=== PATIENT | male | born 1955 | race Two or more races ===

== ENCOUNTER 2019-11-19 11:21 | Day surgery (SDC) | payer MEDICAID, SELFPAY ==
[2019-11-13 10:19] VITALS: BMI 46.1
--- NOTE | 2019-11-18 11:15 | HO.ANESPROP2 ---
Documented by User: Bisi Arechiga 11/18/19 11:19 HPI - Anesthesia Eval Consult details Narrative: 64yo M with chronic Hep C, compensated cirrhosis for EGD PMFSH Past Medical History Medical History (Updated 11/18/19 @ 11:17 by Bisi Arechiga) Anemia Cirrhosis GERD (gastroesophageal reflux disease) Hepatic fibrosis History of substance abuse Hx of hepatitis C Hypertension Osteoarthritis of both knees Pedal edema Surgical History Surgical History (Updated 11/13/19 @ 10:12 by Indira Joseph) History of esophagogastroduodenoscopy (EGD) Hx of appendectomy Hx of endoscopic retrograde cholangiopancreatography Hx of left knee surgery Social History Social History (Updated 11/18/19 @ 11:17 by Bisi Arechiga) Smoking Status: Never smoker Substance Use Type: Former Substance User Advance Directives: No Advance Directives Information Provided: No Advance Directives on File: No Meds Allergies Allergy/AdvReac Type Severity Reaction Status Date / Time No Known Allergies Allergy Verified 11/13/19 10:07 Home Medications Medication Instructions Recorded Confirmed Type ferrous sulfate 325 mg PO BID 11/13/19 11/13/19 History furosemide [Lasix] 40 mg PO DAILY 11/13/19 11/13/19 History methadone 45 mg PO DAILY 11/13/19 11/13/19 History nadolol 40 mg PO DAILY 11/13/19 11/13/19 History omeprazole 20 mg PO DAILY 11/13/19 11/13/19 History oxycodone 5 mg PO Q8H PRN 11/13/19 11/13/19 History spironolactone [Aldactone] 25 mg PO DAILY 11/13/19 11/13/19 History Exam Exam Date and Time: November 18, 2019 1115 Height,Weight and Vital Signs: Height 6 ft 1 in Weight 158.757 kg Pertinent Lab Results Pertinent Lab Results: Laboratory Tests 10/16/19 10/16/19 10/16/19 10:40 10:40 10:40 WBC 2.9 L Hgb 10.9 L Hct 34.8 L Plt Count 58 L PT 14.2 H INR 1.2 H Sodium 139 Potassium 4.7 Chloride 102 Bicarbonate 31 H BUN 25 H Creatinine 1.36 Total Bilirubin 1.0 Direct Bilirubin 0.4 AST 20 ALT 10 Alkaline Phosphatase 118 H Total Protein 8.0 Albumin 3.7 [id number] Hepatitis A IgM Ab Hep Bs Antigen Hep Bs Antibody Hep B Core Total Ab Hepatitis B Interp Hepatitis C Ab (EIA) 10/16/19 10/16/19 10/16/19 10:40 10:40 10:40 WBC Hgb Hct Plt Count PT INR Sodium Potassium Chloride Bicarbonate BUN Creatinine Total Bilirubin Direct Bilirubin AST ALT Alkaline Phosphatase Total Protein Albumin [id number] 158 Hepatitis A IgM Ab NONREACTIVE Hep Bs Antigen NEGATIVE Hep Bs Antibody REACTIVE Hep B Core Total Ab REACTIVE Hepatitis B Interp SEE NOTE Hepatitis C Ab (EIA) REACTIVE H Assessment and Plan Assessment Anesthesia Assessment: Chart Reviewed Documented by User: Ibrahima Rodriguez 11/19/19 12:10 PMFSH Past Medical History Medical History (Updated 11/18/19 @ 11:17 by Bisi Arechiga) Anemia Cirrhosis GERD (gastroesophageal reflux disease) Hepatic fibrosis History of substance abuse Hx of hepatitis C Hypertension Osteoarthritis of both knees Pedal edema Surgical History Surgical History (Updated 11/13/19 @ 10:12 by Indira Joseph) History of esophagogastroduodenoscopy (EGD) Hx of appendectomy Hx of endoscopic retrograde cholangiopancreatography Hx of left knee surgery Social History Social History (Updated 11/18/19 @ 11:17 by Bisi Arechiga) Smoking Status: Never smoker Substance Use Type: Former Substance User Advance Directives: No Advance Directives Information Provided: No Advance Directives on File: No Meds Allergies Allergy/AdvReac Type Severity Reaction Status Date / Time No Known Allergies Allergy Verified 11/13/19 10:07 Home Medications Medication Instructions Recorded Confirmed Type ferrous sulfate 325 mg PO BID 11/13/19 11/13/19 History furosemide [Lasix] 40 mg PO DAILY 11/13/19 11/13/19 History methadone 45 mg PO DAILY 11/13/19 11/13/19 History nadolol 40 mg PO DAILY 11/13/19 11/13/19 History omeprazole 20 mg PO DAILY 11/13/19 11/13/19 History oxycodone 5 mg PO Q8H PRN 11/13/19 11/13/19 History spironolactone [Aldactone] 25 mg PO DAILY 11/13/19 11/13/19 History Exam Airway Mallampati Class: II TM Dist: >3cm Neck ROM: Poor Heart: RRR Assessment and Plan Final Anesthetic Review Final Preanesthetic Review: Consent Obtained/Reviewed Anesthetic Plan Anesthetic Plan: MAC:
[2019-11-19 11:24] VITALS: BP 165/80; PULSE 71; RESP 18; TEMP 36.1; O2SAT 92
[2019-11-19] MEDS: Lactated Ringers 1,000 ML 50 ML IVCONT (11:43)
--- NOTE | 2019-11-19 12:14 | MHC.SHP ---
Pre-Procedural Eval Section B Chief Complaint: cirrhosis Details of Present Illness: variceal screening Relevant Family History (Specify if Yes): No Relevant Social History: None Present Medications: see Short Stay Collaborative assessment Medical History: Significant History (cirrhosis) History of Previous Operations: Relevant previous surgery/procedure and date(s) (appendectomy) Allergies: Allergies Allergy/AdvReac Type Severity Reaction Status Date / Time No Known Allergies Allergy Verified 11/13/19 10:07 Review of Systems Sugical H&P ROS: Negative: Constitution, Cardiovascular, Respiratory, Neurological, Psychiatric, Hem-Onc, Allergic/Immunologic, Gastrointestinal, Genitourinary, Musculoskeletal, Integumentary, Endocrine and Eyes/Ears/Nose/Throat Exam Surgical H&P Exam: Normal: HEENT, Normal: Heart, Normal: Lungs, Normal: Extremities, Normal: Abdomen, Normal: Skin and Normal: Neurological Plan Diagnosis/Plan: Unchanged Patient has been examined and remains a candidate for the planned procedure
--- NOTE | 2019-11-19 12:28 | P.BOP_ITS ---
Brief Operative Note Date of procedure: 11/19/19 Pre-op diagnosis: cirrhosis, varices screening Post-op diagnosis: same Procedure: Procedure Description: EGD FLEXIBLE TRANSORAL UPPER GASTROINTESTINAL ENDOSCOPY UPPER ENDOSCOPY Consent: Indications for the procedure and potential complications of bleeding, perforation, reaction to medications and missed diagnosis were discussed with the patient and informed consent was obtained. Instrument: Olympus GIF H 190 J mid size upper endoscope Monitoring: Vital signs and clinical assessment, continuous EKG monitoring, Pulse oximetry, Carbon Dioxide monitoring and blood pressure monitoring were done throughout the procedure. Procedure: The patient was placed in the left lateral decubitis position and pre-procedure medications were administered and a bite block was placed. The endoscope was inserted into the mouth and advanced under direct vision to the third part of duodenum. A careful inspection was made as the upper endoscope was withdrawn including a retroflexed examination of the proximal stomach; Findings and interventions are described below. Findings: Larynx:normal Esophagus: GE junction at 40 cm, diaphragm hiatus at 40 cm, no varices or eso phagitis. Stomach: Normal appearing mucosa. Biopsies were obtained to r/o h pylori. Grade 2 flap valve on retroflexed examination of the cardia as well as an inflammed polyp measuring about 10 mm which was biopsied, due to oozing 2 clips applied with resolution of bleeding. Duodenum: Mild bulbar duodenitis Intervention: Biopsies as noted above Impression/Findings: gastric polyp, possible hyperplastic duodenitis no varices PLAN: Await bx, depending on bx results may need repeat EGD in 3-6 months if h pylori pos, treat Surgeon: Herve Hill MD Anesthesia: MAC Condition: stable Disposition: PACU
[2019-11-19 12:37] VITALS: BP 150/102; PULSE 86; RESP 16; TEMP 36.4; O2SAT 97
[2019-11-19 12:53] VITALS: BP 142/43; PULSE 87; RESP 17; O2SAT 95
[2019-11-19 13:08] VITALS: BP 155/76; PULSE 74; RESP 14; TEMP 36.4; O2SAT 95
--- NOTE | 2019-11-19 13:38 | HO.POSTANES ---
Post Anesthesia Evaluation Post Anesthesia Evaluation Vital Signs: Vital Signs Temp Pulse Resp BP Pulse Ox 11/19/19 12:37 97.5 F 86 16 150/102 H 97 11/19/19 11:24 97.0 F 71 18 165/80 H 92 Anesthesia: Monitored Mental Status: Awake Pain Control: Satisfactory Nausea/Vomiting: None Hydration: Adequate Anesthesia-Related Issues: No Anes. Related Issues
== END 2019-11-19 13:55 | disposition home or self-care (01) ==
PROVIDERS: PCP Internal Medicine Geriatric Medicine; Visit Provider Internal Medicine Gastroenterology
PROC: 0DJ08ZZ Inspection of Upper Intestinal Tract, Via Natural or Artificial Opening Endoscopic (ICD-10-PCS; CPT 43235; principal; 2019-11-19 12:20)
DX: K74.60 Unspecified cirrhosis of liver (principal); K31.7 Polyp of stomach and duodenum; K29.80 Duodenitis without bleeding; K44.9 Diaphragmatic hernia without obstruction or gangrene; I10 Essential (primary) hypertension; Z79.899 Other long term (current) drug therapy
CPT/HCPCS: 43239; 88305; 88342

== ENCOUNTER → 2020-01-12 08:15 | Outpatient (BNVA) | payer MEDICAID, SELFPAY | PROVIDERS: PCP Internal Medicine Geriatric Medicine; Referring Provider Internal Medicine Geriatric Medicine; Visit Provider Internal Medicine Gastroenterology | DX: Z76.89 Persons encountering health services in other specified circumstances (principal) ==

== ENCOUNTER 2020-01-22 12:53 | Outpatient (RCR) | payer MEDICAID, MEDICARE, SELFPAY | END 2020-05-27 10:38 | disposition home or self-care (01) | LOC: HO.WCC 12:53 | PROVIDERS: Visit Provider Surgery | DX: I87.312 Chronic venous hypertension (idiopathic) with ulcer of left lower extremity (principal); L97.812 Non-pressure chronic ulcer of other part of right lower leg with fat layer exposed; M06.861 Other specified rheumatoid arthritis, right knee; Z79.2 Long term (current) use of antibiotics; Z86.19 Personal history of other infectious and parasitic diseases | CPT/HCPCS: 11042; 11045; 15271; 15272; 15275; 99212; 99215; Q4101 ==

== ENCOUNTER 2020-01-28 10:55 | Outpatient (REF) | payer MEDICAID, SELFPAY ==
--- NOTE | 2020-01-28 | XR_ITS ---
EXAMINATION: XR ANKLE, RIGHT CLINICAL INFORMATION: Right ankle pain COMPARISON: None TECHNIQUE: AP, lateral, and mortise views of the right ankle. FINDINGS: There is small oval ossification at tip medial malleolus likely old ossicle. Possibility of acute avulsion cannot be completely excluded. Clinically correlate. The malleoli are otherwise intact and the ankle mortise is symmetric. The talar dome shows no osteochondral lesion. There is no joint narrowing or destructive process or erosive change. Dorsal spurring present distal talus and midfoot. There is moderate plantar calcaneal spur. XR/XR ankle RT min 3V IMPRESSION: 1. Small oval ossification at tip medial malleolus likely old ossicle. Acute cortical avulsion cannot be completely excluded. Clinically correlate. 2. Dorsal spurring distal talus and midfoot. Plantar calcaneal spur.
--- NOTE | 2020-01-28 | US_ITS ---
EXAMINATION: US VENOUS ULTRASOUND WITH DOPPLER LOWER EXTREMITY, LEFT CLINICAL INFORMATION: Left leg pain COMPARISON: Previous exam February 2018 TECHNIQUE: Ultrasound of the deep veins is performed from the hip to the calf with compression sonography and color and pulse Doppler assessment. Spectral analysis with color-flow imaging is performed. FINDINGS: There is normal venous compression and respiratory variation and augmented flow. The visualized common femoral vein, superficial femoral vein, profunda femoral vein, and popliteal vein shows no evidence of deep venous thrombosis. Calf veins are not visualized. There is no significant popliteal fossa cyst. There is left inguinal lymphadenopathy. Lymph nodes are enlarged, largest measuring 5.3 x 2 x 4.3 cm. These demonstrate normal ultrasound morphology and flow and may be reactive. US/US venous duplex LE LT IMPRESSION: No DVT demonstrated in the left lower extremity from the groin to the knee. Calf veins not well visualized and not evaluated.
== END 2020-01-28 10:56 | disposition home or self-care (01) ==
LOC: HO.XRAY 10:55
PROVIDERS: PCP Internal Medicine Geriatric Medicine; Visit Provider Surgery
DX: I87.312 Chronic venous hypertension (idiopathic) with ulcer of left lower extremity (principal); L97.822 Non-pressure chronic ulcer of other part of left lower leg with fat layer exposed; M25.472 Effusion, left ankle; M79.662 Pain in left lower leg
CPT/HCPCS: 73610; 93971

== ENCOUNTER 2020-03-04 09:19 | Outpatient (REF) | payer MEDICAID, SELFPAY ==
--- NOTE | 2020-03-04 10:58 | XR_ITS ---
EXAMINATION: XR KNEE, BILATERAL XR KNEE, RIGHT CLINICAL INFORMATION: Right knee pain. COMPARISON: 03/01/2017 TECHNIQUE: AP standing view of both knees. Lateral and sunrise views of the right knee. FINDINGS: Right knee: No fracture or subluxation. There is severe medial compartment joint space narrowing with genu varum. Sclerosis along the medial compartment with prominent subchondral cyst formation. There is also narrowing of patellofemoral compartment. Tricompartmental marginal osteophytes. No joint effusion. The soft tissues are unremarkable. Left knee: No fracture or subluxation. Moderate narrowing of the medial and lateral compartments with prominent osteophytes and sclerosis. XR/XR knee standing BI IMPRESSION: Advanced tricompartmental degenerative changes of the right knee, greatest at the medial compartment. This is similar to prior. Degenerative changes of the left knee are also similar to prior on this single view.
--- NOTE | 2020-03-04 10:58 | XR_ITS ---
EXAMINATION: XR KNEE, BILATERAL XR KNEE, RIGHT CLINICAL INFORMATION: Right knee pain. COMPARISON: 03/01/2017 TECHNIQUE: AP standing view of both knees. Lateral and sunrise views of the right knee. FINDINGS: Right knee: No fracture or subluxation. There is severe medial compartment joint space narrowing with genu varum. Sclerosis along the medial compartment with prominent subchondral cyst formation. There is also narrowing of patellofemoral compartment. Tricompartmental marginal osteophytes. No joint effusion. The soft tissues are unremarkable. Left knee: No fracture or subluxation. Moderate narrowing of the medial and lateral compartments with prominent osteophytes and sclerosis. XR/XR knee RT 2V IMPRESSION: Advanced tricompartmental degenerative changes of the right knee, greatest at the medial compartment. This is similar to prior. Degenerative changes of the left knee are also similar to prior on this single view.
== END 2020-03-04 09:20 | disposition home or self-care (01) ==
LOC: HO.HOSX 09:19
PROVIDERS: Visit Provider Physician Assistant
DX: M17.11 Unilateral primary osteoarthritis, right knee (principal)
CPT/HCPCS: 20610; 73560; 73565; 99212; J1040

== ENCOUNTER 2020-03-18 07:46 | Outpatient (REF) | payer MEDICAID, SELFPAY ==
--- NOTE | ~2020-03-18 | US_ITS ---
EXAMINATION: US ABDOMEN COMPLETE CLINICAL INFORMATION: Cirrhosis of liver. COMPARISON: Limited abdominal ultrasound with elastography 10/16/2019. Ultrasound abdomen complete 03/21/2019. CT abdomen and pelvis 01/12/2018. MRI abdomen 12/05/2014. TECHNIQUE: Real-time imaging of the abdominal viscera. FINDINGS: PANCREAS: Most of the pancreas is obscured by gas. ABDOMINAL AORTA: The proximal, mid, and distal segments are normal in caliber. INFERIOR VENA CAVA: Visualized portions are normal. LIVER: The liver is normal in size. The liver contour is normal. There is diffuse increased liver echogenicity. No focal hepatic lesion. There is no intrahepatic biliary duct dilatation seen. GALLBLADDER: Normal. The gallbladder is physiologically distended without evidence of stones, sludge, polyps, wall thickening or pericholecystic fluid. COMMON BILE DUCT: Normal in caliber measuring 0.6 cm in diameter. RIGHT KIDNEY: Normal. No hydronephrosis. No renal calculi or focal parenchymal lesions. The kidney measures 11.0 cm in maximum dimension. LEFT KIDNEY: Normal. No hydronephrosis. No renal calculi or focal parenchymal lesions. The kidney measures 11.0 cm in maximum dimension. SPLEEN: The spleen is enlarged. The spleen measures 16.1 cm in maximum dimension. FREE FLUID: None. US/US abdomen complete IMPRESSION: Coarse increased echogenicity of the liver, likely cirrhosis. No focal lesion seen. Mild splenomegaly measuring 16.1 cm. The rest of the abdominal ultrasound is unremarkable.
== END 2020-03-18 07:47 | disposition home or self-care (01) ==
LOC: HO.US 07:46
PROVIDERS: Visit Provider Internal Medicine Geriatric Medicine
DX: K74.60 Unspecified cirrhosis of liver (principal)
CPT/HCPCS: 76700

== ENCOUNTER 2020-05-01 12:54 | Inpatient (IN) | payer MEDICAID, SELFPAY ==
[2020-05-01] VITALS (8 sets, daily range): BP systolic 122–167; BP diastolic 61–110; PULSE 78–128; RESP 18–20; TEMP 36.1–37.4; O2SAT 92–98; BMI 45.5
--- NOTE | ~2020-05-01 | US_ITS ---
EXAMINATION: LEFT LOWER EXTREMITY DEEP VENOUS ULTRASOUND CLINICAL INFORMATION: Question DVT COMPARISON: Left lower extremity DVT study 01/28/2020 TECHNIQUE: Duplex Doppler imaging with compression maneuvers were performed of the left lower extremity deep venous system. Examination limited secondary to patient body habitus. FINDINGS: The visualized common femoral, femoral and popliteal veins demonstrate normal compressibility and color flow without evidence of venous thrombosis. Evaluation of the superficial femoral vein is significantly limited due to patient body habitus. Visualized portions of the calf veins demonstrate normal color fill-in suggesting patency. There is no evidence of a Muller's cyst. Several enlarged lymph nodes are again identified within the left groin. These lymph nodes again demonstrate a normal morphology. US/US venous duplex LE LT IMPRESSION: No evidence of deep venous thrombosis involving the left lower extremity.
--- NOTE | 2020-05-01 13:15 | PC.NURSE ---
patient a&ox3, ble swelling 3+ edema, vitals stable, gambling monitor sinus tach, will continue to monitor
--- NOTE | 2020-05-01 13:34 | ED_ITS ---
HPI - General Adult General Chief complaint: Extremity Injury, Lower Stated complaint: leg pain Time Seen by Provider: 05/01/20 13:10 History of Present Illness HPI narrative: 64 years old male with history of polysubstance abuse, anemia, thrombocytopenia, hep C presented with a chief complaint of left leg pain, eye redness x2 days. Ten days ago was diagnosed a week ago with the he does not have any cough Onset (ago): day(s) (2) Related Data Home Medications Medication Instructions Recorded Confirmed ferrous sulfate 325 mg PO BID 11/13/19 05/01/20 furosemide [Lasix] 40 mg PO DAILY 11/13/19 05/01/20 methadone 45 mg PO DAILY 11/13/19 11/13/19 omeprazole 20 mg PO DAILY 11/13/19 05/01/20 oxycodone 5 mg PO Q8H PRN 11/13/19 05/01/20 spironolactone [Aldactone] 12.5 mg PO DAILY 11/13/19 05/01/20 propranolol 1 tab PO BID 05/01/20 05/01/20 Allergies Allergy/AdvReac Type Severity Reaction Status Date / Time No Known Allergies Allergy Verified 11/13/19 10:07 Review of Systems Review of Systems: Yes all other systems are reviewed and are negative PMFSH Past Medical History Medical History Anemia Cirrhosis COVID-19 GERD (gastroesophageal reflux disease) Hepatic fibrosis History of substance abuse Hx of hepatitis C Hypertension Osteoarthritis of both knees Pedal edema Surgical History History of esophagogastroduodenoscopy (EGD) Hx of appendectomy Hx of endoscopic retrograde cholangiopancreatography Hx of left knee surgery Family History Family History Father No problems noted. Mother No problems noted. Social History Social History (Updated 05/01/20 @ 17:50 by KEMI Sultana) Household Members: None Housing: Apartment Do you presently have visiting nurse or other home services: Yes Alcohol intake: former Smoking Status: Never smoker Patient Given Instructions on How to Stop Smoking: No Second Hand Smoke Exposure: No Use of substances other than those prescribed or required for medical reasons: No Substance Use Type: Former Substance User Currently Displaying Signs/Symptoms of Drug Intoxication Withdrawal: No Any prior treatment program specific to substance use: Yes ([facility]) Have you been hit, kicked, punched, or otherwise hurt by someone within the past year? If so, by whom?: No Do you feel safe in your current relationship?: No Current Relationship Is there a partner from a previous relationship who is making you feel unsafe now?: No Are you made to feel afraid or neglected: No Protestant Healthcare Practices: amish Advance Directives: No Advance Directives Information Provided: No Advance Directives on File: No Do you have thoughts of harming others: None Do you have a plan to hurt others: No Plan Recently lost weight without trying: No Physical Exam Vital Signs: Vital Signs: Last Vital Signs Temp 97.2 F 05/02/20 03:37 Pulse 68 05/02/20 03:37 Resp 18 05/02/20 03:37 BP 135/68 05/02/20 03:37 Pulse Ox 94 05/02/20 03:37 Body Mass Index 45.5 Const: Other: Patient is awake and alert HENMT: Other: Head eyes nose throat within normal Neck: Neck: Yes normal visual inspection Chest: Chest palpation & inspection: normal inspection of the chest and normal palpation of entire chest wall Resp: Effort & Inspection: normal respiratory effort Cardio: Rate: regular rate Rhythm: regular rhythm GI: Other: Underwent soft not tender Skin: Other: On the left lower extremity has redness the warm left leg, he has excellent pulses in the foot, there is no crepitus. Neuro: Cranial nerves: Yes CN's II-XII intact bilaterally and Yes Facial sensation intact/muscles of mastication intact Cognition (Neuro): normal cognition Course Reevaluation(s) Reevaluation #1: Patient remained stable antibiotic administered Time: 16:34 Reevaluation #2: Remain stable no new complain case was discussed with the hospitalist who accepted the patient. At this time of the chemistry is pending the 1st sample was hemolyzed and the patient need another blood draw, this was communicated to the hospitalist he will follow-up with the chemistry Medical Decision Making MDM Narrative Medical decision making narrative: Patient is normotensive with a blood pressure 136/66 and MAP 89, lactic acid is is mildly elevated is reflecting most likely the story of chronic liver disease of the patient. I do not think this patient is septic , sofa score is negative Lab Data Lab results reviewed: Yes I reviewed the patient's lab results. Result diagrams: 05/01/20 14:01 05/01/20 22:39 Labs: Lab Results 05/01/20 05/01/20 05/01/20 Range/Units 14:00 14:01 14:01 WBC 2.8 L (4.8-10.8) X10*3/uL RBC 4.46 L (4.60-5.80) X10*6/uL Hgb 12.6 L (14.0-18.0) g/dl Hct 41.0 L (42-52) % MCV 91.9 (80-98) fL MCH 28.3 (27.0-33.0) pg MCHC 30.7 L (31.0-36.0) g/dl RDW 14.2 (11.0-16.0) % Plt Count 90 L (160-400) X10*3/uL MPV 12.6 H (9.4-12.4) fL Immature Gran % (Auto) 2.2 H (0.0-0.4) % Neut % (Auto) 64.5 (45-73) % Lymph % (Auto) 17.7 L (20-40) % [place] % (Auto) 15.2 H (2-11) % Eos % (Auto) 0.4 (0-4) % Baso % (Auto) 0.0 (0-2) % Lymph # (Auto) 0.5 L (1.2-4.9) X10*3/uL [place] # (Auto) 0.4 (0.1-1.2) X10*3/uL Eos # (Auto) 0.0 (0.0-0.4) X10*3/uL Baso # (Auto) 0.0 (0.0-0.2) X10*3/uL Abs Immat Gran (auto) 0.06 H (0.00-0.03) X10*3/uL Absolute Neuts (auto) 1.8 L (2.0-8.3) X10*3/uL Absolute Nucleated RBC 0.000 (0.0-0.012) X10*3/uL Nucleated RBC % (auto) 0.0 (0.0-0.2) /100WBC Smear Tech's Comments VERIFIED ESR 77 H (0-15) MM/HR PT (10.8-13.0) SEC INR (0.9-1.1) Sodium (135-145) mmol/L Potassium (3.3-5.1) mmol/L Chloride (96-108) mmol/L Carbon Dioxide (22-29) mmol/L Anion Gap (12-20) BUN (9-16) mg/dL Creatinine (0.5-1.4) mg/dL Estim Creat Clear Calc Estimated GFR Random Glucose (60-115) mg/dL Lactic Acid 2.9 H* (0.5-2.0) mmol/L Calcium (8.4-10.2) mg/dL Total Bilirubin (0.0-1.0) mg/dL AST (5-37) U/L ALT (0-40) U/L Alkaline Phosphatase (39-117) U/L C-Reactive Protein (< or = 0.50) mg/dL Total Protein (6.5-8.0) g/dL Albumin (3.5-5.0) g/dL 05/01/20 05/01/20 Range/Units 14:01 15:45 WBC (4.8-10.8) X10*3/uL RBC (4.60-5.80) X10*6/uL Hgb (14.0-18.0) g/dl Hct (42-52) % MCV (80-98) fL MCH (27.0-33.0) pg MCHC (31.0-36.0) g/dl RDW (11.0-16.0) % Plt Count (160-400) X10*3/uL MPV (9.4-12.4) fL Immature Gran % (Auto) (0.0-0.4) % Neut % (Auto) (45-73) % Lymph % (Auto) (20-40) % [place] % (Auto) (2-11) % Eos % (Auto) (0-4) % Baso % (Auto) (0-2) % Lymph # (Auto) (1.2-4.9) X10*3/uL [place] # (Auto) (0.1-1.2) X10*3/uL Eos # (Auto) (0.0-0.4) X10*3/uL Baso # (Auto) (0.0-0.2) X10*3/uL Abs Immat Gran (auto) (0.00-0.03) X10*3/uL Absolute Neuts (auto) (2.0-8.3) X10*3/uL Absolute Nucleated RBC (0.0-0.012) X10*3/uL Nucleated RBC % (auto) (0.0-0.2) /100WBC Smear Tech's Comments ESR (0-15) MM/HR PT 15.5 H (10.8-13.0) SEC INR 1.3 H (0.9-1.1) Sodium 143 (135-145) mmol/L Potassium 3.1 L (3.3-5.1) mmol/L Chloride 120 H (96-108) mmol/L Carbon Dioxide 17 L (22-29) mmol/L Anion Gap 9 L (12-20) BUN 13 (9-16) mg/dL Creatinine 0.64 (0.5-1.4) mg/dL Estim Creat Clear Calc 182.3 Estimated GFR > 60 Random Glucose 108 (60-115) mg/dL Lactic Acid (0.5-2.0) mmol/L Calcium 4.7 L* (8.4-10.2) mg/dL Total Bilirubin 0.5 (0.0-1.0) mg/dL AST 20 (5-37) U/L ALT 11 (0-40) U/L Alkaline Phosphatase 52 (39-117) U/L C-Reactive Protein 6.72 H (< or = 0.50) mg/dL Total Protein 4.3 L (6.5-8.0) g/dL Albumin 1.7 L (3.5-5.0) g/dL Discharge Plan Discharge Clinical Impression: Cellulitis and abscess of left leg, Pancytopenia Patient Disposition: Admitted As Inpatient Interventions: Admission Worksheet (ED) Last Done: 05/01/20 21:47 Discharge Date/Time: 05/01/20 21:48
[2020-05-01 14:10] LABS: Eosinophils Percent Auto 0.4 % (0-4); Hemoglobin 12.6 g/dl (14.0-18.0); Imm Gran Abs Auto 0.06 X10*3/uL (0.00-0.03); Imm Gran Pct Auto 2.2 % (0.0-0.4); Lymphocytes Absolute Auto 0.5 X10*3/uL (1.2-4.9); Lymphocytes Percent Auto 17.7 % (20-40); MANUAL DIFF FLAG SCAN; Mean Corpuscular HGB Conc 30.7 g/dl (31.0-36.0); Mean Corpuscular Hemoglobin 28.3 pg (27.0-33.0); Mean Corpuscular Volume 91.9 fL (80-98); Mean Platelet Volume 12.6 fL (9.4-12.4); Monocytes Absolute Auto 0.4 X10*3/uL (0.1-1.2); Monocytes Percent Auto 15.2 % (2-11); Neutrophils Absolute Auto 1.8 X10*3/uL (2.0-8.3); Neutrophils Percent Auto 64.5 % (45-73); Red Blood Count 4.46 X10*6/uL (4.60-5.80); Red Cell Distribution Width 14.2 % (11.0-16.0); SCAN SMEAR FLAG 1; White Blood Count 2.8 X10*3/uL (4.8-10.8)
[2020-05-01 14:11] LABS: Platelet Count 90 X10*3/uL (160-400)
[2020-05-01 14:17] LABS: INTERNATIONAL NORM RATIO 1.3 (0.9-1.1); Prothrombin Time 15.5 SEC (10.8-13.0)
[2020-05-01 14:30] LABS: SLIDE REVIEW VERIFIED
[2020-05-01] MEDS: vancomycin HCL 1,500 MG in 0.9 % Sodium Chloride 500 ML 333.33 MG IV (14:34)
--- NOTE | 2020-05-01 14:38 | PC.NURSE ---
iv inserted, labs drawn, pt medicated per order, will continue to monitor.
[2020-05-01 14:53] LABS: Lactic Acid 2.9 mmol/L (0.5-2.0)
[2020-05-01 14:54] LABS: Erythrocyte Sedimentation Rate 77 MM/HR (0-15)
[2020-05-01] MEDS: 0.9 % Sodium Chloride 1,000 ML 999 ML IVCONT (14:59)
--- NOTE | 2020-05-01 15:00 | PC.NURSE ---
ivf started per order
[2020-05-01 15:02] LABS: Blood Urea Nitrogen 13 mg/dL (9-16); Estimated Glomerular Filt Rate > 60
[2020-05-01 16:07] LABS: Reflex Lactate? Lactic Acid Added
--- NOTE | 2020-05-01 16:35 | PC.NURSE ---
patients ivf continue to run at this time as patient has been re-educated to keep arm straight to keep them flowing, will continue to monitor.
[2020-05-01 16:57] LABS: Alanine Aminotransferase 11 U/L (0-40); Albumin Level 1.7 g/dL (3.5-5.0); Alkaline Phosphatase 52 U/L (39-117); Anion Gap 9 (12-20); Aspartate Amino Transferase 20 U/L (5-37); Bilirubin Total 0.5 mg/dL (0.0-1.0); C Reactive Protein 6.72 mg/dL (< or = 0.50); Calcium 4.7 mg/dL (8.4-10.2); Carbon Dioxide 17 mmol/L (22-29); Chloride 120 mmol/L (96-108); Creatinine Clr Calc Pharmacy 182.3; Glucose Random 108 mg/dL (60-115); Potassium 3.1 mmol/L (3.3-5.1); Sodium 143 mmol/L (135-145); Total Protein 4.3 g/dL (6.5-8.0)
--- NOTE | 2020-05-01 17:06 | PM.EVENT ---
Event Note Date of Service: 05/01/20 Event Note: Admission note the patient was seen and evaluated with KEMI Navarrete. I agree with her note, assessment and plan with the following. A64 years old male with PMHx of Cirrhosis, Anemia, HTN, Hepatitis, PVD among others with recent Covid19 infection who presented to the hospital with worsening left lower extremity swelling and pain with reported erythema and tenderness over the last week or so. The patient has been less active recently as he was diagnosed with COVID-19 10 days ago. It has history of cirrhosis with seems like chronic stasis dermatitis. He denies any fever, chills, chest pain, shortness of breath. Admitted for further evaluation and treatment. Left lower extremity cellulitis Ultrasound negative for DVT Blood culture sent Started on clindamycin To get ID eval Covid 19 infx repeat the test, isolate if +ve Rest of evaluations by PA note.
--- NOTE | 2020-05-01 17:17 | P.HPHOSP_ITS ---
History of Present Illness Date of Service: 05/01/20 Chief Complaint: leg pain This is a 64-year-old male with a history of liver cirrhosis who presents to the emergency department with pain in his left leg. His pain began overnight. He denies any associated fevers or chills. He has also noticed redness of his left leg. He has chronic bilateral wounds on both lower extremities which he reports have been present for some time. Lab work was significant for pancytopenia which is chronic due to underlying liver disease. Lactic acid was elevated at 2.9. Potassium low at 3.1 and calcium 4.7. These were supplemented. He had ultrasound of his left leg which was negative for DVT. He was given a dose of IV vancomycin for his left lower extremity cellulitis. Of note patient recently tested positive for covid-19. He denies any shortness of breath or cough and is currently saturating 93% on room air. Review of Systems Review of Systems: Yes all other systems are reviewed and are negative Constitutional: Constitutional: Denies chills and Denies fever(s) Cardiovascular: Cardiovascular: Denies chest pain Respiratory: Respiratory: Denies cough Gastrointestinal: Gastrointestinal: Denies abdominal pain [facility] Medical History Anemia Cirrhosis COVID-19 GERD (gastroesophageal reflux disease) Hepatic fibrosis History of substance abuse Hx of hepatitis C Hypertension Osteoarthritis of both knees Pedal edema Family History Father No problems noted. Mother No problems noted. Surgical History History of esophagogastroduodenoscopy (EGD) Hx of appendectomy Hx of endoscopic retrograde cholangiopancreatography Hx of left knee surgery Social History (Updated 05/01/20 @ 17:50 by KEMI Sultana) Alcohol intake: former Smoking Status: Never smoker Use of substances other than those prescribed or required for medical reasons: No Substance Use Type: Former Substance User Advance Directives: No Advance Directives Information Provided: No Meds Allergies Allergy/AdvReac Type Severity Reaction Status Date / Time No Known Allergies Allergy Verified 11/13/19 10:07 Active Medications: Current Medications Generic Name Dose Route Start Last Admin Trade Name Freq PRN Reason Stop Dose Admin Calcium Gluconate 2 gm in 100 mls @ 50 mls/hr 05/01/20 16:59 Calcium Gluconate IV 05/01/20 18:58 ONCE ONE Home Medications Medication Instructions Recorded Confirmed Last Taken Type ferrous sulfate 325 mg PO BID 11/13/19 05/01/20 Unknown History furosemide [Lasix] 40 mg PO DAILY 11/13/19 05/01/20 Unknown History methadone 45 mg PO DAILY 11/13/19 11/13/19 Unknown History omeprazole 20 mg PO DAILY 11/13/19 05/01/20 Unknown History oxycodone 5 mg PO Q8H PRN 11/13/19 05/01/20 Unknown History spironolactone [Aldactone] 12.5 mg PO DAILY 11/13/19 05/01/20 Unknown History propranolol 1 tab PO BID 05/01/20 05/01/20 Unknown History Physical Exam Vital Signs and Narrative: Vital Signs: Last Vital Signs Temp 98.5 F 05/01/20 16:00 Pulse 103 H 05/01/20 16:00 Resp 18 05/01/20 16:00 BP 142/70 H 05/01/20 16:00 Pulse Ox 95 05/01/20 16:00 Body Mass Index 45.5 Const: Nutritional Appearance: obese Orientation/consciousness: patient oriented x3 HENMT: Head: Yes normocephalic and Yes atraumatic Eyes: Sclerae: sclerae normal Chest: Chest palpation & inspection: normal inspection of the chest Resp: Effort & Inspection: normal respiratory effort and no respiratory distress Cardio: Rate: regular rate Rhythm: regular rhythm GI: Palpation (GI): Soft to palpation and nontender Skin: Other: left leg erythema from ankle to knee. b/l shallow ulcers b/l ankles Neuro: General: patient oriented x3 Cranial nerves: Yes CN's II-XII intact bilaterally and Yes Bilaterally intact EOM present Results Labs CBC and Chem 7: 05/01/20 14:01 05/01/20 15:45 Labs: Laboratory Results - last 24 hr 05/01/20 05/01/20 05/01/20 14:00 14:01 14:01 MCV 91.9 MCH 28.3 MCHC 30.7 L RDW 14.2 Plt Count 90 L MPV 12.6 H Immature Gran % (Auto) 2.2 H Neut % (Auto) 64.5 Lymph % (Auto) 17.7 L Valencia % (Auto) 15.2 H Eos % (Auto) 0.4 Baso % (Auto) 0.0 Lymph # (Auto) 0.5 L Valencia # (Auto) 0.4 Eos # (Auto) 0.0 Baso # (Auto) 0.0 Abs Immat Gran (auto) 0.06 H Absolute Neuts (auto) 1.8 L Absolute Nucleated RBC 0.000 Nucleated RBC % (auto) 0.0 Smear Tech's Comments VERIFIED ESR 77 H PT INR Anion Gap Estim Creat Clear Calc Estimated GFR Random Glucose Lactic Acid 2.9 H* Calcium Total Bilirubin AST ALT Alkaline Phosphatase C-Reactive Protein Total Protein Albumin 05/01/20 05/01/20 14:01 15:45 MCV MCH MCHC RDW Plt Count MPV Immature Gran % (Auto) Neut % (Auto) Lymph % (Auto) Valencia % (Auto) Eos % (Auto) Baso % (Auto) Lymph # (Auto) Valencia # (Auto) Eos # (Auto) Baso # (Auto) Abs Immat Gran (auto) Absolute Neuts (auto) Absolute Nucleated RBC Nucleated RBC % (auto) Smear Tech's Comments ESR PT 15.5 H INR 1.3 H Anion Gap 9 L Estim Creat Clear Calc 182.3 Estimated GFR > 60 Random Glucose 108 Lactic Acid Calcium 4.7 L* Total Bilirubin 0.5 AST 20 ALT 11 Alkaline Phosphatase 52 C-Reactive Protein 6.72 H Total Protein 4.3 L Albumin 1.7 L Imaging Radiologist's Impressions: Impressions Venous Duplex 05/01/20 13:26 IMPRESSION: No evidence of deep venous thrombosis involving the left lower extremity. Assessment and Plan (1) Pancytopenia: Status: Acute (2) Hypocalcemia: Status: Acute (3) Cellulitis: Status: Acute This is a 64-year-old male with a history of hepatitis C, liver cirrhosis, anemia, history of polysubstance abuse on methadone, recently diagnosed COVID- 19 who presents to the emergency department with left leg pain found to cellulitis and incidentally found to have hypo calcemia Left lower extremity cellulitis No evidence of sepsis Lactic acid is elevated secondary to underlying liver dysfunction not sepsis -IV clindamycin -ID consult Pancytopenia Related to underlying liver disease Thrombocytopenia not related to sepsis -continue iron supplementation Liver cirrhosis Hold Lasix -continue spironolactone -continue propanolol Hypocalcemia Corrected for albumin 6.5 Received calcium gluconate -obtain EKG -repeat in a.m. COVID 19 Tested positive approximately 10 days ago Asymptomatic. No hypoxia No indication for dexamethasone History of substance abuse Continue methadone when dose has been confirmed Morbid obesity BMI 45.5, likely contributing to venous stasis, chronic leg edema, underlying leg wounds and cellulitis Elevated lactic acid Related underlying liver disease DVT prophylaxis-early ambulation, chemoprophylaxis contraindicated due to thrombocytopenia/anemia Code status-full code This case was discussed with Dr. Watson
[2020-05-01] MEDS: Calcium Gluconate/NaCl,Iso-Osm 2 GM/100 ML PLAST..BAG IV (17:25)
[2020-05-01] MEDS: Potassium Chloride Packet 20 MEQ PACKET 40 MEQ PO (17:25)
--- NOTE | 2020-05-01 17:27 | PC.NURSE ---
pt medicated per order, vss
--- NOTE | 2020-05-01 17:57 | ECG_ITS ---
Test Reason : GENERAL MEDICAL Blood Pressure : / mmHG Vent. Rate : 097 BPM Atrial Rate : 097 BPM P-R Int : 226 ms QRS Dur : 100 ms QT Int : 362 ms P-R-T Axes : 078 004 052 degrees QTc Int : 459 ms Sinus rhythm with 1st degree A-V block Otherwise normal ECG No significant changes when compared with the previous EKG of 26 nov 2014 Referred By: Marcela Duncan Electronically Signed By:SHAHIDA DAWKINS
[2020-05-01 18:07] LABS: ~Lactic Acid-LAB USE ONLY 1.1 mmol/L (0.5-2.0)
[2020-05-01 18:10] LABS: COVID-19 Test Positive (Negative)
--- NOTE | 2020-05-01 19:30 | PC.NURSE ---
pt encourged to keep arm straight to allow ivf to infuse properly, will continue to monitor.
--- NOTE | 2020-05-01 20:27 | PC.NURSE ---
report called to floor
--- NOTE | 2020-05-01 21:48 | PC.NURSE ---
patient went to the floor with tech, upon going to the retail selling floor leader came back stating that the patient was upset that he wasnt told he was covid positive. the patient came into the ED tonight as known covid positive and was placed in the covid area of the ED for lower extremity pain not for covid symptoms
[2020-05-01] MEDS: Propranolol HCL 40 MG TABLET PO (22:42)
[2020-05-01] MEDS: 0.9 % Sodium Chloride Flush 3 ML SYRINGE IVFLUSH (22:43)
[2020-05-01] MEDS: Ferrous Sulfate 324 MG TABLET.DR PO (22:43)
[2020-05-01] MEDS: Clindamycin Phosphate/D5W 600 MG/50 ML PIGGYBACK 100 MG IV (22:43)
[2020-05-01 23:28] LABS: Magnesium 1.9 mg/dL (1.6-2.6); Potassium 4.5 mmol/L (3.3-5.1)
[2020-05-02] VITALS (9 sets, daily range): BP systolic 112–141; BP diastolic 61–79; PULSE 61–68; RESP 18–22; TEMP 35.5–36.6; O2SAT 94–96
[2020-05-02] MEDS: Clindamycin Phosphate/D5W 600 MG/50 ML PIGGYBACK 100 MG IV ×3 (05:22→19:59)
[2020-05-02] MEDS: Omeprazole 20 MG CAPSULE.DR PO (05:23)
[2020-05-02 07:12] LABS: Basophils Percent Auto 0.3 % (0-2); Eosinophils Absolute Auto 0.1 X10*3/uL (0.0-0.4); Eosinophils Percent Auto 1.6 % (0-4); Hemoglobin 12.3 g/dl (14.0-18.0); Imm Gran Abs Auto 0.07 X10*3/uL (0.00-0.03); Imm Gran Pct Auto 2.2 % (0.0-0.4); Lymphocytes Absolute Auto 0.8 X10*3/uL (1.2-4.9); Lymphocytes Percent Auto 25.6 % (20-40); MANUAL DIFF FLAG SCAN; Mean Corpuscular HGB Conc 31.5 g/dl (31.0-36.0); Mean Corpuscular Hemoglobin 28.6 pg (27.0-33.0); Mean Corpuscular Volume 90.7 fL (80-98); Mean Platelet Volume 12.3 fL (9.4-12.4); Monocytes Absolute Auto 0.5 X10*3/uL (0.1-1.2); Monocytes Percent Auto 15.7 % (2-11); Neutrophils Absolute Auto 1.7 X10*3/uL (2.0-8.3); Neutrophils Percent Auto 54.6 % (45-73); Red Cell Distribution Width 14.4 % (11.0-16.0); SCAN SMEAR FLAG 1; White Blood Count 3.1 X10*3/uL (4.8-10.8)
[2020-05-02 07:31] LABS: Platelet Count 92 X10*3/uL (160-400)
[2020-05-02 07:41] LABS: Alanine Aminotransferase 16 U/L (0-40); Albumin Level 2.7 g/dL (3.5-5.0); Alkaline Phosphatase 83 U/L (39-117); Aspartate Amino Transferase 32 U/L (5-37); Bilirubin Direct 0.6 mg/dL (0.0-0.5); Total Protein 7.2 g/dL (6.5-8.0)
[2020-05-02 08:43] LABS: SLIDE REVIEW VERIFIED
[2020-05-02] MEDS: Spironolactone 25 MG TABLET 12.5 MG PO (08:53)
[2020-05-02] MEDS: Ferrous Sulfate 324 MG TABLET.DR PO ×2 (08:54→19:59)
[2020-05-02] MEDS: 0.9 % Sodium Chloride Flush 3 ML SYRINGE IVFLUSH ×2 (08:55→17:14)
[2020-05-02] MEDS: Propranolol HCL 40 MG TABLET PO ×2 (08:55→19:59)
--- NOTE | 2020-05-02 11:15 | MHC.CM.PN ---
Patient is on the Covid Unit; CM attempted to call First Contact/Brother/Serg @ [phone], but spoke instead with the family member who was available. Patient lives in a house with his adult Son and he uses 2 canes or crutches to assist with mobility. Family believes Patient is active with [facility] for wound care and the goal for dc is for Patient to return home, with resumption of these services. CM has initiated and will follow for dc planning. PCP is Dr. Jose Arteaga.
--- NOTE | 2020-05-02 11:21 | MHC.CM.PN ---
[facility] has confirmed that Patient us active with them.
--- NOTE | 2020-05-02 13:30 | HO.PM.IMPN ---
Subjective Subjective Date of Service: 05/02/20 <KEMI Sultana - Last Filed: 05/02/20 13:54> 05/02/20 <Ana Watts MD - Last Filed: 05/02/20 14:57> Interval History: f/u leg cellulitis, hypocalcemia 9 beat run of Vtach overnight, asymptomatic Notes improvement in left leg redness, no complaints this am <KEMI Sultana - Last Filed: 05/02/20 13:54> Review of Systems Review of Systems: Yes all other systems are reviewed and are negative <KEMI Sultana - Last Filed: 05/02/20 13:54> Constitutional Constitutional: Denies chills and Denies fever(s) <KEMI Sultana - Last Filed: 05/02/20 13:54> Cardiovascular Cardiovascular: Denies chest pain and Denies palpitations <KEMI Sultana - Last Filed: 05/02/20 13:54> Respiratory Respiratory: Denies cough <KEMI Sultana - Last Filed: 05/02/20 13:54> Gastrointestinal Gastrointestinal: Denies abdominal pain <KEMI Sultana - Last Filed: 05/02/20 13:54> Endocrine Endocrine: Denies palpitations <KEMI Sultana - Last Filed: 05/02/20 13:54> Physical Exam Vital Signs: Vital Signs: Last Vital Signs Temp 97 F 05/02/20 11:07 Pulse 66 05/02/20 11:07 Resp 20 05/02/20 11:07 BP 137/77 05/02/20 11:07 Pulse Ox 95 05/02/20 11:07 Body Mass Index 45.5 <EKMI Sultana - Last Filed: 05/02/20 13:54> Const: Nutritional Appearance: obese <KEMI Sultana - Last Filed: 05/02/20 13:54> Orientation/consciousness: patient oriented x3 <KEMI Sultana - Last Filed: 05/02/20 13:54> HENMT: Head: Yes normocephalic and Yes atraumatic <KEMI Sultana - Last Filed: 05/02/20 13:54> Eyes: Sclerae: sclerae normal <KEMI Sultana Last Filed: 05/02/20 13:54> Chest: Chest palpation & inspection: normal inspection of the chest <KEMI Sultana - Last Filed: 05/02/20 13:54> Resp: Effort & Inspection: normal respiratory effort and no respiratory distress <KEMI Sultana Last Filed: 05/02/20 13:54> Cardio: Rate: regular rate <KEMI Sultana - Last Filed: 05/02/20 13:54> Rhythm: regular rhythm <KEMI Sultana - Last Filed: 05/02/20 13:54> GI: Palpation (GI): Soft to palpation and nontender <KEMI Sultana Last Filed: 05/02/20 13:54> Skin: Other: left leg erythema from ankle to knee - improving. b/l shallow ulcers b/l ankles <KEMI Sultana Last Filed: 05/02/20 13:54> Neuro: General: patient oriented x3 <KEMI Sultana Last Filed: 05/02/20 13:54> Cranial nerves: Yes CN's II-XII intact bilaterally and Yes Bilaterally intact EOM present <KEMI Sultana Last Filed: 05/02/20 13:54> Objective Data Current Medications Generic Name Dose Route Start Last Admin Trade Name Hugoq PRN Reason Stop Dose Admin Acetaminophen 650 mg 05/01/20 18:33 Acetaminophen 325 Mg Tablet PO Q6H PRN Pain, Mild (Pain Scale 1-3) Docusate Sodium 100 mg 05/01/20 18:33 Docusate Sodium 100 Mg Capsule PO DAILY PRN Constipation Ferrous Sulfate 324 mg 05/01/20 21:00 05/02/20 08:54 Ferrous Sulfate 324 Mg Tablet.Dr PO 324 mg BID TRACI Administration Clindamycin Phosphate 600 mg in 50 mls @ 100 mls/hr 05/01/20 20:00 05/02/20 12:40 Cleocin IV 100 mls/hr Q8H TRACI Administration Omeprazole 20 mg 05/02/20 06:30 05/02/20 05:23 Omeprazole 20 Mg Capsule. PO 20 mg DAILY@0630 TRACI Administration Propranolol HCl 40 mg 05/01/20 21:00 05/02/20 08:55 Propranolol Hcl 40 Mg Tablet PO 40 mg BID TRACI Administration Protocol Sodium Chloride 3 ml 05/02/20 00:00 05/02/20 08:55 0.9 % Sodium Chloride Flush 3 Ml Syringe IVFLUSH 3 ml QSHIFT TRACI Administration Spironolactone 12.5 mg 05/02/20 09:00 05/02/20 08:53 Spironolactone 25 Mg Tablet PO 12.5 mg DAILY TRACI Administration Protocol <KEMI Sultana - Last Filed: 05/02/20 13:54> Labs CBC & Chem 7: : 05/02/20 05:58 05/02/20 05:58 <KEMI Sultana - Last Filed: 05/02/20 13:54> Assessment and Plan (1) Pancytopenia: Status: Acute <KEMI Sultana - Last Filed: 05/02/20 13:54> (2) Hypocalcemia: Status: Acute <KEMI Sultana - Last Filed: 05/02/20 13:54> (3) Cellulitis: Status: Acute <KEMI Sultana - Last Filed: 05/02/20 13:54> Assessment and Plan: This is a 64-year-old male with a history of hepatitis C, liver cirrhosis, anemia, history of polysubstance abuse on methadone, recently diagnosed COVID-19 who presents to the emergency department with left leg pain found to cellulitis and incidentally found to have hypo calcemia Left lower extremity cellulitis, nonpurulent. Improving No evidence of sepsis. Lactic acid is elevated secondary to underlying liver dysfunction not sepsis -IV clindamycin D#2 -ID consult pending Hypocalcemia Corrected for albumin 6.5 on arrival, improved to 8.0 today s/p calcium gluconate. Qtc ok check vit d NSVT K, Mag wnl this am on BB -echo Pancytopenia. Stable/chronic Related to underlying liver disease Thrombocytopenia not related to sepsis -continue iron supplementation Liver cirrhosis Hold Lasix for hypocalemia -continue spironolactone -continue propanolol COVID 19 Tested positive approximately 10 days ago Asymptomatic. No hypoxia No indication for dexamethasone History of substance abuse Continue methadone Morbid obesity BMI 45.5, likely contributing to venous stasis, chronic leg edema, underlying leg wounds and cellulitis Elevated lactic acid Related underlying liver disease DVT prophylaxis-early ambulation, chemoprophylaxis contraindicated due to thrombocytopenia/anemia Code status-full code This case was discussed with Dr. Watson <KEMI Sultana - Last Filed: 05/02/20 13:54>
[2020-05-02 13:43] LABS: Anion Gap 17 (12-20); Blood Urea Nitrogen 17 mg/dL (9-16); Carbon Dioxide 23 mmol/L (22-29); Chloride 103 mmol/L (96-108); Creatinine Clr Calc Pharmacy 112.1; Estimated Glomerular Filt Rate > 60; Glucose Random 84 mg/dL (60-115); Potassium 4.7 mmol/L (3.3-5.1); Sodium 138 mmol/L (135-145)
[2020-05-03] VITALS (7 sets, daily range): BP systolic 119–146; BP diastolic 54–77; PULSE 68–80; RESP 16–18; TEMP 36.2–37.1; O2SAT 92–96
[2020-05-03] MEDS: 0.9 % Sodium Chloride Flush 3 ML SYRINGE IVFLUSH ×4 (00:07→23:58)
[2020-05-03 00:24] LABS: Vitamin D 25-OH Total 13.9 ng/mL (>30)
[2020-05-03] MEDS: Acetaminophen 325 MG TABLET 650 MG PO (01:39)
[2020-05-03] MEDS: Clindamycin Phosphate/D5W 600 MG/50 ML PIGGYBACK 100 MG IV ×3 (04:22→20:22)
[2020-05-03] MEDS: Omeprazole 20 MG CAPSULE.DR PO (05:59)
[2020-05-03 07:25] LABS: Anion Gap 15 (12-20); Blood Urea Nitrogen 18 mg/dL (9-16); Calcium 8.1 mg/dL (8.4-10.2); Carbon Dioxide 27 mmol/L (22-29); Chloride 101 mmol/L (96-108); Estimated Glomerular Filt Rate > 60; Glucose Random 91 mg/dL (60-115); Magnesium 1.9 mg/dL (1.6-2.6); Potassium 5.3 mmol/L (3.3-5.1); Sodium 138 mmol/L (135-145)
[2020-05-03] MEDS: Ferrous Sulfate 324 MG TABLET.DR PO ×2 (08:46→20:22)
[2020-05-03] MEDS: Spironolactone 25 MG TABLET 12.5 MG PO (08:46)
[2020-05-03] MEDS: Propranolol HCL 40 MG TABLET PO ×2 (08:46→20:21)
[2020-05-03] MEDS: Sodium Polystyrene Sulfon/Sorb 15 GM/60 ML ORAL.SUSP 30 GM PO (08:46)
--- NOTE | 2020-05-03 13:16 | MHC.CM.PN ---
patient is on IV Clindamycin for cellulitis LLE, patient has chronic LE wounds. Patient also COVID+ but is on RA at this time. Discharge plan is home with resumption of services from [facility]. Patient's son will provide transportation. CM will continue to follow patient for discharge needs.
--- NOTE | 2020-05-03 14:38 | P.PNIM_ITS ---
Subjective Subjective Date of Service: 05/03/20 Interval History: the patient was seen and evaluated this morning Laying in bed, feels comfortable Denies any fever, chills or shortness of breath No reported other overnight events. Systemic review: No fever, chills or weakness No chest pain, palpitation No shortness of breath or coughing No abdominal pain, nausea or vomiting No urinary symptoms No any rash or wounds Physical Exam 2 Vital Signs: Vital Signs: Last Vital Signs Temp 98.7 F 05/03/20 11:33 Pulse 77 05/03/20 11:33 Resp 18 05/03/20 11:33 BP 142/54 H 05/03/20 11:33 Pulse Ox 96 05/03/20 11:33 Body Mass Index 45.5 Const: Other: Constitutional : Alert, oriented, not in distress Neck : Normal inspection, Supple Cardiovascular : RRR, S1 S2, no lower extremity edema Respiratory : Good bilateral air entry, no crackles, wheezes or rhonchi Gastrointestinal: soft, lax, Normal bowel sounds, Non tender Skin : Warm/Dry, left lower extremity swelling with erythema, decreased warmth and tenderness Neurological : Alert & oriented x3, No focal deficit Objective Data Current Medications Generic Name Dose Route Start Last Admin Trade Name Freq PRN Reason Stop Dose Admin Acetaminophen 650 mg 05/01/20 18:33 05/03/20 01:39 Acetaminophen 325 Mg Tablet PO 650 mg Q6H PRN Administration Pain, Mild (Pain Scale 1-3) Docusate Sodium 100 mg 05/01/20 18:33 Docusate Sodium 100 Mg Capsule PO DAILY PRN Constipation Ferrous Sulfate 324 mg 05/01/20 21:00 05/03/20 08:46 Ferrous Sulfate 324 Mg Tablet. PO 324 mg BID TRACI Administration Clindamycin Phosphate 600 mg in 50 mls @ 100 mls/hr 05/01/20 20:00 05/03/20 13:17 Cleocin IV Infused Q8H TRACI Infusion Methadone HCl 30 mg 05/02/20 14:00 05/03/20 08:46 Methadone Hcl 1 Mg/0.1 Ml Oral.Conc PO 30 mg DAILY TRACI Administration Omeprazole 20 mg 05/02/20 06:30 05/03/20 05:59 Omeprazole 20 Mg Capsule. PO 20 mg DAILY@0630 TRACI Administration Propranolol HCl 40 mg 05/01/20 21:00 05/03/20 08:46 Propranolol Hcl 40 Mg Tablet PO 40 mg BID TRACI Administration Protocol Sodium Chloride 3 ml 05/02/20 00:00 05/03/20 08:46 0.9 % Sodium Chloride Flush 3 Ml Syringe IVFLUSH 3 ml QSHIFT TRACI Administration Spironolactone 12.5 mg 05/02/20 09:00 05/03/20 08:46 Spironolactone 25 Mg Tablet PO 12.5 mg DAILY TRACI Administration Protocol Labs CBC & Chem 7: 05/02/20 05:58 05/03/20 05:34 Microbiology Microbiology Results: Microbiology 05/01/20 14:02 Blood - Venous Blood Culture - Preliminary No growth after 24 hours. 05/01/20 14:01 Blood - Venous Blood Culture - Preliminary No growth after 24 hours. Assessment and Plan (1) Pancytopenia: Status: Acute (2) Hypocalcemia: Status: Acute (3) Cellulitis: Status: Acute Assessment and Plan: A 64 years old male with PMHx of Cirrhosis, Anemia, HTN, Hepatitis, PVD among others with recent Covid19 infection who presented to the hospital with worsening left lower extremity swelling and pain with reported erythema and tenderness over the last week or so. Left lower extremity cellulitis Improving Ultrasound negative for DVT Blood culture pending Continue with clindamycin D3 Pending ID eval Hyperkalemia Potassium of 5.6 to give Kayexalate and follow BMP Hypocalcemia Corrected calcium improved to 9 after calcium gluconate infusion Pending vitamin-D3 continue to monitor BMP Covid19 Not requiring O2 supplement, isolate NSVT Electrolytes within normal including Mg continue beta-manpreet Keep on tele Pancytopenia. Stable/chronic Related to underlying liver disease Thrombocytopenia not related to sepsis -continue iron supplementation Liver cirrhosis Hold Lasix for hypocalemia continue spironolactone continue propanolol History of substance abuse Continue methadone Morbid obesity BMI 45.5, likely contributing to venous stasis, chronic leg edema, underlying leg wounds and cellulitis Elevated lactic acid Related underlying liver disease DVT prophylaxis early ambulation, chemoprophylaxis contraindicated due to thrombocytopenia/anemia
--- NOTE | 2020-05-03 21:41 | W.PM.IDCN ---
History of Present Illness Data of Consult Service Date: 05/03/20 Requesting physician: Ana Watts Primary Care Provider: MD KIKA Cleary Reason for consult: erythema leg He presents with redness bilateral legs He has had one to two months bilateral open areas legs He has no fever or chills PMFSH Past Medical History Medical History Anemia Cirrhosis COVID-19 GERD (gastroesophageal reflux disease) Hepatic fibrosis History of substance abuse Hx of hepatitis C Hypertension Osteoarthritis of both knees Pedal edema Family History Family History Father No problems noted. Mother No problems noted. Surgical History Surgical History History of esophagogastroduodenoscopy (EGD) Hx of appendectomy Hx of endoscopic retrograde cholangiopancreatography Hx of left knee surgery Social History Social History Household Members: None Housing: Apartment Do you presently have visiting nurse or other home services: Yes Alcohol intake: former Smoking Status: Never smoker Patient Given Instructions on How to Stop Smoking: No Second Hand Smoke Exposure: No Use of substances other than those prescribed or required for medical reasons: No Substance Use Type: Former Substance User Currently Displaying Signs/Symptoms of Drug Intoxication Withdrawal: No Any prior treatment program specific to substance use: Yes ([facility]) Have you been hit, kicked, punched, or otherwise hurt by someone within the past year? If so, by whom?: No Do you feel safe in your current relationship?: No Current Relationship Is there a partner from a previous relationship who is making you feel unsafe now?: No Are you made to feel afraid or neglected: No Synagogue Healthcare Practices: confucianism Advance Directives: No Advance Directives Information Provided: No Advance Directives on File: No Do you have thoughts of harming others: None Do you have a plan to hurt others: No Plan Recently lost weight without trying: No service: No Current occupational status: disabled Meds Allergies Allergy/AdvReac Type Severity Reaction Status Date / Time No Known Allergies Allergy Verified 11/13/19 10:07 Active Medications: Current Medications Generic Name Dose Route Start Last Admin Trade Name Hugoq PRN Reason Stop Dose Admin Acetaminophen 650 mg 05/01/20 18:33 05/03/20 01:39 Acetaminophen 325 Mg Tablet PO 650 mg Q6H PRN Administration Pain, Mild (Pain Scale 1-3) Docusate Sodium 100 mg 05/01/20 18:33 Docusate Sodium 100 Mg Capsule PO DAILY PRN Constipation Ferrous Sulfate 324 mg 05/01/20 21:00 05/03/20 20:22 Ferrous Sulfate 324 Mg Tablet. PO 324 mg BID TRACI Administration Clindamycin Phosphate 600 mg in 50 mls @ 100 mls/hr 05/01/20 20:00 05/03/20 21:05 Cleocin IV Infused Q8H TRACI Infusion Methadone HCl 30 mg 05/02/20 14:00 05/03/20 08:46 Methadone Hcl 1 Mg/0.1 Ml Oral.Conc PO 30 mg DAILY TRACI Administration Omeprazole 20 mg 05/02/20 06:30 05/03/20 05:59 Omeprazole 20 Mg Capsule. PO 20 mg DAILY@0630 TRACI Administration Propranolol HCl 40 mg 05/01/20 21:00 05/03/20 20:21 Propranolol Hcl 40 Mg Tablet PO 40 mg BID TRACI Administration Protocol Sodium Chloride 3 ml 05/02/20 00:00 05/03/20 16:47 0.9 % Sodium Chloride Flush 3 Ml Syringe IVFLUSH 3 ml QSHIFT TRACI Administration Spironolactone 12.5 mg 05/02/20 09:00 05/03/20 08:46 Spironolactone 25 Mg Tablet PO 12.5 mg DAILY TRACI Administration Protocol Home Medications Medication Instructions Recorded Confirmed Last Taken Type ferrous sulfate 325 mg PO BID 11/13/19 05/01/20 Unknown History furosemide [Lasix] 40 mg PO DAILY 11/13/19 05/01/20 Unknown History methadone 29 mg PO DAILY 11/13/19 05/02/20 Unknown History omeprazole 20 mg PO DAILY 11/13/19 05/01/20 Unknown History oxycodone 5 mg PO Q8H PRN 11/13/19 05/01/20 Unknown History spironolactone [Aldactone] 12.5 mg PO DAILY 11/13/19 05/01/20 Unknown History propranolol 1 tab PO BID 05/01/20 05/01/20 Unknown History Physical Exam Vital Signs: Vital Signs: Last Vital Signs Temp 97.2 F 05/03/20 20:00 Pulse 78 05/03/20 20:21 Resp 18 05/03/20 20:00 BP 119/71 05/03/20 20:21 Pulse Ox 94 05/03/20 20:00 Body Mass Index 45.5 Const: General: cooperative HENMT: Head: Yes normal to inspection Mouth: Normal oral and palatal mucosa present Resp: Effort & Inspection: normal respiratory effort Cardio: Rate: regular rate Rhythm: regular rhythm GI: Palpation (GI): Soft to palpation and nontender Extrem: Other: venous stasis changes bilaterally,right more than left Results Labs CBC & Chem 7: 05/02/20 05:58 05/03/20 05:34 Labs: BMP 05/03/20 05:34 Sodium 138 Potassium 5.3 H Chloride 101 Carbon Dioxide 27 BUN 18 H Creatinine 1.09 Calcium 8.1 L Microbiology Microbiology Results: Microbiology 05/01/20 14:02 Blood - Venous Blood Culture - Preliminary No growth after 48 hours. 05/01/20 14:01 Blood - Venous Blood Culture - Preliminary No growth after 48 hours. Assessment and Plan (1) Cellulitis: Problem details: He has chronic venous stasis changes with some superficial cellulitis This is likely strep infection Status: Acute Continue IV Clindamycin Change to po Clindamycin 300 tid for 5 days outpatient Elevate and compress legs
[2020-05-04] VITALS: BP 130/73; PULSE 70; RESP 18; TEMP 36.8; O2SAT 94
[2020-05-04 04:00] VITALS: BP 129/72; PULSE 72; RESP 18; TEMP 36.6; O2SAT 92
[2020-05-04] MEDS: Clindamycin Phosphate/D5W 600 MG/50 ML PIGGYBACK 100 MG IV ×2 (04:03→12:09)
[2020-05-04] MEDS: Omeprazole 20 MG CAPSULE.DR PO (05:34)
[2020-05-04 06:35] LABS: Anion Gap 14 (12-20); Blood Urea Nitrogen 18 mg/dL (9-16); Calcium 8.1 mg/dL (8.4-10.2); Carbon Dioxide 28 mmol/L (22-29); Chloride 100 mmol/L (96-108); Creatinine Clr Calc Pharmacy 104.1; Estimated Glomerular Filt Rate > 60; Glucose Random 100 mg/dL (60-115); Potassium 4.5 mmol/L (3.3-5.1); Sodium 137 mmol/L (135-145)
[2020-05-04 07:31] VITALS: BP 138/72; PULSE 69; RESP 18; TEMP 36.1; O2SAT 95
[2020-05-04 09:30] VITALS: BP 138/72; PULSE 69
[2020-05-04] MEDS: Ferrous Sulfate 324 MG TABLET.DR PO (09:30)
[2020-05-04] MEDS: Propranolol HCL 40 MG TABLET PO (09:30)
[2020-05-04] MEDS: Spironolactone 25 MG TABLET 12.5 MG PO (09:30)
[2020-05-04] MEDS: 0.9 % Sodium Chloride Flush 3 ML SYRINGE IVFLUSH (09:30)
[2020-05-04 11:14] VITALS: BP 129/67; PULSE 75; RESP 18; TEMP 36.2; O2SAT 95
--- NOTE | 2020-05-04 11:32 | MHC.CM.PN ---
Male 64 DX LLE Cellulitis, Hypocalcemia. He is discharged to home today. [facility] will resume sn services for wound care. The Pts son is providing transportation.
--- NOTE | 2020-05-04 12:01 | P.DS_ITS ---
DS: Providers Provider Date of Service: 05/04/20 Date of admission: 05/01/20 17:14 Primary care physician: Jose Arteaga MD Consults: 05/01/20 18:33 Consult to Infectious Diseases Routine Consulting Provider: Ophelia Landeros Reason for consultation: left leg cellulitis Has provider been notified: No DS: Diagnosis Discharge Diagnosis (1) Cellulitis: Status: Acute (2) Hypocalcemia: Status: Acute (3) COVID-19 virus infection: Status: Acute (4) Pancytopenia: Status: Acute DS: Medications Discharge Medications Home Medications: Home Medications Medication Instructions Recorded Confirmed ferrous sulfate 325 mg PO BID 11/13/19 05/01/20 furosemide [Lasix] 40 mg PO DAILY 11/13/19 05/01/20 methadone 29 mg PO DAILY 11/13/19 05/02/20 omeprazole 20 mg PO DAILY 11/13/19 05/01/20 oxycodone 5 mg PO Q8H PRN 11/13/19 05/01/20 spironolactone [Aldactone] 12.5 mg PO DAILY 11/13/19 05/01/20 propranolol 1 tab PO BID 05/01/20 05/01/20 Previous Rx's Medication Instructions Recorded clindamycin HCl 300 mg PO TID 5 Days #15 cap 05/04/20 DS: Summary Hospital Course Hospital Course: Admission note HPI This is a 64-year-old male with a history of liver cirrhosis who presents to the emergency department with pain in his left leg. His pain began overnight. He denies any associated fevers or chills. He has also noticed redness of his left leg. He has chronic bilateral wounds on both lower extremities which he reports have been present for some time. Lab work was significant for pancytopenia which is chronic due to underlying liver disease. Lactic acid was elevated at 2.9. Potassium low at 3.1 and calcium 4.7. These were supplemented. He had ultrasound of his left leg which was negative for DVT. He was given a dose of IV vancomycin for his left lower extremity cellulitis. Of note patient recently tested positive for covid-19. He denies any shortness of breath or cough and is currently saturating 93% on room air. Hospital course A 64 years old male with PMHx of Cirrhosis, Anemia, HTN, Hepatitis, PVD among others with recent Covid19 infection who presented to the hospital with worsenin g left lower extremity swelling and pain with reported erythema and tenderness over the last week or so. Left lower extremity cellulitis Ultrasound negative for DVT Blood culture negative Treated with IV clindamycin for 4 days and evaluated by infectious disease specialist who recommended 5 more days of oral clindamycin at time of discharge. To be followed by visiting nurses at home. Hypocalcemia Noticed to have low calcium level the time of admission with corrected around 7. Corrected calcium improved to 9 after calcium gluconate infusion Noticed to have low vitamin-D3, pending PTH To be discharged on vitamin-D supplement and follow-up with his PCP for further evaluation. Covid19 Had symptoms days prior to admission with positive test. Not requiring O2 supplement, isolate NSVT And an episode on 05/01 of 7 beats of SVTs. Controlled with beta manpreet and electrolyte. No further episodes noted during the hospital stay. Pancytopenia. Stable at baseline Related to underlying liver disease Morbid obesity BMI 45.5, likely contributing to venous stasis, chronic leg edema, underlying leg wounds and cellulitis Time Spent with Patient Time attestation: Total time spent providing and/or coordinating discharge services: Discharge coordination time: Greater than 30 minutes Physical Exam Vital Signs: Vital Signs: Last Vital Signs Temp 97.1 F 05/04/20 11:14 Pulse 75 05/04/20 11:14 Resp 18 05/04/20 11:14 BP 129/67 05/04/20 11:14 Pulse Ox 95 05/04/20 11:14 Body Mass Index 45.5 Const: Other: Constitutional : Alert, oriented, not in distress Neck : Normal inspection, Supple Cardiovascular : RRR, S1 S2, no lower extremity edema Respiratory : Good bilateral air entry, no crackles, wheezes or rhonchi Gastrointestinal: soft, lax, Normal bowel sounds, Non tender Skin : Warm/Dry, left lower extremity swelling with erythema, decreased warmth and tenderness Neurological : Alert & oriented x3, No focal deficit DS: Data Data Completed and Pending Labs on day of discharge: Laboratory Results - last 24 hr 05/04/20 05:29 Sodium 137 Potassium 4.5 Chloride 100 Carbon Dioxide 28 Anion Gap 14 BUN 18 H Creatinine 1.12 Estim Creat Clear Calc 104.1 Estimated GFR > 60 Random Glucose 100 Calcium 8.1 L Preliminary micro results at discharge 05/01/20 14:02 Blood Culture - Preliminary Blood - Venous No growth after 48 hours. 05/01/20 14:01 Blood Culture - Preliminary Blood - Venous No growth after 48 hours. Discharge Plan Discharge Patient Disposition: Home Health Service Referrals: [facility] [Outside] Name,MD Jose [Primary Care Provider] - Discharge Medications: New clindamycin HCl 300 mg capsule 300 mg PO TID 5 Days Qty: 15 RF: 0 Continued furosemide [Lasix] 40 mg Tablet 40 mg PO DAILY RF: 0 spironolactone [Aldactone] 25 mg Tablet 12.5 mg PO DAILY RF: 0 methadone 40 mg Tablet,Soluble 29 mg PO DAILY RF: 0 ferrous sulfate 325 mg (65 mg iron) Tablet 325 mg PO BID RF: 0 omeprazole 20 mg Capsule,Delayed Release(Dr/Ec) 20 mg PO DAILY RF: 0 oxycodone 5 mg Tablet 5 mg PO Q8H PRN (Reason: Pain) RF: 0 propranolol 40 mg tablet 1 tab PO BID RF: 0 Discharge Orders: Discharge Order (Routine); Ordered 05/04/20 Ordered By: Ana Watts Diet: advance to usual diet Activity on Discharge: As tolerated Stand Alone Forms: Patient Portal Discharge page Care Plan Goals: Read below Health Concerns: Read below Plan of Treatment: You were admitted to the hospital for left lower extremity erythema and swelling. Ultrasound was negative for any clots. You were treated with IV antibiotics with good response over the course of hospital stay as you were evaluated by infectious disease specialist. To be discharged on clindamycin 300 mg 3 times daily for 5 days. To follow up with PCP next week Come back to the hospital for any worsening swelling, erythema or fever.
[2020-05-04 15:19] VITALS: BP 134/62; PULSE 71; RESP 22; TEMP 36.4; O2SAT 94
--- NOTE | 2020-05-04 15:53 | PC.NURSE ---
Attempted to contact [facility] at [phone] to inform of patients discharge from hospital. Attempt failed as clinic is closed at this time. Unable to leave voicemail.
[2020-05-05 17:52] LABS: Calcium (PTHI) 8.2 mg/dL (8.6-10.3); PTHI 52 pg/mL (14-64)
== END 2020-05-04 16:25 | disposition home health service (06) | DRG 383 ==
LOC: HO.ED 16:27 → HO.EDOVER 17:41 → HO.IMC 19:38
PROVIDERS: Internal Medicine; Physician Assistant Medical; Admitting Provider Student in an Organized Health Care Education/Training Program; Emergency Provider Emergency Medicine; PCP Internal Medicine Geriatric Medicine; Visit Provider Student in an Organized Health Care Education/Training Program
DX: L03.116 Cellulitis of left lower limb (principal); U07.1 COVID-19; D61.818 Other pancytopenia; E66.01 Morbid (severe) obesity due to excess calories; E87.5 Hyperkalemia; F11.20 Opioid dependence, uncomplicated; K74.60 Unspecified cirrhosis of liver; E83.51 Hypocalcemia; I87.323 Chronic venous hypertension (idiopathic) with inflammation of bilateral lower extremity; I47.1 Supraventricular tachycardia; K21.9 Gastro-esophageal reflux disease without esophagitis; M17.0 Bilateral primary osteoarthritis of knee; Z68.42 Body mass index [BMI] 45.0-49.9, adult; Z79.899 Other long term (current) drug therapy
CPT/HCPCS: 36415; 80048; 80051; 80053; 80076; 82306; 82310; 82565; 82947; 83605; 83735; 83970; 84132; 84520; 85025; 85610; 85652; 86140; 87040; 87635; 93005; 93971; 96361; 96365; 96366; 96367; 99285; J0610; J3370

== ENCOUNTER 2020-08-30 08:59 | Outpatient (RCR) | payer MEDICARE, MEDICAID, SELFPAY | END 2021-01-04 09:19 | disposition home or self-care (01) | LOC: HO.WCC 08:59 | PROVIDERS: PCP Internal Medicine Geriatric Medicine; Visit Provider Physician Assistant | DX: I87.311 Chronic venous hypertension (idiopathic) with ulcer of right lower extremity (principal); L97.811 Non-pressure chronic ulcer of other part of right lower leg limited to breakdown of skin; I73.9 Peripheral vascular disease, unspecified; I87.322 Chronic venous hypertension (idiopathic) with inflammation of left lower extremity; F11.20 Opioid dependence, uncomplicated; E66.01 Morbid (severe) obesity due to excess calories; Z86.19 Personal history of other infectious and parasitic diseases; Z68.43 Body mass index [BMI] 50.0-59.9, adult | CPT/HCPCS: 11042; 15271; 17250; 29581; 99212; Q4160; Q4196 ==

== ENCOUNTER 2020-10-04 07:39 | Outpatient (REF) | payer MEDICARE, MEDICAID, SELFPAY ==
[2020-10-04 08:29] LABS: Hematocrit 37.2 % (42-52); Hemoglobin 11.6 g/dl (14.0-18.0); Mean Corpuscular HGB Conc 31.2 g/dl (31.0-36.0); Mean Corpuscular Hemoglobin 28.3 pg (27.0-33.0); Mean Corpuscular Volume 90.7 fL (80-98); Mean Platelet Volume 11.9 fL (9.4-12.4); Red Cell Distribution Width 13.2 % (11.0-16.0); White Blood Count 2.7 X10*3/uL (4.8-10.8)
[2020-10-04 08:33] LABS: Platelet Count 56 X10*3/uL (160-400)
[2020-10-04 08:35] LABS: INTERNATIONAL NORM RATIO 1.3 (0.9-1.1); Prothrombin Time 14.3 SEC (9.9-13.0)
[2020-10-04 09:00] LABS: Alanine Aminotransferase 13 U/L (0-40); Albumin Level 3.4 g/dL (3.5-5.0); Alkaline Phosphatase 97 U/L (39-117); Anion Gap 11 (12-20); Aspartate Amino Transferase 21 U/L (5-37); Bilirubin Direct 0.4 mg/dL (0.0-0.5); Bilirubin Total 0.7 mg/dL (0.0-1.0); Blood Urea Nitrogen 23 mg/dL (9-16); Calcium 8.8 mg/dL (8.4-10.2); Carbon Dioxide 29 mmol/L (22-29); Chloride 104 mmol/L (96-108); Estimated Glomerular Filt Rate 50; Glucose Random 97 mg/dL (60-115); Potassium 4.9 mmol/L (3.3-5.1); Sodium 139 mmol/L (135-145); Total Protein 8.3 g/dL (6.5-8.0)
== END 2020-10-04 07:40 | disposition home or self-care (01) ==
LOC: HO.LAB 07:39
PROVIDERS: PCP Internal Medicine Geriatric Medicine; Visit Provider Internal Medicine Geriatric Medicine
DX: I87.2 Venous insufficiency (chronic) (peripheral) (principal); K74.60 Unspecified cirrhosis of liver; L97.919 Non-pressure chronic ulcer of unspecified part of right lower leg with unspecified severity
CPT/HCPCS: 36415; 80048; 80076; 82105; 85027; 85610

== ENCOUNTER 2020-11-02 08:30 | Outpatient (REF) | payer MEDICARE, MEDICAID, SELFPAY ==
--- NOTE | ~2020-11-02 | US_ITS ---
EXAMINATION: US ABDOMEN COMPLETE CLINICAL INFORMATION: Cirrhosis of liver. COMPARISON: Ultrasound abdomen complete 03/18/2020. Ultrasound abdomen with elastography 10/16/2019. CT abdomen and pelvis 01/12/2018. MRI abdomen 12/05/2014. TECHNIQUE: Real-time imaging of the abdominal viscera. Technically difficult study secondary to bowel gas and body habitus. FINDINGS: PANCREAS: Not well visualized bowel gas. ABDOMINAL AORTA: Not well visualized due to bowel gas INFERIOR VENA CAVA: Visualized portions are normal. LIVER: Liver is not optimally visualized. Liver echotexture appears heterogeneous and the contour of the liver is irregular or scalloped suggestive of cirrhosis. GALLBLADDER: Normal. The gallbladder is physiologically distended without evidence of stones, sludge, polyps, wall thickening or pericholecystic fluid. COMMON BILE DUCT: Normal in caliber measuring 0.4 cm in diameter. RIGHT KIDNEY: Normal. No hydronephrosis. No renal calculi or focal parenchymal lesions. The kidney measures 10.4 cm in maximum dimension. LEFT KIDNEY: Normal. No hydronephrosis. No renal calculi or focal parenchymal lesions. The kidney measures 11.4 cm in maximum dimension. SPLEEN: The spleen is enlarged. The spleen measures 17.0 cm in maximum dimension. FREE FLUID: None. US/US abdomen complete IMPRESSION: Very limited exam. Cirrhotic-appearing liver. Splenomegaly. No ascites.
== END 2020-11-02 08:31 | disposition home or self-care (01) ==
LOC: HO.US 08:30
PROVIDERS: Visit Provider Internal Medicine Geriatric Medicine
DX: K74.60 Unspecified cirrhosis of liver (principal)
CPT/HCPCS: 76700

== ENCOUNTER 2021-01-03 09:29 | Outpatient (REF) | payer MEDICARE, MEDICAID, SELFPAY ==
--- NOTE | ~2021-01-03 | US_ITS ---
EXAMINATION: BILATERAL LOWER EXTREMITY VENOUS ULTRASOUND (Reflux Exam) CLINICAL INDICATION: This is a 65-year-old male with chronic right leg ulcer. Venous insufficiency and varicose veins. COMPARISON: Comparison is made to the previous study dated 11/20/2017. TECHNIQUE: Color flow triplex imaging and compression Doppler was performed to evaluate both the deep and the superficial systems bilaterally. To evaluate the superficial system, the examination was performed in the upright position. Color-flow Doppler ultrasound and compression ultrasound were utilized. In addition, maneuvers were utilized to demonstrate reflux. FINDINGS: 1. DEEP VENOUS ULTRASOUND OF THE RIGHT LOWER EXTREMITY: Common Femoral Vein: Compressible, normal respiratory variation and augmented flow. Femoral vein: Compressible, normal color flow and augmentation. Popliteal Vein: The popliteal vein appears patent but with reflux of 928 ms. Deep Reflux: There is no evidence of reflux in the deep system in either the common femoral vein or the popliteal vein. . There is no evidence of a Muller's cyst. 2. SUPERFICIAL ULTRASOUND WITH DOPPLER OF RIGHT LOWER EXTREMITY GREAT SAPHENOUS VEIN: Saphenofemoral junction: 1.0 cm. There is no reflux. Mid thigh: 0.4 cm. The vessel appears closed status post VenaSeal Above knee: Not seen. Below knee: 0.3 cm. The reflux time is greater than 3 seconds per Mid calf: 0.3 cm. There is no reflux. Ankle: 0.2 cm. There is no reflux. GSV REFLUX: There is no reflux seen at the junction. A segment of the mid thigh great saphenous vein appears close. There is reflux below the knee. DUPLICATED GREAT SAPHENOUS VEIN: There is a 0.4 cm duplicated right lateral great saphenous vein without reflux. SMALL SAPHENOUS VEIN: Upper: 0.4 cm. There is no reflux at the junction. Lower: 0.4 cm. The reflux time is 952 ms SSV REFLUX: No evidence of reflux. VEIN OF GIACOMINI: None Imaged. PERFORATORS: There is a 0.3 cm calf model photographers' without reflux. VARICOSITIES: There are 0.3 cm proximal thigh varicose vein without reflux. US/US venous duplex LE RT IMPRESSION: 1. There is partial closure of the right great saphenous vein. No reflux is seen at the saphenofemoral junction. There is reflux seen below the knee. 2. There is a patent duplicated right lateral great saphenous vein without reflux. 3. There is a patent right small saphenous vein without reflux at the junction. There is distal calf reflux. 4. There is a proximal thigh varicose vein measures 0.3 cm without reflux. 5. There is reflux in the right popliteal vein.
--- NOTE | ~2021-01-03 | US_ITS ---
EXAMINATION: COLOR-FLOW DUPLEX IMAGING OF THE UNILATERAL RIGHT LOWER EXTREMITY ARTERIAL SYSTEM. VELOCITY MEASUREMENTS THROUGHOUT THE FEMORAL ARTERIES WITH ANKLE-BRACHIAL PERIPHERAL ARTERIAL TESTING. Interventional Radiologist: Sergio Hatch M.D., F.S.I.R., F.A.C.R. CLINICAL INFORMATION: This is a 65-year-old male with a chronic right leg ulcer. Peripheral arterial disease. RIGHT FEMORAL RUNOFF VELOCITIES: The right common femoral artery measures 186 cm/s and triphasic. The right profunda femoral artery is 90 cm/s and is triphasic. Right proximal superficial femoral artery measures 127 cm/s and triphasic. Mid superficial femoral artery is 95 cm/s and triphasic. Distal right superficial femoral artery measures 110 cm/s and is triphasic. Right popliteal velocity measures 83 cm/s and is triphasic. The posterior tibial artery velocity measures 121 cm/s and was triphasic. The peroneal artery could not be seen. The right ankle-brachial index is 1.10. The left ankle-brachial index is 1.05. US/US arterial duplex LE RT IMPRESSION: 1. Normal right lower extremity peripheral arterial testing without evidence of hemodynamically significant stenosis.
--- NOTE | ~2021-01-03 | US_ITS ---
EXAMINATION: COLOR-FLOW DUPLEX IMAGING OF THE UNILATERAL RIGHT LOWER EXTREMITY ARTERIAL SYSTEM. VELOCITY MEASUREMENTS THROUGHOUT THE FEMORAL ARTERIES WITH ANKLE-BRACHIAL PERIPHERAL ARTERIAL TESTING. Interventional Radiologist: Sergio Hatch M.D., F.S.I.R., F.A.C.R. CLINICAL INFORMATION: This is a 65-year-old male with a chronic right leg ulcer. Peripheral arterial disease. RIGHT FEMORAL RUNOFF VELOCITIES: The right common femoral artery measures 186 cm/s and triphasic. The right profunda femoral artery is 90 cm/s and is triphasic. Right proximal superficial femoral artery measures 127 cm/s and triphasic. Mid superficial femoral artery is 95 cm/s and triphasic. Distal right superficial femoral artery measures 110 cm/s and is triphasic. Right popliteal velocity measures 83 cm/s and is triphasic. The posterior tibial artery velocity measures 121 cm/s and was triphasic. The peroneal artery could not be seen. The right ankle-brachial index is 1.10. The left ankle-brachial index is 1.05. US/US BRIAN complete IMPRESSION: 1. Normal right lower extremity peripheral arterial testing without evidence of hemodynamically significant stenosis.
== END 2021-01-03 09:30 | disposition home or self-care (01) ==
LOC: HO.US 09:29
PROVIDERS: PCP Internal Medicine Geriatric Medicine; Visit Provider Physician Assistant
DX: I87.311 Chronic venous hypertension (idiopathic) with ulcer of right lower extremity (principal); L97.812 Non-pressure chronic ulcer of other part of right lower leg with fat layer exposed
CPT/HCPCS: 93923; 93926; 93971

== ENCOUNTER 2021-03-22 08:29 | Outpatient (REF) | payer MEDICARE, MEDICAID, SELFPAY ==
[2021-03-22 09:09] LABS: MANUAL DIFF FLAG NO
[2021-03-22 09:21] LABS: Ammonia 33 umol/L (13-55)
[2021-03-22 09:22] LABS: Basophils Percent Auto 0.6 % (0-2); Eosinophils Absolute Auto 0.2 X10*3/uL (0.0-0.4); Eosinophils Percent Auto 4.5 % (0-4); Hematocrit 41.9 % (42.0-52.0); Hemoglobin 13.4 g/dl (14.0-18.0); Imm Gran Abs Auto 0.01 X10*3/uL (0.00-0.03); Imm Gran Pct Auto 0.3 % (0.0-0.4); Lymphocytes Absolute Auto 0.7 X10*3/uL (1.2-4.9); Lymphocytes Percent Auto 20.9 % (20-40); Mean Corpuscular Hemoglobin 29.4 pg (27.0-33.0); Mean Corpuscular Volume 91.9 fL (80.0-98.0); Monocytes Absolute Auto 0.4 X10*3/uL (0.1-1.2); Neutrophils Percent Auto 60.7 % (45-73); Red Blood Count 4.56 X10*6/uL (4.60-5.80); Red Cell Distribution Width 12.6 % (11.0-16.0); White Blood Count 3.3 X10*3/uL (4.8-10.8)
[2021-03-22 09:24] LABS: INTERNATIONAL NORM RATIO 1.3 (0.9-1.1); Prothrombin Time 14.6 SEC (9.9-13.0)
[2021-03-22 09:27] LABS: Partial Thromboplastin Time 35.1 SEC (24.1-38.0)
[2021-03-22 09:36] LABS: Platelet Count 73 X10*3/uL (160-400)
[2021-03-22 09:56] LABS: Alanine Aminotransferase 14 U/L (0-40); Albumin Level 3.6 g/dL (3.5-5.0); Alkaline Phosphatase 104 U/L (39-117); Anion Gap 9 (12-20); Aspartate Amino Transferase 23 U/L (5-37); Bilirubin Total 0.9 mg/dL (0.0-1.0); Blood Urea Nitrogen 24 mg/dL (9-16); Calcium 9.1 mg/dL (8.4-10.2); Carbon Dioxide 32 mmol/L (22-29); Chloride 103 mmol/L (96-108); Estimated Glomerular Filt Rate 53; Glucose Random 96 mg/dL (60-115); Potassium 4.8 mmol/L (3.3-5.1); Sodium 139 mmol/L (135-145); Total Protein 8.5 g/dL (6.5-8.0)
[2021-03-28 07:29] LABS: Zinc 82
[2021-04-09 10:43] LABS: HepC Viral Load <15
[2021-04-09 10:46] LABS: HCV Log PCR <1.18
== END 2021-03-22 08:30 | disposition home or self-care (01) ==
LOC: HO.LAB 08:29
PROVIDERS: Nurse Practitioner Family; PCP Internal Medicine Geriatric Medicine; Visit Provider Internal Medicine Geriatric Medicine
DX: K74.60 Unspecified cirrhosis of liver (principal)
CPT/HCPCS: 36415; 80053; 82105; 82140; 84630; 85025; 85610; 85730; 87522

== ENCOUNTER 2021-05-18 08:20 | Outpatient (REF) | payer MEDICARE, MEDICAID, SELFPAY ==
--- NOTE | ~2021-05-18 | US_ITS ---
EXAMINATION: US ABDOMEN COMPLETE CLINICAL INFORMATION: Cirrhosis. COMPARISON: Ultrasound abdomen complete 11/02/2020 and 03/18/2020. CT abdomen and pelvis 01/12/2018. MRI abdomen 12/05/2014. TECHNIQUE: Real-time imaging of the abdominal viscera. Technically difficult study secondary to bowel gas and body habitus. FINDINGS: PANCREAS: Obscured by bowel gas and not visualized. ABDOMINAL AORTA: The proximal abdominal aorta is obscured by bowel gas and not visualized. The mid and distal aorta appear of normal caliber. INFERIOR VENA CAVA: Visualized portions are normal. LIVER: The liver appears mildly shrunken. There is subtle lobulated surface contour consistent with the history of cirrhosis. The hepatic parenchyma appears coarsened. Although there is no visible focal hepatic parenchymal lesion, assessment is limited in this technically challenging exam. There is no intrahepatic ductal dilatation. GALLBLADDER: Limited evaluation. No visible calculus or wall thickening. Negative sonographic Moctezuma's sign. COMMON BILE DUCT: Normal in caliber measuring 0.3 cm in diameter. RIGHT KIDNEY: Limited evaluation. No hydronephrosis. No renal calculi or focal parenchymal lesions. The kidney measures 11.0 cm in maximum dimension. LEFT KIDNEY: Limited evaluation. No hydronephrosis. No renal calculi or focal parenchymal lesions. The kidney measures 11.0 cm in maximum dimension. SPLEEN: The spleen is enlarged measuring 16.9 cm. FREE FLUID: None. US/US abdomen complete IMPRESSION: -Patient study limitations with limited assessment. -Lobulated liver contour and coarse echotexture consistent with history cirrhosis. -Splenomegaly, 16.9 cm. -No visible cholelithiasis or ductal dilatation. -No visible ascites.
== END 2021-05-18 08:21 | disposition home or self-care (01) ==
LOC: HO.US 08:20
PROVIDERS: PCP Internal Medicine Geriatric Medicine; Visit Provider Internal Medicine Geriatric Medicine
DX: K74.60 Unspecified cirrhosis of liver (principal)
CPT/HCPCS: 76700

== ENCOUNTER 2021-05-24 14:00 | Outpatient (RCR) | payer MEDICARE, MEDICAID, SELFPAY | END 2021-06-17 15:18 | disposition home or self-care (01) | LOC: HO.WCC 14:00 | PROVIDERS: PCP Internal Medicine Geriatric Medicine; Visit Provider Physician Assistant | DX: Z09 Encounter for follow-up examination after completed treatment for conditions other than malignant neoplasm (principal); I87.2 Venous insufficiency (chronic) (peripheral); Z87.2 Personal history of diseases of the skin and subcutaneous tissue | CPT/HCPCS: 11042; 99212 ==

== ENCOUNTER 2021-06-08 18:47 | Emergency (ER) | payer MEDICARE, MEDICAID, SELFPAY ==
[2021-06-08 19:59] VITALS: BP 150/66; PULSE 66; RESP 18; TEMP 36.6; O2SAT 98; BMI 43.1
--- NOTE | 2021-06-08 21:11 | ED_ITS ---
HPI - Abdominal Pain General Chief Complaint: Abdominal Pain Stated Complaint: abd pain Time Seen by Provider: 06/08/21 21:10 Source: patient Mode of arrival: ambulatory Limitations: no limitations History of Present Illness HPI narrative: Patient history of gastritis on Prilosec had some Maori food earlier today since then having epigastric pain pain is dull , no radiation of pain states in epigastric area no nausea no vomiting no diarrhea had a big bowel movement after pain started is still having the pain. No fever no chills no history of gallstone patient is status post appendectomy Related Data Home Medications Medication Instructions Recorded Confirmed ferrous sulfate 325 mg (65 mg 325 mg PO BID 11/13/19 05/01/20 iron) tablet furosemide 40 mg tablet (Lasix) 40 mg PO DAILY 11/13/19 05/01/20 methadone 40 mg soluble tablet 29 mg PO DAILY 11/13/19 05/02/20 omeprazole 20 mg capsule,delayed 20 mg PO DAILY 11/13/19 05/01/20 release oxycodone 5 mg tablet 5 mg PO Q8H PRN 11/13/19 05/01/20 spironolactone 25 mg tablet 12.5 mg PO DAILY 11/13/19 05/01/20 (Aldactone) propranolol 40 mg tablet 1 tab PO BID 05/01/20 05/01/20 Previous Rx's Medication Instructions Recorded cholecalciferol (vitamin D3) 125 125 mcg PO DAILY #30 tab 05/04/20 mcg (5,000 unit) tablet (Vitamin D3) clindamycin HCl 300 mg capsule 300 mg PO TID 5 Days #15 cap 05/04/20 sucralfate 1 gram tablet 1 g PO TID PRN #90 tab 06/08/21 Allergies Allergy/AdvReac Type Severity Reaction Status Date / Time No Known Allergies Allergy Verified 06/08/21 20:02 Review of Systems Review of Systems Yes all other systems are reviewed and are negative PMFSH Past Medical History Medical History Anemia Cirrhosis COVID-19 GERD (gastroesophageal reflux disease) Hepatic fibrosis History of substance abuse Hx of hepatitis C Hypertension Osteoarthritis of both knees Pancytopenia Pedal edema Surgical History History of esophagogastroduodenoscopy (EGD) Hx of appendectomy Hx of endoscopic retrograde cholangiopancreatography Hx of left knee surgery Family History Family History Father No problems noted. Mother No problems noted. Social History Social History Household Members: None Housing: Apartment Do you presently have visiting nurse or other home services: Yes Alcohol intake: former Second Hand Smoke Exposure: No Substance Use Type: Former Substance User Advance Directives: No service: No Current occupational status: disabled Physical Exam ED Vital Signs: Vital Signs - 24 hr 06/08/21 19:59 06/08/21 21:27 06/08/21 22:06 Temperature 97.9 F 97.9 F Pulse Rate 66 64 Respiratory Rate 18 16 15 Blood Pressure 150/66 H 151/50 H Pulse Oximetry 98 98 BMI result Body Mass Index 43.1 Appearance: Alert. Oriented X3. No acute distress. Eyes: No pallor or icterus ENT: Pharynx normal. Oral Mucosa moist Neck: Normal inspection. Neck supple. CVS: Normal heart rate and rhythm. Pulses normal. Respiratory: No respiratory distress. Equal air entry bilateral, no wheezing/rales/rhonchi Abdomen: Soft, mild epigastric tenderness no rebound tenderness or guarding Bowel sounds are present, no mass palpable, no CVA tenderness Skin: Skin warm and dry. Normal skin color. Normal skin turgor. Extremities: Nonpitting bilateral lower extremity edema. No calf tenderness Neuro: Oriented X 3. MDM - Abdominal Pain MDM Narrative Medical decision making narrative: Patient feeling much better now after Maalox and lidocaine labs are stable for discharge patient home on sucralfate Lab Data Attestation: I reviewed the patient's lab results. Result diagrams: 06/08/21 21:32 06/08/21 21:32 Labs: Lab Results 06/08/21 06/08/21 Range/Units 21:32 21:32 WBC 3.0 L (4.8-10.8) X10*3/uL RBC 4.02 L (4.60-5.80) X10*6/uL Hgb 11.9 L (14.0-18.0) g/dl Hct 37.0 L (42.0-52.0) % MCV 92.0 (80.0-98.0) fL MCH 29.6 (27.0-33.0) pg MCHC 32.2 (31.0-36.0) g/dl RDW 12.7 (11.0-16.0) % Plt Count 62 L (160-400) X10*3/uL MPV 12.1 (9.4-12.4) fL Immature Gran % (Auto) 0.0 (0.0-0.4) % Neut % (Auto) 68.1 (45-73) % Lymph % (Auto) 16.9 L (20-40) % [place] % (Auto) 11.2 H (2-11) % Eos % (Auto) 3.1 (0-4) % Baso % (Auto) 0.7 (0-2) % Lymph # (Auto) 0.5 L (1.2-4.9) X10*3/uL [place] # (Auto) 0.3 (0.1-1.2) X10*3/uL Eos # (Auto) 0.1 (0.0-0.4) X10*3/uL Baso # (Auto) 0.0 (0.0-0.2) X10*3/uL Abs Immat Gran (auto) 0.00 (0.00-0.03) X10*3/uL Absolute Neuts (auto) 2.0 (2.0-8.3) x10*3/uL Absolute Nucleated RBC 0.000 (0.0-0.012) X10*3/uL Nucleated RBC % (auto) 0.0 (0.0-0.2) /100WBC Sodium 137 (135-145) mmol/L Potassium 4.7 (3.3-5.1) mmol/L Chloride 104 (96-108) mmol/L Carbon Dioxide 28 (22-29) mmol/L Anion Gap 10 L (12-20) BUN 24 H (9-16) mg/dL Creatinine 1.41 H (0.5-1.4) mg/dL Estim Creat Clear Calc 78.1 Estimated GFR 50 Random Glucose 112 (60-115) mg/dL Calcium 8.5 D (8.4-10.2) mg/dL Total Bilirubin 0.8 (0.0-1.0) mg/dL AST 19 (5-37) U/L ALT 8 (0-40) U/L Alkaline Phosphatase 98 (39-117) U/L Total Protein 7.8 (6.5-8.0) g/dL Albumin 3.3 L (3.5-5.0) g/dL Lipase 18 (8-78) U/L Discharge Plan Discharge Clinical Impression: Gastritis Patient Disposition: Home, Self-Care Instructions: Gastritis (ED) Additional Instructions: Take Prilosec as prescribed Avoid fried food Take sucralfate 3 times daily for increased heartburn Prescriptions: New sucralfate 1 gram tablet 1 g PO TID PRN (Reason: gastritis) Qty: 90 0RF No Action furosemide [Lasix] 40 mg Tablet 40 mg PO DAILY 0RF spironolactone [Aldactone] 25 mg Tablet 12.5 mg PO DAILY 0RF Rx Instructions: half tablet by mouth daily methadone 40 mg Tablet,Soluble 29 mg PO DAILY 0RF ferrous sulfate 325 mg (65 mg iron) Tablet 325 mg PO BID 0RF omeprazole 20 mg Capsule,Delayed Release(Dr/Ec) 20 mg PO DAILY 0RF oxycodone 5 mg Tablet 5 mg PO Q8H PRN (Reason: Pain) 0RF propranolol 40 mg tablet 1 tab PO BID 0RF clindamycin HCl 300 mg capsule 300 mg PO TID 5 Days Qty: 15 0RF cholecalciferol (vitamin D3) [Vitamin D3] 125 mcg (5,000 unit) tablet 125 mcg PO DAILY Qty: 30 0RF
[2021-06-08 21:27] VITALS: BP 151/50; PULSE 64; RESP 16; TEMP 36.6; O2SAT 98
[2021-06-08 21:37] LABS: MANUAL DIFF FLAG NO
[2021-06-08 21:38] LABS: Basophils Percent Auto 0.7 % (0-2); Eosinophils Absolute Auto 0.1 X10*3/uL (0.0-0.4); Eosinophils Percent Auto 3.1 % (0-4); Hemoglobin 11.9 g/dl (14.0-18.0); Lymphocytes Absolute Auto 0.5 X10*3/uL (1.2-4.9); Lymphocytes Percent Auto 16.9 % (20-40); Mean Corpuscular HGB Conc 32.2 g/dl (31.0-36.0); Mean Corpuscular Hemoglobin 29.6 pg (27.0-33.0); Mean Platelet Volume 12.1 fL (9.4-12.4); Monocytes Absolute Auto 0.3 X10*3/uL (0.1-1.2); Monocytes Percent Auto 11.2 % (2-11); Neutrophils Percent Auto 68.1 % (45-73); Red Blood Count 4.02 X10*6/uL (4.60-5.80); Red Cell Distribution Width 12.7 % (11.0-16.0)
[2021-06-08 21:40] LABS: Platelet Count 62 X10*3/uL (160-400)
[2021-06-08] MEDS: Magnesium Hydrox/Alum Hydrox 30 ML ORAL.SUSP PO (21:52)
[2021-06-08] MEDS: Lidocaine HCl Viscous 2 % 15 ML SOLUTION MUCOUS MEM (21:53)
[2021-06-08 21:55] LABS: Alanine Aminotransferase 8 U/L (0-40); Albumin Level 3.3 g/dL (3.5-5.0); Alkaline Phosphatase 98 U/L (39-117); Anion Gap 10 (12-20); Aspartate Amino Transferase 19 U/L (5-37); Bilirubin Total 0.8 mg/dL (0.0-1.0); Blood Urea Nitrogen 24 mg/dL (9-16); Calcium 8.5 mg/dL (8.4-10.2); Carbon Dioxide 28 mmol/L (22-29); Chloride 104 mmol/L (96-108); Creatinine Clr Calc Pharmacy 78.1; Estimated Glomerular Filt Rate 50; Glucose Random 112 mg/dL (60-115); Lipase 18 U/L (8-78); Potassium 4.7 mmol/L (3.3-5.1); Sodium 137 mmol/L (135-145); Total Protein 7.8 g/dL (6.5-8.0)
[2021-06-08 22:06] VITALS: RESP 15
== END 2021-06-08 22:43 | disposition home or self-care (01) ==
PROVIDERS: Emergency Provider Internal Medicine; PCP Internal Medicine Geriatric Medicine
DX: K29.70 Gastritis, unspecified, without bleeding (principal); I10 Essential (primary) hypertension; Z79.899 Other long term (current) drug therapy
CPT/HCPCS: 36415; 80053; 83690; 85025; 99283; 99284

== ENCOUNTER → 2021-11-09 10:05 | Outpatient (BNVA) | payer MEDICARE, MEDICAID, SELFPAY | PROVIDERS: PCP Internal Medicine Geriatric Medicine; Visit Provider Surgery Vascular Surgery | DX: I83.11 Varicose veins of right lower extremity with inflammation (principal) | CPT/HCPCS: 99212 ==

== ENCOUNTER 2022-01-07 08:12 | Emergency (ER) | payer MEDICARE, MEDICAID, SELFPAY ==
[2022-01-07 08:29] VITALS: BP 128/74; PULSE 81; RESP 18; TEMP 36.6; O2SAT 95; BMI 42.8
--- NOTE | 2022-01-07 10:46 | ED_ITS ---
HPI - Abdominal Pain General Chief Complaint: Abdominal Pain Stated Complaint: stomach pain, headache Time Seen by Provider: 01/07/22 10:46 Source: patient, old records reviewed and park interpreter Mode of arrival: ambulatory Limitations: no limitations History of Present Illness HPI narrative: 66-year-old male with history of gastritis, substance abuse on methadone, GERD, HTN, hepatitis-C cirrhosis, pancytopenia, lower extremity chronic venous stasis with cellulitis in the past who presents to the ER for evaluation of severe epigastric and middle abdominal pain that started this morning after he ate a hamburger. Patient reports he has a history of gastritis and this feels similar to his previous pain from gastritis. He is not on any medications for this. He also reports a generalized headache. He denies any nausea, vomiting, diarrhea, no urinary symptoms. No fever or chills. No body aches, chest pain or shortness of breath. He states he feels like the abdominal pain goes from his epigastric area to his throat. It is worse when he lays down. MD elicited complaint: abdominal pain Pertinent past history: gastritis Onset (ago): hour(s) Pain Consistency: constant Location: epigastric Severity: severe Pain scale (0-10): 10 Quality: aching and burning Radiation: other (Throat) Migration to: no migration Exacerbating factors: eating and other (Lying down) Relieving factors: nothing Context: history of similar episodes Related Data Home Medications Medication Instructions Recorded Confirmed furosemide 40 mg tablet (Lasix) 40 mg PO DAILY 11/13/19 05/01/20 methadone 40 mg soluble tablet 29 mg PO DAILY 11/13/19 05/02/20 omeprazole 20 mg capsule,delayed 20 mg PO DAILY 11/13/19 05/01/20 release oxycodone 5 mg tablet 5 mg PO Q8H PRN Pain 11/13/19 05/01/20 spironolactone 25 mg tablet 12.5 mg PO DAILY 11/13/19 05/01/20 (Aldactone) propranolol 40 mg tablet 1 tab PO BID 05/01/20 05/01/20 Previous Rx's Medication Instructions Recorded cholecalciferol (vitamin D3) 125 125 mcg PO DAILY #30 tabs 05/04/20 mcg (5,000 unit) tablet (Vitamin D3) clindamycin HCl 300 mg capsule 300 mg PO TID 5 days #15 caps 05/04/20 sucralfate 1 gram tablet 1 g PO TID PRN gastritis #90 tabs 06/08/21 Allergies Allergy/AdvReac Type Severity Reaction Status Date / Time No Known Allergies Allergy Verified 01/07/22 08:29 Review of Systems Review of Systems Constitutional: No Fever, No Chills ENT/Mouth: No sore throat, No Rhinorrhea, No Swallowing Difficulty Cardiovascular: No Chest Pain, No SOB, No Orthopnea, No Edema Respiratory: No Cough, No Sputum, No Wheezing, No dyspnea Gastrointestinal: No Nausea, No Vomiting, No Diarrhea, + abdominal Pain, No Hematochezia, No Melena Genitourinary: No Dysuria, No Urinary Frequency, No Hematuria Musculoskeletal: No joint pain, No Myalgias Skin: No Skin Lesions, No rash Neuro: No Weakness, No Dizziness, + Headache Psych: + Anxiety/Panic, No Depression Heme/Lymph: No Bruising, No Lymphadenopathy PMFSH Past Medical History Medical History Anemia Cirrhosis COVID-19 GERD (gastroesophageal reflux disease) Hepatic fibrosis History of substance abuse Hx of hepatitis C Hypertension Osteoarthritis of both knees Pancytopenia Pedal edema Surgical History History of esophagogastroduodenoscopy (EGD) Hx of appendectomy Hx of endoscopic retrograde cholangiopancreatography Hx of left knee surgery Family History Family History Father No problems noted. Mother No problems noted. Social History Social History Household Members: None Housing: Apartment Do you presently have visiting nurse or other home services: Yes Alcohol intake: former Smoked in Last 30 Days: No Second Hand Smoke Exposure: No Use of substances other than those prescribed or required for medical reasons: No Substance Use Type: Former Substance User Advance Directives: No service: No Current occupational status: disabled Physical Exam ED Vital Signs: Vital Signs - 24 hr 01/07/22 08:29 01/07/22 11:40 Temperature 97.8 F Pulse Rate 81 89 Respiratory Rate 18 20 Blood Pressure 128/74 147/78 H Pulse Oximetry 95 98 Oxygen Delivery Method Room Air Room Air BMI result Body Mass Index 42.8 Appearance: Alert. Oriented X3. No acute distress. Eyes: Pupils equal, round and reactive to light. ENT: Pharynx normal. Neck: Normal inspection. Neck supple. CVS: Normal heart rate and rhythm. Pulses normal. Respiratory: No respiratory distress. Breath sounds normal. Abdomen: Obese, Soft and nontender. +BS x4 Skin: Skin warm and dry. Normal skin color. Normal skin turgor. No rashes. Extremities: No lower extremity edema. Neuro: Oriented X 3. No motor deficit. No sensory deficit. Course Course Course Narrative: 66-year-old male with a history of gastritis presents to the ER for evaluation of middle an epigastric pain that started this morning after eating hamburger. He states the pain is similar to his previous gastritis episodes. Abdominal exam is benign. He appears well. Will get check basic lab workup, medicate with a GI cocktail and reassess. Reevaluation(s) Reevaluation #1: Labs show stable pancytopenia. LFTs and lipase are normal. No major electrolyte abnormalities. He is feeling better after GI cocktail. Comfortable discharge home. Encouraged to continue his PPI and make dietary modifications. Patient agrees with plan is stable for DC. Medications Administered Discontinued Medications Generic Name Dose Route Start Last Admin Trade Name Freq PRN Reason Stop Dose Admin Al Hydroxide/Mg Hydroxide 30 ml 01/07/22 11:28 01/07/22 11:37 Magnesium Hydrox/Alum Hydrox 30 Ml Oral.Susp PO 01/07/22 11:29 30 ml ONCE ONE Administration Belladonna Alkaloids/Phenobarbital 10 ml 01/07/22 11:28 01/07/22 11:37 Phenobarb/Hyoscy/Atropine/Scop 10 Ml Elixir PO 01/07/22 11:29 10 ml ONCE ONE Administration Lidocaine HCl 15 ml 01/07/22 11:28 01/07/22 11:37 Lidocaine Hcl Viscous 2 % 15 Ml Solution MUCOUS MEM 01/07/22 11:29 15 ml ONCE ONE Administration Ondansetron HCl 4 mg 01/07/22 11:28 01/07/22 11:36 Ondansetron Odt 4 Mg Tab.Rapdis TRANSLINGU 01/07/22 11:29 4 mg ONCE ONE Administration MDM - Abdominal Pain Lab Data Result diagrams: 01/07/22 11:31 01/07/22 11:31 Labs: Lab Results 01/07/22 01/07/22 01/07/22 Range/Units 11:31 11:31 11:31 WBC 3.7 L (4.8-10.8) X10*3/uL RBC 4.21 L (4.60-5.80) X10*6/uL Hgb 12.1 L (14.0-18.0) g/dl Hct 37.8 L (42.0-52.0) % MCV 89.8 (80.0-98.0) fL MCH 28.7 (27.0-33.0) pg MCHC 32.0 (31.0-36.0) g/dl RDW 12.8 (11.0-16.0) % Plt Count 68 L (160-400) X10*3/uL MPV 11.3 (9.4-12.4) fL Immature Gran % (Auto) 0.3 (0.0-0.4) % Neut % (Auto) 76.6 H (45-73) % Lymph % (Auto) 9.7 L (20-40) % [place] % (Auto) 9.9 (2-11) % Eos % (Auto) 3.0 (0-4) % Baso % (Auto) 0.5 (0-2) % Lymph # (Auto) 0.4 L (1.2-4.9) X10*3/uL [place] # (Auto) 0.4 (0.1-1.2) X10*3/uL Eos # (Auto) 0.1 (0.0-0.4) X10*3/uL Baso # (Auto) 0.0 (0.0-0.2) X10*3/uL Abs Immat Gran (auto) 0.01 (0.00-0.03) X10*3/uL Absolute Neuts (auto) 2.9 (2.0-8.3) x10*3/uL Absolute Nucleated RBC 0.000 (0.0-0.012) X10*3/uL Nucleated RBC % (auto) 0.0 (0.0-0.2) /100WBC Sodium 134 L (135-145) mmol/L Potassium 4.4 (3.3-5.1) mmol/L Chloride 100 (96-108) mmol/L Carbon Dioxide 31 H (22-29) mmol/L Anion Gap 7 L (12-20) BUN 22 H (9-16) mg/dL Creatinine 1.32 (0.5-1.4) mg/dL Estim Creat Clear Calc 83.2 Estimated GFR 54 Random Glucose 117 H (60-115) mg/dL Calcium 8.6 (8.4-10.2) mg/dL Total Bilirubin 1.0 (0.0-1.0) mg/dL AST 20 (5-37) U/L ALT 9 (0-40) U/L Alkaline Phosphatase 98 (39-117) U/L Total Protein 8.1 H (6.5-8.0) g/dL Albumin 3.2 L (3.5-5.0) g/dL Lipase 10 (8-78) U/L Ethyl Alcohol mg/dL 01/07/22 Range/Units 11:31 WBC (4.8-10.8) X10*3/uL RBC (4.60-5.80) X10*6/uL Hgb (14.0-18.0) g/dl Hct (42.0-52.0) % MCV (80.0-98.0) fL MCH (27.0-33.0) pg MCHC (31.0-36.0) g/dl RDW (11.0-16.0) % Plt Count (160-400) X10*3/uL MPV (9.4-12.4) fL Immature Gran % (Auto) (0.0-0.4) % Neut % (Auto) (45-73) % Lymph % (Auto) (20-40) % [place] % (Auto) (2-11) % Eos % (Auto) (0-4) % Baso % (Auto) (0-2) % Lymph # (Auto) (1.2-4.9) X10*3/uL [place] # (Auto) (0.1-1.2) X10*3/uL Eos # (Auto) (0.0-0.4) X10*3/uL Baso # (Auto) (0.0-0.2) X10*3/uL Abs Immat Gran (auto) (0.00-0.03) X10*3/uL Absolute Neuts (auto) (2.0-8.3) x10*3/uL Absolute Nucleated RBC (0.0-0.012) X10*3/uL Nucleated RBC % (auto) (0.0-0.2) /100WBC Sodium (135-145) mmol/L Potassium (3.3-5.1) mmol/L Chloride (96-108) mmol/L Carbon Dioxide (22-29) mmol/L Anion Gap (12-20) BUN (9-16) mg/dL Creatinine (0.5-1.4) mg/dL Estim Creat Clear Calc Estimated GFR Random Glucose (60-115) mg/dL Calcium (8.4-10.2) mg/dL Total Bilirubin (0.0-1.0) mg/dL AST (5-37) U/L ALT (0-40) U/L Alkaline Phosphatase (39-117) U/L Total Protein (6.5-8.0) g/dL Albumin (3.5-5.0) g/dL Lipase (8-78) U/L Ethyl Alcohol < 10 mg/dL ECG Data Attestation: I personally reviewed and interpreted this ECG as follows: ECG interpretation date: 01/07/22 ECG interpretation time: 12:21 Prior ECG tracings: available for review Interpretation: Normal sinus rhythm first-degree AV block, NC interval 244, ventricular rate 77 beats per minute, normal QRS, normal QTC, no ST segment elevations or depressions. Critical Care Time Critical Care Time Critical Care Time: No Discharge Plan Discharge Clinical Impression: Gastritis Patient Disposition: Home, Self-Care Instructions: Gastritis (ED), Diet for Stomach Ulcers and Gastritis (ED) Additional Instructions: Your lab workup today was unremarkable. Your pain is most likely due to gastritis which is and irritation and inflammation of your stomach lining. Start taking the prescribed medication as directed for this. Stick to a bland diet. Avoid foods high in acid, avoid alcohol and NSAID medications like Aleve, Motrin, Advil or ibuprofen. Follow up with your doctor as needed. Follow up with GI doctor if you symptoms persist despite dietary modifications and medication. If you develop new or worsening symptoms call 911 or come back to the ER for further evaluation. Tu an?lisis de laboratorio de hoy no tuvo nada especial. Lo m?s probable es que yee dolor se deba a gastritis, que es irritaci?n e inflamaci?n del revestimiento del est?yanira. Comience a betzaida la medicaci?n prescrita seg?n las indicaciones para ello. Seguir yoanna dieta blanda. Evite los alimentos con alto contenido de ?cido, evite el alcohol y los medicamentos ROD salud Aleve, Motrin, Advil o ibuprofeno. Roxanna un seguimiento con yee m?dico seg?n sea necesario. Roxanna un seguimiento con el m?dico GI si los s?ntomas persisten a pesar de las modificaciones en la dieta y la medicaci?n. Si desarrolla s?ntomas nuevos o que empeoran, llame al 911 o regrese a la veronica de emergencias para yoanna evaluaci?n adicional. Prescriptions: No Action furosemide [Lasix] 40 mg Tablet 40 mg PO DAILY spironolactone [Aldactone] 25 mg Tablet 12.5 mg PO DAILY Rx Instructions: half tablet by mouth daily methadone 40 mg Tablet,Soluble 29 mg PO DAILY omeprazole 20 mg Capsule,Delayed Release(Dr/Ec) 20 mg PO DAILY oxycodone 5 mg Tablet 5 mg PO Q8H PRN (Reason: Pain) propranolol 40 mg tablet 1 tab PO BID clindamycin HCl 300 mg capsule 300 mg PO TID 5 Days Qty: 15 0RF cholecalciferol (vitamin D3) [Vitamin D3] 125 mcg (5,000 unit) tablet 125 mcg PO DAILY Qty: 30 0RF sucralfate 1 gram tablet 1 g PO TID PRN (Reason: gastritis) Qty: 90 0RF
--- NOTE | 2022-01-07 11:28 | ECG_ITS ---
Test Reason : SOB Blood Pressure : / mmHG Vent. Rate : 077 BPM Atrial Rate : 077 BPM P-R Int : 244 ms QRS Dur : 098 ms QT Int : 404 ms P-R-T Axes : 053 013 068 degrees QTc Int : 457 ms Sinus rhythm with 1st degree A-V block Otherwise normal ECG When compared with ECG of 01-MAY-2020 19:15, No significant change was found Referred By: Rima Samuel Electronically Signed By:Rk Diaz
[2022-01-07] MEDS: Ondansetron ODT 4 MG TAB.RAPDIS TRANSLINGU (11:36)
[2022-01-07 11:37] LABS: MANUAL DIFF FLAG NO
[2022-01-07] MEDS: Lidocaine HCl Viscous 2 % 15 ML SOLUTION MUCOUS MEM (11:37)
[2022-01-07] MEDS: PHENobarb/Hyoscy/Atropine/Scop 10 ML ELIXIR PO (11:37)
[2022-01-07] MEDS: Magnesium Hydrox/Alum Hydrox 30 ML ORAL.SUSP PO (11:37)
[2022-01-07 11:40] VITALS: BP 147/78; PULSE 89; RESP 20; O2SAT 98
[2022-01-07 11:47] LABS: Basophils Percent Auto 0.5 % (0-2); Eosinophils Absolute Auto 0.1 X10*3/uL (0.0-0.4); Hematocrit 37.8 % (42.0-52.0); Hemoglobin 12.1 g/dl (14.0-18.0); Imm Gran Abs Auto 0.01 X10*3/uL (0.00-0.03); Imm Gran Pct Auto 0.3 % (0.0-0.4); Lymphocytes Absolute Auto 0.4 X10*3/uL (1.2-4.9); Lymphocytes Percent Auto 9.7 % (20-40); Mean Corpuscular Hemoglobin 28.7 pg (27.0-33.0); Mean Corpuscular Volume 89.8 fL (80.0-98.0); Mean Platelet Volume 11.3 fL (9.4-12.4); Monocytes Absolute Auto 0.4 X10*3/uL (0.1-1.2); Monocytes Percent Auto 9.9 % (2-11); Neutrophils Absolute Auto 2.9 x10*3/uL (2.0-8.3); Neutrophils Percent Auto 76.6 % (45-73); Red Blood Count 4.21 X10*6/uL (4.60-5.80); Red Cell Distribution Width 12.8 % (11.0-16.0); White Blood Count 3.7 X10*3/uL (4.8-10.8)
[2022-01-07 11:48] LABS: Platelet Count 68 X10*3/uL (160-400)
[2022-01-07 12:08] LABS: Lipase 10 U/L (8-78)
[2022-01-07 12:09] LABS: Ethanol < 10 mg/dL
[2022-01-07 12:13] LABS: Alanine Aminotransferase 9 U/L (0-40); Albumin Level 3.2 g/dL (3.5-5.0); Alkaline Phosphatase 98 U/L (39-117); Anion Gap 7 (12-20); Aspartate Amino Transferase 20 U/L (5-37); Blood Urea Nitrogen 22 mg/dL (9-16); Calcium 8.6 mg/dL (8.4-10.2); Carbon Dioxide 31 mmol/L (22-29); Chloride 100 mmol/L (96-108); Creatinine Clr Calc Pharmacy 83.2; Estimated Glomerular Filt Rate 54; Glucose Random 117 mg/dL (60-115); Potassium 4.4 mmol/L (3.3-5.1); Sodium 134 mmol/L (135-145); Total Protein 8.1 g/dL (6.5-8.0)
== END 2022-01-07 13:58 | disposition home or self-care (01) ==
PROVIDERS: Physician Assistant; Emergency Provider Emergency Medicine; PCP Internal Medicine Geriatric Medicine
DX: K29.70 Gastritis, unspecified, without bleeding (principal); I10 Essential (primary) hypertension; F11.20 Opioid dependence, uncomplicated; K74.60 Unspecified cirrhosis of liver; B19.20 Unspecified viral hepatitis C without hepatic coma; Z87.891 Personal history of nicotine dependence; Z79.899 Other long term (current) drug therapy
CPT/HCPCS: 36415; 80053; 82077; 83690; 85025; 93005; 99283; 99284; 99285

== ENCOUNTER 2022-01-12 09:50 | Outpatient (REF) | payer MEDICARE, MEDICAID, SELFPAY ==
--- NOTE | ~2022-01-12 | US_ITS ---
EXAMINATION: US VENOUS REFLUX/INSUFFICIENCY CLINICAL INFORMATION: Varicose veins and lower extremity with inflammation. On the technologist's worksheet the patient underwent cyanoacrylate ablation of the left great saphenous vein and venaseal of the right great saphenous vein 2019 COMPARISON: None. TECHNIQUE: Bilateral lower extremity venous insufficiency ultrasound was performed with velocity measurements. Color flow Doppler imaging was performed. The exam is technically limited as the patient is unable to tolerate compression. FINDINGS: RIGHT SIDE: The common femoral vein, mid femoral vein, popliteal veins are patent and demonstrate no evidence of venous thrombosis or venous reflux. GREATER SAPHENOUS VEIN: The right saphenofemoral junction measures 1.2cm. The reflux time is 0 ms. Proximal thigh measures 0.6cm. Reflux time is 2748ms. Mid thigh measures 0.3cm. Reflux time is 0ms. Above-knee measures 0.4cm. Reflux time is 1632ms. At the knee measures 0.4cm. Reflux time is 1908ms. Below the knee measures 0.5cm. Reflux time is 1716ms. Mid calf measures 0.4cm. Reflux time is 1280ms. At the level of the ankle it measures0.3cm. Reflux time is 1840ms. There is a lateral accessory saphenous vein which at the saphenofemoral junction measures 6 mm and has no demonstrable reflux. At the mid thigh measures 0.3 cm and has no demonstrable reflux. At the mid thigh and [id number] there are changes suggestive of thrombophlebitis with minimal flow on Doppler SMALL SAPHENOUS VEIN: The upper right small saphenous vein measures 0.5 cm. Reflux time is 0ms. The lower small saphenous vein measures 0.5cm. Reflux time is 664ms. The distal calf small saphenous vein measures 0.5 cm. Reflux time is 0 ms. Proximal thigh there is a 0.4 cm varicosity with reflux time 1460 ms. At the knee there is a varicosity which measures 0.3 cm with reflux time 916 ms At the mid calf there is a 0.3 cm varicosity with reflux time of 848 ms. LEFT SIDE: The common femoral vein, mid femoral vein, popliteal veins are patent and demonstrate no evidence of venous thrombosis or venous reflux. GREATER SAPHENOUS VEIN: The left saphenofemoral junction measures 1.3cm. The reflux time is 0 ms. Proximal thigh measures 0.9cm. Reflux time is 0ms. Mid thigh measures 0.4cm. Reflux time is 1232ms. Above-knee measures 0.5cm. Reflux time is ms. At the knee measures 0.3cm. Reflux time is 0ms. Below the knee measures 0.5cm. Reflux time is 0ms. Mid calf measures 0.5cm. Reflux time is 0ms. At the level of the ankle it measures0.6cm. Reflux time is 0ms. There is a lateral accessory saphenous vein which measures 0.7 cm at the saphenofemoral junction with reflux time is 0 ms. At the mid thigh it measures 0.4 cm and reflux time of 0 ms. SMALL SAPHENOUS VEIN: The upper left small saphenous vein measures 0.5 cm. Reflux time is 0ms. The lower small saphenous vein measures 0.4cm. Reflux time is 0ms. The distal calf saphenous vein measures 0.4 cm. Reflux time is 0 ms. At the proximal calf there are 2 perforators which measures 0.2 cm and a third medical assistant cardiology which measures 0.3 cm. None of these vessels demonstrate reflux. There is a varicosity of the proximal thigh which measures 0.5 cm with reflux time 600 ms. US/US venous duplex LE BI IMPRESSION: Great saphenous vein is patent bilaterally and there is reflux along the length of the right great saphenous vein. On the left there is reflux at the mid thigh. Of note, there is possible thrombophlebitis involving the mid to above the knee great saphenous vein. There are at least 3 varicosities on the right which measure greater than 3 mm and one varicosity in the left which measures 5 mm. These demonstrate reflux from 1416 - 600 ms.
== END 2022-01-12 09:51 | disposition home or self-care (01) ==
LOC: HO.US 09:50
PROVIDERS: Visit Provider Surgery Vascular Surgery
DX: I83.11 Varicose veins of right lower extremity with inflammation (principal)
CPT/HCPCS: 93970

== ENCOUNTER → 2022-01-19 09:02 | Outpatient (BNVA) | payer MEDICARE, MEDICAID, SELFPAY | PROVIDERS: PCP Internal Medicine Geriatric Medicine; Visit Provider Surgery Vascular Surgery | DX: I83.11 Varicose veins of right lower extremity with inflammation (principal) | CPT/HCPCS: 99212 ==

== ENCOUNTER 2022-01-31 13:23 | Emergency (ER) | payer MEDICARE, MEDICAID, SELFPAY ==
[2022-01-31 16:07] VITALS: BP 156/82; PULSE 76; RESP 18; TEMP 37.8; O2SAT 98; BMI 47.5
--- NOTE | 2022-01-31 16:10 | ED.GENADULT ---
HPI - General Adult General Chief complaint: General Medical <KEMI Ramon - Last Filed: 01/31/22 16:11> Stated complaint: Covid symptoms <KEMI Ramon - Last Filed: 01/31/22 16:11> Time Seen by Provider: 01/31/22 19:30 <KEMI Ramon - Last Filed: 01/31/22 16:11> Source: patient <Carmina Cat NP - Last Filed: 02/01/22 01:52> Mode of arrival: ambulatory <Carmina Cat NP - Last Filed: 02/01/22 01:52> Limitations: no limitations <Carmina Cat NP - Last Filed: 02/01/22 01:52> History of Present Illness HPI narrative: 66-year-old male presents with headache, body aches, and chest discomfort for 2 days. Patient's son is positive for COVID-19 he presents for COVID testing <Carmina Cat NP - Last Filed: 02/01/22 01:52> Onset (ago): day(s) <Carmina Cat NP - Last Filed: 02/01/22 01:52> Radiation: non-radiation <Carmina Cat NP - Last Filed: 02/01/22 01:52> Severity: mild <Carmina Cat NP - Last Filed: 02/01/22 01:52> Associated symptoms: cough, fever/chills, headaches, malaise and shortness of breath <Carmina Cat NP - Last Filed: 02/01/22 01:52> Related Data Home medications: Home Medications Medication Instructions Recorded Confirmed furosemide 40 mg tablet (Lasix) 40 mg PO DAILY 11/13/19 05/01/20 methadone 40 mg soluble tablet 29 mg PO DAILY 11/13/19 05/02/20 omeprazole 20 mg capsule,delayed 20 mg PO DAILY 11/13/19 05/01/20 release oxycodone 5 mg tablet 5 mg PO Q8H PRN Pain 11/13/19 05/01/20 spironolactone 25 mg tablet 12.5 mg PO DAILY 11/13/19 05/01/20 (Aldactone) propranolol 40 mg tablet 1 tab PO BID 05/01/20 05/01/20 naloxone 4 mg/actuation nasal spray 0 spray intranasal 01/19/22 omeprazole 40 mg capsule,delayed 40 mg PO DAILY 01/19/22 release Previous Rx's Medication Instructions Recorded cholecalciferol (vitamin D3) 125 125 mcg PO DAILY #30 tabs 05/04/20 mcg (5,000 unit) tablet (Vitamin D3) clindamycin HCl 300 mg capsule 300 mg PO TID 5 days #15 caps 05/04/20 sucralfate 1 gram tablet 1 g PO TID PRN gastritis #90 tabs 06/08/21 benzonatate 100 mg capsule 100 mg PO TID PRN cough #20 caps 01/31/22 prednisone 20 mg tablet 40 mg PO DAILY 6 days #12 tabs 01/31/22 <KEMI Ramon - Last Filed: 01/31/22 16:11> Allergies/adverse reactions: Allergies Allergy/AdvReac Type Severity Reaction Status Date / Time No Known Allergies Allergy Verified 01/19/22 09:06 <KEMI Ramon - Last Filed: 01/31/22 16:11> Review of Systems Review of Systems: Constitutional: positive Fever, positive Chills, positive fatigue, positive Malaise ENT/Mouth: positive sore throat, positive runny nose Eyes: No Discharge Cardiovascular: No Chest Pain, No SOB Respiratory: Positive Cough, No Sputum, No Wheezing, No Dyspnea Gastrointestinal: No Nausea, No Vomiting, No Diarrhea Musculoskeletal: positive Myalgia Skin: No rash Neuro: Positive Headache <Carmina Cat NP - Last Filed: 02/01/22 01:52> Yes all other systems are reviewed and are negative <Carmina Cat NP - Last Filed: 02/01/22 01:52> [facility] Past Medical History Attestation statement: The following information was validated with the patient. <Carmina Cat NP - Last Filed: 02/01/22 01:52> Source: old records reviewed <Carmina Cat NP - Last Filed: 02/01/22 01:52> Medical History: Medical History Anemia Cirrhosis COVID-19 GERD (gastroesophageal reflux disease) Hepatic fibrosis History of substance abuse Hx of hepatitis C Hypertension Osteoarthritis of both knees Pancytopenia Pedal edema <KEMI Ramon - Last Filed: 01/31/22 16:11> Surgical History: Surgical History History of esophagogastroduodenoscopy (EGD) Hx of appendectomy Hx of endoscopic retrograde cholangiopancreatography Hx of left knee surgery <KEMI Ramon - Last Filed: 01/31/22 16:11> Family History Family History: Family History Father No problems noted. Mother No problems noted. <KEMI Ramon - Last Filed: 01/31/22 16:11> Social History Social History: Social History Household Members: None Housing: Apartment Do you presently have visiting nurse or other home services: Yes Alcohol intake: former Second Hand Smoke Exposure: No Substance Use Type: Former Substance User Advance Directives: No Advance Directives Information Provided: No service: No Current occupational status: disabled <KEMI Ramon - Last Filed: 01/31/22 16:11> Physical Exam ED Vital Signs: Vital Signs - 24 hr 01/31/22 16:07 01/31/22 19:43 Temperature 100.0 F 98.3 F Pulse Rate 76 76 Respiratory Rate 18 22 H Blood Pressure 156/82 H 156/52 H Pulse Oximetry 98 96 Oxygen Delivery Method Room Air Room Air BMI result Body Mass Index 47.5 <KEMI Ramon - Last Filed: 01/31/22 16:11> Vital Signs - 24 hr 01/31/22 16:07 01/31/22 19:43 Temperature 100.0 F 98.3 F Pulse Rate 76 76 Respiratory Rate 18 22 H Blood Pressure 156/82 H 156/52 H Pulse Oximetry 98 96 Oxygen Delivery Method Room Air Room Air BMI result Body Mass Index 47.5 <Carmina Cat NP - Last Filed: 02/01/22 01:52> Appearance: Alert. Oriented X3. No acute distress. Eyes: Pupils equal, round and reactive to light. ENT: Pharynx normal. Positive rhinorrhea. Neck: Normal inspection. Neck supple. CVS: Normal heart rate and rhythm. Pulses normal. Respiratory: Positive cough. No respiratory distress. Breath sounds normal. Abdomen: Soft and nontender. Obese. Skin: Skin warm and dry. Normal skin color. Normal skin turgor. Extremities: No lower extremity edema. Neuro: No motor deficit. No sensory deficit. Cranial nerves 2-12 intact <Carmina Cat NP - Last Filed: 02/01/22 01:52> Course Course Course Narrative: RME: 66 year old male hx of obesity presents w/ covid like sx X few days. Significant other with similar sx. Vacccinated against COVID. NO CP, SOB, fevers chills PE: Benign. VSS Plan: viral testing <KEMI Ramon - Last Filed: 01/31/22 16:11> RME: 66 year old male hx of obesity presents w/ covid like sx X few days. Significant other with similar sx. Vacccinated against COVID. NO CP, SOB, fevers chills PE: Benign. VSS Plan: viral testing 66-year-old male presents for COVID-19 testing. His son tested positive 2 days ago. He does describe headache, body aches and chest discomfort. Appears nontoxic, is afebrile, and has an O2 sat 98% on room air patient speaking in complete sentences, and has even unlabored respirations. Patient tested positive for COVID-19. Supportive measures provided. Patient verbalized understanding of and agrees to plan of care discharge home. Verbalized understanding of signs symptoms indicating need for emergent intervention. <Carmina Cat NP - Last Filed: 02/01/22 01:52> Medications Administered Discontinued Medications Generic Name Dose Route Start Last Admin Trade Name Freq PRN Reason Stop Dose Admin Albuterol Sulfate 2 puff 01/31/22 21:07 01/31/22 21:30 Albuterol Sulfate 90 Mcg 8 Gm Inhaler INHALE 01/31/22 21:08 2 puff ONCE ONE Administration Prednisone 40 mg 01/31/22 21:07 01/31/22 21:28 Prednisone 20 Mg Tablet PO 01/31/22 21:08 40 mg ONCE ONE Administration <KEMI Ramon - Last Filed: 01/31/22 16:11> Medications Administered Discontinued Medications Generic Name Dose Route Start Last Admin Trade Name Liliya PRJoey Reason Stop Dose Admin Albuterol Sulfate 2 puff 01/31/22 21:07 01/31/22 21:30 Albuterol Sulfate 90 Mcg 8 Gm Inhaler INHALE 01/31/22 21:08 2 puff ONCE ONE Administration Prednisone 40 mg 01/31/22 21:07 01/31/22 21:28 Prednisone 20 Mg Tablet PO 01/31/22 21:08 40 mg ONCE ONE Administration <Carmina Cat NP - Last Filed: 02/01/22 01:52> Medical Decision Making Differential Diagnosis Differential Diagnoses: The differential diagnosis associated with the presentation includes <Carmina Cat NP - Last Filed: 02/01/22 01:52> Admission/Observation Consideration of admission/observation: Escalation of care including admission/observation considered <Carmina Cat NP - Last Filed: 02/01/22 01:52> Patient does not require admission for this visit. <Carmina Cat NP - Last Filed: 02/01/22 01:52> Lab Data MDM Lab Attestation statement: I reviewed the patient's lab results. <Carmina Cat NP - Last Filed: 02/01/22 01:52> Labs: Lab Results 01/31/22 Range/Units 16:28 Influenza Type A (PCR) NEGATIVE (Negative) Influenza Type B (PCR) NEGATIVE (Negative) RSV RNA Qual (PCR) NEGATIVE (Negative) SARS-CoV-2 RNA (RT-PCR) POSITIVE A (Negative) <KEMI Ramon - Last Filed: 01/31/22 16:11> Lab Results 01/31/22 Range/Units 16:28 Influenza Type A (PCR) NEGATIVE (Negative) Influenza Type B (PCR) NEGATIVE (Negative) RSV RNA Qual (PCR) NEGATIVE (Negative) SARS-CoV-2 RNA (RT-PCR) POSITIVE A (Negative) <Carmina Cat NP - Last Filed: 02/01/22 01:52> Chronic Conditions Patient?s care impacted by: Diabetes and Hypertension <Carmina Cat NP - Last Filed: 02/01/22 01:52> Discharge Plan Discharge Clinical Impression: COVID-19 virus infection <KEMI Ramon - Last Filed: 01/31/22 16:11> Patient Disposition: Home, Self-Care <KEMI Ramon - Last Filed: 01/31/22 16:11> Instructions: COVID-19 (Coronavirus Disease 2019) (ED) <KEMI Ramon - Last Filed: 01/31/22 16:11> Additional Instructions: Use el inhalador de albuterol cada 4 a 6 horas seg?n sea necesario para la dificultad para respirar y la tos. [place] Tessalon Perles 100 mg cada 8 horas seg?n sea necesario. [place] prednisona 40 mg al d?a. Comience vane medicamento ma?wally el 01/02/2022. Le dimos yee primera dosis en el departamento de emergencias. Mantenga el aislamiento seg?n el protocolo estatal y federal. Jessy por elegir vane departamento de emergencias para yee evaluaci?n. Por favor, christian un seguimiento con el m?dico de atenci?n primaria seg?n sea necesario. Regrese al departamento de emergencias por cualquier s?ntoma nuevo, preocupante o que empeore. Your evaluated for upper respiratory symptoms. You tested positive for COVID-19. Use albuterol inhaler every 4-6 hours as needed for shortness of breath and coughing. Take Tessalon Perles 100 mg every 8 hours as needed. Take prednisone 40 mg daily. Start this medication tomorrow on 02/01/2022. We gave your 1st dose in the emergency department. Maintain isolation per State and Federal protocol. Thank you for choosing this emergency department for evaluation. Please follow-up with primary care physician as needed. Return to the emergency department for any new, concerning, or worsening symptoms. <KEMI Ramon - Last Filed: 01/31/22 16:11> Prescriptions: New prednisone 20 mg tablet 40 mg PO DAILY 6 Days Qty: 12 0RF benzonatate 100 mg capsule 100 mg PO TID PRN (Reason: cough) Qty: 20 0RF No Action furosemide [Lasix] 40 mg Tablet 40 mg PO DAILY spironolactone [Aldactone] 25 mg Tablet 12.5 mg PO DAILY Rx Instructions: half tablet by mouth daily methadone 40 mg Tablet,Soluble 29 mg PO DAILY omeprazole 20 mg Capsule,Delayed Release(Dr/Ec) 20 mg PO DAILY oxycodone 5 mg Tablet 5 mg PO Q8H PRN (Reason: Pain) propranolol 40 mg tablet 1 tab PO BID clindamycin HCl 300 mg capsule 300 mg PO TID 5 Days Qty: 15 0RF cholecalciferol (vitamin D3) [Vitamin D3] 125 mcg (5,000 unit) tablet 125 mcg PO DAILY Qty: 30 0RF sucralfate 1 gram tablet 1 g PO TID PRN (Reason: gastritis) Qty: 90 0RF omeprazole 40 mg capsule,delayed release(DR/EC) 40 mg PO DAILY naloxone 4 mg/actuation spray,non-aerosol 0 spray intranasal <KEMI Ramon - Last Filed: 01/31/22 16:11> Interventions: ED Discharge Assessment Last Done: 01/31/22 21:35 <KEMI Ramon - Last Filed: 01/31/22 16:11> Discharge Date/Time: 01/31/22 21:35 <KEMI Ramon - Last Filed: 01/31/22 16:11>
[2022-01-31 17:19] LABS: Influenza A PCR NEGATIVE (Negative); Influenza B PCR NEGATIVE (Negative); Resp Syncy Virus RNA Qual PCR NEGATIVE (Negative); SARS COV2 PCR INHOUSE POSITIVE (Negative)
[2022-01-31 19:43] VITALS: BP 156/52; PULSE 76; RESP 22; TEMP 36.8; O2SAT 96
[2022-01-31] MEDS: predniSONE 20 MG TABLET 40 MG PO (21:28)
[2022-01-31] MEDS: Albuterol Sulfate 90 MCG 8 GM INHALER 2 PUFF INHALE (21:30)
== END 2022-01-31 21:35 | disposition home or self-care (01) ==
PROVIDERS: Physician Assistant; Emergency Provider Internal Medicine; PCP Internal Medicine Geriatric Medicine
DX: U07.1 COVID-19 (principal); R51.9 Headache, unspecified; R50.9 Fever, unspecified; R05.9 Cough, unspecified; R06.02 Shortness of breath; Z79.899 Other long term (current) drug therapy
CPT/HCPCS: 0241U; 99283; 99284

== ENCOUNTER 2022-02-24 10:14 | Outpatient (REF) | payer MEDICARE, MEDICAID, SELFPAY ==
--- NOTE | ~2022-02-24 | US_ITS ---
EXAMINATION: US VENOUS ULTRASOUND WITH DOPPLER LOWER EXTREMITY, LEFT CLINICAL INFORMATION: Leg swelling. Evaluate for deep vein thrombosis. COMPARISON: Lower extremity venous ultrasound exams from 05/01/2020 and 01/12/2022 TECHNIQUE: Ultrasound of the deep veins is performed from the hip to the calf with compression sonography and color and pulse Doppler assessment. Spectral analysis with color-flow imaging is performed. The reliability technologist reports difficulty with visualization of left calf veins due to soft tissue edema. FINDINGS: The common femoral vein is compressible and exhibits a normal phasic waveform; this suggests that the iliac veins are widely patent above. Within the proximal thigh, the visualized profunda femoris vein is normal. The examined greater saphenous vein and saphenofemoral junction are normal. Superficial femoral vein is patent in the proximal, mid and distal thigh. Popliteal vein appears to be widely patent to the level of the trifurcation. There is limited visualization/evaluation of calf veins. The posterior tibial vein is grossly normal in the mid to proximal calf. The peroneal vein cannot be visualized. No evidence of Muller's cyst. The visualized left groin/inguinal lymph nodes measure up to 1.3 cm short axis dimension and are likely mildly reactive lymph nodes. US/US venous duplex LE IMPRESSION: * No evidence of deep vein thrombosis in the left lower extremity. * Although no venous thrombosis is detected, the deep calf veins are difficult to visualize, and a repeat Doppler ultrasound may be considered in 5-7 days if there is any ongoing clinical suspicion.
== END 2022-02-24 10:15 | disposition home or self-care (01) ==
LOC: HO.US 10:14
PROVIDERS: PCP Internal Medicine Geriatric Medicine; Visit Provider Physician Assistant
DX: M79.605 Pain in left leg (principal); R22.42 Localized swelling, mass and lump, left lower limb
CPT/HCPCS: 93971

== ENCOUNTER → 2022-03-31 07:21 | Outpatient (BNVA) | payer MEDICARE, MEDICAID, SELFPAY | PROVIDERS: PCP Internal Medicine Geriatric Medicine; Visit Provider Surgery Vascular Surgery | DX: I83.11 Varicose veins of right lower extremity with inflammation (principal) | CPT/HCPCS: 36482 ==

== ENCOUNTER 2022-04-03 11:45 | Outpatient (REF) | payer MEDICARE, MEDICAID, SELFPAY ==
--- NOTE | ~2022-04-03 | US_ITS ---
EXAMINATION: US VENOUS ULTRASOUND WITH DOPPLER LOWER EXTREMITY, RIGHT CLINICAL INFORMATION: Pain in right leg COMPARISON: None TECHNIQUE: Ultrasound of the deep veins is performed from the hip to the calf with compression sonography and color and pulse Doppler assessment. Spectral analysis with color-flow imaging is performed. FINDINGS: There is normal venous compression and respiratory variation and augmented flow. The visualized common femoral vein, superficial femoral vein, profunda femoral vein, popliteal vein, and the trifurcation region shows no evidence of deep venous thrombosis. There is no significant popliteal fossa cyst. Patient has undergone a venaseal procedure with closure of the overall majority of the great saphenous vein. Only the proximal 2 cm of the vessel near the saphenofemoral junction demonstrates vascular flow on Doppler. If the patient's symptoms persist, followup ultrasound in 5 days 7 days might be of value to exclude proximal propagation from a non-visualized calf vein. US/US venous duplex LE RT IMPRESSION: No DVT demonstrated in the right lower extremity. Expected changes post closure of the right great saphenous vein.
== END 2022-04-03 11:46 | disposition home or self-care (01) ==
LOC: HO.US 11:45
PROVIDERS: PCP Internal Medicine Geriatric Medicine; Visit Provider Surgery Vascular Surgery
DX: M79.604 Pain in right leg (principal)
CPT/HCPCS: 93971

== ENCOUNTER → 2022-04-13 08:50 | Outpatient (BNVA) | payer MEDICARE, MEDICAID, SELFPAY | PROVIDERS: PCP Internal Medicine Geriatric Medicine; Visit Provider Surgery Vascular Surgery | DX: I83.11 Varicose veins of right lower extremity with inflammation (principal) | CPT/HCPCS: 99212 ==

== ENCOUNTER 2022-04-15 06:28 | Emergency (ER) | payer MEDICARE, MEDICAID, SELFPAY ==
[2022-04-15 06:55] VITALS: BP 186/72; PULSE 76; RESP 16; TEMP 36.8; O2SAT 98; BMI 39.5
[2022-04-15 07:16] VITALS: BP 134/57; PULSE 72; RESP 17; TEMP 36.9; O2SAT 96
--- NOTE | 2022-04-15 08:09 | ED_ITS ---
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 Patient states the rash started after he had a procedure done in the office by Dr. Kramer. He states the rash started on his right lower extremity, now resolved in that portion of body. It is mostly on his back, chest and newly on his face.Patient had endovascular venous ablation of the right great savphenoues vein with VenaSeal Closure System. he had a follow-up with appointment with Dr. Kramer in the office who advised him to take Benadryl. He just started taking it yesterday. Today he woke up with new rash on his face. No lip, tongue, or oral swelling. No difficulty breathing or swallowing. MD complaint: rash Onset (ago): day(s) Location: face, chest and back Severity: moderate Quality: pruritic Pain Consistency: constant Relieving factors: medication ( Benadryl improved his symptoms however makes him tired.) Exacerbating factors: none Context: other Associated symptoms: denies other symptoms Treatments prior to arrival: none Related Data Home Medications Medication Instructions Recorded Confirmed furosemide 40 mg tablet (Lasix) 40 mg PO DAILY 11/13/19 05/01/20 methadone 40 mg soluble tablet 29 mg PO DAILY 11/13/19 05/02/20 omeprazole 20 mg capsule,delayed 20 mg PO DAILY 11/13/19 05/01/20 release oxycodone 5 mg tablet 5 mg PO Q8H PRN Pain 11/13/19 05/01/20 spironolactone 25 mg tablet 12.5 mg PO DAILY 11/13/19 05/01/20 (Aldactone) propranolol 40 mg tablet 1 tab PO BID 05/01/20 05/01/20 naloxone 4 mg/actuation nasal spray 0 spray intranasal 01/19/22 omeprazole 40 mg capsule,delayed 40 mg PO DAILY 01/19/22 release Previous Rx's Medication Instructions Recorded cholecalciferol (vitamin D3) 125 125 mcg PO DAILY #30 tabs 05/04/20 mcg (5,000 unit) tablet (Vitamin D3) clindamycin HCl 300 mg capsule 300 mg PO TID 5 days #15 caps 05/04/20 sucralfate 1 gram tablet 1 g PO TID PRN gastritis #90 tabs 06/08/21 benzonatate 100 mg capsule 100 mg PO TID PRN cough #20 caps 01/31/22 prednisone 20 mg tablet 40 mg PO DAILY 6 days #12 tabs 01/31/22 diphenhydramine HCl 25 mg capsule 50 mg PO TID PRN allergic reaction 04/15/22 (Benadryl) #20 caps famotidine 40 mg tablet (Pepcid) 40 mg PO DAILY #10 tabs 04/15/22 prednisone 50 mg tablet 50 mg PO DAILY #5 tabs 04/15/22 Allergies Allergy/AdvReac Type Severity Reaction Status Date / Time No Known Allergies Allergy Verified 04/13/22 09:11 Review of Systems Review of Systems: Yes all other systems are reviewed and are negative [facility] Past Medical History Medical History Anemia Cirrhosis COVID-19 GERD (gastroesophageal reflux disease) Hepatic fibrosis History of substance abuse Hx of hepatitis C Hypertension Osteoarthritis of both knees Pancytopenia Pedal edema Surgical History History of esophagogastroduodenoscopy (EGD) Hx of appendectomy Hx of endoscopic retrograde cholangiopancreatography Hx of left knee surgery Family History Family History Father No problems noted. Mother No problems noted. Social History Social History Household Members: None Housing: Apartment Do you presently have visiting nurse or other home services: Yes Alcohol intake: former Second Hand Smoke Exposure: No Substance Use Type: Former Substance User Advance Directives: No Advance Directives Information Provided: Yes service: No Current occupational status: disabled Physical Exam Vital Signs: Vital Signs: Last Vital Signs Temp 98.4 F 04/15/22 07:16 Pulse 72 04/15/22 07:16 Resp 17 04/15/22 07:16 BP 134/57 L 04/15/22 07:16 Pulse Ox 96 04/15/22 07:16 O2 Del Method 04/15/22 07:16 BMI result Body Mass Index 39.5 Appearance: Alert. Oriented X3. No acute distress. HEENT: normocephalic, atraumatic his face has a patchy, slightly raised erythematous maclopapular, urticarial type rash, mostly on the cheeks and forehead. normal inspection of the oropharynx, no oral lesions, airway patent. CVS: Normal heart rate and rhythm. Pulses normal. Respiratory: No respiratory distress. Lungs CTAB Skin: Skin warm and dry. Normal skin color. Normal skin turgor. On his chest wall and upper back there is a flat, red, rash in large patches Extremities: no rash on his 4 extremities. Neuro: Oriented X 3. Nonfocal Medical Decision Making Medical Decision Making MDM Narrative: 66-year-old Serbian-speaking male presents to the ER for evaluation of itchy hives that have been present on his chest and back for the last 8 days. He just started taking Benadryl yesterday. New onset hives on his face today. No oral involvement, lungs are clear. He is not on ADIEL-inhibitor. No evidence of angioedema. Most likely allergic reaction versus idiopathic urticaria. filler operator used to explain diagnosis and management with Benadryl and steroids. Will also add Pepcid. He will follow up with his primary care doctor next week and come back to the ER if he has any new or worsening symptoms. Differential Diagnosis Differential Diagnoses: The differential diagnosis associated with the presentation includes Allergic dermatitis, atopic dermatitis, idiopathic urticaria, less likely cellulitis or angioedema External Record Review External record reviewed: Office record, Outpatient record and Prior outpatient labs Prescription Management I considered prescription management with: Other ( prednisone) Critical Care Time Critical Care Time Critical Care Time: No Discharge Plan Discharge Clinical Impression: Allergic reaction Patient Disposition: Home, Self-Care Instructions: General Allergic Reaction (ED) Additional Instructions: Take the prescribed prednisone, once each morning for the next 5 days. Recommend continuing Benadryl 2 tablets every 6-8 hours until the rash is completely gone. Recommend starting the prescribed Pepcid medication, once per day for 10 days. Follow up with her primary care doctor next week. If you have new or worsening symptoms such as difficulty breathing, swelling of your lips, tongue or mouth, call 911 or come back to the ER right away for further evaluation. [place] la prednisona recetada, yoanna vez cada ma?wally abigail los pr?ximos 5 d?as. Recomiende continuar con Benadryl 2 tabletas cada 6-8 horas hasta que la erupci?n desaparezca por completo. Recomiende comenzar con el medicamento Pepcid recetado, yoanna vez al d?a abigail 10 d?as. Roxanna un seguimiento con yee m?dico de atenci?n primaria la pr?xima semana. Si tiene s?ntomas nuevos o que empeoran, salud dificultad para respirar, hinchaz?n de los labios, la lengua o la boca, llame al 911 o regrese a la veronica de emergencias de inmediato para yoanna evaluaci?n adicional. Prescriptions: New prednisone 50 mg tablet 50 mg PO DAILY Qty: 5 0RF famotidine [Pepcid] 40 mg tablet 40 mg PO DAILY Qty: 10 0RF diphenhydramine HCl [Benadryl] 25 mg capsule 50 mg PO TID PRN (Reason: allergic reaction) Qty: 20 0RF No Action furosemide [Lasix] 40 mg Tablet 40 mg PO DAILY spironolactone [Aldactone] 25 mg Tablet 12.5 mg PO DAILY Rx Instructions: half tablet by mouth daily methadone 40 mg Tablet,Soluble 29 mg PO DAILY omeprazole 20 mg Capsule,Delayed Release(Dr/Ec) 20 mg PO DAILY oxycodone 5 mg Tablet 5 mg PO Q8H PRN (Reason: Pain) propranolol 40 mg tablet 1 tab PO BID clindamycin HCl 300 mg capsule 300 mg PO TID 5 Days Qty: 15 0RF cholecalciferol (vitamin D3) [Vitamin D3] 125 mcg (5,000 unit) tablet 125 mcg PO DAILY Qty: 30 0RF sucralfate 1 gram tablet 1 g PO TID PRN (Reason: gastritis) Qty: 90 0RF prednisone 20 mg tablet 40 mg PO DAILY 6 Days Qty: 12 0RF benzonatate 100 mg capsule 100 mg PO TID PRN (Reason: cough) Qty: 20 0RF omeprazole 40 mg capsule,delayed release(DR/EC) 40 mg PO DAILY naloxone 4 mg/actuation spray,non-aerosol 0 spray intranasal Discharge Date/Time: 04/15/22 08:15 Print Language: Serbian
--- NOTE | 2022-04-15 08:15 | PC.NURSE ---
seen by provider, educated on importance of perscription med compliance, given Rx for steroids for rash
== END 2022-04-15 08:15 | disposition home or self-care (01) ==
PROVIDERS: Emergency Provider Emergency Medicine
DX: L50.9 Urticaria, unspecified (principal); T50.905A Adverse effect of unspecified drugs, medicaments and biological substances, initial encounter; Y92.009 Unspecified place in unspecified non-institutional (private) residence as the place of occurrence of the external cause
CPT/HCPCS: 99283

== ENCOUNTER → 2022-05-16 11:09 | Outpatient (BNVA) | payer MEDICARE, MEDICAID, SELFPAY | PROVIDERS: PCP Internal Medicine Geriatric Medicine; Visit Provider Surgery Vascular Surgery | DX: I83.11 Varicose veins of right lower extremity with inflammation (principal) | CPT/HCPCS: 99212 ==

== ENCOUNTER → 2022-07-14 07:58 | Outpatient (BNVA) | payer MEDICARE, MEDICAID, SELFPAY | PROVIDERS: PCP Internal Medicine Geriatric Medicine; Visit Provider Surgery Vascular Surgery | DX: I83.11 Varicose veins of right lower extremity with inflammation (principal) | CPT/HCPCS: 36475 ==

== ENCOUNTER 2022-07-17 15:16 | Outpatient (REF) | payer MEDICARE, MEDICAID, SELFPAY ==
--- NOTE | ~2022-07-17 | US_ITS ---
EXAMINATION: US VENOUS ULTRASOUND WITH DOPPLER LOWER EXTREMITY, RIGHT CLINICAL INFORMATION: Post right lesser saphenous vein RFA 07/14/2022 COMPARISON: Previous exam March 2022 TECHNIQUE: Ultrasound of the deep veins is performed from the hip to the calf with compression sonography and color and pulse Doppler assessment. Spectral analysis with color-flow imaging is performed. FINDINGS: Exam is limited due to patient body habitus and discomfort. There is echogenic material seen in the lesser saphenous vein post RFA. This extends to 3.3 cm from the sapheno popliteal junction. The visualized lesser saphenous vein appears closed. There is otherwise normal venous compression and respiratory variation and augmented flow. The visualized common femoral vein, superficial femoral vein, profunda femoral vein, popliteal vein, and the trifurcation region shows no evidence of deep venous thrombosis. There is no significant popliteal fossa cyst. . US/US venous duplex LE RT IMPRESSION: Limited exam. Echogenic material in the lesser saphenous vein post RFA extending to 3.3 cm from the saphenopopliteal junction No DVT demonstrated in the right lower extremity.
== END 2022-07-17 15:17 | disposition home or self-care (01) ==
LOC: HO.US 15:16
PROVIDERS: PCP Internal Medicine Geriatric Medicine; Visit Provider Surgery Vascular Surgery
DX: M79.604 Pain in right leg (principal)
CPT/HCPCS: 93971

== ENCOUNTER 2022-08-05 16:33 | Inpatient (IN) | payer MEDICARE, MEDICAID, SELFPAY ==
--- NOTE | ~2022-08-05 | CT_ITS ---
EXAMINATION: CT ABDOMEN AND PELVIS WITHOUT CONTRAST CLINICAL INFORMATION: Hematuria. Status post renal biopsy. COMPARISON: None available. TECHNIQUE: Multidetector volumetric imaging was performed from the superior aspect of the liver through the pubic symphysis. Sagittal and coronal reformatted images were obtained on the technologist's workstation. This CT examination was performed using dose optimization techniques as appropriate, variously including the following: *Automated exposure control *Adjustment of mA and/or kV according to patient size (this includes techniques or standardized protocols for targeted exams where dose is matched to indication/reason for exam; i.e. extremities or head) *Use of iterative reconstruction technique DLP: 1266 mGy-cm FINDINGS: LUNG BASES: The lung bases are clear. The heart size is normal. LIVER, GALLBLADDER, AND BILIARY TREE: The liver is normal size, lobulated shape and mild heterogeneity likely cirrhosis. There is punctate gas visualized in proximal common bile duct and the gallbladder. The gallbladder is mildly distended with gas visualized most than the previous study. No radiopaque gallstones or wall thickening seen. PANCREAS: There is diffuse fatty atrophy of the pancreas. SPLEEN: The spleen is enlarged measuring 15 cm. ADRENAL GLANDS: Unremarkable. KIDNEYS AND URETERS: The right kidney is normal size, shape with small perinephric hematoma along the lower pole. There is a hyperdense appearing uterine within the pelvicalyceal system and the proximal aorta consistent with hematuria. No radiopaque calculi seen. The left kidney is normal size and position. No radiopaque calculi are hydronephrosis seen. There are extensive collateral vessels seen in splenorenal space likely from portal venous hypertension. BLADDER: Unremarkable. GASTROINTESTINAL TRACT: There is scattered stool, diverticula and gas seen throughout the colon without distention. The small bowel loops are normal caliber. Appendix is not visualized. No free air or free fluid seen. ABDOMINAL WALL: Small umbilical hernia containing fat is noted. LYMPH NODES: Normal. VASCULAR: Unremarkable. PELVIC VISCERA: Unremarkable. OSSEOUS STRUCTURES: No aggressive lytic or sclerotic process seen. CT/CT abdomen pelvis wo IV con IMPRESSION: 1. Small right perinephric hematoma along the lower pole of the right kidney. 2. There is hyperdense material within the right pelvicalyceal system and proximal ureter consistent with hematuria. 3. There is no radiopaque urolith or hydroureteronephrosis seen. 4. Cirrhotic liver with portal venous hypertension and splenomegaly. 5. Colonic diverticulosis without diverticulitis. 6. Small umbilical hernia containing fat. 7. Results were directly discussed with Dr. Ingram/hospitalist by phone at 12:35 PM. Fleischner guidelines were followed.
--- NOTE | ~2022-08-05 | CT_ITS ---
PROCEDURE: CT GUIDED BIOPSY, KIDNEY CLINICAL INFORMATION: LUIS MIGUEL. COMPARISON: CT abdomen 08/05/2022. TECHNIQUE: Following explaining CT fluoroscopy-guided right kidney biopsy procedure, benefits and risk, entering consent was obtained through a dental practitioner. Patient was placed prone on CT fluoroscopy table and preliminary axial CT imaging was obtained. An optimal site was selected and marked along the posterior skin. The marked site was cleaned and draped in usual sterile manner. 1% lidocaine was inserted at puncture site. Through a small skin incision a 20-gauge guide needle was advanced from the skin to the perinephric space of the right kidney lower pole. Coaxially a 20-gauge needle was advanced and lower pole right kidney biopsy was performed x4. The needle was withdrawn and complete hemostasis achieved at puncture site. Sterile dressing applied postprocedure. Patient tolerated procedure extremely well. Postprocedure repeat CT imaging was obtained. This CT examination was performed using dose optimization techniques as appropriate, variously including the following: *Automated exposure control *Adjustment of mA and/or kV according to patient size (this includes techniques or standardized protocols for targeted exams where dose is matched to indication/reason for exam; i.e. extremities or head) *Use of iterative reconstruction technique Conscious sedation was utilized and patient monitored during the exam for 13 minutes. DLP: 332 mGy-cm FINDINGS: On preliminary CT imaging the kidneys are symmetrical and unremarkable. No radiopaque calculi seen. There is trace right kidney lower pole residual blood from previous biopsy. CT fluoroscopy-guided right kidney lower pole core biopsy was performed. Kidney tissue was collected and sent in a saline compartment, denies back to outside facility. There were no immediate complications. CT/CT biopsy renal RT IMPRESSION: Successful CT fluoroscopy-guided right kidney lower pole core biopsy was performed without immediate complications.
--- NOTE | ~2022-08-05 | CT_ITS ---
PROCEDURE: CT-GUIDED BIOPSY, KIDNEY CLINICAL INFORMATION: LUIS MIGUEL. COMPARISON: None available. TECHNIQUE: Following explaining right renal CT-guided biopsy procedure, benefits and risks, a written consent was obtained. Patient was placed prone on CT fluoroscopy table and preliminary CT imaging was obtained. Markers were placed over the right posterior abdomen and repeat CT imaging was obtained. An optimal site was selected and marked on the skin. The area marked was cleaned and draped in a usual sterile fashion with 2% chlorhexidine solution. 1% lidocaine was injected at puncture site. Through a small skin incision and 20-gauge guide needle was advanced from the skin to the level of right kidney capsule lower pole. Coaxially a 20-gauge gun was advanced and a 3 pass core biopsy of lower pole right renal cortex was performed. Postprocedure needle and the guidewire were removed and complete hemostasis achieved. Patient developed a tiny perinephric hematoma. This was confirmed on the post biopsy CT. Conscious sedation was utilized and patient monitored by IR nurse and physician for [address] examination was performed using dose optimization techniques as appropriate, variously including the following: *Automated exposure control *Adjustment of mA and/or kV according to patient size (this includes techniques or standardized protocols for targeted exams where dose is matched to indication/reason for exam; i.e. extremities or head) *Use of iterative reconstruction technique DLP: 358 mGy-cm FINDINGS: There are normal symmetric-appearing kidneys. There are significant collateral vessels seen in the right hepatorenal space likely secondary to portal hypertension. Approximately 3 small core biopsies of right kidney lower pole were obtained and sent to lab for further analysis. CT/CT biopsy renal RT IMPRESSION: Successful CT fluoroscopy-guided lower pole right renal core biopsy performed.
[2022-08-05 16:37] VITALS: BP 154/82; PULSE 82; RESP 20; TEMP 36.7; O2SAT 97; BMI 45.5
--- NOTE | 2022-08-05 16:44 | ED.GENADULT ---
HPI - General Adult General Chief complaint: Abdominal Pain Stated complaint: abd pain, L side pain Time Seen by Provider: 08/05/22 17:25 Source: patient, RN notes reviewed, old records reviewed and parts interpreter Limitations: language barrier History of Present Illness HPI narrative: 67-year-old male past medical history significant for gastritis, obesity, substance abuse on methadone, GERD, hypertension, hepatitis-C presents for evaluation of abdominal pain. It is reports left upper abdominal pain that radiates to his left flank. He has had the pain for the last few days. He reports nausea but no vomiting Denies any diarrhea black or bloody stool Denies any difficulty urinating Patient denies any known history of kidney stones Patient was brought back to room 12 after his creatinine resulted showing a 4.99 which is acute for the patient. Patient also has chronic wounds to lower extremities, he reports that he has a visiting nurse changes chest single ice a week He still has an open wound to the right lower leg Denies any fevers or chills Related Data Home Medications Medication Instructions Recorded Confirmed furosemide 40 mg tablet (Lasix) 40 mg PO DAILY 11/13/19 05/01/20 methadone 40 mg soluble tablet 29 mg PO DAILY 11/13/19 05/02/20 omeprazole 20 mg capsule,delayed 20 mg PO DAILY 11/13/19 05/01/20 release oxycodone 5 mg tablet 5 mg PO Q8H PRN Pain 11/13/19 05/01/20 spironolactone 25 mg tablet 12.5 mg PO DAILY 11/13/19 05/01/20 (Aldactone) propranolol 40 mg tablet 1 tab PO BID 05/01/20 05/01/20 naloxone 4 mg/actuation nasal spray 0 spray intranasal 01/19/22 omeprazole 40 mg capsule,delayed 40 mg PO DAILY 01/19/22 release Previous Rx's Medication Instructions Recorded cholecalciferol (vitamin D3) 125 125 mcg PO DAILY #30 tabs 05/04/20 mcg (5,000 unit) tablet (Vitamin D3) clindamycin HCl 300 mg capsule 300 mg PO TID 5 days #15 caps 05/04/20 sucralfate 1 gram tablet 1 g PO TID PRN gastritis #90 tabs 06/08/21 benzonatate 100 mg capsule 100 mg PO TID PRN cough #20 caps 01/31/22 prednisone 20 mg tablet 40 mg PO DAILY 6 days #12 tabs 01/31/22 diphenhydramine HCl 25 mg capsule 50 mg PO TID PRN allergic reaction 04/15/22 (Benadryl) #20 caps famotidine 40 mg tablet (Pepcid) 40 mg PO DAILY #10 tabs 04/15/22 prednisone 50 mg tablet 50 mg PO DAILY #5 tabs 04/15/22 Allergies Allergy/AdvReac Type Severity Reaction Status Date / Time No Known Allergies Allergy Verified 07/14/22 08:00 Review of Systems Constitutional: Constitutional: Reports as per HPI, Denies chills, Denies fatigue, Denies fever(s) and Denies headache(s) ENT: Denies headache(s) Cardiovascular: Cardiovascular: Denies chest pain and Denies dyspnea Respiratory: Respiratory: Denies cough and Denies dyspnea Gastrointestinal: Gastrointestinal: Reports abdominal pain, Denies constipation, Reports nausea and Denies vomiting Genitourinary: Genitourinary: Denies difficulty urinating and Denies dysuria Integumentary/Breasts: Skin/Breast: Reports wounds (Open wound to the right lateral lower leg) Neurologic: Denies headache(s) and Denies focal weakness Endocrine: Endocrine: Denies fatigue PMFSH Past Medical History Medical History Anemia Cirrhosis COVID-19 GERD (gastroesophageal reflux disease) Hepatic fibrosis History of substance abuse Hx of hepatitis C Hypertension Osteoarthritis of both knees Pancytopenia Pedal edema Surgical History History of esophagogastroduodenoscopy (EGD) Hx of appendectomy Hx of endoscopic retrograde cholangiopancreatography Hx of left knee surgery Family History Family History Father No problems noted. Mother No problems noted. Social History Social History Household Members: None Housing: Apartment Do you presently have visiting nurse or other home services: Yes Alcohol intake: former Second Hand Smoke Exposure: No Substance Use Type: Former Substance User Advance Directives: No Advance Directives Information Provided: No service: No Current occupational status: disabled Physical Exam ED Vital Signs: Vital Signs - 24 hr 08/05/22 16:37 08/05/22 18:00 08/05/22 19:19 Temperature 98.0 F 98.5 F Pulse Rate 82 82 80 Respiratory Rate 20 16 17 Blood Pressure 154/82 H 128/61 133/72 Pulse Oximetry 97 98 96 Oxygen Delivery Method Room Air Room Air Room Air BMI result Body Mass Index 45.5 Const General: healthy appearing, comfortable, no acute distress, alert and awake Nutritional Appearance: well nourished Orientation/consciousness: patient oriented x3 HENMT Head: Yes normocephalic and Yes atraumatic Eyes Eyelids: Yes eyelids normal Conjunctivae: conjunctivae normal Sclerae: sclerae normal Corneas: corneas normal Pupils: Equal, round and reactive pupils present EOM: EOMs intact bilaterally Neck Neck: Yes full ROM Resp Effort & Inspection: normal respiratory effort, able to speak in complete sentences, no audible wheezes and not labored Auscultation: clear to auscultation bilaterally Cardio Rate: regular rate Rhythm: regular rhythm GI Inspection: Yes obesity Palpation (GI): Soft to palpation, not firm, Tenderness to palpation present (GI) in the LUQ, no guarding and not rigid Skin Other: Open wound/chronic ulcer to the right lateral lower leg with surrounding erythema and purulent drainage Neuro General: patient oriented x3 Cranial nerves: Yes CN's II-XII intact bilaterally, Yes Equal, round and reactive pupils present and Yes Bilaterally intact EOM present Cognition (Neuro): normal cognition Extrem Other: Moving all extremities well without any obvious deformities Course Course Course Narrative: RME performed by Laisha Celestin PA-C. Patient is a 67 year old assigned female at presenting to the emergency department with abdominal pain. Labs ordered. Patient placed back in the waiting room pending room availability and results. Medications Administered Discontinued Medications Generic Name Dose Route Start Last Admin Trade Name Freq PRN Reason Stop Dose Admin Sodium Chloride 1,000 mls @ 999 mls/hr 08/05/22 18:00 08/05/22 19:26 Ns IV 08/05/22 19:00 Infused .Q1H1M TRACI Infusion Medical Decision Making Medical Decision Making MDM Narrative: Patient presents for evaluation of abdominal pain which she attributes to his previous gastritis. However given his crown of 4.99, he is in acute renal failure. His potassium is just barely elevated at 5.4. Treat with IV fluids, get a CT scan the abdomen pelvis to evaluate for obstructive uropathy. Will get a urine sample. He the patient appears to have a mild cellulitis to right lower extremity, but I doubt that this is the cause of the patient's renal failure Differential Diagnosis Acute renal failure Obstructive uropathy Pyelonephritis Dehydration LUIS MIGUEL Venous stasis ulcer Cellulitis Sepsis Admission/Observation Consideration of admission/observation: Escalation of care including admission/observation considered Consult Healthcare Provider Management of the patient was discussed with: Hospitalist Lab Data MDM Lab Attestation statement: I reviewed the patient's lab results. (Chronic pancytopenia which is consistent with his baseline. Potassium elevated to 5.4, BUN of 51 with a creatinine of 4.99. No other significant electrolyte abnormalities. CK is low at 35) 08/05/22 16:46 08/05/22 16:46 Labs: Lab Results 08/05/22 08/05/22 08/05/22 Range/Units 16:46 16:46 18:02 WBC 3.4 L (4.8-10.8) X10*3/uL RBC 4.00 L (4.60-5.80) X10*6/uL Hgb 11.2 L (14.0-18.0) g/dl Hct 35.2 L (42.0-52.0) % MCV 88.0 (80.0-98.0) fL MCH 28.0 (27.0-33.0) pg MCHC 31.8 (31.0-36.0) g/dl RDW 12.7 (11.0-16.0) % Plt Count 82 L (160-400) X10*3/uL MPV 11.9 (9.4-12.4) fL Immature Gran % (Auto) 0.3 (0.0-0.4) % Neut % (Auto) 67.7 (45-73) % Lymph % (Auto) 16.9 L (20-40) % [place] % (Auto) 11.0 (2-11) % Eos % (Auto) 3.5 (0-4) % Baso % (Auto) 0.6 (0-2) % Lymph # (Auto) 0.6 L (1.2-4.9) X10*3/uL [place] # (Auto) 0.4 (0.1-1.2) X10*3/uL Eos # (Auto) 0.1 (0.0-0.4) X10*3/uL Baso # (Auto) 0.0 (0.0-0.2) X10*3/uL Abs Immat Gran (auto) 0.01 (0.00-0.03) X10*3/uL Absolute Neuts (auto) 2.3 (2.0-8.3) x10*3/uL Absolute Nucleated RBC 0.000 (0.0-0.012) X10*3/uL Nucleated RBC % (auto) 0.0 (0.0-0.2) /100WBC Sodium 137 (135-145) mmol/L Potassium 5.4 H D (3.3-5.1) mmol/L Chloride 104 (96-108) mmol/L Carbon Dioxide 23 (22-29) mmol/L Anion Gap 15 (12-20) BUN 51 H (9-16) mg/dL Creatinine 4.99 H* (0.5-1.4) mg/dL Estim Creat Clear Calc 22.4 Estimated GFR 12 Random Glucose 99 (60-115) mg/dL Lactic Acid (0.5-2.0) mmol/L Calcium 8.9 (8.4-10.2) mg/dL Magnesium 1.8 (1.6-2.6) mg/dL Total Bilirubin 0.8 (0.0-1.0) mg/dL AST 17 (5-37) U/L ALT 7 (0-40) U/L Alkaline Phosphatase 86 (39-117) U/L Total Creatine Kinase 35 L (38-174) U/L Total Protein 8.9 H (6.5-8.0) g/dL Albumin 3.0 L (3.5-5.0) g/dL Urine Color Other A Urine Appearance Hazy Urine pH 6.5 (5.0-9.0) Ur Specific [place] 1.010 (1.005-1.025) Urine Protein 300 (3+) H (Neg-Trace) mg/dL Urine Glucose (UA) Negative (Negative) mg/dL Urine Ketones Negative (Negative) mg/dL Urine Blood Large (3+) H (Negative) Urine Nitrite Negative (Negative) Ur Leukocyte Esterase Trace H (Negative) Urine RBC >20 H (0-2) /HPF Urine WBC 0-5 (0-5) /HPF Ur Squamous Epith Cells 0-2 (0-2) /HPF Urine Bacteria None Seen (None Seen) Hyaline Casts 0-2 (0-2) /LPF 08/05/22 Range/Units 18:21 WBC (4.8-10.8) X10*3/uL RBC (4.60-5.80) X10*6/uL Hgb (14.0-18.0) g/dl Hct (42.0-52.0) % MCV (80.0-98.0) fL MCH (27.0-33.0) pg MCHC (31.0-36.0) g/dl RDW (11.0-16.0) % Plt Count (160-400) X10*3/uL MPV (9.4-12.4) fL Immature Gran % (Auto) (0.0-0.4) % Neut % (Auto) (45-73) % Lymph % (Auto) (20-40) % [place] % (Auto) (2-11) % Eos % (Auto) (0-4) % Baso % (Auto) (0-2) % Lymph # (Auto) (1.2-4.9) X10*3/uL [place] # (Auto) (0.1-1.2) X10*3/uL Eos # (Auto) (0.0-0.4) X10*3/uL Baso # (Auto) (0.0-0.2) X10*3/uL Abs Immat Gran (auto) (0.00-0.03) X10*3/uL Absolute Neuts (auto) (2.0-8.3) x10*3/uL Absolute Nucleated RBC (0.0-0.012) X10*3/uL Nucleated RBC % (auto) (0.0-0.2) /100WBC Sodium (135-145) mmol/L Potassium (3.3-5.1) mmol/L Chloride (96-108) mmol/L Carbon Dioxide (22-29) mmol/L Anion Gap (12-20) BUN (9-16) mg/dL Creatinine (0.5-1.4) mg/dL Estim Creat Clear Calc Estimated GFR Random Glucose (60-115) mg/dL Lactic Acid 0.9 (0.5-2.0) mmol/L Calcium (8.4-10.2) mg/dL Magnesium (1.6-2.6) mg/dL Total Bilirubin (0.0-1.0) mg/dL AST (5-37) U/L ALT (0-40) U/L Alkaline Phosphatase (39-117) U/L Total Creatine Kinase (38-174) U/L Total Protein (6.5-8.0) g/dL Albumin (3.5-5.0) g/dL Urine Color Urine Appearance Urine pH (5.0-9.0) Ur Specific [place] (1.005-1.025) Urine Protein (Neg-Trace) mg/dL Urine Glucose (UA) (Negative) mg/dL Urine Ketones (Negative) mg/dL Urine Blood (Negative) Urine Nitrite (Negative) Ur Leukocyte Esterase (Negative) Urine RBC (0-2) /HPF Urine WBC (0-5) /HPF Ur Squamous Epith Cells (0-2) /HPF Urine Bacteria (None Seen) Hyaline Casts (0-2) /LPF Independent Interpretation I performed an independent interpretation of an: CT Scan (No evidence of obstructive uropathy) Radiology Impression Discussion of test interpretation with radiology: I have reviewed the radiologist's reading. (No acute intra-abdominal pathology) Discharge Plan Discharge Clinical Impression: Acute renal failure, Venous stasis ulcer Patient Disposition: Admitted As Inpatient
--- NOTE | 2022-08-05 17:03 | MHC.EDTECH ---
PATIENT BLOOD DRAWN AND SENT TO LAB .
[2022-08-05 18:00] VITALS: BP 128/61; PULSE 82; RESP 16; TEMP 36.9; O2SAT 98
--- NOTE | 2022-08-05 18:32 | PC.NURSE ---
20g iv inserted R forearm, labs drawn, fluid started as ordered
[2022-08-05 19:19] VITALS: BP 133/72; PULSE 80; RESP 17; O2SAT 96
--- NOTE | 2022-08-05 19:34 | MHC.EDTECH ---
Brought patient warm blanket.
--- NOTE | 2022-08-05 19:38 | PC.NURSE ---
Pt in imaging department at this time.
--- NOTE | 2022-08-05 19:45 | PC.NURSE ---
pt back from imaging. awaiting results
[2022-08-05] MEDS: cefTRIAXone sodium 1 GM in 0.9 % Sodium Chloride 50 ML IV (20:54)
--- NOTE | 2022-08-05 21:15 | PM.IMHP ---
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 Patient reports that he has abdominal pain started 3 days ago, localized to the umbilical area as well as lower quadrant laterally, nonradiating, no associated nausea or vomiting, has no diarrhea constipation, reports decreased appetite, no chest pain, no shortness of breath, denies any urinary symptoms but states that his urine has been very concentrated, denies any lower extremity edema No fever chills. On arrival to the ED patient hemodynamically stable with slightly elevated blood pressure Labs are significant for WBC count of 3.4, hemoglobin of 11.12, hematocrit 35.2 around his baseline Creatinine of 4.99 with a baseline of around 1.3, potassium of 5.4, BUN of 59, UA that is positive for blood, leukocyte Estrace, WBC, Noncontrast abdominal pelvic CT shows cirrhosis of the liver, splenomegaly, varices in the left upper quadrant consistent with portal hypertension, otherwise no acute abnormality in the abdomen or pelvis Patient started on IV fluids and will be admitted for further management Review of Systems Review of Systems: Yes all other systems are reviewed and are negative PMFSH Medical History Anemia Cirrhosis COVID-19 GERD (gastroesophageal reflux disease) Hepatic fibrosis History of substance abuse Hx of hepatitis C Hypertension Osteoarthritis of both knees Pancytopenia Pedal edema Family History Father No problems noted. Mother No problems noted. Surgical History History of esophagogastroduodenoscopy (EGD) Hx of appendectomy Hx of endoscopic retrograde cholangiopancreatography Hx of left knee surgery Social History Household Members: None Housing: Apartment Do you presently have visiting nurse or other home services: Yes Alcohol intake: former Second Hand Smoke Exposure: No Substance Use Type: Former Substance User Advance Directives: No Advance Directives Information Provided: No service: No Current occupational status: disabled Meds Allergies Allergy/AdvReac Type Severity Reaction Status Date / Time No Known Allergies Allergy Verified 07/14/22 08:00 Active Medications: Current Medications Lactated Ringer's (Lr) 1,000 mls @ 999 mls/hr IV .Q1H1M TRACI Stop: 08/05/22 21:30 Last Admin: 08/05/22 21:01 Dose: 999 mls/hr Pharmacy Consult (Consult Rx Perform Med Rec) 1 each MISCELLANE ONCE PRN PRN Reason: Consult order Home Medications Medication Instructions Recorded Confirmed Last Taken Type furosemide 40 mg tablet (Lasix) 40 mg PO DAILY 11/13/19 05/01/20 Unknown History methadone 40 mg soluble tablet 29 mg PO DAILY 11/13/19 05/02/20 Unknown History omeprazole 20 mg capsule,delayed 20 mg PO DAILY 11/13/19 05/01/20 Unknown History release oxycodone 5 mg tablet 5 mg PO Q8H PRN Pain 11/13/19 05/01/20 Unknown History spironolactone 25 mg tablet 12.5 mg PO DAILY 11/13/19 05/01/20 Unknown History (Aldactone) propranolol 40 mg tablet 1 tab PO BID 05/01/20 05/01/20 Unknown History naloxone 4 mg/actuation nasal spray 0 spray intranasal 01/19/22 Unknown History omeprazole 40 mg capsule,delayed 40 mg PO DAILY 01/19/22 Unknown History release Physical Exam Vital Signs and Narrative: Vital Signs: Last Vital Signs Temp 98.5 F 08/05/22 18:00 Pulse 80 08/05/22 19:19 Resp 17 08/05/22 19:19 BP 133/72 08/05/22 19:19 Pulse Ox 96 08/05/22 19:19 O2 Del Method Room Air 08/05/22 19:19 BMI result Body Mass Index 45.5 Const: General: cooperative and no acute distress Orientation/consciousness: patient oriented x3 Eyes: General: appearance normal, both eyes and all related structures Resp: Effort & Inspection: normal respiratory effort Auscultation: clear to auscultation bilaterally Cardio: Rate: regular rate Rhythm: regular rhythm GI: Other: Abdomen is soft, nontender, no rebound or guarding Palpation (GI): Soft to palpation Auscultation: normal bowel sounds Skin: General skin exam: no rashes or lesions noted Neuro: General: patient oriented x3 Cognition (Neuro): normal cognition Extrem: General: Yes normal to inspection and Yes no pedal edema Results Labs 08/05/22 16:46 08/05/22 16:46 Labs: Laboratory Results - last 24 hr 08/05/22 08/05/22 08/05/22 16:46 16:46 18:02 MCV 88.0 MCH 28.0 MCHC 31.8 RDW 12.7 Plt Count 82 L MPV 11.9 Immature Gran % (Auto) 0.3 Neut % (Auto) 67.7 Lymph % (Auto) 16.9 L [place] % (Auto) 11.0 Eos % (Auto) 3.5 Baso % (Auto) 0.6 Lymph # (Auto) 0.6 L [place] # (Auto) 0.4 Eos # (Auto) 0.1 Baso # (Auto) 0.0 Abs Immat Gran (auto) 0.01 Absolute Neuts (auto) 2.3 Absolute Nucleated RBC 0.000 Nucleated RBC % (auto) 0.0 Anion Gap 15 Estim Creat Clear Calc 22.4 Estimated GFR 12 Random Glucose 99 Lactic Acid Calcium 8.9 Magnesium 1.8 Total Bilirubin 0.8 AST 17 ALT 7 Alkaline Phosphatase 86 Total Creatine Kinase 35 L Total Protein 8.9 H Albumin 3.0 L Urine Color Other A Urine Appearance Hazy Urine pH 6.5 Ur Specific [place] 1.010 Urine Protein 300 (3+) H Urine Glucose (UA) Negative Urine Ketones Negative Urine Blood Large (3+) H Urine Nitrite Negative Ur Leukocyte Esterase Trace H Urine RBC >20 H Urine WBC 0-5 Ur Squamous Epith Cells 0-2 Urine Bacteria None Seen Hyaline Casts 0-2 08/05/22 18:21 MCV MCH MCHC RDW Plt Count MPV Immature Gran % (Auto) Neut % (Auto) Lymph % (Auto) [place] % (Auto) Eos % (Auto) Baso % (Auto) Lymph # (Auto) [place] # (Auto) Eos # (Auto) Baso # (Auto) Abs Immat Gran (auto) Absolute Neuts (auto) Absolute Nucleated RBC Nucleated RBC % (auto) Anion Gap Estim Creat Clear Calc Estimated GFR Random Glucose Lactic Acid 0.9 Calcium Magnesium Total Bilirubin AST ALT Alkaline Phosphatase Total Creatine Kinase Total Protein Albumin Urine Color Urine Appearance Urine pH Ur Specific [place] Urine Protein Urine Glucose (UA) Urine Ketones Urine Blood Urine Nitrite Ur Leukocyte Esterase Urine RBC Urine WBC Ur Squamous Epith Cells Urine Bacteria Hyaline Casts Imaging Radiologist's Impressions: Impressions Abdomen/Pelvis CT 08/05/22 19:49 IMPRESSION: 1. Cirrhosis of liver. Splenomegaly. Varices in the left upper quadrant consistent with portal hypertension. 2. No acute abnormality the abdomen or pelvis. Fleischner guidelines were followed. Assessment and Plan (1) Abdominal pain: Status: Acute (2) Acute renal failure: Status: Acute (3) Acute UTI: Status: Acute Plan 67-year-old male with hx of HTN, opioid use comes in to the hospital with abd pain found to have LUIS MIGUEL # Acute kidney failure - possibly 2/2 dehydration vs passed renal stone - will start patient on IV fluids - follow BMP - if creatinine continues to rise consider nephrology consult # acute UTI - does have a slight urinary tract infection which may be contributing to his LUIS MIGUEL # abdominal pain - secondary to above and likely passed stone - will treat with IV fluids, analgesics - monitor # hypertension - stable - continue antihypertensives # patient on furosemide, he is not sure why, this time will hold given the LUIS MIGUEL # opioid use disorder - continue methadone DVT prophylaxis: Lovenox Given patient's need for IV fluids in the setting of acute kidney failure patient will require minimum 2 nights inpatient hospital stay for further management and monitoring - will treat with IV antibiotics - follow cultures Time Spent With Patient Time: Total time managing care of this patient today ____ minutes. Quality Stroke Does the patient have a stroke diagnosis?: No VTE Prior VTE?: No VTE Risk Level:: Medical - moderate - high VTE Device Contraindication: Treatment Not Indicated VTE Drug Contraindication: N/A - Med Ordered
[2022-08-05 21:50] VITALS: BP 129/72; PULSE 77; RESP 20; O2SAT 96
[2022-08-05 22:55] VITALS: BP 140/67; PULSE 73; RESP 18; TEMP 36.7; O2SAT 97
[2022-08-06 02:16] VITALS: BMI 48.3
[2022-08-06 02:50] VITALS: BP 149/72; PULSE 74; RESP 20; TEMP 36.7; O2SAT 99
[2022-08-06] MEDS: Acetaminophen 325 MG TABLET 650 MG PO (02:54)
--- NOTE | 2022-08-06 07:21 | PHA.MEDREC ---
Pharmacy Consult ? Medication Reconciliation Pharmacy has reviewed the medication reconciliation done by RN
[2022-08-06 07:29] LABS: Eosinophils Absolute Auto 0.1 X10*3/uL (0.0-0.4); Imm Gran Abs Auto 0.01 X10*3/uL (0.00-0.03); Imm Gran Pct Auto 0.4 % (0.0-0.4); PLT CLUMP 1; SCAN SMEAR FLAG 1
[2022-08-06 07:31] LABS: Basophils Percent Auto 0.4 % (0-2); Eosinophils Percent Auto 3.5 % (0-4); Hematocrit 32.4 % (42.0-52.0); Hemoglobin 10.4 g/dl (14.0-18.0); Lymphocytes Absolute Auto 0.5 X10*3/uL (1.2-4.9); Lymphocytes Percent Auto 20.5 % (20-40); Mean Corpuscular HGB Conc 32.1 g/dl (31.0-36.0); Mean Corpuscular Hemoglobin 28.3 pg (27.0-33.0); Mean Platelet Volume 11.3 fL (9.4-12.4); Monocytes Absolute Auto 0.3 X10*3/uL (0.1-1.2); Monocytes Percent Auto 11.2 % (2-11); Neutrophils Absolute Auto 1.7 x10*3/uL (2.0-8.3); Red Blood Count 3.68 X10*6/uL (4.60-5.80); Red Cell Distribution Width 12.6 % (11.0-16.0)
[2022-08-06 07:56] VITALS: BP 141/72; PULSE 73; RESP 20; TEMP 36.4; O2SAT 99
[2022-08-06] MEDS: Propranolol HCL 40 MG TABLET PO (07:59)
[2022-08-06] MEDS: Omeprazole 40 MG CAPSULE.DR PO (07:59)
[2022-08-06 08:06] LABS: Anion Gap 15 (12-20); Blood Urea Nitrogen 50 mg/dL (9-16); Calcium 8.7 mg/dL (8.4-10.2); Carbon Dioxide 24 mmol/L (22-29); Chloride 105 mmol/L (96-108); Creatinine Clr Calc Pharmacy 24.1; Estimated Glomerular Filt Rate 12; Glucose Random 81 mg/dL (60-115); Potassium 5.7 mmol/L (3.3-5.1); Sodium 138 mmol/L (135-145)
[2022-08-06 08:07] LABS: Platelet Count 74 X10*3/uL (160-400); White Blood Count 2.6 X10*3/uL (4.8-10.8)
[2022-08-06 08:08] LABS: MANUAL DIFF FLAG NO
--- NOTE | 2022-08-06 10:23 | MHC.CM.PN ---
IMM 08/06/22 DELIVERED TO BEDSIDE, CM MET W/PT VIA HAND COKE DRAWER, PT REPORTS HE IS LIVING W/HIS SON AT [address] [place] [address] DR BANKS, PT IS MOSTLY INDEP W/CARE, USES 2 ARM CANES AND DOES HAVE A WALKER AT HOME, PT HAS VNA W/HEART ON CARD AND REFERRAL WILL BE PLACED TO [facility], CAROLEE IS PT'S SEISMOGRAPH SHOOTER AND PT HAS 13HRS PER WK, PT UNSURE OF WHICH COMPANY SEISMOGRAPH SHOOTER HRS ARE THROUGH AND [facility]KLY VISITS TO [facility]. PT REPORTS GOAL FOR D/C IS HOME W/RESUMP OF SERVICES. PT VERIFIES PCP IS BARRY SALAZAR HOWEVER HE HAS NOT BEEN ABLE TO GET AN APPT AND MESSAGE SENT TO CM ROLLWAY WORKER TO MAKE APPPT FOR PT, STACI Dexter3 AND PT EDUCATED ON HCP'S AND REPORTS HE WILL TALK TO FAMILY/FRIED ABOUT IT AND WILL REQUEST CM IF HE WOULD LIKE TO COMPLETE THIS HOSPITAL STAY. ANTIC D/C HOME W/RESUMP OF VNA/SEISMOGRAPH SHOOTER HRS/[facility] AND PT WILL ARRANGE TRANSPORT.
--- NOTE | 2022-08-06 10:37 | HE.PHANOTE ---
RE: METHADONE Pharmacy has received patients methadone verification form. Patient confirmed to be at 28 mg daily last dose was 08/02 and patient was given 13 take home bottles. Confirmed with [facility]
--- NOTE | 2022-08-06 11:10 | HO.PM.IMPN ---
Subjective Subjective Date of Service: 08/06/22 Interval History: Abdominal pain Review of Systems abd pain seems improving Denies any chest pain or shortness of breath or cough Physical Exam Vital Signs: Vital Signs: Last Vital Signs Temp 97.6 F 08/06/22 07:56 Pulse 73 08/06/22 07:56 Resp 20 08/06/22 07:56 BP 141/72 H 08/06/22 07:56 Pulse Ox 99 08/06/22 07:56 O2 Del Method Room Air 08/06/22 07:56 BMI result Body Mass Index 48.3 Appearance: Alert.? Oriented X3.? not in distress.? cvs: rrr, [id number] , no murmur res: clear to auscultation ,no rhonchii or wheezing abd: no rebound or guarding ,nt, bs present. ext pulses present , no cyanosis . neuro: axo3 , nonfocal. Objective Data Active Medications Acetaminophen (Acetaminophen 325 Mg Tablet) 650 mg PO Q6H PRN PRN Reason: Pain, Mild (Pain Scale 1-3) Last Admin: 08/06/22 02:54 Dose: 650 mg Documented By: YARON Docusate Sodium (Docusate Sodium 100 Mg Capsule) 100 mg PO DAILY PRN PRN Reason: Constipation Enoxaparin Sodium (Enoxaparin Sodium 40 Mg/0.4 Ml Syringe) 40 mg SUBCUT Q24H [facility] Last Admin: 08/05/22 22:52 Dose: 40 mg Documented By: LATOSHA Lactated Ringer's (Lr) 1,000 mls @ 100 mls/hr IVCONT .Q10H [facility] Last Admin: 08/06/22 08:00 Dose: 100 mls/hr Documented By: HUAN Ceftriaxone Sodium 1 gm/ (Sodium Chloride) 50 mls @ 100 mls/hr IV Q24H [facility] Omeprazole (Omeprazole 40 Mg Capsule.) 40 mg PO DAILY@0630 [facility] Last Admin: 08/06/22 07:59 Dose: 40 mg Documented By: HUAN Ondansetron HCl (Ondansetron Hcl 4 Mg/2 Ml Vial) 4 mg IVPUSH Q8H PRN PRN Reason: Nausea and Vomiting Pharmacy Consult (Consult Rx Perform Med Rec) 1 each MISCELLANE ONCE PRN PRN Reason: Consult order Polyethylene Glycol (Polyethylene Glycol 3350 17 Gm Powd.Pack) 17 gm PO DAILY [facility] Last Admin: 08/06/22 10:47 Dose: Not Given Documented By: HUAN Non-Admin Reason: Patient Condition Contraindication Comments: pt with large BM today Propranolol HCl (Propranolol Hcl 40 Mg Tablet) 40 mg PO BID [facility]; Protocol Last Admin: 08/06/22 07:59 Dose: 40 mg Documented By: HUAN Sodium Chloride (0.9 % Sodium Chloride Flush 3 Ml Syringe) 3 ml IVFLUSH QSHIFT [facility] Last Admin: 08/06/22 07:25 Dose: Not Given Documented By: HUAN Non-Admin Reason: IV Running Labs 08/06/22 06:42 08/06/22 06:42 Labs: Laboratory Results - last 24 hr 08/05/22 08/05/22 08/05/22 16:46 16:46 18:02 MCV 88.0 MCH 28.0 MCHC 31.8 RDW 12.7 Plt Count 82 L MPV 11.9 Immature Gran % (Auto) 0.3 Neut % (Auto) 67.7 Lymph % (Auto) 16.9 L [place] % (Auto) 11.0 Eos % (Auto) 3.5 Baso % (Auto) 0.6 Lymph # (Auto) 0.6 L [place] # (Auto) 0.4 Eos # (Auto) 0.1 Baso # (Auto) 0.0 Abs Immat Gran (auto) 0.01 Absolute Neuts (auto) 2.3 Absolute Nucleated RBC 0.000 Nucleated RBC % (auto) 0.0 Anion Gap 15 Estim Creat Clear Calc 22.4 Estimated GFR 12 Random Glucose 99 Lactic Acid Calcium 8.9 Magnesium 1.8 Total Bilirubin 0.8 AST 17 ALT 7 Alkaline Phosphatase 86 Total Creatine Kinase 35 L Total Protein 8.9 H Albumin 3.0 L Urine Color Other A Urine Appearance Hazy Urine pH 6.5 Ur Specific [place] 1.010 Urine Protein 300 (3+) H Urine Glucose (UA) Negative Urine Ketones Negative Urine Blood Large (3+) H Urine Nitrite Negative Ur Leukocyte Esterase Trace H Urine RBC >20 H Urine WBC 0-5 Ur Squamous Epith Cells 0-2 Urine Bacteria None Seen Hyaline Casts 0-2 Urine Opiates Screen Urine Fentanyl Screen Ur Barbiturates Screen Ur Phencyclidine Scrn Ur Amphetamines Screen U Benzodiazepines Scrn Urine Cocaine Screen U Marijuana (THC) Screen 08/05/22 08/05/22 08/06/22 18:21 21:47 06:42 MCV 88.0 MCH 28.3 MCHC 32.1 RDW 12.6 Plt Count 74 L MPV 11.3 Immature Gran % (Auto) 0.4 Neut % (Auto) 64.0 Lymph % (Auto) 20.5 [place] % (Auto) 11.2 H Eos % (Auto) 3.5 Baso % (Auto) 0.4 Lymph # (Auto) 0.5 L [place] # (Auto) 0.3 Eos # (Auto) 0.1 Baso # (Auto) 0.0 Abs Immat Gran (auto) 0.01 Absolute Neuts (auto) 1.7 L Absolute Nucleated RBC 0.000 Nucleated RBC % (auto) 0.0 Anion Gap 16 Estim Creat Clear Calc 24.3 Estimated GFR 13 Random Glucose 91 Lactic Acid 0.9 Calcium 8.1 L D Magnesium Total Bilirubin AST ALT Alkaline Phosphatase Total Creatine Kinase Total Protein Albumin Urine Color Urine Appearance Urine pH Ur Specific [place] Urine Protein Urine Glucose (UA) Urine Ketones Urine Blood Urine Nitrite Ur Leukocyte Esterase Urine RBC Urine WBC Ur Squamous Epith Cells Urine Bacteria Hyaline Casts Urine Opiates Screen Urine Fentanyl Screen Ur Barbiturates Screen Ur Phencyclidine Scrn Ur Amphetamines Screen U Benzodiazepines Scrn Urine Cocaine Screen U Marijuana (THC) Screen 08/06/22 08/06/22 06:42 09:55 MCV MCH MCHC RDW Plt Count MPV Immature Gran % (Auto) Neut % (Auto) Lymph % (Auto) [place] % (Auto) Eos % (Auto) Baso % (Auto) Lymph # (Auto) [place] # (Auto) Eos # (Auto) Baso # (Auto) Abs Immat Gran (auto) Absolute Neuts (auto) Absolute Nucleated RBC Nucleated RBC % (auto) Anion Gap 15 Estim Creat Clear Calc 24.1 Estimated GFR 12 Random Glucose 81 Lactic Acid Calcium 8.7 D Magnesium Total Bilirubin AST ALT Alkaline Phosphatase Total Creatine Kinase Total Protein Albumin Urine Color Urine Appearance Urine pH Ur Specific [place] Urine Protein Urine Glucose (UA) Urine Ketones Urine Blood Urine Nitrite Ur Leukocyte Esterase Urine RBC Urine WBC Ur Squamous Epith Cells Urine Bacteria Hyaline Casts Urine Opiates Screen Not Detected Urine Fentanyl Screen POSITIVE H Ur Barbiturates Screen Not Detected Ur Phencyclidine Scrn Not Detected Ur Amphetamines Screen Not Detected U Benzodiazepines Scrn Not Detected Urine Cocaine Screen Not Detected U Marijuana (THC) Screen Not Detected Assessment and Plan (1) Acute UTI: Status: Acute (2) Abdominal pain: Status: Acute (3) Acute renal failure: Status: Acute (4) Hyperkalemia: Status: Acute Plan 67-year-old male with hx of HTN, opioid use comes in to the hospital with abd pain found to have LUIS MIGUEL Acute kidney failure- possibly 2/2 dehydration vs passed renal stone vs hepato renal ua -shows mild microscopic hematuria, proteinuria, leuko esterase trace positive. cpk normal ct abd-b/lThe kidneys are normal in size, shape, and attenuation. No hydronephrosis, hydroureter, or calculi seen. No perinephric stranding. ? cr seems similar pvr , continue ivf changed to NS due to hyperkalemia ( dc LR) Nephrology consult Hyperkalemia :added loklemia ,low poatssium diet ,off spirnolactone and off LR ivf. moniter bmp closely acute UTI- does have a slight urinary tract infection which may be contributing to his LUIS MIGUEL on ceftriaxone day2(started on 08/05/22). abdominal pain- secondary to above and likely passed stone abd pain improving continue with IV fluids, analgesics,monitor hypertension- stable continue antihypertensives hx Liver cirrosis : ct abd :Cirrhosis of liver. Splenomegaly. Varices in the left upper quadrant consistent with portal hypertension. lfts' on admission seems fine albumin 3 on ? lasix/spirinolactone -hold for now give fluids ,hold diuretics,added albumin. opioid use disorder- continue methadone urine positive for Fentanyl-?unclear addded addiction consult. DVT prophylaxis:? Lovenox onging inpatientneed : LUIS MIGUEL -needs IV fluids in the setting of acute kidney failure, uti-need iv antibiotics . Time Spent With Patient Time: Total time managing care of this patient today ____ minutes. Quality Stroke Does the patient have a stroke diagnosis?: No VTE Prior VTE?: No VTE Risk Level:: Medical - moderate - high VTE Device Contraindication: Treatment Not Indicated VTE Drug Contraindication: N/A - Med Ordered
[2022-08-06] MEDS: methADONE HCl 20 MG/2 ML ORAL.CONC 28 MG PO (11:27)
--- NOTE | 2022-08-06 12:50 | PM.CNNEP ---
History of Present Illness Reason for Consult Consult date: 08/08/22 Reason for consult: LUIS MIGUEL Chief Complaint Chief complaint: LUIS MIGUEL History of Present Illness Narrative: 67-year-old male past medical history of opioid use disorder on methadone, hypertension presents the hospital with complaints of abdominal pain.? Patient reports that he has abdominal pain started 3 days ago, localized to the umbilical area as well as lower quadrant laterally, nonradiating, no associated nausea or vomiting, has no diarrhea constipation, reports decreased appetite, no chest pain, no shortness of breath, denies any urinary symptoms but states that his urine has been very concentrated, denies any lower extremity edema He has history of hepatitis-C which has been treated 2 years ago. History of cirrhosis Weekly serum creatinine is around 1.3-1.4 mg/dL. Review of Systems Review of Systems No headache. No nausea vomiting. No shortness of breath. No cough. No dysuria urgency or hematuria. Has edema. No rash. PMFSH Past Medical History Medical History Anemia Cirrhosis COVID-19 GERD (gastroesophageal reflux disease) Hepatic fibrosis History of substance abuse Hx of hepatitis C Hypertension Osteoarthritis of both knees Pancytopenia Pedal edema Family History Family History Father No problems noted. Mother No problems noted. Surgical History Surgical History History of esophagogastroduodenoscopy (EGD) Hx of appendectomy Hx of endoscopic retrograde cholangiopancreatography Hx of left knee surgery Social History Social History Household Members: None Housing: Unknown / Unable to assess Do you presently have visiting nurse or other home services: Yes Alcohol intake: former Patient Tobacco Use Status: Never used Tobacco e-Cigarette/Vaping Use: Never Used Second Hand Smoke Exposure: No Substance Use Type: Former Substance User service: No Current occupational status: disabled Meds Allergies Allergy/AdvReac Type Severity Reaction Status Date / Time No Known Allergies Allergy Verified 07/14/22 08:00 Active Medications: Current Medications Acetaminophen (Acetaminophen 325 Mg Tablet) 650 mg PO Q6H PRN PRN Reason: Pain, Mild (Pain Scale 1-3) Last Admin: 08/06/22 02:54 Dose: 650 mg Docusate Sodium (Docusate Sodium 100 Mg Capsule) 100 mg PO DAILY PRN PRN Reason: Constipation Enoxaparin Sodium (Enoxaparin Sodium 40 Mg/0.4 Ml Syringe) 40 mg SUBCUT Q24H [facility] Last Admin: 08/05/22 22:52 Dose: 40 mg Ceftriaxone Sodium 1 gm/ (Sodium Chloride) 50 mls @ 100 mls/hr IV Q24H [facility] Sodium Chloride (Ns) 1,000 mls @ 80 mls/hr IVCONT .[id number] [facility] Last Admin: 08/06/22 11:27 Dose: 80 mls/hr Albumin Human (Kedbumin 25 %) 100 mls @ 100 mls/hr IV Q6H [facility] Stop: 08/07/22 06:29 Last Admin: 08/06/22 11:35 Dose: 100 mls/hr Methadone HCl (Methadone Hcl 20 Mg/2 Ml Oral.Conc) 28 mg PO DAILY [facility] Last Admin: 08/06/22 11:27 Dose: 28 mg Omeprazole (Omeprazole 40 Mg Capsule.Dr) 40 mg PO DAILY@0630 [facility] Last Admin: 08/06/22 07:59 Dose: 40 mg Ondansetron HCl (Ondansetron Hcl 4 Mg/2 Ml Vial) 4 mg IVPUSH Q8H PRN PRN Reason: Nausea and Vomiting Pharmacy Consult (Consult Rx Perform Med Rec) 1 each MISCELLANE ONCE PRN PRN Reason: Consult order Polyethylene Glycol (Polyethylene Glycol 3350 17 Gm Powd.Pack) 17 gm PO DAILY [facility] Last Admin: 08/06/22 10:47 Dose: Not Given Propranolol HCl (Propranolol Hcl 40 Mg Tablet) 40 mg PO BID [facility]; Protocol Last Admin: 08/06/22 07:59 Dose: 40 mg Sodium Chloride (0.9 % Sodium Chloride Flush 3 Ml Syringe) 3 ml IVFLUSH QSHIFT [facility] Last Admin: 08/06/22 07:25 Dose: Not Given Home Medications Medication Instructions Recorded Confirmed Last Taken Type furosemide 40 mg tablet (Lasix) 40 mg PO DAILY 11/13/19 08/05/22 Unknown History spironolactone 25 mg tablet 12.5 mg PO DAILY 11/13/19 08/05/22 Unknown History (Aldactone) propranolol 40 mg tablet 1 tab PO BID 05/01/20 08/05/22 Unknown History naloxone 4 mg/actuation nasal spray 0 spray intranasal USEASDIRECTD 01/19/22 08/05/22 Unknown History omeprazole 40 mg capsule,delayed 40 mg PO DAILY 01/19/22 08/05/22 Unknown History release methadone 10 mg/mL oral 28 mg PO DAILY 08/06/22 08/06/22 08/02/22 History concentrate (Methadone Intensol) Physical Exam Vital Signs: Last Vital Signs Temp 97.6 F 08/06/22 07:56 Pulse 73 08/06/22 07:56 Resp 20 08/06/22 07:56 BP 141/72 H 08/06/22 07:56 Pulse Ox 99 08/06/22 07:56 O2 Del Method Room Air 08/06/22 07:56 BMI result Body Mass Index 48.3 Comfortable obese Neck is supple Lung: Air entry equal Heart: S1,S2, normal. No rub Abd: Soft. BS + NS : Alert.No asterexis Ext: 2+ edema Results Lab Results 08/06/22 06:42 08/06/22 06:42 Lab results: Chemistry 08/05/22 08/05/22 08/06/22 16:46 21:47 06:42 Sodium 137 137 138 Potassium 5.4 H D 5.5 H 5.7 H Carbon Dioxide 23 23 24 BUN 51 H 49 H 50 H Creatinine 4.99 H* 4.60 H* 4.81 H* Calcium 8.9 8.1 L D 8.7 D Hematology 08/05/22 08/06/22 16:46 06:42 WBC 3.4 L 2.6 L Hgb 11.2 L 10.4 L Plt Count 82 L 74 L Urinalysis 08/05/22 18:02 Urine Color Other A Urine Appearance Hazy Urine pH 6.5 Ur Specific [place] 1.010 Urine Protein 300 (3+) H Urine Glucose (UA) Negative Urine Ketones Negative Urine Blood Large (3+) H Urine Nitrite Negative Ur Leukocyte Esterase Trace H Urine RBC >20 H Urine WBC 0-5 Ur Squamous Epith Cells 0-2 Hyaline Casts 0-2 Assessment and Plan (1) Acute renal failure: Status: Acute Plan 67-year-old man with history of obesity, hepatitis-C which has been treated, cirrhosis with mild chronic kidney disease has sustained acute kidney injury. The different diagnosis of acute kidney injury include hypoperfusion. Other possibilities include acute tubular necrosis. However based on the clinical picture acute glomerular nephritis is still a possibility which needs to be ruled out. No evidence of obstruction based on the recent CT scan. Recommendation Check urinalysis. Check urine for sodium, protein, creatinine. Check serum complements, Anca, ASO titer, LDH and haptoglobin Keep on low-potassium diet. Lokelma to correct hyperkalemia. Hold Aldactone. Monitor urine output closely. Continue to avoid nephrotoxic agents. No absolute indication for dialysis today. Based on the above workup he may require a kidney biopsy. We will follow along closely with the team. Thank you Time Spent With Patient Time: Total time managing care of this patient today ____ minutes. Procedures Date of Service Date of Service: 08/08/22
[2022-08-06 15:54] VITALS: BP 164/77; PULSE 56; RESP 20; TEMP 36.7; O2SAT 98
[2022-08-06 16:24] VITALS: BP 148/76; PULSE 59
[2022-08-06] MEDS: 0.9 % Sodium Chloride Flush 3 ML SYRINGE IVFLUSH (16:48)
[2022-08-06 19:58] VITALS: BP 138/63; PULSE 56; RESP 20; TEMP 36.8; O2SAT 96
[2022-08-07] VITALS (7 sets, daily range): BP systolic 131–161; BP diastolic 63–85; PULSE 52–68; RESP 17–20; TEMP 36.7–37.1; O2SAT 96–100
[2022-08-07] MEDS: Omeprazole 40 MG CAPSULE.DR PO (05:24)
[2022-08-07 06:06] LABS: Lactate Dehydrogenase 140 U/L (118-273)
[2022-08-07] MEDS: Propranolol HCL 40 MG TABLET PO ×2 (08:15→20:27)
[2022-08-07] MEDS: methADONE HCl 20 MG/2 ML ORAL.CONC 28 MG PO (08:16)
[2022-08-07] MEDS: polyethylene glycoL 3350 17 GM POWD.PACK PO (08:16)
[2022-08-07] MEDS: Acetaminophen 325 MG TABLET 650 MG PO (09:16)
--- NOTE | 2022-08-07 14:08 | HO.PM.IMPN ---
Subjective Subjective Date of Service: 08/07/22 Interval History: arthur,Abdominal pain Review of Systems abd pain seems minimum Denies any chest pain or shortness of breath or cough Physical Exam Vital Signs: Vital Signs: Last Vital Signs Temp 98.5 F 08/07/22 07:42 Pulse 60 08/07/22 07:42 Resp 20 08/07/22 07:42 BP 150/85 H 08/07/22 07:42 Pulse Ox 97 08/07/22 04:44 O2 Del Method Room Air 08/07/22 07:42 BMI result Body Mass Index 48.3 Appearance: Alert.? Oriented X3.? not in distress.? cvs: rrr, [id number] . res: clear to auscultation ,no rhonchii or wheezing abd: no rebound or guarding ,nt, bs present. ext pulses present , no cyanosis . neuro: axo3 , nonfocal. Objective Data Active Medications Acetaminophen (Acetaminophen 325 Mg Tablet) 650 mg PO Q6H PRN PRN Reason: Pain, Mild (Pain Scale 1-3) Last Admin: 08/07/22 09:16 Dose: 650 mg Documented By: SAFIA Docusate Sodium (Docusate Sodium 100 Mg Capsule) 100 mg PO DAILY PRN PRN Reason: Constipation Ceftriaxone Sodium 1 gm/ (Sodium Chloride) 50 mls @ 100 mls/hr IV Q24H [facility] Last Infusion: 08/06/22 21:19 Dose: 0 mls/hr Documented By: BECCA Sodium Chloride (Ns) 1,000 mls @ 80 mls/hr IVCONT .[id number] [facility] Last Admin: 08/07/22 13:56 Dose: 80 mls/hr Documented By: SAFIA Albumin Human (Kedbumin 25 %) 100 mls @ 100 mls/hr IV Q6H [facility] Stop: 08/08/22 06:44 Last Infusion: 08/07/22 12:41 Dose: 0 mls/hr Documented By: SAFIA Methadone HCl (Methadone Hcl 20 Mg/2 Ml Oral.Conc) 28 mg PO DAILY [facility] Last Admin: 08/07/22 08:16 Dose: 28 mg Documented By: SAFIA Omeprazole (Omeprazole 40 Mg Capsule.Dr) 40 mg PO DAILY@0630 [facility] Last Admin: 08/07/22 05:24 Dose: 40 mg Documented By: BECCA Ondansetron HCl (Ondansetron Hcl 4 Mg/2 Ml Vial) 4 mg IVPUSH Q8H PRN PRN Reason: Nausea and Vomiting Pharmacy Consult (Consult Rx Perform Med Rec) 1 each MISCELLANE ONCE PRN PRN Reason: Consult order Polyethylene Glycol (Polyethylene Glycol 3350 17 Gm Powd.Pack) 17 gm PO DAILY [facility] Last Admin: 08/07/22 08:16 Dose: 17 gm Documented By: SAFIA Propranolol HCl (Propranolol Hcl 40 Mg Tablet) 40 mg PO BID [facility]; Protocol Last Admin: 08/07/22 08:15 Dose: 40 mg Documented By: SAFIA Sodium Chloride (0.9 % Sodium Chloride Flush 3 Ml Syringe) 3 ml IVFLUSH QSHIFT [facility] Last Admin: 08/07/22 08:16 Dose: Not Given Documented By: SAFIA Non-Admin Reason: IV Running Labs 08/06/22 06:42 08/07/22 09:15 Labs: Laboratory Results - last 24 hr 08/05/22 08/06/22 08/06/22 18:02 09:55 13:20 Anion Gap Estim Creat Clear Calc Estimated GFR Random Glucose Calcium Total Bilirubin 0.7 Direct Bilirubin 0.2 AST 21 ALT 8 Alkaline Phosphatase 82 Lactate Dehydrogenase Total Protein 8.1 H Albumin 2.9 L U Random Total Protein 197 H 140 H Ur Random Sodium 64.0 86.0 Urine Creatinine 62.06 48.33 08/07/22 08/07/22 05:42 09:15 Anion Gap 16 Estim Creat Clear Calc 23.6 Estimated GFR 12 Random Glucose 88 Calcium 9.1 Total Bilirubin Direct Bilirubin AST ALT Alkaline Phosphatase Lactate Dehydrogenase 140 Total Protein Albumin U Random Total Protein Ur Random Sodium Urine Creatinine Microbiology Microbiology Results: Microbiology 08/05/22 18:33 Blood Culture - Preliminary Blood - Venous No growth after 24 hours. 08/05/22 18:21 Blood Culture - Preliminary Blood - Venous No growth after 24 hours. Assessment and Plan (1) Acute UTI: Status: Acute (2) Abdominal pain: Status: Acute (3) Acute renal failure: Status: Acute (4) Hyperkalemia: Status: Acute Plan 67-year-old male with hx of HTN, opioid use comes in to the hospital with abd pain found to have ARTHUR Acute kidney failure- possibly 2/2 dehydration vs passed renal stone vs hepato renal ua -shows mild microscopic hematuria, proteinuria, leuko esterase trace positive. cpk normal ct abd-b/lThe kidneys are normal in size, shape, and attenuation. No hydronephrosis, hydroureter, or calculi seen. No perinephric stranding. ? cr seems similar pvr , continue ivf changed to NS due to hyperkalemia ( dc LR) Nephrology followin-added aso,anca,complements ,serologies -pending Hyperkalemia :given loklemia ,low poatssium diet ,off spirnolactone and off LR ivf. improved hyperkalemia moniter bmp closely acute UTI- does have a slight urinary tract infection which may be contributing to his ARTHUR on ceftriaxone day3(started on 08/05/22). abdominal pain- seems minimum denies any new symptoms-nausea ,vomiting,no fevers ,no diarrhae. abd benign continue with IV fluids, analgesics,monitor hypertension- stable continue antihypertensives hx Liver cirrosis : ct abd :Cirrhosis of liver. Splenomegaly. Varices in the left upper quadrant consistent with portal hypertension. lfts' on admission seems fine albumin 3 on ? lasix/spirinolactone -hold for now give fluids ,hold diuretics,added albumin. opioid use disorder- continue methadone urine positive for Fentanyl-?unclear addded addiction consult. Pancytopenia Related to underlying liver disease continue to moniter cbc continue iron supplementation. Morbid obesity:? Encouraged to lose weight. DVT prophylaxis early ambulation, chemoprophylaxis contraindicated due to thrombocytopenia/anemia onging inpatientneed : ARTHUR -needs IV fluids in the setting of acute kidney failure, uti-need iv antibiotics . Time Spent With Patient Time: Total time managing care of this patient today ____ minutes. Quality Stroke Does the patient have a stroke diagnosis?: No VTE Prior VTE?: No VTE Risk Level:: Medical - moderate - high VTE Device Contraindication: Treatment Not Indicated VTE Drug Contraindication: N/A - Med Ordered
--- NOTE | 2022-08-07 18:23 | PM.PNNEP ---
Subjective Subjective Date of Service: 08/07/22 Interval history: c/o abd discomfort Physical Exam Vital Signs: Vital Signs: Last Vital Signs Temp 98.4 F 08/07/22 15:28 Pulse 68 08/07/22 15:28 Resp 19 08/07/22 15:28 BP 149/68 H 08/07/22 15:28 Pulse Ox 100 08/07/22 15:28 O2 Del Method Room Air 08/07/22 15:28 BMI result Body Mass Index 48.3 Appearance: Alert.? Oriented X3.? not in distress.? cvs: rrr, [id number] . res: clear to auscultation ,no rhonchii or wheezing abd: no rebound or guarding ,nt, bs present. ext pulses present , no cyanosis . neuro: axo3 , nonfocal. Objective Data Labs 08/06/22 06:42 08/07/22 09:15 Labs: Laboratory Results - last 24 hr 08/07/22 08/07/22 05:42 09:15 Sodium 138 Potassium 5.1 Chloride 105 Carbon Dioxide 22 Anion Gap 16 BUN 51 H Creatinine 4.90 H* Estim Creat Clear Calc 23.6 Estimated GFR 12 Random Glucose 88 Calcium 9.1 Lactate Dehydrogenase 140 Microbiology Microbiology Results: Microbiology 08/05/22 18:33 Blood - Venous Blood Culture - Preliminary No growth after 24 hours. 08/05/22 18:21 Blood - Venous Blood Culture - Preliminary No growth after 24 hours. Procedures Date of Service Date of Service: 08/07/22 Assessment & Plan Assessment and plan (1) Acute renal failure: Status: Acute (2) Hyperkalemia: Status: Acute (3) Acute UTI: Status: Acute Plan 67-year-old man with history of obesity, hepatitis-C which has been treated, cirrhosis with mild chronic kidney disease has sustained acute kidney injury.? The different diagnosis of acute kidney injury include hypoperfusion/ include acute tubular necrosis.? However based on the clinical picture acute glomerular nephritis is still a possibility which needs to be ruled out. Doubt AIN - WBC in UA -ve No evidence of obstruction based on the recent CT scan. Recommendation F/u serology IV albumin/ IVF f/u Anca, ASO titer, LDH and haptoglobin Keep on low-potassium diet.? Lokelma to correct hyperkalemia.? Continue to hold old Aldactone. Monitor urine output closely. Continue to avoid nephrotoxic agents.? No absolute indication for dialysis today.? Based on the above workup he may require a kidney biopsy.? We will follow along closely with the team.? d/w Medical team Thank you Time Spent With Patient Time: Total time managing care of this patient today ____ minutes. Progress Note: Quality Stroke Does the patient have a stroke diagnosis?: No
--- NOTE | 2022-08-07 18:41 | HO.WOUNDCONS ---
History of Present Illness Data of Consult Service Date: 08/07/22 Requesting physician: So Ingram Primary Care Provider: Jose Arteaga MD [facility] Reason for consult: Right lower leg ulcer This is a 67-year-old gentleman who is known to the Wound Care Service for treatment of a venous leg ulcer of the right lower extremity. He was admitted to the hospital yesterday for evaluation and treatment of abdominal pain. He reports that the pain is improving slowly but that it persists. He has no new complaints referable to his right lower leg ulcer. He has a recent history of radiofrequency ablations of the right small saphenous vein with Dr. Kramer. Review of Systems Gastrointestinal: Gastrointestinal: Reports as per HPI [facility] Medical History Anemia Cirrhosis COVID-19 GERD (gastroesophageal reflux disease) Hepatic fibrosis History of substance abuse Hx of hepatitis C Hypertension Osteoarthritis of both knees Pancytopenia Pedal edema Family History Father No problems noted. Mother No problems noted. Surgical History History of esophagogastroduodenoscopy (EGD) Hx of appendectomy Hx of endoscopic retrograde cholangiopancreatography Hx of left knee surgery Social History Household Members: None Housing: Unknown / Unable to assess Do you presently have visiting nurse or other home services: Yes Alcohol intake: former Patient Tobacco Use Status: Never used Tobacco e-Cigarette/Vaping Use: Never Used Second Hand Smoke Exposure: No Substance Use Type: Former Substance User service: No Current occupational status: disabled Meds Allergies Allergy/AdvReac Type Severity Reaction Status Date / Time No Known Allergies Allergy Verified 07/14/22 08:00 Active Medications: Current Medications Acetaminophen (Acetaminophen 325 Mg Tablet) 650 mg PO Q6H PRN PRN Reason: Pain, Mild (Pain Scale 1-3) Last Admin: 08/07/22 09:16 Dose: 650 mg Docusate Sodium (Docusate Sodium 100 Mg Capsule) 100 mg PO DAILY PRN PRN Reason: Constipation Ceftriaxone Sodium 1 gm/ (Sodium Chloride) 50 mls @ 100 mls/hr IV Q24H [facility] Last Infusion: 08/06/22 21:19 Dose: Infused Sodium Chloride (Ns) 1,000 mls @ 80 mls/hr IVCONT .[id number] [facility] Last Infusion: 08/07/22 18:14 Dose: 80 mls/hr Albumin Human (Kedbumin 25 %) 100 mls @ 100 mls/hr IV Q6H [facility] Stop: 08/08/22 06:44 Last Infusion: 08/07/22 18:13 Dose: Infused Methadone HCl (Methadone Hcl 20 Mg/2 Ml Oral.Conc) 28 mg PO DAILY [facility] Last Admin: 08/07/22 08:16 Dose: 28 mg Omeprazole (Omeprazole 40 Mg Capsule.Dr) 40 mg PO DAILY@0630 [facility] Last Admin: 08/07/22 05:24 Dose: 40 mg Ondansetron HCl (Ondansetron Hcl 4 Mg/2 Ml Vial) 4 mg IVPUSH Q8H PRN PRN Reason: Nausea and Vomiting Pharmacy Consult (Consult Rx Perform Med Rec) 1 each MISCELLANE ONCE PRN PRN Reason: Consult order Polyethylene Glycol (Polyethylene Glycol 3350 17 Gm Powd.Pack) 17 gm PO DAILY [facility] Last Admin: 08/07/22 08:16 Dose: 17 gm Propranolol HCl (Propranolol Hcl 40 Mg Tablet) 40 mg PO BID [facility]; Protocol Last Admin: 08/07/22 08:15 Dose: 40 mg Sodium Chloride (0.9 % Sodium Chloride Flush 3 Ml Syringe) 3 ml IVFLUSH QSHIFT [facility] Last Admin: 08/07/22 17:03 Dose: Not Given Home Medications Medication Instructions Recorded Confirmed Last Taken Type furosemide 40 mg tablet (Lasix) 40 mg PO DAILY 11/13/19 08/05/22 Unknown History spironolactone 25 mg tablet 12.5 mg PO DAILY 11/13/19 08/05/22 Unknown History (Aldactone) propranolol 40 mg tablet 1 tab PO BID 05/01/20 08/05/22 Unknown History naloxone 4 mg/actuation nasal spray 0 spray intranasal USEASDIRECTD 01/19/22 08/05/22 Unknown History omeprazole 40 mg capsule,delayed 40 mg PO DAILY 01/19/22 08/05/22 Unknown History release methadone 10 mg/mL oral 28 mg PO DAILY 08/06/22 08/06/22 08/02/22 History concentrate (Methadone Intensol) Physical Exam Vital Signs and Narrative: Vital Signs: Last Vital Signs Temp 98.4 F 08/07/22 15:28 Pulse 68 08/07/22 15:28 Resp 19 08/07/22 15:28 BP 149/68 H 08/07/22 15:28 Pulse Ox 100 08/07/22 15:28 O2 Del Method Room Air 08/07/22 15:28 BMI result Body Mass Index 48.3 Const: General: cooperative, no acute distress and alert Skin: Other: Superficial ulcer lateral aspect right lower leg with granulating bed. In no periwound erythema. Results Labs 08/06/22 06:42 08/07/22 09:15 Labs: Laboratory Results - last 24 hr 08/07/22 08/07/22 05:42 09:15 Anion Gap 16 Estim Creat Clear Calc 23.6 Estimated GFR 12 Random Glucose 88 Calcium 9.1 Lactate Dehydrogenase 140 Assessment and Plan (1) Venous stasis ulcer: Status: Acute Plan Had been using calcium alginate with silver and Coban dressings to venous leg ulcer, right lower leg. Recommend continuing calcium alginate with silver dressings, light Jasper wrap while hospitalized, follow-up in [facility] on discharge. Please contact the wound care service if re-evaluation is needed. Time Spent With Patient Time: Total time managing care of this patient today ____ minutes.
[2022-08-07] MEDS: 0.9 % Sodium Chloride Flush 3 ML SYRINGE IVFLUSH (20:28)
[2022-08-08] MEDS: Omeprazole 40 MG CAPSULE.DR PO (06:30)
[2022-08-08 07:21] VITALS: BP 130/65; PULSE 98; RESP 20; TEMP 36.4; O2SAT 95
[2022-08-08] MEDS: methADONE HCl 20 MG/2 ML ORAL.CONC 28 MG PO (08:45)
[2022-08-08] MEDS: Propranolol HCL 40 MG TABLET PO ×2 (08:45→20:30)
[2022-08-08] MEDS: 0.9 % Sodium Chloride Flush 3 ML SYRINGE IVFLUSH ×2 (08:45→19:15)
[2022-08-08] MEDS: polyethylene glycoL 3350 17 GM POWD.PACK PO (08:45)
[2022-08-08 11:18] VITALS: BP 168/77; PULSE 56; RESP 20; TEMP 36.6; O2SAT 97
--- NOTE | 2022-08-08 14:54 | P.PNNP_ITS ---
Subjective Subjective Date of Service: 08/08/22 <Philip Ruiz MD - Last Filed: 08/08/22 14:57> 08/12/22 <Bipin Hatfield MD - Last Filed: 08/12/22 08:03> Interval history: c/o abd discomfort Events noted. No significant improvement in creatinine. <Philip Ruiz MD - Last Filed: 08/08/22 14:57> Physical Exam Vital Signs: Vital Signs: Last Vital Signs Temp 97.9 F 08/08/22 11:18 Pulse 56 08/08/22 11:18 Resp 20 08/08/22 11:18 BP 168/77 H 08/08/22 11:18 Pulse Ox 97 08/08/22 11:18 O2 Del Method Room Air 08/08/22 11:18 BMI result Body Mass Index 48.3 <Philip Ruiz MD - Last Filed: 08/08/22 14:57> Comfortable Obese Neck is supple Lung: Air entry equal Heart: S1,S2, normal. No rub Abd: Soft. BS + NS : Alert.No asterexis Ext: 2+edema <Philip Ruiz MD - Last Filed: 08/08/22 14:57> Const: General: cooperative, healthy appearing, comfortable, no acute distress, alert and awake <Philip Ruiz MD - Last Filed: 08/08/22 14:57> Nutritional Appearance: well nourished <Philip Ruiz MD - Last Filed: 08/08/22 14:57> Orientation/consciousness: patient oriented x3 <Philip Ruiz MD - Last Filed: 08/08/22 14:57> HEENT: Head: Yes normocephalic and Yes atraumatic <Philip Ruiz MD - Last Filed: 08/08/22 14:57> Eyes: General: appearance normal, both eyes and all related structures <Thierry Ruiz MD - Last Filed: 08/08/22 14:57> Eyelids: Yes eyelids normal <Philip Ruiz MD - Last Filed: 08/08/22 14:57> Conjunctivae: conjunctivae normal <Philip Ruiz MD - Last Filed: 08/08/22 14:57> Sclerae: sclerae normal <Philip Ruiz MD - Last Filed: 08/08/22 14:57> Corneas: corneas normal <Philip Ruiz MD - Last Filed: 08/08/22 14:57> Pupils: Equal, round and reactive pupils present <Philip Ruiz MD - Last Filed: 08/08/22 14:57> EOM: EOMs intact bilaterally <Philip Ruiz MD - Last Filed: 08/08/22 14:57> Neck: Neck: Yes full ROM <Philip Ruiz MD - Last Filed: 08/08/22 14:57> Resp: Effort & Inspection: normal respiratory effort, able to speak in complete sentences, no audible wheezes and not labored <Philip Ruiz MD - Last Filed: 08/08/22 14:57> Auscultation: clear to auscultation bilaterally <Philip Ruiz MD - Last Filed: 08/08/22 14:57> Cardio: Rate: regular rate <Philip Ruiz MD - Last Filed: 08/08/22 14:57> Rhythm: regular rhythm <Philip Ruiz MD - Last Filed: 08/08/22 14:57> GI: Other: Abdomen is soft, nontender, no rebound or guarding <Philip Ruiz MD - Last Filed: 08/08/22 14:57> Inspection: Yes obesity <Philip Ruiz MD - Last Filed: 08/08/22 14:57> Palpation (GI): Soft to palpation, not firm, Tenderness to palpation present (GI) in the LUQ, no guarding and not rigid <Philip Ruiz MD - Last Filed: 08/08/22 14:57> Auscultation: normal bowel sounds <Philip Ruiz MD - Last Filed: 08/08/22 14:57> Skin: Other: Superficial ulcer lateral aspect right lower leg with granulating bed. In no periwound erythema. <Philip Ruiz MD - Last Filed: 08/08/22 14:57> General skin exam: no rashes or lesions noted <Philip Ruiz MD - Last Filed: 08/08/22 14:57> Neuro: General: patient oriented x3 <Philip Ruiz MD - Last Filed: 08/08/22 14:57> Cranial nerves: Yes CN's II-XII intact bilaterally, Yes Equal, round and reactive pupils present and Yes Bilaterally intact EOM present <Philip Ruiz MD - Last Filed: 08/08/22 14:57> Cognition (Neuro): normal cognition <Philip Ruiz MD - Last Filed: 08/08/22 14:57> Extrem: Other: Moving all extremities well without any obvious deformities <Philip Ruiz MD - Last Filed: 08/08/22 14:57> General: Yes normal to inspection and Yes no pedal edema <Philip Ruiz MD - Last Filed: 08/08/22 14:57> Objective Data Labs CBC & Chem 7: 08/08/22 05:39 08/08/22 05:39 <Philip Ruiz MD - Last Filed: 08/08/22 14:57> Labs: Laboratory Results - last 24 hr 08/08/22 08/08/22 05:39 05:39 WBC 3.1 L RBC 3.46 L Hgb 9.7 L Hct 30.7 L MCV 88.7 MCH 28.0 MCHC 31.6 RDW 12.7 Plt Count 62 L MPV 12.0 Absolute Nucleated RBC 0.000 Nucleated RBC % (auto) 0.0 Sodium 138 Potassium 5.4 H Chloride 107 Carbon Dioxide 22 Anion Gap 14 BUN 56 H Creatinine 5.07 H* Estim Creat Clear Calc 22.8 Estimated GFR 11 Random Glucose 84 Calcium 8.9 <Philip Ruiz MD - Last Filed: 08/08/22 14:57> Microbiology Microbiology Results: Microbiology 08/05/22 18:33 Blood - Venous Blood Culture - Preliminary No growth after 48 hours. 08/05/22 18:21 Blood - Venous Blood Culture - Preliminary No growth after 48 hours. <Philip Ruiz MD - Last Filed: 08/08/22 14:57> Procedures Date of Service Date of Service: 08/08/22 <Philip Ruiz MD - Last Filed: 08/08/22 14:57> 08/12/22 <Bipin Hatfield MD - Last Filed: 08/12/22 08:03> Assessment & Plan Assessment and plan (1) Acute renal failure: Status: Acute <Philip Ruiz MD - Last Filed: 08/08/22 14:57> Assessment and Plan: 67-year-old man with history of obesity, hepatitis-C which has been treated, cirrhosis with mild chronic kidney disease has sustained acute kidney injury. The different diagnosis of acute kidney injury include hypoperfusion. Other possibilities include acute tubular necrosis. However based on the clinical picture acute glomerular nephritis is still a possibility which needs to be ruled out. No evidence of obstruction based on the recent CT scan. Recommendation serum complements, Anca, ASO titer, LDH and haptoglobin Keep on low-potassium diet. Lokelma prn to correct hyperkalemia. Hold Aldactone. Monitor urine output closely. Continue to avoid nephrotoxic agents. No absolute indication for dialysis today. Based on the above workup he may require a kidney biopsy due to rapid decline in renal function over the last 6 months <Philip Ruiz MD - Last Filed: 08/08/22 14:57> Time Spent With Patient Time: Total time managing care of this patient today ____ minutes. <Philip Ruiz MD - Last Filed: 08/08/22 14:57> Progress Note: Quality Stroke Does the patient have a stroke diagnosis?: No <Philip Ruiz MD - Last Filed: 08/08/22 14:57>
[2022-08-08 15:04] VITALS: BP 140/77; PULSE 54; RESP 20; TEMP 36.7; O2SAT 94
--- NOTE | 2022-08-08 18:37 | PC.NURSE ---
Patient arrived from Telemetry unit in bed,alert and oriented,bed alarm on ,call jones in place.
[2022-08-08 20:03] VITALS: BP 156/69; PULSE 62; RESP 20; TEMP 36.4; O2SAT 98
[2022-08-08 23:36] VITALS: BP 162/77; PULSE 53; RESP 16; TEMP 36.3; O2SAT 99
[2022-08-09] MEDS: Acetaminophen 325 MG TABLET 650 MG PO ×2 (03:34→11:08)
[2022-08-09] MEDS: Melatonin 3 MG TABLET 6 MG PO (03:42)
[2022-08-09] MEDS: Omeprazole 40 MG CAPSULE.DR PO (06:11)
[2022-08-09 07:44] VITALS: BP 164/81; PULSE 56; RESP 18; TEMP 36.4; O2SAT 96
[2022-08-09] MEDS: 0.9 % Sodium Chloride Flush 3 ML SYRINGE IVFLUSH (07:45)
--- NOTE | 2022-08-09 08:47 | HO.PM.IMPN ---
Subjective Subjective Date of Service: 08/09/22 Interval History: f/u on LUIS MIGUEL on ckdaki,Abdominal pain Review of Systems abd pain seems minimum Denies any chest pain or shortness of breath or cough Physical Exam Vital Signs: Vital Signs: Last Vital Signs Temp 97.5 F 08/09/22 07:44 Pulse 56 08/09/22 07:44 Resp 18 08/09/22 07:44 BP 164/81 H 08/09/22 07:44 Pulse Ox 96 08/09/22 07:44 O2 Del Method Room Air 08/09/22 07:44 BMI result Body Mass Index 48.3 Const: Other: General: AO X 3, no acute distress Resp: CTA bilateral CVS: S1,S2,RRR GI: +BS, NT, no distention Skin: No rash Neuro: motor grossly intact Psych: appropriate affect Objective Data Active Medications Acetaminophen (Acetaminophen 325 Mg Tablet) 650 mg PO Q6H PRN PRN Reason: Pain, Mild (Pain Scale 1-3) Last Admin: 08/09/22 03:34 Dose: 650 mg Documented By: VALENTINA Docusate Sodium (Docusate Sodium 100 Mg Capsule) 100 mg PO DAILY PRN PRN Reason: Constipation Ceftriaxone Sodium 1 gm/ (Sodium Chloride) 50 mls @ 100 mls/hr IV Q24H [facility] Last Infusion: 08/08/22 19:44 Dose: 0 mls/hr Documented By: VALENTINA Melatonin (Melatonin 3 Mg Tablet) 6 mg PO BEDTIME PRN PRN Reason: Insomnia Last Admin: 08/09/22 03:42 Dose: 6 mg Documented By: VALENTINA Methadone HCl (Methadone Hcl 20 Mg/2 Ml Oral.Conc) 28 mg PO DAILY [facility] Last Admin: 08/08/22 08:45 Dose: 28 mg Documented By: ROXANNE Omeprazole (Omeprazole 40 Mg Capsule.Dr) 40 mg PO DAILY@0630 [facility] Last Admin: 08/09/22 06:11 Dose: 40 mg Documented By: VALENTINA Ondansetron HCl (Ondansetron Hcl 4 Mg/2 Ml Vial) 4 mg IVPUSH Q8H PRN PRN Reason: Nausea and Vomiting Pharmacy Consult (Consult Rx Perform Med Rec) 1 each MISCELLANE ONCE PRN PRN Reason: Consult order Polyethylene Glycol (Polyethylene Glycol 3350 17 Gm Powd.Pack) 17 gm PO DAILY [facility] Last Admin: 08/08/22 08:45 Dose: 17 gm Documented By: ROXANNE Propranolol HCl (Propranolol Hcl 40 Mg Tablet) 40 mg PO BID [facility]; Protocol Last Admin: 08/08/22 20:30 Dose: 40 mg Documented By: VALENTINA Sodium Chloride (0.9 % Sodium Chloride Flush 3 Ml Syringe) 3 ml IVFLUSH QSHIFT [facility] Last Admin: 08/09/22 07:45 Dose: 3 ml Documented By: GRAZIC Labs 08/08/22 05:39 08/08/22 05:39 Assessment and Plan (1) Acute UTI: Status: Acute (2) Abdominal pain: Status: Acute (3) Acute renal failure: Status: Acute (4) Hyperkalemia: Status: Acute Plan 67-year-old male with hx of HTN, opioid use comes in to the hospital with abd pain found to have LUIS MIGUEL Acute kidney failure- DDx: pre renal, hepato renal, ATN. Ongoing work up. Nephrology is proposing bx Hyperkalemia: d/t renal failure being managed lokelma, check lab today +UA, no culture on ceftriaxone (started on 08/05/22) Abdominal pain- resolved, CT cirrhosis, no acute finding hypertension- Propranolol, no Aldactone d/t high K. Add NOrvasc for better control hx Liver cirrosis : no acute issues, Lasix and Aldactone on hold d/t renal failure opioid use disorder- continue methadone urine positive for Fentanyl-?unclear addded addiction consult. Pancytopenia Related to underlying liver disease continue to moniter cbc continue iron supplementation. Morbid obesity:? Encouraged to lose weight. DVT prophylaxis early ambulation, chemoprophylaxis contraindicated due to thrombocytopenia/anemia onging inpatientneed : LUIS MIGUEL -needs IV fluids in the setting of acute kidney failure, uti-need iv antibiotics . Time Spent With Patient Time: Total time managing care of this patient today ____ minutes. Quality Stroke Does the patient have a stroke diagnosis?: No VTE Prior VTE?: No VTE Risk Level:: Medical - moderate - high VTE Device Contraindication: Treatment Not Indicated VTE Drug Contraindication: N/A - Med Ordered
[2022-08-09] MEDS: polyethylene glycoL 3350 17 GM POWD.PACK PO (08:49)
[2022-08-09] MEDS: methADONE HCl 20 MG/2 ML ORAL.CONC 28 MG PO (08:49)
[2022-08-09] MEDS: Propranolol HCL 40 MG TABLET PO ×2 (08:50→20:11)
[2022-08-09 09:53] LABS: Complement C3 103 mg/dL (82-185)
--- NOTE | 2022-08-09 10:53 | PM.PNNEP ---
Subjective Subjective Date of Service: 08/09/22 Principal diagnosis: LUIS MIGUEL Interval history: Pt sitting up in the chairc Feels the same Cr is worse f/u on LUIS MIGUEL on ckdaki,Abdominal pain Physical Exam Vital Signs: Vital Signs: Last Vital Signs Temp 97.5 F 08/09/22 07:44 Pulse 56 08/09/22 07:44 Resp 18 08/09/22 07:44 BP 164/81 H 08/09/22 07:44 Pulse Ox 96 08/09/22 07:44 O2 Del Method Room Air 08/09/22 07:44 BMI result Body Mass Index 48.3 Const: Other: General: AO X 3, no acute distress Resp: CTA bilateral CVS: S1,S2,RRR GI: +BS, NT, no distention Skin: No rash Neuro: motor grossly intact Psych: appropriate affect Objective Data Labs 08/08/22 05:39 08/09/22 08:51 Labs: Laboratory Results - last 24 hr 08/07/22 08/09/22 05:42 08:51 Sodium 141 Potassium 5.5 H Chloride 107 Carbon Dioxide 23 Anion Gap 17 BUN 61 H Creatinine 5.80 H* Estim Creat Clear Calc 19.9 Estimated GFR 10 Random Glucose 105 Calcium 9.2 Complement C3 103 Complement C4 15 Microbiology Microbiology Results: Microbiology 08/05/22 18:33 Blood - Venous Blood Culture - Preliminary No growth after 48 hours. 08/05/22 18:21 Blood - Venous Blood Culture - Preliminary No growth after 48 hours. Procedures Date of Service Date of Service: 08/09/22 Assessment & Plan Assessment and plan (1) Acute renal failure: Status: Acute Plan 67-year-old man with history of obesity, hepatitis-C which has been treated, cirrhosis with mild chronic kidney disease has sustained acute kidney injury. The different diagnosis of acute kidney injury include hypoperfusion. High U Na - Doubt HRS - type 2 . Nor,a LDH - Doubt HUS/ TTP Other possibilities include acute tubular necrosis. However based on the clinical picture acute glomerular nephritis is still a possibility which needs to be ruled out. No evidence of obstruction based on the recent CT scan. Recommendation LDH is normal Haptpo- Pending Keep on low-potassium diet. Lokelma 15 g to correct hyperkalemia. Hold Aldactone/ Lasix Monitor urine output closely. Continue to avoid nephrotoxic agents. No absolute indication for dialysis today. Will reevaluate in AM- He may need a permcath kidney biopsy due to rapid decline in renal function over the last 6 months- Repeat Coags ordered. Platelets around 60- 70 Orders placed for IR - CT guidede kidney biopsy- Random core D/w pt about need for a Bx - I will get director of loss prevention and talk to pt again about the BX Will give IVF and albumin x 24 hrs Not on any anticoags/ Antiplatelet agents for > 1 week Time Spent With Patient Time: Total time managing care of this patient today ____ minutes. Progress Note: Quality Stroke Does the patient have a stroke diagnosis?: No
[2022-08-09 12:41] LABS: INTERNATIONAL NORM RATIO 1.3 (0.9-1.1); Prothrombin Time 14.8 SEC (10.0-13.1)
[2022-08-09 12:44] LABS: Partial Thromboplastin Time 33.1 SEC (26.0-36.4)
--- NOTE | 2022-08-09 13:11 | MHC.CM.PN ---
EMR REVIEWED AND PER MD ROUNDS, PT IS NOT MEDICALLY CLEARED FOR DC (BX 7/6, CR WORSE, IV ALBUMIN) CM WILL CONTINUE TO FOLLOW FOR DC PLAN/NEEDS.
[2022-08-09 15:35] VITALS: BP 176/84; PULSE 50; RESP 18; TEMP 36.1; O2SAT 96
[2022-08-09 15:48] LABS: Haptoglobin 125 mg/dL (43-212)
[2022-08-09 17:43] LABS: Streptolysin O Antibody 66 IU/mL (<200)
[2022-08-09 20:20] VITALS: BP 138/71; PULSE 60; RESP 19; TEMP 36.3; O2SAT 95
[2022-08-09 23:41] VITALS: BP 159/79; PULSE 58; RESP 18; TEMP 36.1; O2SAT 95
[2022-08-10 06:21] LABS: Anion Gap 15 (12-20)
[2022-08-10 06:38] LABS: Alanine Aminotransferase 8 U/L (0-40); Albumin Level 4.1 g/dL (3.5-5.0); Alkaline Phosphatase 73 U/L (39-117); Aspartate Amino Transferase 15 U/L (5-37); Bilirubin Total 0.9 mg/dL (0.0-1.0); Blood Urea Nitrogen 64 mg/dL (9-16); Calcium 9.1 mg/dL (8.4-10.2); Carbon Dioxide 22 mmol/L (22-29); Chloride 109 mmol/L (96-108); Creatinine Clr Calc Pharmacy 19.1; Estimated Glomerular Filt Rate 9; Glucose Random 83 mg/dL (60-115); Potassium 5.2 mmol/L (3.3-5.1); Sodium 141 mmol/L (135-145); Total Protein 8.3 g/dL (6.5-8.0)
[2022-08-10 07:45] VITALS: BP 151/69; PULSE 59; RESP 18; TEMP 36.8; O2SAT 95
[2022-08-10] MEDS: 0.9 % Sodium Chloride Flush 3 ML SYRINGE IVFLUSH ×2 (08:01→16:55)
--- NOTE | 2022-08-10 08:37 | HO.PM.IMPN ---
Subjective Subjective Date of Service: 08/10/22 Interval History: f/u on LUIS MIGUEL, Creatine is worst Physical Exam Vital Signs: Vital Signs: Last Vital Signs Temp 98.2 F 08/10/22 07:45 Pulse 59 08/10/22 07:45 Resp 18 08/10/22 07:45 BP 151/69 H 08/10/22 07:45 Pulse Ox 95 08/10/22 07:45 O2 Del Method Room Air 08/10/22 07:45 BMI result Body Mass Index 48.3 Const: Other: General: AO X 3, no acute distress Resp: CTA bilateral CVS: S1,S2,RRR GI: +BS, NT, no distention Skin: No rash Neuro: motor grossly intact Psych: appropriate affect Objective Data Active Medications Acetaminophen (Acetaminophen 325 Mg Tablet) 650 mg PO Q6H PRN PRN Reason: Pain, Mild (Pain Scale 1-3) Last Admin: 08/09/22 11:08 Dose: 650 mg Documented By: CAIT Docusate Sodium (Docusate Sodium 100 Mg Capsule) 100 mg PO DAILY PRN PRN Reason: Constipation Ceftriaxone Sodium 1 gm/ (Sodium Chloride) 50 mls @ 100 mls/hr IV Q24H [facility] Last Infusion: 08/09/22 21:36 Dose: 0 mls/hr Documented By: BARI Melatonin (Melatonin 3 Mg Tablet) 6 mg PO BEDTIME PRN PRN Reason: Insomnia Last Admin: 08/09/22 03:42 Dose: 6 mg Documented By: VALENTINA Methadone HCl (Methadone Hcl 20 Mg/2 Ml Oral.Conc) 28 mg PO DAILY [facility] Last Admin: 08/09/22 08:49 Dose: 28 mg Documented By: OTTO Omeprazole (Omeprazole 40 Mg Capsule.Dr) 40 mg PO DAILY@0630 [facility] Last Admin: 08/10/22 04:59 Dose: Not Given Documented By: BARI Non-Admin Reason: NPO Ondansetron HCl (Ondansetron Hcl 4 Mg/2 Ml Vial) 4 mg IVPUSH Q8H PRN PRN Reason: Nausea and Vomiting Oxycodone HCl (Oxycodone Hcl Immed Release 5 Mg Tablet) 5 mg PO Q6H PRN PRN Reason: Pain, Severe (Pain Scale 7-10) Last Admin: 08/09/22 13:12 Dose: 5 mg Documented By: CAIT Pharmacy Consult (Consult Rx Perform Med Rec) 1 each MISCELLANE ONCE PRN PRN Reason: Consult order Polyethylene Glycol (Polyethylene Glycol 3350 17 Gm Powd.Pack) 17 gm PO DAILY [facility] Last Admin: 08/09/22 08:49 Dose: 17 gm Documented By: OTTO Propranolol HCl (Propranolol Hcl 40 Mg Tablet) 40 mg PO BID [facility]; Protocol Last Admin: 08/09/22 20:11 Dose: 40 mg Documented By: BARI Sodium Chloride (0.9 % Sodium Chloride Flush 3 Ml Syringe) 3 ml IVFLUSH QSHIFT [facility] Last Admin: 08/10/22 08:01 Dose: 3 ml Documented By: OTTO Labs 08/08/22 05:39 08/10/22 05:35 Labs: Laboratory Results - last 24 hr 08/07/22 08/07/22 08/07/22 05:42 05:42 05:42 Haptoglobin 125 PT INR APTT Anion Gap Estim Creat Clear Calc Estimated GFR Random Glucose Calcium Total Bilirubin AST ALT Alkaline Phosphatase Total Protein Albumin Complement C3 103 Complement C4 15 Anti-Streptolysin Scrn 66 08/09/22 08/09/22 08/10/22 08:51 11:28 05:35 Haptoglobin PT 14.8 H INR 1.3 H APTT 33.1 Anion Gap 17 15 Estim Creat Clear Calc 19.9 19.1 Estimated GFR 10 9 Random Glucose 105 83 Calcium 9.2 9.1 Total Bilirubin 0.9 AST 15 ALT 8 Alkaline Phosphatase 73 Total Protein 8.3 H Albumin 4.1 Complement C3 Complement C4 Anti-Streptolysin Scrn Assessment and Plan (1) Acute UTI: Status: Acute (2) Abdominal pain: Status: Acute (3) Acute renal failure: Status: Acute (4) Hyperkalemia: Status: Acute Plan 67-year-old male with hx of HTN, opioid use comes in to the hospital with abd pain found to have LUIS MIGUEL Acute kidney failure- DDx: pre renal, hepato renal, ATN. Ongoing work up. Cr still trending up. Bx schedule for 08/10 HypERkalemia: d/t renal failure being managed lokelma, K 5.2 +UA, no culture on ceftriaxone (started on 08/05/22), stop Abdominal pain- resolved, CT cirrhosis, no acute finding hypertension- Propranolol, no Aldactone d/t high K. Add NOrvasc for better control hx Liver cirrosis : no acute issues, Lasix and Aldactone on hold d/t renal failure opioid use disorder- continue methadone urine positive for Fentanyl-?unclear addded addiction consult. Pancytopenia Related to underlying liver disease continue to moniter cbc continue iron supplementation. Morbid obesity:? Encouraged to lose weight. DVT prophylaxis early ambulation, chemoprophylaxis contraindicated due to thrombocytopenia/anemia onging inpatientneed : LUIS MIGUEL -needs IV fluids in the setting of acute kidney failure, uti-need iv antibiotics . Time Spent With Patient Time: Total time managing care of this patient today ____ minutes. Quality Stroke Does the patient have a stroke diagnosis?: No VTE Prior VTE?: No VTE Risk Level:: Medical - moderate - high VTE Device Contraindication: Treatment Not Indicated VTE Drug Contraindication: N/A - Med Ordered
[2022-08-10] MEDS: methADONE HCl 20 MG/2 ML ORAL.CONC 28 MG PO (08:52)
[2022-08-10] MEDS: polyethylene glycoL 3350 17 GM POWD.PACK PO (09:38)
[2022-08-10] MEDS: Propranolol HCL 40 MG TABLET PO ×2 (09:39→21:07)
--- NOTE | 2022-08-10 13:26 | PM.PNNEP ---
Subjective Subjective Date of Service: 08/10/22 Principal diagnosis: LUIS MIGUEL Interval history: f/u on LUIS MIGUEL, Creatine is worst d/w pt with Khmer interpretor - Explained the need for a Permcath and the risks Hold off Bx for now Pt with hemuria Physical Exam Vital Signs: Vital Signs: Last Vital Signs Temp 98.2 F 08/10/22 07:45 Pulse 59 08/10/22 07:45 Resp 18 08/10/22 07:45 BP 151/69 H 08/10/22 07:45 Pulse Ox 95 08/10/22 07:45 O2 Del Method Room Air 08/10/22 07:45 BMI result Body Mass Index 48.3 Const: Other: General: AO X 3, no acute distress Resp: CTA bilateral CVS: S1,S2,RRR GI: +BS, NT, no distention Skin: No rash Neuro: motor grossly intact Psych: appropriate affect Objective Data Labs 08/08/22 05:39 08/10/22 05:35 Labs: Laboratory Results - last 24 hr 08/07/22 08/07/22 08/10/22 05:42 05:42 05:35 Haptoglobin 125 Sodium 141 Potassium 5.2 H Chloride 109 H Carbon Dioxide 22 Anion Gap 15 BUN 64 H Creatinine 6.06 H* Estim Creat Clear Calc 19.1 Estimated GFR 9 Random Glucose 83 Calcium 9.1 Total Bilirubin 0.9 AST 15 ALT 8 Alkaline Phosphatase 73 Total Protein 8.3 H Albumin 4.1 Anti-Streptolysin Scrn 66 Microbiology Microbiology Results: Microbiology 08/05/22 18:33 Blood - Venous Blood Culture - Preliminary No growth after 48 hours. 08/05/22 18:21 Blood - Venous Blood Culture - Preliminary No growth after 48 hours. Procedures Date of Service Date of Service: 08/10/22 Assessment & Plan Assessment and plan (1) Acute renal failure: Status: Acute Plan 67-year-old man with history of obesity, hepatitis-C which has been treated, cirrhosis with mild chronic kidney disease has sustained acute kidney injury. The different diagnosis of acute kidney injury include hypoperfusion. High U Na - Doubt HRS - type 2 . Nor,a LDH - Doubt HUS/ TTP Other possibilities include acute tubular necrosis. However based on the clinical picture acute glomerular nephritis is still a possibility which needs to be ruled out. No evidence of obstruction based on the recent CT scan. Recommendation Keep on low-potassium diet. Hold Aldactone/ Lasix Monitor urine output closely. Continue to avoid nephrotoxic agents. Woresning renal func - Will hold off Bx Will get a P cath HD in Am or later today . kidney biopsy early next week Repeat Coags INR- 1.3 . Platelets around 60- 70 D/w pt about need for HD / PC - used boner meat and talk to pt again about the BX Will give IVF and albumin x 24 hrs Not on any anticoags/ Antiplatelet agents for > 1 week Time Spent With Patient Time: Total time managing care of this patient today ____ minutes. Progress Note: Quality Stroke Does the patient have a stroke diagnosis?: No
[2022-08-10 16:00] VITALS: BP 121/60; PULSE 85; RESP 18; TEMP 36.9; O2SAT 96
[2022-08-10 16:25] VITALS: BP 111/72; PULSE 57; RESP 20; TEMP 36.6; O2SAT 96
[2022-08-10 16:40] VITALS: BP 110/74; PULSE 56; RESP 20; O2SAT 95
[2022-08-10 19:59] LABS: Myeloperoxidase Antibody <1.0 AI; Proteinase 3 PR3 Antibodies <1.0 AI
[2022-08-10 20:14] VITALS: BP 140/78; PULSE 62; RESP 18; TEMP 37.1; O2SAT 98
[2022-08-11 03:14] VITALS: BP 161/78; PULSE 54; RESP 16; TEMP 36.2; O2SAT 96
[2022-08-11 08:00] VITALS: BP 165/78; PULSE 61; RESP 18; TEMP 36.5; O2SAT 93
[2022-08-11] MEDS: methADONE HCl 20 MG/2 ML ORAL.CONC 28 MG PO (08:21)
[2022-08-11] MEDS: Omeprazole 40 MG CAPSULE.DR PO (08:21)
[2022-08-11] MEDS: 0.9 % Sodium Chloride Flush 3 ML SYRINGE IVFLUSH ×3 (08:21→22:40)
[2022-08-11] MEDS: Propranolol HCL 40 MG TABLET PO (08:21)
[2022-08-11] MEDS: polyethylene glycoL 3350 17 GM POWD.PACK PO (08:21)
[2022-08-11] MEDS: ondansetron HCL 4 MG/2 ML VIAL IVPUSH (08:31)
--- NOTE | 2022-08-11 08:41 | HO.PM.IMPN ---
Subjective Subjective Date of Service: 08/11/22 Interval History: f/u on LUIS MIGUEL, Creatine is worst yesterday, PermCath inserted, no new issues Physical Exam Vital Signs: Vital Signs: Last Vital Signs Temp 97.2 F 08/11/22 03:14 Pulse 54 08/11/22 03:14 Resp 16 08/11/22 03:14 BP 161/78 H 08/11/22 03:14 Pulse Ox 96 08/11/22 03:14 O2 Del Method Room Air 08/11/22 03:14 O2 Flow Rate 96 08/10/22 16:00 BMI result Body Mass Index 48.3 Const: Other: General: AO X 3, no acute distress Resp: CTA bilateral CVS: S1,S2,RRR GI: +BS, NT, no distention Skin: No rash Neuro: motor grossly intact Psych: appropriate affect Objective Data Active Medications Acetaminophen (Acetaminophen 325 Mg Tablet) 650 mg PO Q6H PRN PRN Reason: Pain, Mild (Pain Scale 1-3) Last Admin: 08/09/22 11:08 Dose: 650 mg Documented By: CAIT Docusate Sodium (Docusate Sodium 100 Mg Capsule) 100 mg PO DAILY PRN PRN Reason: Constipation Melatonin (Melatonin 3 Mg Tablet) 6 mg PO BEDTIME PRN PRN Reason: Insomnia Last Admin: 08/09/22 03:42 Dose: 6 mg Documented By: VALENTINA Methadone HCl (Methadone Hcl 20 Mg/2 Ml Oral.Conc) 28 mg PO DAILY [facility] Last Admin: 08/11/22 08:21 Dose: 28 mg Documented By: SAURABH Omeprazole (Omeprazole 40 Mg Capsule.Dr) 40 mg PO DAILY@0630 [facility] Last Admin: 08/11/22 08:21 Dose: 40 mg Documented By: SAURABH Ondansetron HCl (Ondansetron Hcl 4 Mg/2 Ml Vial) 4 mg IVPUSH Q8H PRN PRN Reason: Nausea and Vomiting Last Admin: 08/11/22 08:31 Dose: 4 mg Documented By: SAURABH Oxycodone HCl (Oxycodone Hcl Immed Release 5 Mg Tablet) 5 mg PO Q6H PRN PRN Reason: Pain, Severe (Pain Scale 7-10) Last Admin: 08/11/22 05:56 Dose: 5 mg Documented By: ZHEN Pharmacy Consult (Consult Rx Perform Med Rec) 1 each MISCELLANE ONCE PRN PRN Reason: Consult order Polyethylene Glycol (Polyethylene Glycol 3350 17 Gm Powd.Pack) 17 gm PO DAILY [facility] Last Admin: 08/11/22 08:21 Dose: 17 gm Documented By: SAURABH Propranolol HCl (Propranolol Hcl 40 Mg Tablet) 40 mg PO BID [facility]; Protocol Last Admin: 08/11/22 08:21 Dose: 40 mg Documented By: SAURABH Sodium Chloride (0.9 % Sodium Chloride Flush 3 Ml Syringe) 3 ml IVFLUSH QSHIFT [facility] Last Admin: 08/11/22 08:21 Dose: 3 ml Documented By: SAURABH Labs 08/08/22 05:39 08/10/22 05:35 Labs: Laboratory Results - last 24 hr 08/07/22 08/10/22 05:42 13:31 Proteinase 3 (PR3) Ab <1.0 Myeloperoxidase Ab <1.0 Hep Bs Antigen Negative Hep Bs Antibody REACTIVE Microbiology Microbiology Results: Microbiology 08/05/22 18:33 Blood Culture - Final Blood - Venous No growth after 5 days. 08/05/22 18:21 Blood Culture - Final Blood - Venous No growth after 5 days. Assessment and Plan (1) Acute UTI: Status: Acute (2) Abdominal pain: Status: Acute (3) Acute renal failure: Status: Acute (4) Hyperkalemia: Status: Acute Plan 67-year-old male with hx of HTN, opioid use comes in to the hospital with abd pain found to have LUIS MIGUEL Acute kidney failure, rapidly progressing with high K- DDx: pre renal, hepato renal, ATN. Ongoing work up by Nephrology. PermCath 08/10 and to start Homodialysis (HD) today HypERkalemia: d/t renal failure being managed lokelma, K 5.2 +UA, no culture on ceftriaxone (started on 08/05/22), stop Abdominal pain- resolved, CT cirrhosis, no acute finding hypertension- Propranolol, no Aldactone d/t high K. Started NOrvasc for better control hx Liver cirrhosis : no acute issues, Lasix and Aldactone on hold d/t renal failure Opioid use disorder- continue methadone urine positive for Fentanyl-?unclear Pancytopenia Related to underlying liver disease and CKD continue to moniter cbc continue iron supplementation. Morbid obesity:? Encouraged to lose weight. DVT prophylaxis early ambulation, chemoprophylaxis contraindicated due to thrombocytopenia/anemia onging inpatientneed : LUIS MIGUEL -needs IV fluids in the setting of acute kidney failure, uti-need iv antibiotics . Time Spent With Patient Time: Total time managing care of this patient today ____ minutes. Quality Stroke Does the patient have a stroke diagnosis?: No VTE Prior VTE?: No VTE Risk Level:: Medical - moderate - high VTE Device Contraindication: Treatment Not Indicated VTE Drug Contraindication: N/A - Med Ordered
--- NOTE | 2022-08-11 12:52 | MHC.CM.PN ---
EMR reviewed and per MD rounds, pt had permacath inserted today, will await nephro to set up HD, and pt will remain here through the weekend. CM will continue to follow.
[2022-08-11] MEDS: Acetaminophen 325 MG TABLET 650 MG PO ×2 (15:44→22:36)
[2022-08-11 16:00] VITALS: BP 138/62; PULSE 78; RESP 20; TEMP 36.2; O2SAT 96
[2022-08-11 20:03] VITALS: BP 146/71; PULSE 58; RESP 20; TEMP 36.8; O2SAT 94
--- NOTE | 2022-08-11 23:40 | PM.PNNEP ---
Subjective Subjective Date of Service: 08/11/22 Principal diagnosis: LUIS MIGUEL Interval history: f/u on LUIS MIGUEL, Creatine is worst yesterday, PermCath inserted, Now on HD Physical Exam Vital Signs: Vital Signs: Last Vital Signs Temp 98.2 F 08/11/22 20:03 Pulse 58 08/11/22 20:03 Resp 20 08/11/22 20:03 BP 146/71 H 08/11/22 20:03 Pulse Ox 94 08/11/22 20:03 O2 Del Method Room Air 08/11/22 20:03 O2 Flow Rate 96 08/10/22 16:00 BMI result Body Mass Index 48.3 Const: Other: General: AO X 3, no acute distress Resp: CTA bilateral CVS: S1,S2,RRR GI: +BS, NT, no distention Skin: No rash Neuro: motor grossly intact Psych: appropriate affect Objective Data Labs 08/08/22 05:39 08/11/22 09:35 Labs: Laboratory Results - last 24 hr 08/10/22 08/11/22 13:31 09:35 Sodium 142 Potassium 5.1 Chloride 110 H Carbon Dioxide 20 L Anion Gap 17 BUN 73 H Creatinine 6.62 H* Estim Creat Clear Calc 17.5 Estimated GFR 8 Random Glucose 121 H Calcium 9.2 Hep Bs Antigen Negative Hep Bs Antibody REACTIVE Microbiology Microbiology Results: Microbiology 08/05/22 18:33 Blood - Venous Blood Culture - Final No growth after 5 days. 08/05/22 18:21 Blood - Venous Blood Culture - Final No growth after 5 days. Procedures Date of Service Date of Service: 08/11/22 Assessment & Plan Assessment and plan (1) Acute renal failure: Status: Acute Plan 67-year-old man with history of obesity, hepatitis-C which has been treated, cirrhosis with mild chronic kidney disease has sustained acute kidney injury. The different diagnosis of acute kidney injury include hypoperfusion. High U Na - Doubt HRS - type 2 . Nor,a LDH - Doubt HUS/ TTP Other possibilities include acute tubular necrosis. However based on the clinical picture acute glomerular nephritis is still a possibility which needs to be ruled out. No evidence of obstruction based on the recent CT scan. Recommendation Keep on low-potassium diet. Hold Aldactone/ Lasix Monitor urine output closely. Continue to avoid nephrotoxic agents. Woresning renal func - s/p Pceth - on HD HD again bella AM . kidney biopsy early next week Repeat Coags INR- 1.3 . Platelets around 60- 70 Time Spent With Patient Time: Total time managing care of this patient today ____ minutes. Progress Note: Quality Stroke Does the patient have a stroke diagnosis?: No
[2022-08-12 07:03] VITALS: BP 158/89; PULSE 63; RESP 18; TEMP 36.9; O2SAT 100
--- NOTE | 2022-08-12 07:57 | HO.PM.IMPN ---
Subjective Subjective Date of Service: 08/12/22 Interval History: f/u on LUIS MIGUEL, Creatine is rising, started HD 08/11 Physical Exam Vital Signs: Vital Signs: Last Vital Signs Temp 98.4 F 08/12/22 07:03 Pulse 63 08/12/22 07:03 Resp 18 08/12/22 07:03 BP 158/89 H 08/12/22 07:03 Pulse Ox 100 08/12/22 07:03 O2 Del Method Room Air 08/12/22 07:03 O2 Flow Rate 96 08/10/22 16:00 BMI result Body Mass Index 48.3 Const: Other: General: AO X 3, no acute distress Resp: CTA bilateral CVS: S1,S2,RRR--abhi leg edema GI: +BS, NT, no distention Skin: No rash Neuro: motor grossly intact Psych: appropriate affect Objective Data Active Medications Acetaminophen (Acetaminophen 325 Mg Tablet) 650 mg PO Q6H PRN PRN Reason: Pain, Mild (Pain Scale 1-3) Last Admin: 08/11/22 22:36 Dose: 650 mg Documented By: DHEERAJ Docusate Sodium (Docusate Sodium 100 Mg Capsule) 100 mg PO DAILY PRN PRN Reason: Constipation Mannitol (Mannitol 12.5 Gm/50 Ml Vial) 12.5 gm IV ONCE ONE Stop: 08/12/22 09:45 Melatonin (Melatonin 3 Mg Tablet) 6 mg PO BEDTIME PRN PRN Reason: Insomnia Last Admin: 08/09/22 03:42 Dose: 6 mg Documented By: VALENTINA Methadone HCl (Methadone Hcl 20 Mg/2 Ml Oral.Conc) 28 mg PO DAILY [facility] Last Admin: 08/11/22 08:21 Dose: 28 mg Documented By: SAURABH Omeprazole (Omeprazole 40 Mg Capsule.Dr) 40 mg PO DAILY@0630 [facility] Last Admin: 08/11/22 08:21 Dose: 40 mg Documented By: SAURABH Ondansetron HCl (Ondansetron Hcl 4 Mg/2 Ml Vial) 4 mg IVPUSH Q8H PRN PRN Reason: Nausea and Vomiting Last Admin: 08/11/22 08:31 Dose: 4 mg Documented By: SAURABH Oxycodone HCl (Oxycodone Hcl Immed Release 5 Mg Tablet) 5 mg PO Q6H PRN PRN Reason: Pain, Severe (Pain Scale 7-10) Last Admin: 08/11/22 15:44 Dose: 5 mg Documented By: LEATHA Pharmacy Consult (Consult Rx Perform Med Rec) 1 each MISCELLANE ONCE PRN PRN Reason: Consult order Polyethylene Glycol (Polyethylene Glycol 3350 17 Gm Powd.Pack) 17 gm PO DAILY [facility] Last Admin: 08/11/22 08:21 Dose: 17 gm Documented By: SAURABH Propranolol HCl (Propranolol Hcl 40 Mg Tablet) 40 mg PO BID [facility]; Protocol Last Admin: 08/11/22 20:40 Dose: Not Given Documented By: DHEERAJ Non-Admin Reason: Decreased Heart Rate Sodium Chloride (0.9 % Sodium Chloride Flush 3 Ml Syringe) 3 ml IVFLUSH QSHIFT [facility] Last Admin: 08/11/22 22:40 Dose: 3 ml Documented By: DHEERAJ Labs 08/08/22 05:39 08/11/22 09:35 Labs: Laboratory Results - last 24 hr 08/10/22 08/11/22 08/12/22 13:31 09:35 07:02 Anion Gap 17 Estim Creat Clear Calc 17.5 Estimated GFR 8 POC Glucose 83 Random Glucose 121 H Calcium 9.2 Hep Bs Antigen Negative Hep Bs Antibody REACTIVE Assessment and Plan (1) Acute UTI: Status: Acute (2) Abdominal pain: Status: Acute (3) Acute renal failure: Status: Acute (4) Hyperkalemia: Status: Acute Plan 67-year-old male with hx of HTN, opioid use comes in to the hospital with abd pain found to have LUIS MIGUEL Acute kidney failure, rapidly progressing with high K- DDx: pre renal, hepato renal, ATN. Ongoing work up by Nephrology. PermCath 08/10 and to start Homodialysis (HD) 08/11, kidney Bx sunday HypERkalemia: d/t renal failure being managed lokelma, K 5.1 +UA, no culture, treated with ceftriaxone x 5 days Abdominal pain- resolved, CT cirrhosis, no acute finding hypertension- Propranolol, no Aldactone d/t high K. Started NOrvasc for better control hx Liver cirrhosis : no acute issues, Lasix and Aldactone on hold d/t renal failure Opioid use disorder- continue methadone urine positive for Fentanyl-?unclear Pancytopenia Related to underlying liver disease and CKD continue to moniter cbc continue iron supplementation. Morbid obesity:? Encouraged to lose weight. DVT prophylaxis early ambulation, chemoprophylaxis contraindicated due to thrombocytopenia/anemia onging inpatientneed : LUIS MIGUEL -needs IV fluids in the setting of acute kidney failure, uti-need iv antibiotics . Time Spent With Patient Time: Total time managing care of this patient today ____ minutes. Quality Stroke Does the patient have a stroke diagnosis?: No VTE Prior VTE?: No VTE Risk Level:: Medical - moderate - high VTE Device Contraindication: Treatment Not Indicated VTE Drug Contraindication: N/A - Med Ordered
[2022-08-12] MEDS: methADONE HCl 20 MG/2 ML ORAL.CONC 28 MG PO (08:15)
[2022-08-12] MEDS: Propranolol HCL 40 MG TABLET PO ×2 (08:15→20:35)
[2022-08-12] MEDS: Omeprazole 40 MG CAPSULE.DR PO (08:15)
[2022-08-12] MEDS: amLODIPine Besylate 5 MG TABLET PO (08:15)
[2022-08-12] MEDS: 0.9 % Sodium Chloride Flush 3 ML SYRINGE IVFLUSH ×2 (08:16→20:35)
[2022-08-12] MEDS: polyethylene glycoL 3350 17 GM POWD.PACK PO (08:16)
--- NOTE | 2022-08-12 14:02 | PM.PNNEP ---
Subjective Subjective Date of Service: 08/12/22 Principal diagnosis: LUIS MIGUEL Interval history: f/u on LUIS MIGUEL, Seen on HD Making urine Physical Exam Vital Signs: Vital Signs: Last Vital Signs Temp 98.4 F 08/12/22 07:03 Pulse 63 08/12/22 07:03 Resp 18 08/12/22 07:03 BP 158/89 H 08/12/22 07:03 Pulse Ox 100 08/12/22 07:03 O2 Del Method Room Air 08/12/22 07:03 O2 Flow Rate 96 08/10/22 16:00 BMI result Body Mass Index 48.3 Const: Other: General: AO X 3, no acute distress Resp: CTA bilateral CVS: S1,S2,RRR--abhi leg edema GI: +BS, NT, no distention Skin: No rash Neuro: motor grossly intact Psych: appropriate affect Objective Data Labs 08/08/22 05:39 08/11/22 09:35 Labs: Laboratory Results - last 24 hr 08/12/22 07:02 POC Glucose 83 Microbiology Microbiology Results: Microbiology 08/05/22 18:33 Blood - Venous Blood Culture - Final No growth after 5 days. 08/05/22 18:21 Blood - Venous Blood Culture - Final No growth after 5 days. Procedures Date of Service Date of Service: 08/12/22 Assessment & Plan Assessment and plan (1) Acute renal failure: Status: Acute Plan 67-year-old man with history of obesity, hepatitis-C which has been treated, cirrhosis with mild chronic kidney disease has sustained acute kidney injury. The different diagnosis of acute kidney injury include hypoperfusion/ ATN High U Na - Doubt HRS - type 2 . Nor,a LDH - Doubt HUS/ TTP [place] HRS-1 However based on the clinical picture acute glomerular nephritis is still a possibility which needs to be ruled out. No evidence of obstruction based on the recent CT scan. Recommendation Keep on low-potassium diet. Continue to Hold Aldactone/ Lasix Monitor urine output closely. Continue to avoid nephrotoxic agents. Woresning renal func - s/p Pcath - on HD HD on sunday based on labs Watch for recovery . kidney biopsy early next week Repeat Coags INR- 1.3 . Platelets around 60- 70 Time Spent With Patient Time: Total time managing care of this patient today ____ minutes. Progress Note: Quality Stroke Does the patient have a stroke diagnosis?: No
[2022-08-12 17:28] VITALS: BP 132/66; PULSE 63; RESP 20; TEMP 36.7; O2SAT 96
[2022-08-12 20:27] VITALS: BP 130/70; PULSE 100; RESP 18; TEMP 36.1; O2SAT 96
[2022-08-13 07:39] VITALS: BP 138/77; PULSE 121; RESP 18; TEMP 36.1; O2SAT 98
[2022-08-13] MEDS: Omeprazole 40 MG CAPSULE.DR PO (08:15)
[2022-08-13] MEDS: 0.9 % Sodium Chloride Flush 3 ML SYRINGE IVFLUSH ×3 (08:15→19:27)
[2022-08-13] MEDS: amLODIPine Besylate 5 MG TABLET PO (08:15)
[2022-08-13] MEDS: Propranolol HCL 40 MG TABLET PO ×2 (08:15→19:27)
[2022-08-13] MEDS: methADONE HCl 20 MG/2 ML ORAL.CONC 28 MG PO (08:15)
--- NOTE | 2022-08-13 08:33 | HO.PM.IMPN ---
Subjective Subjective Date of Service: 08/14/22 Interval History: f/u on LUIS MIGUEL, Creatine is rising, started HD 08/11 Physical Exam Vital Signs: Vital Signs: Last Vital Signs Temp 97 F 08/13/22 07:39 Pulse 121 H 08/13/22 07:39 Resp 18 08/13/22 07:39 BP 138/77 08/13/22 07:39 Pulse Ox 98 08/13/22 07:39 O2 Del Method Room Air 08/13/22 07:39 O2 Flow Rate 96 08/10/22 16:00 BMI result Body Mass Index 48.3 Const: Other: General: AO X 3, no acute distress Resp: CTA bilateral CVS: S1,S2,RRR--abhi leg edema GI: +BS, NT, no distention Skin: No rash Neuro: motor grossly intact Psych: appropriate affect Objective Data Active Medications Acetaminophen (Acetaminophen 325 Mg Tablet) 650 mg PO Q6H PRN PRN Reason: Pain, Mild (Pain Scale 1-3) Last Admin: 08/11/22 22:36 Dose: 650 mg Documented By: DHEERAJ Amlodipine Besylate (Amlodipine Besylate 5 Mg Tablet) 5 mg PO DAILY [facility]; Protocol Last Admin: 08/13/22 08:15 Dose: 5 mg Documented By: CAIT Docusate Sodium (Docusate Sodium 100 Mg Capsule) 100 mg PO DAILY PRN PRN Reason: Constipation Melatonin (Melatonin 3 Mg Tablet) 6 mg PO BEDTIME PRN PRN Reason: Insomnia Last Admin: 08/09/22 03:42 Dose: 6 mg Documented By: VALENTINA Methadone HCl (Methadone Hcl 20 Mg/2 Ml Oral.Conc) 28 mg PO DAILY [facility] Last Admin: 08/13/22 08:15 Dose: 28 mg Documented By: CAIT Omeprazole (Omeprazole 40 Mg Capsule.Dr) 40 mg PO DAILY@0630 [facility] Last Admin: 08/13/22 08:15 Dose: 40 mg Documented By: CAIT Ondansetron HCl (Ondansetron Hcl 4 Mg/2 Ml Vial) 4 mg IVPUSH Q8H PRN PRN Reason: Nausea and Vomiting Last Admin: 08/11/22 08:31 Dose: 4 mg Documented By: SAURABH Oxycodone HCl (Oxycodone Hcl Immed Release 5 Mg Tablet) 5 mg PO Q6H PRN PRN Reason: Pain, Severe (Pain Scale 7-10) Last Admin: 08/11/22 15:44 Dose: 5 mg Documented By: LEATHA Pharmacy Consult (Consult Rx Perform Med Rec) 1 each MISCELLANE ONCE PRN PRN Reason: Consult order Polyethylene Glycol (Polyethylene Glycol 3350 17 Gm Powd.Pack) 17 gm PO DAILY [facility] Last Admin: 08/13/22 08:29 Dose: Not Given Documented By: CAIT Non-Admin Reason: Patient Refused Propranolol HCl (Propranolol Hcl 40 Mg Tablet) 40 mg PO BID [facility]; Protocol Last Admin: 08/13/22 08:15 Dose: 40 mg Documented By: ACIT Sodium Chloride (0.9 % Sodium Chloride Flush 3 Ml Syringe) 3 ml IVFLUSH QSHIFT [facility] Last Admin: 08/13/22 08:15 Dose: 3 ml Documented By: CAIT Labs 08/08/22 05:39 08/11/22 09:35 Assessment and Plan (1) Acute UTI: Status: Acute (2) Abdominal pain: Status: Acute (3) Acute renal failure: Status: Acute (4) Hyperkalemia: Status: Acute Plan 67-year-old male with hx of HTN, opioid use comes in to the hospital with abd pain found to have LUIS MIGUEL Acute kidney failure, rapidly progressing with high K- DDx: pre renal, hepato renal, ATN. Ongoing work up by Nephrology. PermCath 08/10 and to started Homodialysis (HD) 08/11, kidney Bx sunday HypERkalemia: d/t renal failure being managed Monica espinoza 5.1 +UA, no culture, treated with ceftriaxone x 5 days Abdominal pain- resolved, CT cirrhosis, no acute finding hypertension- Propranolol, no Aldactone d/t high K. Started NOrvasc for better control hx Liver cirrhosis : no acute issues, Lasix and Aldactone on hold d/t renal failure Opioid use disorder- continue methadone urine positive for Fentanyl-?unclear Pancytopenia Related to underlying liver disease and CKD continue to moniter cbc continue iron supplementation. Morbid obesity:? Encouraged to lose weight. DVT prophylaxis early ambulation, chemoprophylaxis contraindicated due to thrombocytopenia/anemia onging inpatientneed : LUIS MIGUEL -needs IV fluids in the setting of acute kidney failure, uti-need iv antibiotics, awaiting kidney biopsy Time Spent With Patient Time: Total time managing care of this patient today ____ minutes. Quality Stroke Does the patient have a stroke diagnosis?: No VTE Prior VTE?: No VTE Risk Level:: Medical - moderate - high VTE Device Contraindication: Treatment Not Indicated VTE Drug Contraindication: N/A - Med Ordered
[2022-08-13 08:55] VITALS: PULSE 60
--- NOTE | 2022-08-13 14:36 | PM.PNNEP ---
Subjective Subjective Date of Service: 08/13/22 Principal diagnosis: LUIS MIGUEL Interval history: f/u on ULIS MIGUEL, Comfortable Physical Exam Vital Signs: Vital Signs: Last Vital Signs Temp 97 F 08/13/22 07:39 Pulse 60 08/13/22 08:55 Resp 18 08/13/22 07:39 BP 138/77 08/13/22 07:39 Pulse Ox 98 08/13/22 07:39 O2 Del Method Room Air 08/13/22 07:39 O2 Flow Rate 96 08/10/22 16:00 BMI result Body Mass Index 48.3 Const: Other: General: AO X 3, no acute distress Resp: CTA bilateral CVS: S1,S2,RRR--abhi leg edema GI: +BS, NT, no distention Skin: No rash Neuro: motor grossly intact Psych: appropriate affect Objective Data Labs 08/08/22 05:39 08/13/22 07:44 Labs: Laboratory Results - last 24 hr 08/10/22 08/13/22 13:31 07:44 Sodium 135 Potassium 5.3 H Chloride 101 Carbon Dioxide 22 Anion Gap 17 BUN 48 H Creatinine 5.61 H* Estim Creat Clear Calc 20.6 Estimated GFR 10 Random Glucose 90 Calcium 10.0 D Hep B Core Total Ab Reactive Hep B Core IgM Ab Cancelled Microbiology Microbiology Results: Microbiology 08/05/22 18:33 Blood - Venous Blood Culture - Final No growth after 5 days. 08/05/22 18:21 Blood - Venous Blood Culture - Final No growth after 5 days. Procedures Date of Service Date of Service: 08/13/22 Assessment & Plan Assessment and plan (1) Acute renal failure: Status: Acute Plan 67-year-old man with history of obesity, hepatitis-C which has been treated, cirrhosis with mild chronic kidney disease has sustained acute kidney injury. The different diagnosis of acute kidney injury include hypoperfusion/ ATN High U Na - Doubt HRS - type 2 . Nor,a LDH - Doubt HUS/ TTP [place] HRS-1 However based on the clinical picture acute glomerular nephritis is still a possibility which needs to be ruled out. No evidence of obstruction based on the recent CT scan. Recommendation Keep on low-potassium diet. Continue to Hold Aldactone/ Lasix Monitor urine output closely. Continue to avoid nephrotoxic agents. Woresning renal func - s/p Pcath - on HD - Next HD in AM Watch for recovery . kidney biopsy ordered for Am- IR CT guided Kept pt NPO Last Coags INR- 1.3 . Platelets around 60- 70 Time Spent With Patient Time: Total time managing care of this patient today ____ minutes. Progress Note: Quality Stroke Does the patient have a stroke diagnosis?: No
[2022-08-13 15:20] VITALS: BP 149/76; PULSE 90; RESP 18; TEMP 36.3; O2SAT 95
[2022-08-13 19:02] VITALS: BP 136/64; PULSE 63; RESP 18; TEMP 36.6; O2SAT 97
[2022-08-13 23:36] VITALS: RESP 16
[2022-08-14] VITALS (8 sets, daily range): BP systolic 107–135; BP diastolic 59–76; PULSE 62–88; RESP 14–18; TEMP 36.3–37.2; O2SAT 92–98
[2022-08-14] MEDS: polyethylene glycoL 3350 17 GM POWD.PACK PO (08:20)
[2022-08-14] MEDS: 0.9 % Sodium Chloride Flush 3 ML SYRINGE IVFLUSH ×3 (08:20→20:53)
[2022-08-14] MEDS: methADONE HCl 20 MG/2 ML ORAL.CONC 28 MG PO (08:21)
--- NOTE | 2022-08-14 08:50 | HO.PM.IMPN ---
Subjective Subjective Date of Service: 08/14/22 Interval History: f/u on LUIS MIGUEL, Creatine is rising, started HD 08/11 Physical Exam Vital Signs: Vital Signs: Last Vital Signs Temp 97.8 F 08/14/22 08:24 Pulse 68 08/14/22 08:24 Resp 16 08/14/22 08:24 BP 133/76 08/14/22 08:24 Pulse Ox 96 08/14/22 08:24 O2 Del Method Room Air 08/14/22 08:24 O2 Flow Rate 96 08/10/22 16:00 BMI result Body Mass Index 48.3 Const: Other: General: AO X 3, no acute distress Resp: CTA bilateral CVS: S1,S2,RRR--abhi leg edema GI: +BS, NT, no distention Skin: No rash Neuro: motor grossly intact Psych: appropriate affect Objective Data Active Medications Acetaminophen (Acetaminophen 325 Mg Tablet) 650 mg PO Q6H PRN PRN Reason: Pain, Mild (Pain Scale 1-3) Last Admin: 08/11/22 22:36 Dose: 650 mg Documented By: DHEERAJ Amlodipine Besylate (Amlodipine Besylate 5 Mg Tablet) 5 mg PO DAILY [facility]; Protocol Last Admin: 08/14/22 08:28 Dose: Not Given Documented By: THEO Non-Admin Reason: Off unit: Dialysis Docusate Sodium (Docusate Sodium 100 Mg Capsule) 100 mg PO DAILY PRN PRN Reason: Constipation Melatonin (Melatonin 3 Mg Tablet) 6 mg PO BEDTIME PRN PRN Reason: Insomnia Last Admin: 08/09/22 03:42 Dose: 6 mg Documented By: VALENTINA Methadone HCl (Methadone Hcl 20 Mg/2 Ml Oral.Conc) 28 mg PO DAILY [facility] Last Admin: 08/14/22 08:21 Dose: 28 mg Documented By: THEO Omeprazole (Omeprazole 40 Mg Capsule.Dr) 40 mg PO DAILY@0630 [facility] Last Admin: 08/13/22 08:15 Dose: 40 mg Documented By: CAIT Ondansetron HCl (Ondansetron Hcl 4 Mg/2 Ml Vial) 4 mg IVPUSH Q8H PRN PRN Reason: Nausea and Vomiting Last Admin: 08/11/22 08:31 Dose: 4 mg Documented By: SAURABH Oxycodone HCl (Oxycodone Hcl Immed Release 5 Mg Tablet) 5 mg PO Q6H PRN PRN Reason: Pain, Severe (Pain Scale 7-10) Last Admin: 08/11/22 15:44 Dose: 5 mg Documented By: LEATHA Pharmacy Consult (Consult Rx Perform Med Rec) 1 each MISCELLANE ONCE PRN PRN Reason: Consult order Polyethylene Glycol (Polyethylene Glycol 3350 17 Gm Powd.Pack) 17 gm PO DAILY [facility] Last Admin: 08/14/22 08:20 Dose: 17 gm Documented By: THEO Propranolol HCl (Propranolol Hcl 40 Mg Tablet) 40 mg PO BID [facility]; Protocol Last Admin: 08/14/22 08:28 Dose: Not Given Documented By: THEO Non-Admin Reason: Off unit: Dialysis Sodium Chloride (0.9 % Sodium Chloride Flush 3 Ml Syringe) 3 ml IVFLUSH QSHIFT [facility] Last Admin: 08/14/22 08:20 Dose: 3 ml Documented By: THEO Labs 08/14/22 06:05 08/14/22 06:05 Labs: Laboratory Results - last 24 hr 08/10/22 08/13/22 08/14/22 13:31 07:44 06:05 MCV 86.0 MCH 27.9 MCHC 32.4 RDW 12.9 Plt Count 85 L D MPV 11.7 Immature Gran % (Auto) 0.5 H Neut % (Auto) 66.8 Lymph % (Auto) 16.0 L [place] % (Auto) 12.6 H Eos % (Auto) 3.6 Baso % (Auto) 0.5 Lymph # (Auto) 1.0 L [place] # (Auto) 0.8 Eos # (Auto) 0.2 Baso # (Auto) 0.0 Abs Immat Gran (auto) 0.03 Absolute Neuts (auto) 4.3 Absolute Nucleated RBC 0.000 Nucleated RBC % (auto) 0.0 Anion Gap 17 Estim Creat Clear Calc 20.6 Estimated GFR 10 Random Glucose 90 Calcium 10.0 D Hep B Core Total Ab Reactive Hep B Core IgM Ab Cancelled 08/14/22 06:05 MCV MCH MCHC RDW Plt Count MPV Immature Gran % (Auto) Neut % (Auto) Lymph % (Auto) [place] % (Auto) Eos % (Auto) Baso % (Auto) Lymph # (Auto) [place] # (Auto) Eos # (Auto) Baso # (Auto) Abs Immat Gran (auto) Absolute Neuts (auto) Absolute Nucleated RBC Nucleated RBC % (auto) Anion Gap 18 Estim Creat Clear Calc 17.1 Estimated GFR 8 Random Glucose 85 Calcium 9.6 Hep B Core Total Ab Hep B Core IgM Ab Assessment and Plan (1) Acute UTI: Status: Acute (2) Abdominal pain: Status: Acute (3) Acute renal failure: Status: Acute (4) Hyperkalemia: Status: Acute Plan 67-year-old male with hx of HTN, opioid use comes in to the hospital with abd pain found to have LUIS MIGUEL Acute kidney failure, rapidly progressing with high K- DDx: pre renal, hepato renal, ATN. Ongoing work up by Nephrology. PermCath 08/10 and to started Homodialysis (HD) 08/11, 2nd HD 08/14, kidney Bx planned for today 08/14 HypERkalemia: d/t renal failure being managed lokelma, K 4.5 +UA, no culture, treated with ceftriaxone x 5 days Abdominal pain- resolved, CT cirrhosis, no acute finding hypertension- Propranolol, no Aldactone d/t high K. Started NOrvasc hx Liver cirrhosis : no acute issues, Lasix and Aldactone on hold d/t renal failure Opioid use disorder- continue methadone urine positive for Fentanyl-?unclear Pancytopenia Related to underlying liver disease and CKD continue to moniter cbc continue iron supplementation. Morbid obesity:? Encouraged to lose weight. DVT prophylaxis early ambulation, chemoprophylaxis contraindicated due to thrombocytopenia/anemia onging inpatientneed : LUIS MIGUEL -needs IV fluids in the setting of acute kidney failure, uti-need iv antibiotics, awaiting kidney biopsy Time Spent With Patient Time: Total time managing care of this patient today ____ minutes. Quality Stroke Does the patient have a stroke diagnosis?: No VTE Prior VTE?: No VTE Risk Level:: Medical - moderate - high VTE Device Contraindication: Treatment Not Indicated VTE Drug Contraindication: N/A - Med Ordered
--- NOTE | 2022-08-14 11:53 | MHC.CLN ---
NUTRITION PERMACATH PLACED 08/10 AND HD STARTED 08/11. CURRENTLY NPO FOR PROCEDURE. WHEN DIET RESUMES, RECOMMEND DIET PER DIALYSIS PARAMETERS: 2 GRAM SODIUM, LOW POTASSIUM, LOW PHOSPHORUS.
--- NOTE | 2022-08-14 14:03 | PM.PNNEP ---
Subjective Subjective Date of Service: 08/14/22 Principal diagnosis: LUIS MIGUEL Interval history: Seen and examined, event noted Physical Exam Vital Signs: Vital Signs: Last Vital Signs Temp 98.9 F 08/14/22 12:30 Pulse 66 08/14/22 12:30 Resp 16 08/14/22 12:30 BP 113/59 L 08/14/22 12:30 Pulse Ox 98 08/14/22 12:30 O2 Del Method Room Air 08/14/22 12:30 O2 Flow Rate 96 08/10/22 16:00 BMI result Body Mass Index 48.3 Const: Other: General: AO X 3, no acute distress Resp: CTA bilateral CVS: S1,S2,RRR--abhi leg edema GI: +BS, NT, no distention Skin: No rash Neuro: motor grossly intact Psych: appropriate affect General: cooperative, healthy appearing, comfortable, no acute distress, alert and awake Nutritional Appearance: well nourished Orientation/consciousness: patient oriented x3 HEENT: Head: Yes normocephalic and Yes atraumatic Eyes: General: appearance normal, both eyes and all related structures Eyelids: Yes eyelids normal Conjunctivae: conjunctivae normal Sclerae: sclerae normal Corneas: corneas normal Pupils: Equal, round and reactive pupils present EOM: EOMs intact bilaterally Neck: Neck: Yes full ROM Resp: Effort & Inspection: normal respiratory effort, able to speak in complete sentences, no audible wheezes and not labored Auscultation: clear to auscultation bilaterally Cardio: Rate: regular rate Rhythm: regular rhythm GI: Other: Abdomen is soft, nontender, no rebound or guarding Inspection: Yes obesity Palpation (GI): Soft to palpation, not firm, Tenderness to palpation present (GI) in the LUQ, no guarding and not rigid Auscultation: normal bowel sounds Skin: Other: Superficial ulcer lateral aspect right lower leg with granulating bed. In no periwound erythema. General skin exam: no rashes or lesions noted Neuro: General: patient oriented x3 Cranial nerves: Yes CN's II-XII intact bilaterally, Yes Equal, round and reactive pupils present and Yes Bilaterally intact EOM present Cognition (Neuro): normal cognition Extrem: Other: Moving all extremities well without any obvious deformities General: Yes normal to inspection and Yes no pedal edema Objective Data Labs 08/14/22 06:05 08/14/22 06:05 Labs: Laboratory Results - last 24 hr 08/14/22 08/14/22 06:05 06:05 WBC 6.4 RBC 3.87 L Hgb 10.8 L Hct 33.3 L MCV 86.0 MCH 27.9 MCHC 32.4 RDW 12.9 Plt Count 85 L D MPV 11.7 Immature Gran % (Auto) 0.5 H Neut % (Auto) 66.8 Lymph % (Auto) 16.0 L [place] % (Auto) 12.6 H Eos % (Auto) 3.6 Baso % (Auto) 0.5 Lymph # (Auto) 1.0 L [place] # (Auto) 0.8 Eos # (Auto) 0.2 Baso # (Auto) 0.0 Abs Immat Gran (auto) 0.03 Absolute Neuts (auto) 4.3 Absolute Nucleated RBC 0.000 Nucleated RBC % (auto) 0.0 Sodium 135 Potassium 4.5 Chloride 103 Carbon Dioxide 19 L Anion Gap 18 BUN 67 H Creatinine 6.77 H* Estim Creat Clear Calc 17.1 Estimated GFR 8 Random Glucose 85 Calcium 9.6 Microbiology Microbiology Results: Microbiology 08/05/22 18:33 Blood - Venous Blood Culture - Final No growth after 5 days. 08/05/22 18:21 Blood - Venous Blood Culture - Final No growth after 5 days. Procedures Date of Service Date of Service: 08/14/22 Assessment & Plan Assessment and plan (1) Acute renal failure: Status: Acute Plan 67-year-old man with history of obesity, hepatitis-C which has been treated, cirrhosis with mild chronic kidney disease has sustained acute kidney injury. 1. LUIS MIGUEL: HD dep at this time w/u in progress; kidney Bx today to make a definite Dx as lab satudies unrevealing at this time 2. Liver Cirrhosis with assoc low PLTs REC: DDAVP pre Bx and xfuse PLTs to keep > 100 to lessen risk of bleeding; cont HD 3x/wk for now; Kidney Bx today Will follow w team Time Spent With Patient Time: Total time managing care of this patient today ____ minutes. Progress Note: Quality Stroke Does the patient have a stroke diagnosis?: No
--- NOTE | 2022-08-14 15:58 | MHC.CM.PN ---
PER ROUNDS PT TO HAVE KIDNEY BIOPSY TODAY DC PLAN [facility] HOME W/REZA
[2022-08-14] MEDS: Propranolol HCL 40 MG TABLET PO (20:53)
[2022-08-15] MEDS: Omeprazole 40 MG CAPSULE.DR PO (06:33)
[2022-08-15 07:23] VITALS: BP 118/65; PULSE 65; RESP 16; TEMP 36.1; O2SAT 96
[2022-08-15] MEDS: Propranolol HCL 40 MG TABLET PO (08:24)
[2022-08-15] MEDS: amLODIPine Besylate 5 MG TABLET PO (08:24)
[2022-08-15] MEDS: methADONE HCl 20 MG/2 ML ORAL.CONC 28 MG PO (08:24)
[2022-08-15] MEDS: polyethylene glycoL 3350 17 GM POWD.PACK PO (08:25)
[2022-08-15] MEDS: 0.9 % Sodium Chloride Flush 3 ML SYRINGE IVFLUSH ×2 (08:25→15:30)
[2022-08-15 08:57] LABS: Hematocrit 37.1 % (42.0-52.0); Hemoglobin 11.9 g/dl (14.0-18.0)
[2022-08-15 09:09] LABS: Anion Gap 20 (12-20); Blood Urea Nitrogen 63 mg/dL (9-16); Calcium 10.1 mg/dL (8.4-10.2); Carbon Dioxide 18 mmol/L (22-29); Chloride 97 mmol/L (96-108); Creatinine Clr Calc Pharmacy 16.6; Estimated Glomerular Filt Rate 8; Glucose Random 91 mg/dL (60-115); Potassium 4.1 mmol/L (3.3-5.1); Sodium 131 mmol/L (135-145)
--- NOTE | 2022-08-15 13:38 | P.PNIM_ITS ---
Subjective Subjective Date of Service: 08/15/22 Interval History: f/u on LUIS MIGUEL, Review of Systems no abd pain or fevers or chills Physical Exam Vital Signs: Vital Signs: Last Vital Signs Temp 97.0 F 08/15/22 07:23 Pulse 65 08/15/22 07:23 Resp 16 08/15/22 07:23 BP 118/65 08/15/22 07:23 Pulse Ox 96 08/15/22 07:23 O2 Del Method Room Air 08/15/22 07:23 O2 Flow Rate 96 08/10/22 16:00 BMI result Body Mass Index 48.3 General: AO X 3, no acute distress Resp:? CTA bilateral CVS: S1,S2,RRR--abhi leg edema GI: +BS, NT, no distention Skin: No rash Neuro:? motor grossly intact Psych: appropriate affect Objective Data Active Medications Acetaminophen (Acetaminophen 325 Mg Tablet) 650 mg PO Q6H PRN PRN Reason: Pain, Mild (Pain Scale 1-3) Last Admin: 08/11/22 22:36 Dose: 650 mg Documented By: DHEERAJ Amlodipine Besylate (Amlodipine Besylate 5 Mg Tablet) 5 mg PO DAILY [facility]; Protocol Last Admin: 08/15/22 08:24 Dose: 5 mg Documented By: SAURABH Docusate Sodium (Docusate Sodium 100 Mg Capsule) 100 mg PO DAILY PRN PRN Reason: Constipation Melatonin (Melatonin 3 Mg Tablet) 6 mg PO BEDTIME PRN PRN Reason: Insomnia Last Admin: 08/09/22 03:42 Dose: 6 mg Documented By: VALENTINA Methadone HCl (Methadone Hcl 20 Mg/2 Ml Oral.Conc) 28 mg PO DAILY [facility] Last Admin: 08/15/22 08:24 Dose: 28 mg Documented By: SAURABH Omeprazole (Omeprazole 40 Mg Capsule.Dr) 40 mg PO DAILY@0630 [facility] Last Admin: 08/15/22 06:33 Dose: 40 mg Documented By: JANIYA Ondansetron HCl (Ondansetron Hcl 4 Mg/2 Ml Vial) 4 mg IVPUSH Q8H PRN PRN Reason: Nausea and Vomiting Last Admin: 08/11/22 08:31 Dose: 4 mg Documented By: SAURABH Pharmacy Consult (Consult Rx Perform Med Rec) 1 each MISCELLANE ONCE PRN PRN Reason: Consult order Polyethylene Glycol (Polyethylene Glycol 3350 17 Gm Powd.Pack) 17 gm PO DAILY [facility] Last Admin: 08/15/22 08:25 Dose: 17 gm Documented By: SAURABH Propranolol HCl (Propranolol Hcl 40 Mg Tablet) 40 mg PO BID [facility]; Protocol Last Admin: 08/15/22 08:24 Dose: 40 mg Documented By: SAURABH Sodium Chloride (0.9 % Sodium Chloride Flush 3 Ml Syringe) 3 ml IVFLUSH QSHIFT [facility] Last Admin: 08/15/22 08:25 Dose: 3 ml Documented By: SAURABH Labs 08/15/22 08:23 08/15/22 08:23 Labs: Laboratory Results - last 24 hr 08/15/22 08:23 Anion Gap 20 Estim Creat Clear Calc 16.6 Estimated GFR 8 Random Glucose 91 Calcium 10.1 Assessment and Plan (1) Acute renal failure: Status: Acute Plan 67-year-old male with hx of HTN, opioid use comes in to the hospital with abd pain found to have LUIS MIGUEL ?Acute kidney failure, rapidly progressing with high K- DDx: pre renal, hepato renal, ATN. Ongoing work up by Nephrology. PermCath 08/10 and to started Homodialysis (HD) 08/11, 2nd HD 08/14,? kidney Bx planned for today 08/14 renal biopsy pending HypERkalemia: d/t renal failure being managed lokelma, K 4.5 ?Abdominal pain- resolved, CT cirrhosis, no acute finding ?hypertension- Propranolol, no Aldactone d/t high K. Started NOrvasc hx Liver cirrhosis : no acute issues, Lasix and Aldactone on hold d/t renal failure Opioid use disorder- continue methadone urine positive for Fentanyl-?unclear Pancytopenia Related to underlying liver disease and CKD continue to moniter cbc continue iron supplementation. Morbid obesity:? Encouraged to lose weight. DVT prophylaxis early ambulation, chemoprophylaxis contraindicated due to thrombocytopenia/anemia onging inpatient need : LUIS MIGUEL -needs? IV fluids in the setting of acute kidney failure, uti-need iv antibiotics, awaiting kidney biopsy Time Spent With Patient Time: Total time managing care of this patient today ____ minutes. Quality Stroke Does the patient have a stroke diagnosis?: No VTE Prior VTE?: No VTE Risk Level:: Medical - moderate - high VTE Device Contraindication: Treatment Not Indicated VTE Drug Contraindication: N/A - Med Ordered
--- NOTE | 2022-08-15 13:40 | P.PNNP_ITS ---
Subjective Subjective Date of Service: 08/15/22 Principal diagnosis: LUIS MIGUEL Interval history: Seen and examined, event noted Physical Exam Vital Signs: Vital Signs: Last Vital Signs Temp 97.0 F 08/15/22 07:23 Pulse 65 08/15/22 07:23 Resp 16 08/15/22 07:23 BP 118/65 08/15/22 07:23 Pulse Ox 96 08/15/22 07:23 O2 Del Method Room Air 08/15/22 07:23 O2 Flow Rate 96 08/10/22 16:00 BMI result Body Mass Index 48.3 Const: Other: General: AO X 3, no acute distress Resp: CTA bilateral CVS: S1,S2,RRR--abhi leg edema GI: +BS, NT, no distention Skin: No rash Neuro: motor grossly intact Psych: appropriate affect General: cooperative, healthy appearing, comfortable, no acute distress, alert and awake Nutritional Appearance: well nourished Orientation/consciousness: patient oriented x3 HEENT: Head: Yes normocephalic and Yes atraumatic Eyes: General: appearance normal, both eyes and all related structures Eyelids: Yes eyelids normal Conjunctivae: conjunctivae normal Sclerae: sclerae normal Corneas: corneas normal Pupils: Equal, round and reactive pupils present EOM: EOMs intact bilaterally Neck: Neck: Yes full ROM Resp: Effort & Inspection: normal respiratory effort, able to speak in complete sentences, no audible wheezes and not labored Auscultation: clear to auscultation bilaterally Cardio: Rate: regular rate Rhythm: regular rhythm GI: Other: Abdomen is soft, nontender, no rebound or guarding Inspection: Yes obesity Palpation (GI): Soft to palpation, not firm, Tenderness to palpation present (GI) in the LUQ, no guarding and not rigid Auscultation: normal bowel sounds Skin: Other: Superficial ulcer lateral aspect right lower leg with granulating bed. In no periwound erythema. General skin exam: no rashes or lesions noted Neuro: General: patient oriented x3 Cranial nerves: Yes CN's II-XII intact bilaterally, Yes Equal, round and reactive pupils present and Yes Bilaterally intact EOM present Cognition (Neuro): normal cognition Extrem: Other: Moving all extremities well without any obvious deformities General: Yes normal to inspection and Yes no pedal edema Objective Data Labs 08/15/22 08:23 08/15/22 08:23 Labs: Laboratory Results - last 24 hr 08/15/22 08/15/22 08:23 08:23 Hgb 11.9 L Hct 37.1 L Sodium 131 L Potassium 4.1 Chloride 97 Carbon Dioxide 18 L Anion Gap 20 BUN 63 H Creatinine 6.95 H* Estim Creat Clear Calc 16.6 Estimated GFR 8 Random Glucose 91 Calcium 10.1 Microbiology Microbiology Results: Microbiology 08/05/22 18:33 Blood - Venous Blood Culture - Final No growth after 5 days. 08/05/22 18:21 Blood - Venous Blood Culture - Final No growth after 5 days. Procedures Date of Service Date of Service: 08/15/22 Assessment & Plan Assessment and plan (1) Acute renal failure: Status: Acute Plan 67-year-old man with history of obesity, hepatitis-C which has been treated, cirrhosis with mild chronic kidney disease has sustained acute kidney injury. 1. LUIS MIGUEL: HD dep at this time w/u in progress; s/p kidney Bx 08/14--I called [facility] but prelim esult still pending 2. Liver Cirrhosis with assoc low PLTs REC: cont HD 3x/wk for now; check Kidney Bx results; will work on getting outpt HD spot as he appears HD dep for now Will follow w team Time Spent With Patient Time: Total time managing care of this patient today ____ minutes. Progress Note: Quality Stroke Does the patient have a stroke diagnosis?: No
--- NOTE | 2022-08-15 14:06 | HO.PM.IMPN ---
Subjective Subjective Date of Service: 08/16/22 Interval History: f/u on LUIS MIGUEL, Review of Systems no abd pain or fevers or chills Physical Exam Vital Signs: Vital Signs: Last Vital Signs Temp 97.0 F 08/15/22 07:23 Pulse 65 08/15/22 07:23 Resp 16 08/15/22 07:23 BP 118/65 08/15/22 07:23 Pulse Ox 96 08/15/22 07:23 O2 Del Method Room Air 08/15/22 07:23 O2 Flow Rate 96 08/10/22 16:00 BMI result Body Mass Index 48.3 General: AO X 3, no acute distress Resp:? CTA bilateral CVS: S1,S2,RRR--abhi leg edema GI: +BS, NT, no distention Skin: No rash Neuro:? motor grossly intact Psych: appropriate affect Objective Data Active Medications Acetaminophen (Acetaminophen 325 Mg Tablet) 650 mg PO Q6H PRN PRN Reason: Pain, Mild (Pain Scale 1-3) Last Admin: 08/11/22 22:36 Dose: 650 mg Documented By: DHEERAJ Amlodipine Besylate (Amlodipine Besylate 5 Mg Tablet) 5 mg PO DAILY [facility]; Protocol Last Admin: 08/15/22 08:24 Dose: 5 mg Documented By: SAURABH Docusate Sodium (Docusate Sodium 100 Mg Capsule) 100 mg PO DAILY PRN PRN Reason: Constipation Melatonin (Melatonin 3 Mg Tablet) 6 mg PO BEDTIME PRN PRN Reason: Insomnia Last Admin: 08/09/22 03:42 Dose: 6 mg Documented By: VALENTINA Methadone HCl (Methadone Hcl 20 Mg/2 Ml Oral.Conc) 28 mg PO DAILY [facility] Last Admin: 08/15/22 08:24 Dose: 28 mg Documented By: SAURABH Omeprazole (Omeprazole 40 Mg Capsule.Dr) 40 mg PO DAILY@0630 [facility] Last Admin: 08/15/22 06:33 Dose: 40 mg Documented By: JANIYA Ondansetron HCl (Ondansetron Hcl 4 Mg/2 Ml Vial) 4 mg IVPUSH Q8H PRN PRN Reason: Nausea and Vomiting Last Admin: 08/11/22 08:31 Dose: 4 mg Documented By: SAURABH Pharmacy Consult (Consult Rx Perform Med Rec) 1 each MISCELLANE ONCE PRN PRN Reason: Consult order Polyethylene Glycol (Polyethylene Glycol 3350 17 Gm Powd.Pack) 17 gm PO DAILY [facility] Last Admin: 08/15/22 08:25 Dose: 17 gm Documented By: SAURABH Propranolol HCl (Propranolol Hcl 40 Mg Tablet) 40 mg PO BID [facility]; Protocol Last Admin: 08/15/22 08:24 Dose: 40 mg Documented By: SAURABH Sodium Chloride (0.9 % Sodium Chloride Flush 3 Ml Syringe) 3 ml IVFLUSH QSHIFT [facility] Last Admin: 08/15/22 08:25 Dose: 3 ml Documented By: SAURABH Labs 08/15/22 08:23 08/15/22 08:23 Labs: Laboratory Results - last 24 hr 08/15/22 08:23 Anion Gap 20 Estim Creat Clear Calc 16.6 Estimated GFR 8 Random Glucose 91 Calcium 10.1 Assessment and Plan (1) Acute renal failure: Status: Acute Plan 67-year-old male with hx of HTN, opioid use comes in to the hospital with abd pain found to have LUIS MIGUEL ?Acute kidney failure, rapidly progressing with high K- DDx: pre renal, hepato renal, ATN. Ongoing work up by Nephrology. PermCath 08/10 and to started Homodialysis (HD) 08/11, 2nd HD 08/14,? kidney Bx planned for today 08/14 renal biopsy pending need HD,awaiting kidney biopsy for luis miguel workup,need Hd spot setup. HypERkalemia: d/t renal failure being managed lokelma, K 4.5 ?Abdominal pain- resolved, CT cirrhosis, no acute finding ?hypertension- Propranolol, no Aldactone d/t high K. Started NOrvasc hx Liver cirrhosis : no acute issues, Lasix and Aldactone on hold d/t renal failure Opioid use disorder- continue methadone urine positive for Fentanyl-?unclear Pancytopenia Related to underlying liver disease and CKD continue to moniter cbc continue iron supplementation. Morbid obesity:? Encouraged to lose weight. DVT prophylaxis early ambulation, chemoprophylaxis contraindicated due to thrombocytopenia/anemia onging inpatient need : LUIS MIGUEL -need HD,awaiting kidney biopsy for luis miguel workup,need Hd spot setup. Time Spent With Patient Time: Total time managing care of this patient today ____ minutes. Quality Stroke Does the patient have a stroke diagnosis?: No VTE Prior VTE?: No VTE Risk Level:: Medical - moderate - high VTE Device Contraindication: Treatment Not Indicated VTE Drug Contraindication: N/A - Med Ordered
[2022-08-15 14:10] LABS: MANUAL DIFF FLAG NO
[2022-08-15 14:15] LABS: Basophils Absolute Auto 0.1 X10*3/uL (0.0-0.2); Basophils Percent Auto 0.9 % (0-2); Eosinophils Absolute Auto 0.2 X10*3/uL (0.0-0.4); Eosinophils Percent Auto 2.7 % (0-4); Imm Gran Abs Auto 0.03 X10*3/uL (0.00-0.03); Imm Gran Pct Auto 0.5 % (0.0-0.4); Lymphocytes Percent Auto 16.1 % (20-40); Mean Corpuscular HGB Conc 32.8 g/dl (31.0-36.0); Mean Corpuscular Hemoglobin 28.1 pg (27.0-33.0); Mean Corpuscular Volume 85.6 fL (80.0-98.0); Mean Platelet Volume 11.7 fL (9.4-12.4); Monocytes Absolute Auto 0.8 X10*3/uL (0.1-1.2); Monocytes Percent Auto 12.8 % (2-11); Neutrophils Absolute Auto 4.3 x10*3/uL (2.0-8.3); Platelet Count 110 X10*3/uL (160-400); Red Blood Count 4.24 X10*6/uL (4.60-5.80); Red Cell Distribution Width 13.1 % (11.0-16.0); White Blood Count 6.4 X10*3/uL (4.8-10.8)
[2022-08-15 15:30] VITALS: BP 133/63; PULSE 58; RESP 18; TEMP 36.7; O2SAT 97
--- NOTE | 2022-08-15 16:07 | PM.PNNEP ---
Subjective Subjective Date of Service: 08/15/22 Principal diagnosis: LUIS MIGUEL Interval history: Seen and examined, event noted Physical Exam Vital Signs: Vital Signs: Last Vital Signs Temp 98.0 F 08/15/22 15:30 Pulse 58 08/15/22 15:30 Resp 18 08/15/22 15:30 BP 133/63 08/15/22 15:30 Pulse Ox 97 08/15/22 15:30 O2 Del Method Room Air 08/15/22 15:30 O2 Flow Rate 96 08/10/22 16:00 BMI result Body Mass Index 48.3 Const: Other: General: AO X 3, no acute distress Resp: CTA bilateral CVS: S1,S2,RRR--abhi leg edema GI: +BS, NT, no distention Skin: No rash Neuro: motor grossly intact Psych: appropriate affect General: cooperative, healthy appearing, comfortable, no acute distress, alert and awake Nutritional Appearance: well nourished Orientation/consciousness: patient oriented x3 HEENT: Head: Yes normocephalic and Yes atraumatic Eyes: General: appearance normal, both eyes and all related structures Eyelids: Yes eyelids normal Conjunctivae: conjunctivae normal Sclerae: sclerae normal Corneas: corneas normal Pupils: Equal, round and reactive pupils present EOM: EOMs intact bilaterally Neck: Neck: Yes full ROM Resp: Effort & Inspection: normal respiratory effort, able to speak in complete sentences, no audible wheezes and not labored Auscultation: clear to auscultation bilaterally Cardio: Rate: regular rate Rhythm: regular rhythm GI: Other: Abdomen is soft, nontender, no rebound or guarding Inspection: Yes obesity Palpation (GI): Soft to palpation, not firm, Tenderness to palpation present (GI) in the LUQ, no guarding and not rigid Auscultation: normal bowel sounds Skin: Other: Superficial ulcer lateral aspect right lower leg with granulating bed. In no periwound erythema. General skin exam: no rashes or lesions noted Neuro: General: patient oriented x3 Cranial nerves: Yes CN's II-XII intact bilaterally, Yes Equal, round and reactive pupils present and Yes Bilaterally intact EOM present Cognition (Neuro): normal cognition Extrem: Other: Moving all extremities well without any obvious deformities General: Yes normal to inspection and Yes no pedal edema Objective Data Labs 08/15/22 08:23 08/15/22 08:23 Labs: Laboratory Results - last 24 hr 08/15/22 08/15/22 08:23 08:23 WBC 6.4 RBC 4.24 L Hgb 11.9 L Hct 37.1 L MCV 85.6 MCH 28.1 MCHC 32.8 RDW 13.1 Plt Count 110 L D MPV 11.7 Immature Gran % (Auto) 0.5 H Neut % (Auto) 67.0 Lymph % (Auto) 16.1 L [place] % (Auto) 12.8 H Eos % (Auto) 2.7 Baso % (Auto) 0.9 Lymph # (Auto) 1.0 L [place] # (Auto) 0.8 Eos # (Auto) 0.2 Baso # (Auto) 0.1 Abs Immat Gran (auto) 0.03 Absolute Neuts (auto) 4.3 Absolute Nucleated RBC 0.000 Nucleated RBC % (auto) 0.0 Sodium 131 L Potassium 4.1 Chloride 97 Carbon Dioxide 18 L Anion Gap 20 BUN 63 H Creatinine 6.95 H* Estim Creat Clear Calc 16.6 Estimated GFR 8 Random Glucose 91 Calcium 10.1 Microbiology Microbiology Results: Microbiology 08/05/22 18:33 Blood - Venous Blood Culture - Final No growth after 5 days. 08/05/22 18:21 Blood - Venous Blood Culture - Final No growth after 5 days. Procedures Date of Service Date of Service: 08/15/22 Assessment & Plan Assessment and plan (1) Acute renal failure: Status: Acute Plan 67-year-old man with history of obesity, hepatitis-C which has been treated, cirrhosis with mild chronic kidney disease has sustained acute kidney injury. 1. LUIS MIGUEL: HD dep at this time w/u in progress; s/p kidney Bx 08/14--I called [facility] but prelim esult still pending 2. Liver Cirrhosis with assoc low PLTs REC: cont HD 3x/wk for now; check Kidney Bx results; will work on getting outpt HD spot as he appears HD dep for now Will follow w team Time Spent With Patient Time: Total time managing care of this patient today ____ minutes. Progress Note: Quality Stroke Does the patient have a stroke diagnosis?: No
[2022-08-15 19:48] VITALS: BP 108/63; PULSE 59; RESP 19; TEMP 36.3; O2SAT 96
[2022-08-15 23:52] VITALS: BP 129/58; PULSE 63; RESP 16; TEMP 36; O2SAT 96
--- NOTE | 2022-08-16 09:37 | P.PNNP_ITS ---
Subjective Subjective Date of Service: 08/16/22 Principal diagnosis: LUIS MIGUEL Interval history: Seen and examined, event noted Physical Exam Vital Signs: Vital Signs: Last Vital Signs Temp 96.8 F 08/15/22 23:52 Pulse 63 08/15/22 23:52 Resp 16 08/15/22 23:52 BP 129/58 L 08/15/22 23:52 Pulse Ox 96 08/15/22 23:52 O2 Del Method Room Air 08/15/22 23:52 O2 Flow Rate 96 08/10/22 16:00 BMI result Body Mass Index 48.3 Const: Other: General: AO X 3, no acute distress Resp: CTA bilateral CVS: S1,S2,RRR--abhi leg edema GI: +BS, NT, no distention Skin: No rash Neuro: motor grossly intact Psych: appropriate affect General: cooperative, healthy appearing, comfortable, no acute distress, alert and awake Nutritional Appearance: well nourished Orientation/consciousness: patient oriented x3 HEENT: Head: Yes normocephalic and Yes atraumatic Eyes: General: appearance normal, both eyes and all related structures Eyelids: Yes eyelids normal Conjunctivae: conjunctivae normal Sclerae: sclerae normal Corneas: corneas normal Pupils: Equal, round and reactive pupils present EOM: EOMs intact bilaterally Neck: Neck: Yes full ROM Resp: Effort & Inspection: normal respiratory effort, able to speak in complete sentences, no audible wheezes and not labored Auscultation: clear to auscultation bilaterally Cardio: Rate: regular rate Rhythm: regular rhythm GI: Other: Abdomen is soft, nontender, no rebound or guarding Inspection: Yes obesity Palpation (GI): Soft to palpation, not firm, Tenderness to palpation present (GI) in the LUQ, no guarding and not rigid Auscultation: normal bowel sounds Skin: Other: Superficial ulcer lateral aspect right lower leg with granulating bed. In no periwound erythema. General skin exam: no rashes or lesions noted Neuro: General: patient oriented x3 Cranial nerves: Yes CN's II-XII intact bilaterally, Yes Equal, round and reactive pupils present and Yes Bilaterally intact EOM present Cognition (Neuro): normal cognition Extrem: Other: Moving all extremities well without any obvious deformities General: Yes normal to inspection and Yes no pedal edema Objective Data Labs 08/15/22 08:23 08/15/22 08:23 Labs: Laboratory Results - last 24 hr 08/15/22 08:23 WBC 6.4 RBC 4.24 L Hgb 11.9 L Hct 37.1 L MCV 85.6 MCH 28.1 MCHC 32.8 RDW 13.1 Plt Count 110 L D MPV 11.7 Immature Gran % (Auto) 0.5 H Neut % (Auto) 67.0 Lymph % (Auto) 16.1 L [place] % (Auto) 12.8 H Eos % (Auto) 2.7 Baso % (Auto) 0.9 Lymph # (Auto) 1.0 L [place] # (Auto) 0.8 Eos # (Auto) 0.2 Baso # (Auto) 0.1 Abs Immat Gran (auto) 0.03 Absolute Neuts (auto) 4.3 Absolute Nucleated RBC 0.000 Nucleated RBC % (auto) 0.0 Microbiology Microbiology Results: Microbiology 08/05/22 18:33 Blood - Venous Blood Culture - Final No growth after 5 days. 08/05/22 18:21 Blood - Venous Blood Culture - Final No growth after 5 days. Procedures Date of Service Date of Service: 08/16/22 Assessment & Plan Assessment and plan (1) Acute renal failure: Status: Acute Plan 67-year-old man with history of obesity, hepatitis-C which has been treated, cirrhosis with mild chronic kidney disease has sustained acute kidney injury. 1. LUIS MIGUEL: HD dep at this time w/u in progress; s/p kidney Bx 08/14--I called [facility] AGAIN this am but still no prelim result 2. Liver Cirrhosis with assoc low PLTs REC: cont HD 3x/wk for now; check Kidney Bx results; will work on getting outpt HD spot as he appears HD dep for now Will follow w team Time Spent With Patient Time: Total time managing care of this patient today ____ minutes. Progress Note: Quality Stroke Does the patient have a stroke diagnosis?: No
[2022-08-16] MEDS: methADONE HCl 20 MG/2 ML ORAL.CONC 28 MG PO (10:46)
[2022-08-16] MEDS: amLODIPine Besylate 5 MG TABLET PO (10:48)
[2022-08-16] MEDS: Propranolol HCL 40 MG TABLET PO ×2 (10:48→21:40)
[2022-08-16] MEDS: Acetaminophen 325 MG TABLET 650 MG PO ×2 (10:49→21:40)
[2022-08-16] MEDS: polyethylene glycoL 3350 17 GM POWD.PACK PO (10:49)
[2022-08-16] MEDS: 0.9 % Sodium Chloride Flush 3 ML SYRINGE IVFLUSH ×3 (10:50→21:29)
[2022-08-16 11:31] LABS: Anion Gap 18 (12-20); Blood Urea Nitrogen 30 mg/dL (9-16); Calcium 10.5 mg/dL (8.4-10.2); Carbon Dioxide 18 mmol/L (22-29); Chloride 94 mmol/L (96-108); Creatinine Clr Calc Pharmacy 29.2; Estimated Glomerular Filt Rate 15; Glucose Random 121 mg/dL (60-115); Potassium 3.3 mmol/L (3.3-5.1); Sodium 127 mmol/L (135-145)
--- NOTE | 2022-08-16 12:03 | MHC.CM.PN ---
S/P Renal biopsy 08/14. [facility] Out [facility] HD @ [facility] called to request clinical information. Clinical information was faxed to facility.
[2022-08-16 12:23] VITALS: BP 114/59; PULSE 64; RESP 16; TEMP 36.4; O2SAT 94
[2022-08-16 15:49] VITALS: BP 113/64; PULSE 59; RESP 18; TEMP 36.3; O2SAT 96
[2022-08-16] MEDS: Omeprazole 40 MG CAPSULE.DR PO (18:24)
[2022-08-16 21:27] VITALS: BP 124/59; PULSE 62
[2022-08-16] MEDS: ondansetron HCL 4 MG/2 ML VIAL IVPUSH (21:29)
[2022-08-16 23:32] VITALS: BP 125/57; PULSE 59; RESP 16; TEMP 36.2; O2SAT 94
[2022-08-17] MEDS: Omeprazole 40 MG CAPSULE.DR PO (06:16)
--- NOTE | 2022-08-17 07:06 | P.CDIM_ITS ---
PROVIDER RESPONSE TEXT: To clarify, the appropriate diagnosis supported by the clinical indicators: Other (explain): dilutionl due to esrd QUERY TEXT: PHYSICIAN'S DOCUMENTATION REQUEST Date of Query: 08/16/2022 02:22 PM EDT Patient Name: Solo Cruz Admit Date: 08/06/2022 Dear So Ingram, A review of the medical record indicates additional documentation may be needed. Please review below and update the documentation accordingly. Clinical Indicators: Sodium on 08/15/22: 131 Sodium on 08/16/22: 127 Based on the above, could you clarify the appropriate diagnosis, if significant, that supports the ab ove abnormalities and additional evaluation, monitoring, and/or treatment rendered: Labs indicate a diagnosis of (please specify) Other (explain)Clinically unable to determine (explain)Thank you, Swapna Randle RN Use of terms such as suspected, likely, concern for, or probable (associated with a specific diagnosi s that is being evaluated, monitored, or treated as if it exists) are acceptable and can be coded in the inpatient se tting, when documented at the time of discharge. Please use your independent medical judgment in providing your response. THIS QUERY IS PART OF THE PERMANENT MEDICAL RECORD
[2022-08-17 07:47] VITALS: BP 120/50; PULSE 61; RESP 16; TEMP 36.4; O2SAT 97
[2022-08-17] MEDS: polyethylene glycoL 3350 17 GM POWD.PACK PO (08:41)
[2022-08-17] MEDS: 0.9 % Sodium Chloride Flush 3 ML SYRINGE IVFLUSH ×2 (08:42→17:04)
[2022-08-17] MEDS: methADONE HCl 20 MG/2 ML ORAL.CONC 28 MG PO (08:42)
[2022-08-17] MEDS: Propranolol HCL 40 MG TABLET PO ×2 (08:42→20:50)
[2022-08-17] MEDS: amLODIPine Besylate 5 MG TABLET PO (08:42)
--- NOTE | 2022-08-17 11:34 | MHC.CM.PN ---
Addendum entered by Ashley Brooks 08/18/22 15:58: correction: biopsy pending Original Note: PER MD ROUNDS, PT NOT YET READY FOR DC BIOPSY RESULTS PENDING NEW TO HD, CATH NOT YET PLACED OUTPATIENT HD ARRANGED AT [facility] CM RECEIVED A CALL FROM HAYDE AT [facility] WHO ASKS THAT THEY BE GIVEN NOTICE PRIOR TO DC SO THAT THEY CAN COMPLETE ARRANGEMENTS FOR PTS TRANSPORT. THIS WEEK CM SHOULD CALL HAYDE AT [phone] IF PT REMAINS UNTIL NEXT WEEK, CM SHOULD CALL [facility] AT THE SAME NUMBER ONCE A DC DATE IS KNOWN.
--- NOTE | 2022-08-17 12:10 | P.PNIM_ITS ---
Subjective Subjective Date of Service: 08/16/22 Interval History: LUIS MIGUEL Review of Systems Patient seen examined-denies any new complaints. Vitals reviewed from 08/16/2022. Physical Exam Vital Signs: Vital Signs: Last Vital Signs Temp 97.6 F 08/17/22 07:47 Pulse 61 08/17/22 07:47 Resp 16 08/17/22 07:47 BP 120/50 L 08/17/22 07:47 Pulse Ox 97 08/17/22 07:47 O2 Del Method Room Air 08/17/22 07:47 O2 Flow Rate 96 08/10/22 16:00 BMI result Body Mass Index 48.3 General: AO X 3, no acute distress Resp:? CTA bilateral CVS: S1,S2,RRR--abhi leg edema GI: +BS, NT, no distention Skin: No rash Neuro:? motor grossly intact Psych: appropriate affect Objective Data Active Medications Acetaminophen (Acetaminophen 325 Mg Tablet) 650 mg PO Q6H PRN PRN Reason: Pain, Mild (Pain Scale 1-3) Last Admin: 08/16/22 21:40 Dose: 650 mg Documented By: DHEERAJ Amlodipine Besylate (Amlodipine Besylate 5 Mg Tablet) 5 mg PO DAILY [facility]; Protocol Last Admin: 08/17/22 08:42 Dose: 5 mg Documented By: KERRI Calcium Carbonate (Calcium Carbonate 750 Mg Tab.Chew) 750 mg PO Q6H PRN PRN Reason: heartburn Docusate Sodium (Docusate Sodium 100 Mg Capsule) 100 mg PO DAILY PRN PRN Reason: Constipation Melatonin (Melatonin 3 Mg Tablet) 6 mg PO BEDTIME PRN PRN Reason: Insomnia Last Admin: 08/09/22 03:42 Dose: 6 mg Documented By: VALENTINA Methadone HCl (Methadone Hcl 20 Mg/2 Ml Oral.Conc) 28 mg PO DAILY [facility] Last Admin: 08/17/22 08:42 Dose: 28 mg Documented By: KERRI Omeprazole (Omeprazole 40 Mg Capsule.Dr) 40 mg PO DAILY@0630 [facility] Last Admin: 08/17/22 06:16 Dose: 40 mg Documented By: DHEERAJ Ondansetron HCl (Ondansetron Hcl 4 Mg/2 Ml Vial) 4 mg IVPUSH Q8H PRN PRN Reason: Nausea and Vomiting Last Admin: 08/16/22 21:29 Dose: 4 mg Documented By: DHEERAJ Pharmacy Consult (Consult Rx Perform Med Rec) 1 each MISCELLANE ONCE PRN PRN Reason: Consult order Polyethylene Glycol (Polyethylene Glycol 3350 17 Gm Powd.Pack) 17 gm PO DAILY [facility] Last Admin: 08/17/22 08:41 Dose: 17 gm Documented By: KERRI Propranolol HCl (Propranolol Hcl 40 Mg Tablet) 40 mg PO BID [facility]; Protocol Last Admin: 08/17/22 08:42 Dose: 40 mg Documented By: KERRI Sodium Chloride (0.9 % Sodium Chloride Flush 3 Ml Syringe) 3 ml IVFLUSH QSHIFT [facility] Last Admin: 08/17/22 08:42 Dose: 3 ml Documented By: KERRI Labs 08/15/22 08:23 08/16/22 09:41 Assessment and Plan (1) Acute renal failure: Status: Acute Plan 67-year-old male with hx of HTN, opioid use comes in to the hospital with abd pain found to have LUIS MIGUEL ?Acute kidney failure, rapidly progressing with high K- DDx: pre renal, hepato renal, ATN. Ongoing work up by Nephrology. PermCath 08/10 and to started Homodialysis (HD) 08/11, 2nd HD 08/14,? kidney Bx planned for today 08/14 renal biopsy pending need HD,awaiting kidney biopsy for luis miguel workup,need Hd spot setup. HypERkalemia: d/t renal failure being managed lokelma, K 4.5 ?Abdominal pain- resolved, CT cirrhosis, no acute finding ?hypertension- Propranolol, no Aldactone d/t high K. Started NOrvasc hx Liver cirrhosis : no acute issues, Lasix and Aldactone on hold d/t renal failure Opioid use disorder- continue methadone urine positive for Fentanyl-?unclear Pancytopenia Related to underlying liver disease and CKD continue to moniter cbc continue iron supplementation. Morbid obesity:? Encouraged to lose weight. Hyponatremia : possibly dilutional due to [place] ESR[place]. Superficial ulcer lateral aspect right lower leg with granulating bed.? In no periwound erythema. wound care DVT prophylaxis early ambulation, chemoprophylaxis contraindicated due to thrombocytopenia/anemia onging inpatient need : LUIS MIGUEL -need HD,awaiting kidney biopsy for luis miguel workup,need Hd spot setup Time Spent With Patient Time: Total time managing care of this patient today ____ minutes. Quality Stroke Does the patient have a stroke diagnosis?: No VTE Prior VTE?: No VTE Risk Level:: Medical - moderate - high VTE Device Contraindication: Treatment Not Indicated VTE Drug Contraindication: N/A - Med Ordered
--- NOTE | 2022-08-17 12:16 | HO.PM.IMPN ---
Subjective Subjective Date of Service: 08/17/22 Interval History: LUIS MIGUEL Review of Systems Patient seen examined-denies any new complaints. Physical Exam Vital Signs: Vital Signs: Last Vital Signs Temp 97.6 F 08/17/22 07:47 Pulse 61 08/17/22 07:47 Resp 16 08/17/22 07:47 BP 120/50 L 08/17/22 07:47 Pulse Ox 97 08/17/22 07:47 O2 Del Method Room Air 08/17/22 07:47 O2 Flow Rate 96 08/10/22 16:00 BMI result Body Mass Index 48.3 General: AO X 3, no acute distress Resp:? CTA bilateral CVS: S1,S2,RRR--abhi leg edema GI: +BS, NT, no distention Skin: No rash Neuro:? motor grossly intact Psych: appropriate affect Objective Data Active Medications Acetaminophen (Acetaminophen 325 Mg Tablet) 650 mg PO Q6H PRN PRN Reason: Pain, Mild (Pain Scale 1-3) Last Admin: 08/16/22 21:40 Dose: 650 mg Documented By: DHEERAJ Amlodipine Besylate (Amlodipine Besylate 5 Mg Tablet) 5 mg PO DAILY [facility]; Protocol Last Admin: 08/17/22 08:42 Dose: 5 mg Documented By: KERRI Calcium Carbonate (Calcium Carbonate 750 Mg Tab.Chew) 750 mg PO Q6H PRN PRN Reason: heartburn Docusate Sodium (Docusate Sodium 100 Mg Capsule) 100 mg PO DAILY PRN PRN Reason: Constipation Melatonin (Melatonin 3 Mg Tablet) 6 mg PO BEDTIME PRN PRN Reason: Insomnia Last Admin: 08/09/22 03:42 Dose: 6 mg Documented By: VALENTINA Methadone HCl (Methadone Hcl 20 Mg/2 Ml Oral.Conc) 28 mg PO DAILY [facility] Last Admin: 08/17/22 08:42 Dose: 28 mg Documented By: KERRI Omeprazole (Omeprazole 40 Mg Capsule.Dr) 40 mg PO DAILY@0630 [facility] Last Admin: 08/17/22 06:16 Dose: 40 mg Documented By: DHEERAJ Ondansetron HCl (Ondansetron Hcl 4 Mg/2 Ml Vial) 4 mg IVPUSH Q8H PRN PRN Reason: Nausea and Vomiting Last Admin: 08/16/22 21:29 Dose: 4 mg Documented By: DHEERAJ Pharmacy Consult (Consult Rx Perform Med Rec) 1 each MISCELLANE ONCE PRN PRN Reason: Consult order Polyethylene Glycol (Polyethylene Glycol 3350 17 Gm Powd.Pack) 17 gm PO DAILY [facility] Last Admin: 08/17/22 08:41 Dose: 17 gm Documented By: KERRI Propranolol HCl (Propranolol Hcl 40 Mg Tablet) 40 mg PO BID [facility]; Protocol Last Admin: 08/17/22 08:42 Dose: 40 mg Documented By: KERRI Sodium Chloride (0.9 % Sodium Chloride Flush 3 Ml Syringe) 3 ml IVFLUSH QSHIFT [facility] Last Admin: 08/17/22 08:42 Dose: 3 ml Documented By: KERRI Labs 08/15/22 08:23 08/16/22 09:41 Assessment and Plan (1) Acute renal failure: Status: Acute Plan 67-year-old male with hx of HTN, opioid use comes in to the hospital with abd pain found to have LUIS MIGUEL ?Acute kidney failure, rapidly progressing with high K- DDx: pre renal, hepato renal, ATN. Ongoing work up by Nephrology. PermCath 08/10 and to started Homodialysis (HD) 08/11, 2nd HD 08/14,? kidney Bx planned for today 08/14 renal biopsy pending need HD,,need Hd spot setup. d/w nephro-biopsy specimen is not sufficient -recomendation for repeat biopsy. HypERkalemia: d/t renal failure being managed lokelma, K 4.5 ?Abdominal pain- resolved, CT cirrhosis, no acute finding ?hypertension- Propranolol, no Aldactone d/t high K. Started NOrvasc hx Liver cirrhosis : no acute issues, Lasix and Aldactone on hold d/t renal failure Opioid use disorder- continue methadone urine positive for Fentanyl-?unclear Pancytopenia Related to underlying liver disease and CKD continue to moniter cbc continue iron supplementation. Morbid obesity:? Encouraged to lose weight. Hyponatremia : possibly dilutional due to [place] ESRD. Superficial ulcer lateral aspect right lower leg with granulating bed.? In no periwound erythema. wound care DVT prophylaxis early ambulation, chemoprophylaxis contraindicated due to thrombocytopenia/anemia onging inpatient need : LUIS MIGUEL -need HD,awaiting kidney biopsy for luis miguel workup,need Hd spot setup Time Spent With Patient Time: Total time managing care of this patient today ____ minutes. Quality Stroke Does the patient have a stroke diagnosis?: No VTE Prior VTE?: No VTE Risk Level:: Medical - moderate - high VTE Device Contraindication: Treatment Not Indicated VTE Drug Contraindication: N/A - Med Ordered
[2022-08-17 12:17] LABS: Anion Gap 20 (12-20); Blood Urea Nitrogen 57 mg/dL (9-16); Calcium 10.2 mg/dL (8.4-10.2); Carbon Dioxide 20 mmol/L (22-29); Chloride 94 mmol/L (96-108); Glucose Random 122 mg/dL (60-115); Potassium 4.5 mmol/L (3.3-5.1); Sodium 129 mmol/L (135-145)
[2022-08-17 12:22] LABS: Creatinine Clr Calc Pharmacy 15.4; Estimated Glomerular Filt Rate 7
--- NOTE | 2022-08-17 15:02 | PM.PNNEP ---
Subjective Subjective Date of Service: 08/17/22 Principal diagnosis: LUIS MIGUEL Interval history: Seen and examined, events noted Kidny Bx poor sample so no Dx--needs more tissue Physical Exam Vital Signs: Vital Signs: Last Vital Signs Temp 97.6 F 08/17/22 07:47 Pulse 61 08/17/22 07:47 Resp 16 08/17/22 07:47 BP 120/50 L 08/17/22 07:47 Pulse Ox 97 08/17/22 07:47 O2 Del Method Room Air 08/17/22 07:47 O2 Flow Rate 96 08/10/22 16:00 BMI result Body Mass Index 48.3 Const: Other: General: AO X 3, no acute distress Resp: CTA bilateral CVS: S1,S2,RRR--abhi leg edema GI: +BS, NT, no distention Skin: No rash Neuro: motor grossly intact Psych: appropriate affect General: cooperative, healthy appearing, comfortable, no acute distress, alert and awake Nutritional Appearance: well nourished Orientation/consciousness: patient oriented x3 HEENT: Head: Yes normocephalic and Yes atraumatic Eyes: General: appearance normal, both eyes and all related structures Eyelids: Yes eyelids normal Conjunctivae: conjunctivae normal Sclerae: sclerae normal Corneas: corneas normal Pupils: Equal, round and reactive pupils present EOM: EOMs intact bilaterally Neck: Neck: Yes full ROM Resp: Effort & Inspection: normal respiratory effort, able to speak in complete sentences, no audible wheezes and not labored Auscultation: clear to auscultation bilaterally Cardio: Rate: regular rate Rhythm: regular rhythm GI: Other: Abdomen is soft, nontender, no rebound or guarding Inspection: Yes obesity Palpation (GI): Soft to palpation, not firm, Tenderness to palpation present (GI) in the LUQ, no guarding and not rigid Auscultation: normal bowel sounds Skin: Other: Superficial ulcer lateral aspect right lower leg with granulating bed. In no periwound erythema. General skin exam: no rashes or lesions noted Neuro: General: patient oriented x3 Cranial nerves: Yes CN's II-XII intact bilaterally, Yes Equal, round and reactive pupils present and Yes Bilaterally intact EOM present Cognition (Neuro): normal cognition Extrem: Other: Moving all extremities well without any obvious deformities General: Yes normal to inspection and Yes no pedal edema Objective Data Labs 07/11/23 08:23 08/17/22 09:22 Labs: Laboratory Results - last 24 hr 08/17/22 09:22 Sodium 129 L Potassium 4.5 D Chloride 94 L Carbon Dioxide 20 L Anion Gap 20 BUN 57 H Creatinine 7.50 H* Estim Creat Clear Calc 15.4 Estimated GFR 7 Random Glucose 122 H Calcium 10.2 Microbiology Microbiology Results: Microbiology 08/05/22 18:33 Blood - Venous Blood Culture - Final No growth after 5 days. 08/05/22 18:21 Blood - Venous Blood Culture - Final No growth after 5 days. Procedures Date of Service Date of Service: 08/17/22 Assessment & Plan Assessment and plan (1) Acute renal failure: Status: Acute Plan 67-year-old man with history of obesity, hepatitis-C which has been treated, cirrhosis with mild chronic kidney disease has sustained acute kidney injury. 1. LUIS MIGUEL: HD dep at this time w/u in progress; s/p kidney Bx 08/14--[place]adequ[place] [facility] kdiney Bx 2. Liver Cirrhosis with assoc low PLTs REC: cont HD 3x/wk for now; repeat Kidney Bx results; working on getting outpt HD spot at [facility] Will follow w team Time Spent With Patient Time: Total time managing care of this patient today ____ minutes. Progress Note: Quality Stroke Does the patient have a stroke diagnosis?: No
[2022-08-17 15:17] VITALS: BP 108/61; PULSE 51; RESP 16; TEMP 36.4; O2SAT 94
--- NOTE | 2022-08-17 19:01 | P.CDIM_ITS ---
PROVIDER RESPONSE TEXT: To clarify, the appropriate diagnosis supported by the clinical indicators: skin breakdown only QUERY TEXT: PHYSICIAN'S DOCUMENTATION REQUEST Date of Query: 08/17/2022 07:50 AM EDT Patient Name: Solo Cruz Admit Date: 08/06/2022 Dear So Ingram, A review of the medical record indicates additional documentation may be needed. Please review below and update the documentation accordingly. Clinical Indicators: Per Nephrology Progress Note 08/15/22: Superficial ulcer lateral aspect right lower leg with granulating bed. In no periwound erythema Per nursing wound assessment 08/15/22: wound right lower extremity, dressing changed Per Wound Care Consultation 08/07/22: Venous stasis ulcer Based on the above, could you please provide further information regarding the severity of ulcer/woun d: skin breakdown only fat layer exposed muscle involvement without evidence of necrosis Muscle necrosis Bone involvement without evidence of necrosis Bone necrosis Other (explain)Clinically unable to determine (explain)Thank you, Swapna Randle RN Use of terms such as suspected, likely, concern for, or probable (associated with a specific diagnosi s that is being evaluated, monitored, or treated as if it exists) are acceptable and can be coded in the inpatient se tting, when documented at the time of discharge. Please use your independent medical judgment in providing your response. THIS QUERY IS PART OF THE PERMANENT MEDICAL RECORD
[2022-08-17 20:46] VITALS: BP 115/58; PULSE 58; RESP 17; TEMP 36.4; O2SAT 95
[2022-08-17] MEDS: Acetaminophen 325 MG TABLET 650 MG PO (20:50)
[2022-08-17] MEDS: Calcium Carbonate 750 MG TAB.CHEW PO (20:50)
[2022-08-17] MEDS: Melatonin 3 MG TABLET 6 MG PO (20:50)
[2022-08-17] MEDS: ondansetron HCL 4 MG/2 ML VIAL IVPUSH (20:54)
[2022-08-18] VITALS (7 sets, daily range): BP systolic 91–130; BP diastolic 52–67; PULSE 57–88; RESP 16–20; TEMP 36–36.3; O2SAT 93–98
[2022-08-18] MEDS: 0.9 % Sodium Chloride Flush 3 ML SYRINGE IVFLUSH ×4 (00:12→21:37)
[2022-08-18] MEDS: Omeprazole 40 MG CAPSULE.DR PO (05:03)
[2022-08-18 08:17] LABS: Alanine Aminotransferase 8 U/L (0-40); Albumin Level 4.1 g/dL (3.5-5.0); Alkaline Phosphatase 97 U/L (39-117); Aspartate Amino Transferase 20 U/L (5-37); Bilirubin Direct 0.4 mg/dL (0.0-0.5); Bilirubin Total 1.2 mg/dL (0.0-1.0); Total Protein 9.6 g/dL (6.5-8.0)
[2022-08-18] MEDS: Acetaminophen 325 MG TABLET 650 MG PO ×2 (08:52→23:02)
[2022-08-18] MEDS: polyethylene glycoL 3350 17 GM POWD.PACK PO (08:53)
[2022-08-18] MEDS: methADONE HCl 20 MG/2 ML ORAL.CONC 28 MG PO (08:53)
[2022-08-18] MEDS: ondansetron HCL 4 MG/2 ML VIAL IVPUSH ×2 (09:00→23:05)
[2022-08-18 09:13] LABS: Hematocrit 38.9 % (42.0-52.0); Hemoglobin 13.1 g/dl (14.0-18.0); INTERNATIONAL NORM RATIO 1.2 (0.9-1.1); Prothrombin Time 13.5 SEC (10.0-13.1)
--- NOTE | 2022-08-18 10:10 | P.PNNP_ITS ---
Subjective Subjective Date of Service: 08/18/22 Principal diagnosis: LUIS MIGUEL Interval history: seen and examined on dialysis no complaints Physical Exam Vital Signs: Vital Signs: Last Vital Signs Temp 96.8 F 08/18/22 03:04 Pulse 57 08/18/22 03:04 Resp 16 08/18/22 03:04 BP 130/60 08/18/22 03:04 Pulse Ox 93 08/18/22 03:04 O2 Del Method Room Air 08/18/22 03:04 O2 Flow Rate 96 08/10/22 16:00 BMI result Body Mass Index 48.3 Const: General: alert and awake HEENT: Head: Yes normocephalic and Yes atraumatic Neck: Neck: Yes supple Resp: Auscultation: diminished lung sounds Cardio: Heart sounds: S1 normal heart sound present and S2 normal heart sound present GI: Palpation (GI): Soft to palpation and nontender Extrem: Right upper extremity: edema Objective Data Labs 08/18/22 08:59 08/17/22 09:22 Labs: Laboratory Results - last 24 hr 08/17/22 08/18/22 08/18/22 09:22 08:59 08:59 Hgb 13.1 L Hct 38.9 L PT 13.5 H INR 1.2 H Sodium 129 L Potassium 4.5 D Chloride 94 L Carbon Dioxide 20 L Anion Gap 20 BUN 57 H Creatinine 7.50 H* Estim Creat Clear Calc 15.4 Estimated GFR 7 Random Glucose 122 H Calcium 10.2 Total Bilirubin 1.2 H Direct Bilirubin 0.4 AST 20 ALT 8 Alkaline Phosphatase 97 Total Protein 9.6 H Albumin 4.1 Microbiology Microbiology Results: Microbiology 08/05/22 18:33 Blood - Venous Blood Culture - Final No growth after 5 days. 08/05/22 18:21 Blood - Venous Blood Culture - Final No growth after 5 days. Procedures Date of Service Date of Service: 08/18/22 Assessment & Plan Assessment and plan (1) LUIS IMGUEL (acute kidney injury): Status: Acute Plan LUIS MIGUEL HD dependent acute tubular injury versus other microscocpic hematuria with proteinuria ( ~ 2 g) nomral complement level MPO and PR3 Ab negative s/p kidney biopsy on 08/14 (inadequate tissue and path at [facility] [place]) newed repeat kidney biopsy known liver cirrhosis REC HD today optimize volume status repeat kidney biopsy monitor urine output follow kidney function and electrolytes outpatient HD at [facility] being arranged Time Spent With Patient Time: Total time managing care of this patient today ____ minutes. Progress Note: Quality Stroke Does the patient have a stroke diagnosis?: No
--- NOTE | 2022-08-18 11:40 | P.PNIM_ITS ---
Subjective Subjective Date of Service: 08/18/22 Interval History: LUIS MIGUEL Review of Systems Patient seen examined-denies any new complaints. Physical Exam Vital Signs: Vital Signs: Last Vital Signs Temp 96.8 F 08/18/22 03:04 Pulse 57 08/18/22 03:04 Resp 16 08/18/22 03:04 BP 130/60 08/18/22 03:04 Pulse Ox 93 08/18/22 03:04 O2 Del Method Room Air 08/18/22 03:04 O2 Flow Rate 96 08/10/22 16:00 BMI result Body Mass Index 48.3 General: AO X 3, no acute distress Resp:? CTA bilateral CVS: S1,S2,RRR--abhi leg edema GI: +BS, NT, no distention Skin: No rash Neuro:? motor grossly intact Psych: appropriate affect Objective Data Active Medications Acetaminophen (Acetaminophen 325 Mg Tablet) 650 mg PO Q6H PRN PRN Reason: Pain, Mild (Pain Scale 1-3) Last Admin: 08/18/22 08:52 Dose: 650 mg Documented By: THEO Amlodipine Besylate (Amlodipine Besylate 5 Mg Tablet) 5 mg PO DAILY [facility]; Protocol Last Admin: 08/18/22 08:51 Dose: Not Given Documented By: THEO Non-Admin Reason: Off unit: Dialysis Calcium Carbonate (Calcium Carbonate 750 Mg Tab.Chew) 750 mg PO Q6H PRN PRN Reason: heartburn Last Admin: 08/17/22 20:50 Dose: 750 mg Documented By: ARA Docusate Sodium (Docusate Sodium 100 Mg Capsule) 100 mg PO DAILY PRN PRN Reason: Constipation Melatonin (Melatonin 3 Mg Tablet) 6 mg PO BEDTIME PRN PRN Reason: Insomnia Last Admin: 08/17/22 20:50 Dose: 6 mg Documented By: ARA Methadone HCl (Methadone Hcl 20 Mg/2 Ml Oral.Conc) 28 mg PO DAILY [facility] Last Admin: 08/18/22 08:53 Dose: 28 mg Documented By: THEO Omeprazole (Omeprazole 40 Mg Capsule.Dr) 40 mg PO DAILY@0630 [facility] Last Admin: 08/18/22 05:03 Dose: 40 mg Documented By: ZHEN Ondansetron HCl (Ondansetron Hcl 4 Mg/2 Ml Vial) 4 mg IVPUSH Q8H PRN PRN Reason: Nausea and Vomiting Last Admin: 08/18/22 09:00 Dose: 4 mg Documented By: THEO Pharmacy Consult (Consult Rx Perform Med Rec) 1 each MISCELLANE ONCE PRN PRN Reason: Consult order Polyethylene Glycol (Polyethylene Glycol 3350 17 Gm Powd.Pack) 17 gm PO DAILY [facility] Last Admin: 08/18/22 08:53 Dose: 17 gm Documented By: THEO Propranolol HCl (Propranolol Hcl 40 Mg Tablet) 40 mg PO BID [facility]; Protocol Last Admin: 08/18/22 08:51 Dose: Not Given Documented By: THEO Non-Admin Reason: Off unit: Dialysis Sodium Chloride (0.9 % Sodium Chloride Flush 3 Ml Syringe) 3 ml IVFLUSH QSHIFT [facility] Last Admin: 08/18/22 08:53 Dose: 3 ml Documented By: THEO Labs 08/18/22 08:59 08/17/22 09:22 Labs: Laboratory Results - last 24 hr 08/17/22 08/18/22 09:22 08:59 PT 13.5 H INR 1.2 H Anion Gap 20 Estim Creat Clear Calc 15.4 Estimated GFR 7 Random Glucose 122 H Calcium 10.2 Total Bilirubin 1.2 H Direct Bilirubin 0.4 AST 20 ALT 8 Alkaline Phosphatase 97 Total Protein 9.6 H Albumin 4.1 Assessment and Plan (1) Acute renal failure: Status: Acute Plan 67-year-old male with hx of HTN, opioid use comes in to the hospital with abd pain found to have LUIS MIGUEL ?Acute kidney failure, rapidly progressing with high K- DDx: pre renal, hepato renal, ATN. Ongoing work up by Nephrology. PermCath 08/10 and to started Homodialysis (HD) 08/11, 2nd HD 08/14,? kidney Bx planned for today 08/14 renal biopsy pending need HD,,need Hd spot setup. d/w nephro-biopsy specimen is not sufficient -recomendation for repeat biopsy. HypERkalemia: d/t renal failure being managed mikhailkelshena K 4.5 ?Abdominal pain- resolved, CT cirrhosis, no acute finding ?hypertension- Propranolol, no Aldactone d/t high K. Started NOrvasc hx Liver cirrhosis : no acute issues, Lasix and Aldactone on hold d/t renal failure Opioid use disorder- continue methadone urine positive for Fentanyl-?unclear Pancytopenia Related to underlying liver disease and CKD continue to moniter cbc continue iron supplementation. Morbid obesity:? Encouraged to lose weight. Hyponatremia : possibly dilutional due to [place]. Superficial ulcer lateral aspect right lower leg with granulating bed.? In no periwound erythema. wound care DVT prophylaxis early ambulation, chemoprophylaxis contraindicated due to thrombocytopenia/anemia onging inpatient need : LUIS MIGUEL -need HD,awaiting repeat kidney biopsy for luis miguel workup,need Hd spot setup Time Spent With Patient Time: Total time managing care of this patient today ____ minutes. Quality Stroke Does the patient have a stroke diagnosis?: No VTE Prior VTE?: No VTE Risk Level:: Medical - moderate - high VTE Device Contraindication: Treatment Not Indicated VTE Drug Contraindication: N/A - Med Ordered
[2022-08-18 11:51] LABS: MANUAL DIFF FLAG NO
[2022-08-18 11:55] LABS: Basophils Absolute Auto 0.1 X10*3/uL (0.0-0.2); Basophils Percent Auto 0.8 % (0-2); Eosinophils Absolute Auto 0.1 X10*3/uL (0.0-0.4); Eosinophils Percent Auto 1.1 % (0-4); Imm Gran Abs Auto 0.04 X10*3/uL (0.00-0.03); Imm Gran Pct Auto 0.4 % (0.0-0.4); Lymphocytes Percent Auto 10.1 % (20-40); Mean Corpuscular HGB Conc 33.8 g/dl (31.0-36.0); Mean Corpuscular Hemoglobin 28.4 pg (27.0-33.0); Mean Corpuscular Volume 84.2 fL (80.0-98.0); Mean Platelet Volume 11.8 fL (9.4-12.4); Monocytes Absolute Auto 1.1 X10*3/uL (0.1-1.2); Monocytes Percent Auto 10.6 % (2-11); Platelet Count 179 X10*3/uL (160-400); Red Blood Count 4.68 X10*6/uL (4.60-5.80); White Blood Count 10.3 X10*3/uL (4.8-10.8)
[2022-08-18] MEDS: Propranolol HCL 40 MG TABLET PO (21:34)
[2022-08-19 03:55] VITALS: BP 123/57; PULSE 53; RESP 16; TEMP 36; O2SAT 97
[2022-08-19] MEDS: Omeprazole 40 MG CAPSULE.DR PO (06:15)
[2022-08-19 07:43] VITALS: BP 109/55; PULSE 57; RESP 18; TEMP 36.2; O2SAT 93
[2022-08-19 07:55] LABS: Hematocrit 36.6 % (42.0-52.0); Hemoglobin 12.3 g/dl (14.0-18.0)
[2022-08-19 08:09] LABS: Blood Urea Nitrogen 59 mg/dL (9-16); Calcium 10.1 mg/dL (8.4-10.2); Estimated Glomerular Filt Rate 7; Glucose Random 106 mg/dL (60-115)
[2022-08-19 08:25] LABS: Anion Gap 23 (12-20); Carbon Dioxide 21 mmol/L (22-29); Chloride 92 mmol/L (96-108); Potassium 5.6 mmol/L (3.3-5.1); Sodium 130 mmol/L (135-145)
--- NOTE | 2022-08-19 08:25 | PM.PNNEP ---
Subjective Subjective Date of Service: 08/19/22 Principal diagnosis: LUIS MIGUEL Interval history: seen and examined no complaints had HD yesterday had biopsy d/w medical attending Physical Exam Vital Signs: Vital Signs: Last Vital Signs Temp 97.2 F 08/19/22 07:43 Pulse 57 08/19/22 07:43 Resp 18 08/19/22 07:43 BP 109/55 L 08/19/22 07:43 Pulse Ox 93 08/19/22 07:43 O2 Del Method Room Air 08/19/22 07:43 O2 Flow Rate 96 08/10/22 16:00 BMI result Body Mass Index 48.3 Const: General: alert and awake HEENT: Head: Yes normocephalic and Yes atraumatic Neck: Neck: Yes supple Resp: Auscultation: diminished lung sounds Cardio: Heart sounds: S1 normal heart sound present and S2 normal heart sound present GI: Palpation (GI): Soft to palpation and nontender Extrem: Right upper extremity: edema Objective Data Labs 08/19/22 07:35 08/19/22 07:35 Labs: Laboratory Results - last 24 hr 08/18/22 08/18/22 08/19/22 08:59 08:59 07:35 WBC 10.3 RBC 4.68 Hgb 13.1 L Hct 38.9 L MCV 84.2 MCH 28.4 MCHC 33.8 RDW 13.0 Plt Count 179 D MPV 11.8 Immature Gran % (Auto) 0.4 Neut % (Auto) 77.0 H Lymph % (Auto) 10.1 L [place] % (Auto) 10.6 Eos % (Auto) 1.1 Baso % (Auto) 0.8 Lymph # (Auto) 1.0 L [place] # (Auto) 1.1 Eos # (Auto) 0.1 Baso # (Auto) 0.1 Abs Immat Gran (auto) 0.04 H Absolute Neuts (auto) 8.0 Absolute Nucleated RBC 0.000 Nucleated RBC % (auto) 0.0 PT 13.5 H INR 1.2 H Sodium 130 L Potassium 5.6 H D Chloride 92 L Carbon Dioxide 21 L Anion Gap 23 H BUN 59 H Creatinine 8.26 H* Estim Creat Clear Calc 14.0 Estimated GFR 7 Random Glucose 106 Calcium 10.1 08/19/22 07:35 WBC RBC Hgb 12.3 L Hct 36.6 L MCV MCH MCHC RDW Plt Count MPV Immature Gran % (Auto) Neut % (Auto) Lymph % (Auto) [place] % (Auto) Eos % (Auto) Baso % (Auto) Lymph # (Auto) [place] # (Auto) Eos # (Auto) Baso # (Auto) Abs Immat Gran (auto) Absolute Neuts (auto) Absolute Nucleated RBC Nucleated RBC % (auto) PT INR Sodium Potassium Chloride Carbon Dioxide Anion Gap BUN Creatinine Estim Creat Clear Calc Estimated GFR Random Glucose Calcium Microbiology Microbiology Results: Microbiology 08/05/22 18:33 Blood - Venous Blood Culture - Final No growth after 5 days. 08/05/22 18:21 Blood - Venous Blood Culture - Final No growth after 5 days. Procedures Date of Service Date of Service: 08/19/22 Assessment & Plan Assessment and plan (1) LUIS MIGUEL (acute kidney injury): Status: Acute Plan s/p HD yesterday s/p kidney biopsy yesterday LUIS MIGUEL HD dependent acute tubular injury versus other microscocpic hematuria with proteinuria ( ~ 2 g) nomral complement level MPO and PR3 Ab negative s/p kidney biopsy on 08/14 (inadequate tissue and path at [facility] [place]) known liver cirrhosis REC HD on Sunday follow kidney biopsy result monitor urine output follow kidney function and electrolytes outpatient HD at [place] [facility] being arranged Time Spent With Patient Time: Total time managing care of this patient today ____ minutes. Progress Note: Quality Stroke Does the patient have a stroke diagnosis?: No
[2022-08-19] MEDS: amLODIPine Besylate 5 MG TABLET PO (09:10)
[2022-08-19] MEDS: polyethylene glycoL 3350 17 GM POWD.PACK PO (09:10)
[2022-08-19] MEDS: 0.9 % Sodium Chloride Flush 3 ML SYRINGE IVFLUSH ×3 (09:10→20:41)
[2022-08-19] MEDS: methADONE HCl 20 MG/2 ML ORAL.CONC 28 MG PO (09:10)
--- NOTE | 2022-08-19 10:54 | HO.PM.IMPN ---
Subjective Subjective Date of Service: 08/19/22 Interval History: LUIS MIGUEL,hematuria Review of Systems has hematuria no abd pain or nausea or vomiting Physical Exam Vital Signs: Vital Signs: Last Vital Signs Temp 97.2 F 08/19/22 07:43 Pulse 57 08/19/22 07:43 Resp 18 08/19/22 07:43 BP 109/55 L 08/19/22 07:43 Pulse Ox 93 08/19/22 07:43 O2 Del Method Room Air 08/19/22 07:43 O2 Flow Rate 96 08/10/22 16:00 BMI result Body Mass Index 48.3 General: AO X 3, no acute distress Resp:? CTA bilateral CVS: S1,S2,RRR--abhi leg edema GI: +BS, NT, no distention Skin: No rash Neuro:? motor grossly intact Psych: appropriate affect Objective Data Active Medications Acetaminophen (Acetaminophen 325 Mg Tablet) 650 mg PO Q6H PRN PRN Reason: Pain, Mild (Pain Scale 1-3) Last Admin: 08/18/22 23:02 Dose: 650 mg Documented By: ARDEN Amlodipine Besylate (Amlodipine Besylate 5 Mg Tablet) 5 mg PO DAILY [facility]; Protocol Last Admin: 08/19/22 09:10 Dose: 5 mg Documented By: THEO Calcium Carbonate (Calcium Carbonate 750 Mg Tab.Chew) 750 mg PO Q6H PRN PRN Reason: heartburn Last Admin: 08/17/22 20:50 Dose: 750 mg Documented By: RAA Docusate Sodium (Docusate Sodium 100 Mg Capsule) 100 mg PO DAILY PRN PRN Reason: Constipation Melatonin (Melatonin 3 Mg Tablet) 6 mg PO BEDTIME PRN PRN Reason: Insomnia Last Admin: 08/17/22 20:50 Dose: 6 mg Documented By: ARA Methadone HCl (Methadone Hcl 20 Mg/2 Ml Oral.Conc) 28 mg PO DAILY [facility] Last Admin: 08/19/22 09:10 Dose: 28 mg Documented By: THEO Omeprazole (Omeprazole 40 Mg Capsule.Dr) 40 mg PO DAILY@0630 [facility] Last Admin: 08/19/22 06:15 Dose: 40 mg Documented By: JACKIE Ondansetron HCl (Ondansetron Hcl 4 Mg/2 Ml Vial) 4 mg IVPUSH Q8H PRN PRN Reason: Nausea and Vomiting Last Admin: 08/18/22 23:05 Dose: 4 mg Documented By: ARDEN Pharmacy Consult (Consult Rx Perform Med Rec) 1 each MISCELLANE ONCE PRN PRN Reason: Consult order Polyethylene Glycol (Polyethylene Glycol 3350 17 Gm Powd.Pack) 17 gm PO DAILY [facility] Last Admin: 08/19/22 09:10 Dose: 17 gm Documented By: THEO Propranolol HCl (Propranolol Hcl 40 Mg Tablet) 40 mg PO BID [facility]; Protocol Last Admin: 08/19/22 08:43 Dose: Not Given Documented By: THEO Non-Admin Reason: Decreased Heart Rate Sodium Chloride (0.9 % Sodium Chloride Flush 3 Ml Syringe) 3 ml IVFLUSH QSHIFT [facility] Last Admin: 08/19/22 09:10 Dose: 3 ml Documented By: THEO Labs 08/19/22 07:35 08/19/22 07:35 Labs: Laboratory Results - last 24 hr 08/18/22 08/19/22 08:59 07:35 MCV 84.2 MCH 28.4 MCHC 33.8 RDW 13.0 Plt Count 179 D MPV 11.8 Immature Gran % (Auto) 0.4 Neut % (Auto) 77.0 H Lymph % (Auto) 10.1 L [place] % (Auto) 10.6 Eos % (Auto) 1.1 Baso % (Auto) 0.8 Lymph # (Auto) 1.0 L [place] # (Auto) 1.1 Eos # (Auto) 0.1 Baso # (Auto) 0.1 Abs Immat Gran (auto) 0.04 H Absolute Neuts (auto) 8.0 Absolute Nucleated RBC 0.000 Nucleated RBC % (auto) 0.0 Anion Gap 23 H Estim Creat Clear Calc 14.0 Estimated GFR 7 Random Glucose 106 Calcium 10.1 Assessment and Plan (1) LUIS MIGUEL (acute kidney injury): Status: Acute (2) Hematuria: Status: Acute Plan 67-year-old male with hx of HTN, opioid use comes in to the hospital with abd pain found to have LUIS MIGUEL ?Acute kidney failure, rapidly progressing with high K- DDx: pre renal, hepato renal, ATN. Ongoing work up by Nephrology. PermCath 08/10 and to started Homodialysis (HD) 08/11, 2nd HD 08/14,? kidney Bx on 08/14( was not sufficient specimen),repeat renal biopsy 08/18/22. has hematuria today-repeated h/h stable added ct abd -in view of s/p renal biopsy/has hematuria need HD,need Hd spot setup. d/w nephro-biopsy specimen is not sufficient -recomendation for repeat biopsy. HypERkalemia: d/t renal failure being managed Monica espinoza 4.5 ?Abdominal pain- resolved, CT cirrhosis, no acute finding ?hypertension- Propranolol, no Aldactone d/t high K. Started NOrvasc hx Liver cirrhosis : no acute issues, Lasix and Aldactone on hold d/t renal failure Opioid use disorder- continue methadone urine positive for Fentanyl-?unclear Pancytopenia Related to underlying liver disease and CKD continue to moniter cbc continue iron supplementation. Morbid obesity:? Encouraged to lose weight. Hyponatremia : possibly dilutional due to [place] ESRD. Superficial ulcer lateral aspect right lower leg with granulating bed.? In no periwound erythema. wound care DVT prophylaxis early ambulation, chemoprophylaxis contraindicated due to thrombocytopenia/anemia onging inpatient need : LUIS MIGUEL -need HD,awaiting repeat kidney biopsy for luis miguel workup as well as hematuria workup,need Hd spot setup Time Spent With Patient Time: Total time managing care of this patient today ____ minutes. Quality Stroke Does the patient have a stroke diagnosis?: No VTE Prior VTE?: No VTE Risk Level:: Medical - moderate - high VTE Device Contraindication: Treatment Not Indicated VTE Drug Contraindication: N/A - Med Ordered
[2022-08-19] MEDS: Acetaminophen 325 MG TABLET 650 MG PO (12:56)
[2022-08-19] MEDS: ondansetron HCL 4 MG/2 ML VIAL IVPUSH (13:15)
--- NOTE | 2022-08-19 13:58 | MHC.CM.PN ---
PER CONVERSATION WITH MD, CURRENTLY AWAITING CT AND PORT PLACEMENT NO PLAN FOR DC THIS WEEKEND
[2022-08-19] MEDS: Sodium Zirconium Cyclosilicate 10 GM POWD.PACK PO (15:28)
[2022-08-19 15:39] VITALS: BP 140/69; PULSE 54; RESP 14; TEMP 36.1; O2SAT 95
[2022-08-19 16:31] LABS: Hematocrit 38.6 % (42.0-52.0); Hemoglobin 12.8 g/dl (14.0-18.0); Mean Corpuscular HGB Conc 33.2 g/dl (31.0-36.0); Mean Corpuscular Hemoglobin 28.3 pg (27.0-33.0); Mean Corpuscular Volume 85.2 fL (80.0-98.0); Mean Platelet Volume 11.7 fL (9.4-12.4); Platelet Count 147 X10*3/uL (160-400); Red Blood Count 4.53 X10*6/uL (4.60-5.80); Red Cell Distribution Width 13.2 % (11.0-16.0); White Blood Count 13.8 X10*3/uL (4.8-10.8)
[2022-08-19] MEDS: Morphine Sulfate 2 MG/ML CARTRIDGE IVPUSH (16:38)
[2022-08-19] MEDS: Lidocaine 4 % Patch ADH..PATCH 1 PATCH TRANSDERMA (16:38)
[2022-08-19 17:01] LABS: Appearance Urine Turbid; Color Urine RED; Glucose Urine UA 100 mg/dL (Negative); Leukocyte Esterase Urine Trace (Negative); Nitrite Urine Positive (Negative); PH 7.5 (5.0-9.0); UMIC TRIGGER UA YES; Urine Blood Large (3+) (Negative); Urine Ketones Negative (Negative); Urine Protein 300 (3+) mg/dL (Neg-Trace)
[2022-08-19 17:21] LABS: Hyaline Casts Urine 0-2 /LPF (0-2); RBC Urine >20 /HPF (0-2); Squamous Epithelial Cell Urine 0-2 /HPF (0-2)
[2022-08-19 17:22] LABS: Bacteria Urine 2+ (None Seen)
[2022-08-19 19:26] VITALS: BP 131/56; PULSE 60; RESP 18; TEMP 36.2; O2SAT 96
[2022-08-19] MEDS: Propranolol HCL 40 MG TABLET PO (20:41)
[2022-08-20 04:00] VITALS: BP 100/51; PULSE 62; RESP 16; TEMP 36; O2SAT 93
[2022-08-20] MEDS: Omeprazole 40 MG CAPSULE.DR PO (05:52)
[2022-08-20 07:42] VITALS: BP 107/54; PULSE 70; RESP 16; TEMP 36.8; O2SAT 93
--- NOTE | 2022-08-20 07:57 | P.PNNP_ITS ---
Subjective Subjective Date of Service: 08/20/22 Principal diagnosis: LUIS MIGUEL Interval history: seen and examined events noted no complaints d/w medical attending Physical Exam Vital Signs: Vital Signs: Last Vital Signs Temp 98.2 F 08/20/22 07:42 Pulse 70 08/20/22 07:42 Resp 16 08/20/22 07:42 BP 107/54 L 08/20/22 07:42 Pulse Ox 93 08/20/22 07:42 O2 Del Method Room Air 08/20/22 07:42 O2 Flow Rate 96 08/10/22 16:00 BMI result Body Mass Index 48.3 Const: General: alert and awake HEENT: Head: Yes normocephalic and Yes atraumatic Neck: Neck: Yes supple Resp: Auscultation: diminished lung sounds Cardio: Heart sounds: S1 normal heart sound present and S2 normal heart sound present GI: Palpation (GI): Soft to palpation and nontender Extrem: Right upper extremity: edema Objective Data Labs 08/19/22 16:22 08/19/22 07:35 Labs: Laboratory Results - last 24 hr 08/19/22 08/19/22 08/19/22 07:35 15:23 16:22 WBC 13.8 H RBC 4.53 L Hgb 12.8 L Hct 38.6 L MCV 85.2 MCH 28.3 MCHC 33.2 RDW 13.2 Plt Count 147 L MPV 11.7 Absolute Nucleated RBC 0.000 Nucleated RBC % (auto) 0.0 Sodium 130 L Potassium 5.6 H D Chloride 92 L Carbon Dioxide 21 L Anion Gap 23 H BUN 59 H Creatinine 8.26 H* Estim Creat Clear Calc 14.0 Estimated GFR 7 Random Glucose 106 Calcium 10.1 Urine Color RED Urine Appearance Turbid Urine pH 7.5 Ur Specific [place] 1.020 Urine Protein 300 (3+) H Urine Glucose (UA) 100 H Urine Ketones Negative Urine Blood Large (3+) H Urine Nitrite Positive H Ur Leukocyte Esterase Trace H Urine RBC >20 H Urine WBC 6-10 H Ur Squamous Epith Cells 0-2 Urine Bacteria 2+ Hyaline Casts 0-2 Microbiology Microbiology Results: Microbiology 08/05/22 18:33 Blood - Venous Blood Culture - Final No growth after 5 days. 08/05/22 18:21 Blood - Venous Blood Culture - Final No growth after 5 days. Procedures Date of Service Date of Service: 08/20/22 Assessment & Plan Assessment and plan (1) LUIS MIGUEL (acute kidney injury): Status: Acute Plan s/p kidney biopsy on Sunday right perinephric hematoma along the lower pole of the right kidney noted LUIS MIGUEL HD dependent acute tubular injury versus other microscocpic hematuria with proteinuria ( ~ 2 g) nomral complement level MPO and PR3 Ab negative s/p kidney biopsy on 08/14 (inadequate tissue and path at [facility] [place]) known liver cirrhosis REC HD on Sunday sodium zirconium as needed follow kidney biopsy result monitor urine output follow kidney function and electrolytes outpatient HD at [facility] [facility] being arranged Time Spent With Patient Time: Total time managing care of this patient today ____ minutes. Progress Note: Quality Stroke Does the patient have a stroke diagnosis?: No
[2022-08-20] MEDS: polyethylene glycoL 3350 17 GM POWD.PACK PO (08:14)
[2022-08-20] MEDS: methADONE HCl 20 MG/2 ML ORAL.CONC 28 MG PO (08:14)
[2022-08-20] MEDS: Propranolol HCL 40 MG TABLET PO (08:14)
[2022-08-20] MEDS: amLODIPine Besylate 5 MG TABLET PO (08:14)
[2022-08-20] MEDS: 0.9 % Sodium Chloride Flush 3 ML SYRINGE IVFLUSH ×3 (08:14→19:56)
[2022-08-20 08:47] LABS: Hemoglobin 12.2 g/dl (14.0-18.0); PLT CLUMP 1; Red Cell Distribution Width 13.4 % (11.0-16.0)
[2022-08-20 08:49] LABS: Hematocrit 36.9 % (42.0-52.0); Mean Corpuscular HGB Conc 33.1 g/dl (31.0-36.0); Mean Corpuscular Hemoglobin 28.3 pg (27.0-33.0); Mean Corpuscular Volume 85.6 fL (80.0-98.0); Mean Platelet Volume 11.9 fL (9.4-12.4); Platelet Count 132 X10*3/uL (160-400); Red Blood Count 4.31 X10*6/uL (4.60-5.80); White Blood Count 14.8 X10*3/uL (4.8-10.8)
[2022-08-20 08:51] LABS: Anion Gap 25 (12-20); Blood Urea Nitrogen 85 mg/dL (9-16); Calcium 10.2 mg/dL (8.4-10.2); Carbon Dioxide 19 mmol/L (22-29); Chloride 91 mmol/L (96-108); Creatinine Clr Calc Pharmacy 10.8; Estimated Glomerular Filt Rate 5; Glucose Random 70 mg/dL (60-115); Potassium 5.2 mmol/L (3.3-5.1); Sodium 130 mmol/L (135-145)
--- NOTE | 2022-08-20 09:01 | P.PNIM_ITS ---
Subjective Subjective Date of Service: 08/20/22 Interval History: LUIS MIGUEL,hematuria Review of Systems has hematuria some what improving no abd pain or nausea or vomiting Physical Exam Vital Signs: Vital Signs: Last Vital Signs Temp 98.2 F 08/20/22 07:42 Pulse 70 08/20/22 07:42 Resp 16 08/20/22 07:42 BP 107/54 L 08/20/22 07:42 Pulse Ox 93 08/20/22 07:42 O2 Del Method Room Air 08/20/22 07:42 O2 Flow Rate 96 08/10/22 16:00 BMI result Body Mass Index 48.3 General: AO X 3, no acute distress Resp:? CTA bilateral CVS: S1,S2,RRR--abhi leg edema GI: +BS, NT, no distention Skin: No rash Neuro:? motor grossly intact Psych: appropriate affect Objective Data Active Medications Acetaminophen (Acetaminophen 325 Mg Tablet) 650 mg PO Q6H PRN PRN Reason: Pain, Mild (Pain Scale 1-3) Last Admin: 08/19/22 12:56 Dose: 650 mg Documented By: THEO Amlodipine Besylate (Amlodipine Besylate 5 Mg Tablet) 5 mg PO DAILY [facility]; Protocol Last Admin: 08/20/22 08:14 Dose: 5 mg Documented By: THEO Calcium Carbonate (Calcium Carbonate 750 Mg Tab.Chew) 750 mg PO Q6H PRN PRN Reason: heartburn Last Admin: 08/17/22 20:50 Dose: 750 mg Documented By: ARA Docusate Sodium (Docusate Sodium 100 Mg Capsule) 100 mg PO DAILY PRN PRN Reason: Constipation Melatonin (Melatonin 3 Mg Tablet) 6 mg PO BEDTIME PRN PRN Reason: Insomnia Last Admin: 08/17/22 20:50 Dose: 6 mg Documented By: ARA Methadone HCl (Methadone Hcl 20 Mg/2 Ml Oral.Conc) 28 mg PO DAILY [facility] Last Admin: 08/20/22 08:14 Dose: 28 mg Documented By: THEO Omeprazole (Omeprazole 40 Mg Capsule.Dr) 40 mg PO DAILY@0630 [facility] Last Admin: 08/20/22 05:52 Dose: 40 mg Documented By: GUSORALJim Ondansetron HCl (Ondansetron Hcl 4 Mg/2 Ml Vial) 4 mg IVPUSH Q8H PRN PRN Reason: Nausea and Vomiting Last Admin: 08/19/22 13:15 Dose: 4 mg Documented By: JOSE Pharmacy Consult (Consult Rx Perform Med Rec) 1 each MISCELLANE ONCE PRN PRN Reason: Consult order Polyethylene Glycol (Polyethylene Glycol 3350 17 Gm Powd.Pack) 17 gm PO DAILY [facility] Last Admin: 08/20/22 08:14 Dose: 17 gm Documented By: THEO Propranolol HCl (Propranolol Hcl 40 Mg Tablet) 40 mg PO BID [facility]; Protocol Last Admin: 08/20/22 08:14 Dose: 40 mg Documented By: THEO Sodium Chloride (0.9 % Sodium Chloride Flush 3 Ml Syringe) 3 ml IVFLUSH QSHIFT [facility] Last Admin: 08/20/22 08:14 Dose: 3 ml Documented By: THEO Labs 08/20/22 08:23 08/20/22 08:23 Labs: Laboratory Results - last 24 hr 08/19/22 08/19/22 08/20/22 15:23 16:22 08:23 MCV 85.2 85.6 MCH 28.3 28.3 MCHC 33.2 33.1 RDW 13.2 13.4 Plt Count 147 L 132 L MPV 11.7 11.9 Absolute Nucleated RBC 0.000 0.000 Nucleated RBC % (auto) 0.0 0.0 Anion Gap Estim Creat Clear Calc Estimated GFR Random Glucose Calcium Urine Color RED Urine Appearance Turbid Urine pH 7.5 Ur Specific [place] 1.020 Urine Protein 300 (3+) H Urine Glucose (UA) 100 H Urine Ketones Negative Urine Blood Large (3+) H Urine Nitrite Positive H Ur Leukocyte Esterase Trace H Urine RBC >20 H Urine WBC 6-10 H Ur Squamous Epith Cells 0-2 Urine Bacteria 2+ Hyaline Casts 0-2 08/20/22 08:23 MCV MCH MCHC RDW Plt Count MPV Absolute Nucleated RBC Nucleated RBC % (auto) Anion Gap 25 H Estim Creat Clear Calc 10.8 Estimated GFR 5 Random Glucose 70 Calcium 10.2 Urine Color Urine Appearance Urine pH Ur Specific [place] Urine Protein Urine Glucose (UA) Urine Ketones Urine Blood Urine Nitrite Ur Leukocyte Esterase Urine RBC Urine WBC Ur Squamous Epith Cells Urine Bacteria Hyaline Casts Assessment and Plan (1) LUIS MIGUEL (acute kidney injury): Status: Acute (2) Hematuria: Status: Acute Plan 67-year-old male with hx of HTN, opioid use comes in to the hospital with abd pain found to have LUIS MIGUEL ?Acute kidney failure, rapidly progressing with high K- DDx: pre renal, hepato renal, ATN. Ongoing work up by Nephrology. PermCath 08/10 and to started Homodialysis (HD) 08/11, 2nd HD 08/14,? kidney Bx on 08/14( was not sufficient specimen),repeat renal biopsy 08/18/22. has hematuria today-repeated h/h stable added ct abd -in view of s/p renal biopsy/has hematuria need HD,need Hd spot setup. d/w nephro-biopsy specimen is not sufficient -recomendation for repeat biopsy. HypERkalemia: d/t renal failure being managed loMonica garcia 4.5 ?Abdominal pain- resolved, CT cirrhosis, no acute finding ?hypertension- Propranolol, no Aldactone d/t high K. Started NOrvasc hx Liver cirrhosis : no acute issues, Lasix and Aldactone on hold d/t renal failure Opioid use disorder- continue methadone urine positive for Fentanyl-?unclear Pancytopenia Related to underlying liver disease and CKD continue to moniter cbc continue iron supplementation. Morbid obesity:? Encouraged to lose weight. Hyponatremia : possibly dilutional due to [place]. Superficial ulcer lateral aspect right lower leg with granulating bed.? In no periwound erythema. wound care. ct abd noted-Small right perinephric hematoma? s/p biopsy h/h stable,patient denies any abd pain d/w radiology yesterday-no new intervention h/h stable , no abd pain DVT prophylaxis early ambulation, chemoprophylaxis contraindicated due to thrombocytopenia/anemia onging inpatient need : LUIS MIGUEL -need HD,awaiting repeat kidney biopsy for luis miguel workup as well as hematuria workup,need Hd spot setup Time Spent With Patient Time: Total time managing care of this patient today ____ minutes. Quality Stroke Does the patient have a stroke diagnosis?: No VTE Prior VTE?: No VTE Risk Level:: Medical - moderate - high VTE Device Contraindication: Treatment Not Indicated VTE Drug Contraindication: N/A - Med Ordered
--- NOTE | 2022-08-20 13:35 | PC.NURSE ---
s/p I+D, per patient dressing on R thigh fell off , packing still intact, This nurse redressed wound with abd pad and kerlix, Pt tolerated well no further issues.
[2022-08-20 15:49] VITALS: BP 95/50; PULSE 69; RESP 18; TEMP 36.7; O2SAT 95
[2022-08-20 17:24] VITALS: BP 109/53
[2022-08-20 19:45] VITALS: BP 104/56; PULSE 69; RESP 17; TEMP 36.6; O2SAT 92
--- NOTE | 2022-08-20 22:36 | P.CNUR_ITS ---
History of Present Illness Consult details Consult date: 08/19/22 Narrative: CC: hematuria with renal hematoma 67-year-old male Currently undergoing elevation for acute renal failure Renal biopsy performed Persistent hematuria Current creatinine 10, platelets 132 Imaging shows portal venous hypertension Recommend conservative therapy No indication for acute urologic intervention May benefit from tranexamic acid versus FFP and/or platelet transfusion to assist with clotting if persistent hematuria Review of Systems Constitutional: Constitutional: Reports as per HPI and Reports no additional constitutional complaints Cardiovascular: Cardiovascular: Reports as per HPI and Reports no additional cardiovascular complaints Respiratory: Respiratory: Reports as per HPI and Reports no additional respiratory complaints Gastrointestinal: Gastrointestinal: Reports as per HPI and Reports no additional gastrointestinal complaints Genitourinary: Genitourinary: Reports as per HPI Musculoskeletal: Musculoskeletal: Reports no additional musculoskeletal complaints and Reports as per HPI Neurologic: Reports system reviewed and no additional complaints, except as documented and Reports as per HPI PMFSH Past Medical History Medical History Anemia Cirrhosis COVID-19 GERD (gastroesophageal reflux disease) Hepatic fibrosis History of substance abuse Hx of hepatitis C Hypertension Osteoarthritis of both knees Pancytopenia Pedal edema Family History Family History Father No problems noted. Mother No problems noted. Surgical History Surgical History History of esophagogastroduodenoscopy (EGD) Hx of appendectomy Hx of endoscopic retrograde cholangiopancreatography Hx of left knee surgery Social History Social History Household Members: None Housing: Unknown / Unable to assess Do you presently have visiting nurse or other home services: Yes Alcohol intake: former Patient Tobacco Use Status: Never used Tobacco e-Cigarette/Vaping Use: Never Used Second Hand Smoke Exposure: No Substance Use Type: Former Substance User service: No Current occupational status: disabled Meds Allergies Allergy/AdvReac Type Severity Reaction Status Date / Time No Known Allergies Allergy Verified 07/14/22 08:00 Active Medications: Current Medications Acetaminophen (Acetaminophen 325 Mg Tablet) 650 mg PO Q6H PRN PRN Reason: Pain, Mild (Pain Scale 1-3) Last Admin: 08/19/22 12:56 Dose: 650 mg Amlodipine Besylate (Amlodipine Besylate 5 Mg Tablet) 5 mg PO DAILY [facility]; Protocol Last Admin: 08/20/22 08:14 Dose: 5 mg Calcium Carbonate (Calcium Carbonate 750 Mg Tab.Chew) 750 mg PO Q6H PRN PRN Reason: heartburn Last Admin: 08/17/22 20:50 Dose: 750 mg Docusate Sodium (Docusate Sodium 100 Mg Capsule) 100 mg PO DAILY PRN PRN Reason: Constipation Melatonin (Melatonin 3 Mg Tablet) 6 mg PO BEDTIME PRN PRN Reason: Insomnia Last Admin: 08/17/22 20:50 Dose: 6 mg Methadone HCl (Methadone Hcl 20 Mg/2 Ml Oral.Conc) 28 mg PO DAILY [facility] Last Admin: 08/20/22 08:14 Dose: 28 mg Omeprazole (Omeprazole 40 Mg Capsule.Dr) 40 mg PO DAILY@0630 [facility] Last Admin: 08/20/22 05:52 Dose: 40 mg Ondansetron HCl (Ondansetron Hcl 4 Mg/2 Ml Vial) 4 mg IVPUSH Q8H PRN PRN Reason: Nausea and Vomiting Last Admin: 08/19/22 13:15 Dose: 4 mg Pharmacy Consult (Consult Rx Perform Med Rec) 1 each MISCELLANE ONCE PRN PRN Reason: Consult order Polyethylene Glycol (Polyethylene Glycol 3350 17 Gm Powd.Pack) 17 gm PO DAILY [facility] Last Admin: 08/20/22 08:14 Dose: 17 gm Propranolol HCl (Propranolol Hcl 40 Mg Tablet) 40 mg PO BID [facility]; Protocol Last Admin: 08/20/22 19:56 Dose: Not Given Sodium Chloride (0.9 % Sodium Chloride Flush 3 Ml Syringe) 3 ml IVFLUSH QSHIFT [facility] Last Admin: 08/20/22 19:56 Dose: 3 ml Home Medications Medication Instructions Recorded Confirmed Last Taken Type furosemide 40 mg tablet (Lasix) 40 mg PO DAILY 11/13/19 08/05/22 Unknown History spironolactone 25 mg tablet 12.5 mg PO DAILY 11/13/19 08/05/22 Unknown History (Aldactone) propranolol 40 mg tablet 1 tab PO BID 05/01/20 08/05/22 Unknown History naloxone 4 mg/actuation nasal spray 0 spray intranasal USEASDIRECTD 01/19/22 08/05/22 Unknown History omeprazole 40 mg capsule,delayed 40 mg PO DAILY 01/19/22 08/05/22 Unknown History release methadone 10 mg/mL oral 28 mg PO DAILY 08/06/22 08/06/22 08/02/22 History concentrate (Methadone Intensol) Physical Exam Vital Signs: Vital Signs: Last Vital Signs Temp 97.8 F 08/20/22 19:45 Pulse 69 08/20/22 19:45 Resp 17 08/20/22 19:45 BP 104/56 L 08/20/22 19:45 Pulse Ox 92 08/20/22 19:45 O2 Del Method Room Air 08/20/22 19:45 O2 Flow Rate 96 08/10/22 16:00 BMI result Body Mass Index 48.3 Const: General: cooperative, healthy appearing, comfortable and no acute distress Orientation/consciousness: patient oriented x3 HEENT: Face and sinus: Yes normal facial exam Mouth: moist mucous membranes Neck: Neck: Yes normal visual inspection, Yes full ROM and Yes trachea midline Chest: Chest palpation & inspection: normal inspection of the chest Resp: Effort & Inspection: normal respiratory effort, able to speak in complete sentences and no respiratory distress GI: Inspection: Yes normal to inspection Back/Spine/Pelvis: Cervical Spine: normal cervical lordosis Thoracic/Lumbar Spine: thoracic and lumbar spine normal to inspection Skin: General skin exam: no rashes or lesions noted Neuro: General: patient oriented x3, tone normal and moves all extremities Extrem: General: Yes normal to inspection and Yes capillary refill normal Results Labs 08/20/22 08:23 08/20/22 08:23 Labs: Abnormal lab results 08/20/22 08/20/22 Range/Units 08:23 08:23 WBC 14.8 H (4.8-10.8) X10*3/uL RBC 4.31 L (4.60-5.80) X10*6/uL Hgb 12.2 L (14.0-18.0) g/dl Hct 36.9 L (42.0-52.0) % Plt Count 132 L (160-400) X10*3/uL Sodium 130 L (135-145) mmol/L Potassium 5.2 H (3.3-5.1) mmol/L Chloride 91 L (96-108) mmol/L Carbon Dioxide 19 L (22-29) mmol/L Anion Gap 25 H (12-20) BUN 85 H (9-16) mg/dL Creatinine 10.65 H* (0.5-1.4) mg/dL Short CBC 08/20/22 Range/Units 08:23 WBC 14.8 H (4.8-10.8) X10*3/uL Hgb 12.2 L (14.0-18.0) g/dl Hct 36.9 L (42.0-52.0) % Plt Count 132 L (160-400) X10*3/uL BMP 08/20/22 08:23 Sodium 130 L Potassium 5.2 H Chloride 91 L Carbon Dioxide 19 L BUN 85 H Creatinine 10.65 H* Calcium 10.2 Urine 08/05/22 08/19/22 Range/Units 18:02 15:23 Urine Color Other A RED Urine Appearance Hazy Turbid Urine pH 6.5 7.5 (5.0-9.0) Ur Specific [place] 1.010 1.020 (1.005-1.025) Urine Protein 300 (3+) H 300 (3+) H (Neg-Trace) mg/dL Urine Glucose (UA) Negative 100 H (Negative) mg/dL All other labs normal. Assessment and Plan (1) Hematuria: Status: Acute Plan Conservative therapy Time Spent With Patient Time: Total time managing care of this patient today ____ minutes. Procedures Date of Service Date of Service: 08/20/22
[2022-08-21 03:46] VITALS: BP 114/55; PULSE 71; RESP 17; TEMP 36.2; O2SAT 94
[2022-08-21] MEDS: Omeprazole 40 MG CAPSULE.DR PO (05:49)
[2022-08-21 07:30] VITALS: BP 104/52; PULSE 75; RESP 16; TEMP 36; O2SAT 95
[2022-08-21] MEDS: methADONE HCl 20 MG/2 ML ORAL.CONC 28 MG PO (07:35)
[2022-08-21] MEDS: polyethylene glycoL 3350 17 GM POWD.PACK PO (07:36)
[2022-08-21] MEDS: 0.9 % Sodium Chloride Flush 3 ML SYRINGE IVFLUSH ×3 (07:36→19:33)
--- NOTE | 2022-08-21 09:19 | P.PNIM_ITS ---
Subjective Subjective Date of Service: 08/21/22 Interval History: LUIS MIGUEL,hematuria Review of Systems hematuria improving no abd pain or nausea or vomiting Physical Exam Vital Signs: Vital Signs: Last Vital Signs Temp 96.8 F 08/21/22 07:30 Pulse 75 08/21/22 07:30 Resp 16 08/21/22 07:30 BP 104/52 L 08/21/22 07:30 Pulse Ox 95 08/21/22 07:30 O2 Del Method Room Air 08/21/22 07:30 O2 Flow Rate 96 08/10/22 16:00 BMI result Body Mass Index 48.3 General: AO X 3, no acute distress Resp:? CTA bilateral CVS: S1,S2,RRR--abhi leg edema GI: +BS, NT, no distention Skin: No rash Neuro:? motor grossly intact Psych: appropriate affect Objective Data Active Medications Acetaminophen (Acetaminophen 325 Mg Tablet) 650 mg PO Q6H PRN PRN Reason: Pain, Mild (Pain Scale 1-3) Last Admin: 08/19/22 12:56 Dose: 650 mg Documented By: THEO Amlodipine Besylate (Amlodipine Besylate 5 Mg Tablet) 5 mg PO DAILY [facility]; Protocol Last Admin: 08/20/22 08:14 Dose: 5 mg Documented By: THEO Calcium Carbonate (Calcium Carbonate 750 Mg Tab.Chew) 750 mg PO Q6H PRN PRN Reason: heartburn Last Admin: 08/17/22 20:50 Dose: 750 mg Documented By: ARA Docusate Sodium (Docusate Sodium 100 Mg Capsule) 100 mg PO DAILY PRN PRN Reason: Constipation Melatonin (Melatonin 3 Mg Tablet) 6 mg PO BEDTIME PRN PRN Reason: Insomnia Last Admin: 08/17/22 20:50 Dose: 6 mg Documented By: ARA Methadone HCl (Methadone Hcl 20 Mg/2 Ml Oral.Conc) 28 mg PO DAILY [facility] Last Admin: 08/21/22 07:35 Dose: 28 mg Documented By: ENOC Omeprazole (Omeprazole 40 Mg Capsule.Dr) 40 mg PO DAILY@0630 [facility] Last Admin: 08/21/22 05:49 Dose: 40 mg Documented By: GENARO Ondansetron HCl (Ondansetron Hcl 4 Mg/2 Ml Vial) 4 mg IVPUSH Q8H PRN PRN Reason: Nausea and Vomiting Last Admin: 08/19/22 13:15 Dose: 4 mg Documented By: JOSE Pharmacy Consult (Consult Rx Perform Med Rec) 1 each MISCELLANE ONCE PRN PRN Reason: Consult order Polyethylene Glycol (Polyethylene Glycol 3350 17 Gm Powd.Pack) 17 gm PO DAILY [facility] Last Admin: 08/21/22 07:36 Dose: 17 gm Documented By: ENOC Propranolol HCl (Propranolol Hcl 40 Mg Tablet) 40 mg PO BID [facility]; Protocol Last Admin: 08/20/22 19:56 Dose: Not Given Documented By: GENARO Non-Admin Reason: Decreased Blood Pressure Sodium Chloride (0.9 % Sodium Chloride Flush 3 Ml Syringe) 3 ml IVFLUSH QSHIFT [facility] Last Admin: 08/21/22 07:36 Dose: 3 ml Documented By: ENOC Labs 08/20/22 08:23 08/20/22 08:23 Assessment and Plan (1) Hematuria: Status: Acute (2) LUIS MIGUEL (acute kidney injury): Status: Acute (3) Acute renal failure: Status: Acute Plan 67-year-old male with hx of HTN, opioid use comes in to the hospital with abd pain found to have LUIS MIGUEL ?Acute kidney failure, rapidly progressing with high K- DDx: pre renal, hepato renal, ATN. Ongoing work up by Nephrology. PermCath 08/10 and to started Homodialysis (HD) 08/11, 2nd HD 08/14,? kidney Bx on? 08/14( was not sufficient specimen),repeat renal biopsy 08/18/22. has hematuria today-repeated h/h stable added ct abd -in view of s/p renal biopsy/has hematuria need HD,need Hd spot setup. d/w nephro-biopsy specimen is not sufficient -recomendation for repeat biopsy. HypERkalemia: d/t renal failure being managed lokelma given yesterday getting HD today ?Abdominal pain- resolved, CT cirrhosis, no acute finding ?hypertension- Propranolol, no Aldactone d/t high K. hold NOrvasc due to boderline bp. hx Liver cirrhosis : no acute issues, Lasix and Aldactone on hold d/t renal failure Opioid use disorder- continue methadone urine positive for Fentanyl-?unclear Pancytopenia Related to underlying liver disease and CKD continue to moniter cbc continue iron supplementation. Morbid obesity:? Encouraged to lose weight. Hyponatremia : possibly dilutional due to [place]. Superficial ulcer lateral aspect right lower leg with granulating bed.? In no periwound erythema. wound care. ct abd noted-Small right perinephric hematoma? s/p biopsy h/h stable,patient denies any abd pain d/w radiology yesterday-no new intervention h/h stable , no abd pain DVT prophylaxis early ambulation, chemoprophylaxis contraindicated due to thrombocytopenia/anemia onging inpatient need : LUIS MIGUEL -need HD,awaiting repeat kidney biopsy for luis miguel workup as well as hematuria workup,need Hd spot setup Time Spent With Patient Time: Total time managing care of this patient today ____ minutes. Quality Stroke Does the patient have a stroke diagnosis?: No VTE Prior VTE?: No VTE Risk Level:: Medical - moderate - high VTE Device Contraindication: Treatment Not Indicated VTE Drug Contraindication: N/A - Med Ordered
[2022-08-21 09:45] LABS: Hematocrit 35.3 % (42.0-52.0); Hemoglobin 11.8 g/dl (14.0-18.0)
--- NOTE | 2022-08-21 11:47 | PM.PNNEP ---
Subjective Subjective Date of Service: 08/21/22 Principal diagnosis: LUIS MIGUEL Interval history: seen and examined on dialysis no complaints Physical Exam Vital Signs: Vital Signs: Last Vital Signs Temp 96.8 F 08/21/22 07:30 Pulse 75 08/21/22 07:30 Resp 16 08/21/22 07:30 BP 104/52 L 08/21/22 07:30 Pulse Ox 95 08/21/22 07:30 O2 Del Method Room Air 08/21/22 07:30 O2 Flow Rate 96 08/10/22 16:00 BMI result Body Mass Index 48.3 Const: Other: General: AO X 3, no acute distress Resp: CTA bilateral CVS: S1,S2,RRR--abhi leg edema GI: +BS, NT, no distention Skin: No rash Neuro: motor grossly intact Psych: appropriate affect General: cooperative, healthy appearing, comfortable, no acute distress, alert and awake Nutritional Appearance: well nourished Orientation/consciousness: patient oriented x3 HEENT: Head: Yes normocephalic and Yes atraumatic Face and sinus: Yes normal facial exam Mouth: moist mucous membranes Eyes: General: appearance normal, both eyes and all related structures Eyelids: Yes eyelids normal Conjunctivae: conjunctivae normal Sclerae: sclerae normal Corneas: corneas normal Pupils: Equal, round and reactive pupils present EOM: EOMs intact bilaterally Neck: Neck: Yes normal visual inspection, Yes full ROM, Yes trachea midline and Yes supple Chest: Chest palpation & inspection: normal inspection of the chest Resp: Effort & Inspection: normal respiratory effort, able to speak in complete sentences, no audible wheezes, not labored and no respiratory distress Auscultation: clear to auscultation bilaterally and diminished lung sounds Cardio: Rate: regular rate Rhythm: regular rhythm Heart sounds: S1 normal heart sound present and S2 normal heart sound present GI: Other: Abdomen is soft, nontender, no rebound or guarding Inspection: Yes normal to inspection and Yes obesity Palpation (GI): Soft to palpation, not firm, nontender, no guarding and not rigid Auscultation: normal bowel sounds Back/Spine/Pelvis: Cervical Spine: normal cervical lordosis Thoracic/Lumbar Spine: thoracic and lumbar spine normal to inspection Skin: Other: Superficial ulcer lateral aspect right lower leg with granulating bed. In no periwound erythema. General skin exam: no rashes or lesions noted Neuro: General: patient oriented x3, tone normal and moves all extremities Cranial nerves: Yes CN's II-XII intact bilaterally, Yes Equal, round and reactive pupils present and Yes Bilaterally intact EOM present Cognition (Neuro): normal cognition Extrem: Other: Moving all extremities well without any obvious deformities General: Yes normal to inspection, Yes capillary refill normal and Yes no pedal edema Right upper extremity: edema Objective Data Labs 08/21/22 09:38 08/20/22 08:23 Labs: Laboratory Results - last 24 hr 08/21/22 09:38 Hgb 11.8 L Hct 35.3 L Microbiology Microbiology Results: Microbiology 08/05/22 18:33 Blood - Venous Blood Culture - Final No growth after 5 days. 08/05/22 18:21 Blood - Venous Blood Culture - Final No growth after 5 days. Procedures Date of Service Date of Service: 08/21/22 Assessment & Plan Assessment and plan (1) LUIS MIGUEL (acute kidney injury): Status: Acute Plan s/p second kidney biopsy last Sunday right perinephric hematoma along the lower pole of the right kidney noted LUIS MIGUEL HD dependent acute tubular injury versus other microscocpic hematuria with proteinuria ( ~ 2 g) nomral complement level MPO and PR3 Ab negative s/p kidney biopsy on 08/14 (inadequate tissue and path at [facility]) known liver cirrhosis REC HD today optimize volume status follow h/h sodium zirconium as needed follow kidney biopsy result monitor urine output follow kidney function and electrolytes outpatient HD at [facility] arranged ([facility] 1st shift) Time Spent With Patient Time: Total time managing care of this patient today ____ minutes. Progress Note: Quality Stroke Does the patient have a stroke diagnosis?: No
[2022-08-21] MEDS: Acetaminophen 325 MG TABLET 650 MG PO ×2 (12:27→19:30)
--- NOTE | 2022-08-21 14:56 | MHC.CM.PN ---
Addendum entered by Thuy Hagan 08/21/22 15:00: THIS CM SPOKE WITH ROLAND AT [facility] AND UPDATED. Original Note: EMR REVIEWED AND PER MD ROUNDS, PT IS NOT MEDICALLY CLEARED FOR DC (NEEDS REPEAT BIOPSY, HEMATURIA) PER NEPHRO, HD HAS BEEN ARRANGED FOR OP AT [facility] FOR 1 ST SHIFT M-W-. CM WILL CONTINUE TO FOLLOW FOR DC NEEDS/PLAN
[2022-08-21 15:52] VITALS: BP 91/51; PULSE 83; RESP 20; TEMP 36.6; O2SAT 94
--- NOTE | 2022-08-21 19:20 | PC.NURSE ---
Pt with dialysis treatment today. dressing changed to Right lower leg. Tolerated well. Sitting up in recliner
[2022-08-21 20:00] VITALS: BP 104/57; PULSE 80; RESP 20; TEMP 36.4; O2SAT 97
[2022-08-22 01:07] VITALS: BP 113/55; PULSE 77; RESP 18; TEMP 36.1; O2SAT 94
[2022-08-22] MEDS: Omeprazole 40 MG CAPSULE.DR PO (06:28)
[2022-08-22 06:44] LABS: Hematocrit 34.6 % (42.0-52.0); Hemoglobin 11.3 g/dl (14.0-18.0); Mean Corpuscular HGB Conc 32.7 g/dl (31.0-36.0); Mean Corpuscular Hemoglobin 27.9 pg (27.0-33.0); Mean Corpuscular Volume 85.4 fL (80.0-98.0); Mean Platelet Volume 11.7 fL (9.4-12.4); Platelet Count 104 X10*3/uL (160-400); Red Blood Count 4.05 X10*6/uL (4.60-5.80); Red Cell Distribution Width 13.5 % (11.0-16.0); White Blood Count 10.7 X10*3/uL (4.8-10.8)
[2022-08-22 06:55] LABS: Anion Gap 19 (12-20); Blood Urea Nitrogen 56 mg/dL (9-16); Calcium 9.7 mg/dL (8.4-10.2); Carbon Dioxide 23 mmol/L (22-29); Chloride 93 mmol/L (96-108); Creatinine Clr Calc Pharmacy 13.6; Estimated Glomerular Filt Rate 6; Glucose Random 86 mg/dL (60-115); Potassium 4.6 mmol/L (3.3-5.1); Sodium 130 mmol/L (135-145)
[2022-08-22 07:56] VITALS: BP 123/58; PULSE 77; RESP 17; TEMP 36.5; O2SAT 95
[2022-08-22] MEDS: Propranolol HCL 40 MG TABLET PO (08:11)
[2022-08-22] MEDS: methADONE HCl 20 MG/2 ML ORAL.CONC 28 MG PO (08:11)
[2022-08-22] MEDS: polyethylene glycoL 3350 17 GM POWD.PACK PO (08:11)
[2022-08-22] MEDS: 0.9 % Sodium Chloride Flush 3 ML SYRINGE IVFLUSH ×3 (08:12→23:00)
[2022-08-22] MEDS: ondansetron HCL 4 MG/2 ML VIAL IVPUSH (08:16)
--- NOTE | 2022-08-22 08:52 | P.PNIM_ITS ---
Subjective Subjective Date of Service: 08/22/22 Interval History: CKD that has progressed to ESRD and has started dialysis Review of Systems no new issues Physical Exam Vital Signs: Vital Signs: Last Vital Signs Temp 97.7 F 08/22/22 07:56 Pulse 77 08/22/22 07:56 Resp 17 08/22/22 07:56 BP 123/58 L 08/22/22 07:56 Pulse Ox 95 08/22/22 07:56 O2 Del Method Room Air 08/22/22 07:56 O2 Flow Rate 96 08/10/22 16:00 BMI result Body Mass Index 48.3 Const: Other: General: AO X 3, no acute distress Resp: CTA bilateral CVS: S1,S2,RRR--abhi leg edema GI: +BS, NT, no distention Skin: No rash Neuro: motor grossly intact Psych: appropriate affect Objective Data Active Medications Acetaminophen (Acetaminophen 325 Mg Tablet) 650 mg PO Q6H PRN PRN Reason: Pain, Mild (Pain Scale 1-3) Last Admin: 08/21/22 19:30 Dose: 650 mg Documented By: GENARO Calcium Carbonate (Calcium Carbonate 750 Mg Tab.Chew) 750 mg PO Q6H PRN PRN Reason: heartburn Last Admin: 08/17/22 20:50 Dose: 750 mg Documented By: ARA Docusate Sodium (Docusate Sodium 100 Mg Capsule) 100 mg PO DAILY PRN PRN Reason: Constipation Melatonin (Melatonin 3 Mg Tablet) 6 mg PO BEDTIME PRN PRN Reason: Insomnia Last Admin: 08/17/22 20:50 Dose: 6 mg Documented By: ARA Methadone HCl (Methadone Hcl 20 Mg/2 Ml Oral.Conc) 28 mg PO DAILY [facility] Last Admin: 08/22/22 08:11 Dose: 28 mg Documented By: CAIT Omeprazole (Omeprazole 40 Mg Capsule.Dr) 40 mg PO DAILY@0630 [facility] Last Admin: 08/22/22 06:28 Dose: 40 mg Documented By: GENARO Ondansetron HCl (Ondansetron Hcl 4 Mg/2 Ml Vial) 4 mg IVPUSH Q8H PRN PRN Reason: Nausea and Vomiting Last Admin: 08/22/22 08:16 Dose: 4 mg Documented By: CAIT Pharmacy Consult (Consult Rx Perform Med Rec) 1 each MISCELLANE ONCE PRN PRN Reason: Consult order Polyethylene Glycol (Polyethylene Glycol 3350 17 Gm Powd.Pack) 17 gm PO DAILY [facility] Last Admin: 08/22/22 08:11 Dose: 17 gm Documented By: CAIT Propranolol HCl (Propranolol Hcl 40 Mg Tablet) 40 mg PO BID [facility]; Protocol Last Admin: 08/22/22 08:11 Dose: 40 mg Documented By: CAIT Sodium Chloride (0.9 % Sodium Chloride Flush 3 Ml Syringe) 3 ml IVFLUSH QSHIFT [facility] Last Admin: 08/22/22 08:12 Dose: 3 ml Documented By: CAIT Labs 08/22/22 05:45 08/22/22 05:45 Labs: Laboratory Results - last 24 hr 08/22/22 08/22/22 05:45 05:45 MCV 85.4 MCH 27.9 MCHC 32.7 RDW 13.5 Plt Count 104 L MPV 11.7 Absolute Nucleated RBC 0.000 Nucleated RBC % (auto) 0.0 Anion Gap 19 Estim Creat Clear Calc 13.6 Estimated GFR 6 Random Glucose 86 Calcium 9.7 Assessment and Plan (1) Hematuria: Status: Acute (2) LUIS MIGUEL (acute kidney injury): Status: Acute (3) Acute renal failure: Status: Acute Plan 67-year-old male with hx of HTN, opioid use comes in to the hospital with abd pain found to have LUIS MIGUEL ?Acute kidney failure, rapidly progressing with high K- DDx: pre renal, hepato renal, ATN. Ongoing work up by Nephrology. PermCath 08/10 and started Homodialysis (HD) 08/11, 2nd HD 08/14,? kidney Bx on? 08/14( was not sufficient specimen),repeat renal biopsy 08/18/22 result pending. Hematuria on 08/19 but H/H stable, likely from hematoma related to Bx Needs outpatient dialysis spot HypERkalemia: d/t renal failure being managed lokelma as needed, K normal ?Abdominal pain- resolved, CT cirrhosis, no acute finding ?hypertension- Propranolol, no Aldactone d/t high K. hold NOrvasc due to boderline bp. hx Liver cirrhosis : no acute issues, Lasix and Aldactone on hold d/t renal failure Opioid use disorder- continue methadone urine positive for Fentanyl-?unclear Pancytopenia Related to underlying liver disease and CKD continue to moniter cbc continue iron supplementation. Morbid obesity:? Encouraged to lose weight. Hyponatremia : possibly dilutional due to [place] ESR[place]. Superficial ulcer lateral aspect right lower leg with granulating bed.? In no periwound erythema. wound care. ct abd noted-Small right perinephric hematoma? s/p biopsy h/h stable,patient denies any abd pain d/w radiology -no new intervention h/h stable , no abd pain DVT prophylaxis early ambulation, chemoprophylaxis contraindicated due to thrombocytopenia/anemia onging inpatient need : LUIS MIGUEL -need HD,awaiting repeat kidney biopsy for luis miguel workup as well as hematuria workup,need Hd spot setup Time Spent With Patient Time: Total time managing care of this patient today ____ minutes. Quality Stroke Does the patient have a stroke diagnosis?: No VTE Prior VTE?: No VTE Risk Level:: Medical - moderate - high VTE Device Contraindication: Treatment Not Indicated VTE Drug Contraindication: N/A - Med Ordered
--- NOTE | 2022-08-22 11:23 | P.PNNP_ITS ---
Subjective Subjective Date of Service: 08/22/22 Principal diagnosis: LUIS MIGUEL Interval history: seen and examined had HD yesterday no complaints Physical Exam Vital Signs: Vital Signs: Last Vital Signs Temp 97.7 F 08/22/22 07:56 Pulse 77 08/22/22 07:56 Resp 17 08/22/22 07:56 BP 123/58 L 08/22/22 07:56 Pulse Ox 95 08/22/22 07:56 O2 Del Method Room Air 08/22/22 07:56 O2 Flow Rate 96 08/10/22 16:00 BMI result Body Mass Index 48.3 Const: Other: General: AO X 3, no acute distress Resp: CTA bilateral CVS: S1,S2,RRR--abhi leg edema GI: +BS, NT, no distention Skin: No rash Neuro: motor grossly intact Psych: appropriate affect General: cooperative, healthy appearing, comfortable, no acute distress, alert and awake Nutritional Appearance: well nourished Orientation/ consciousness: patient oriented x3 HEENT: Head: Yes normocephalic and Yes atraumatic Face and sinus: Yes no rmal facial exam Mouth: moist mucous membranes Eyes: General: appearance normal, both eyes and all related structures Eyelids: Yes eyelids normal Conjunctivae: conjunctivae normal Sclerae: sclerae normal Corneas: corneas normal Pupils: Equal, round and reactive pupils present EOM: EOMs intact bilaterally Neck: Neck: Yes normal visual inspection, Yes full ROM, Yes trachea midline and Yes supple Chest: Chest palpation & inspection: normal inspection of the chest Resp: Effort & Inspection: normal respiratory effort, able to speak in complete sentences, no audible wheezes, not labored and no respiratory distress Auscultation: clear to auscultation bilaterally and diminished lung sounds Cardio: Rate: regular rate Rhythm: regular rhythm Heart sounds: S1 no rmal heart sound present and S2 normal heart sound present GI: Other: Abdomen is soft, nontender, no rebound or guarding Inspection: Yes normal to inspection and Yes obesity Palpation (GI): Soft to palpation, not firm, nontender, no guarding and not rigid Auscultation: normal bowel sounds Back/Spine/Pelvis: Cervical Spine: normal cervical lordosis Thoracic/Lumbar Spine: thoracic and lumbar spine normal to inspection Skin: Other: Superficial ulcer lateral aspect right lower leg with granulating bed. In no periwound erythema. General skin exam: no rashes or lesions noted Neuro: General: patient oriented x3, tone normal and moves all extremities Cranial nerves: Yes CN's II-XII intact bilaterally, Yes Equal, round and reactive pupils present and Yes Bilaterally intact EOM present Cognition (Neuro): normal cognition Extrem: Other: Moving all extremities well without any obvious deformities General: Yes normal to inspection, Yes capillary refill normal and Yes no pedal edema Right upper extremity: edema Objective Data Labs 08/22/22 05:45 08/22/22 05:45 Labs: Laboratory Results - last 24 hr 08/22/22 08/22/22 05:45 05:45 WBC 10.7 RBC 4.05 L Hgb 11.3 L Hct 34.6 L MCV 85.4 MCH 27.9 MCHC 32.7 RDW 13.5 Plt Count 104 L MPV 11.7 Absolute Nucleated RBC 0.000 Nucleated RBC % (auto) 0.0 Sodium 130 L Potassium 4.6 Chloride 93 L Carbon Dioxide 23 Anion Gap 19 BUN 56 H Creatinine 8.52 H* Estim Creat Clear Calc 13.6 Estimated GFR 6 Random Glucose 86 Calcium 9.7 Microbiology Microbiology Results: Microbiology 08/05/22 18:33 Blood - Venous Blood Culture - Final No growth after 5 days. 08/05/22 18:21 Blood - Venous Blood Culture - Final No growth after 5 days. Procedures Date of Service Date of Service: 08/22/22 Assessment & Plan Assessment and plan (1) LUIS MIGUEL (acute kidney injury): Status: Acute Plan s/p HD yesterday s/p second kidney biopsy last Sunday right perinephric hematoma along the lower pole of the right kidney noted LUIS MIGUEL HD dependent acute tubular injury versus other microscocpic hematuria with proteinuria ( ~ 2 g) nomral complement level MPO and PR3 Ab negative s/p kidney biopsy on 08/14 (inadequate tissue and path at [facility] [place] [facility] [place] known liver cirrhosis REC HD tomorrow follow h/h follow kidney biopsy result monitor urine output follow kidney function and electrolytes outpatient HD at [facility] arranged ([facility] 1st shift) Time Spent With Patient Time: Total time managing care of this patient today ____ minutes. Progress Note: Quality Stroke Does the patient have a stroke diagnosis?: No
--- NOTE | 2022-08-22 13:41 | MHC.CM.PN ---
CM MET WITH PT AND CLIENT ANALYST. PT STATES HE HAS A CAR TO GET BACK AND FORTH TO HD AND ALSO HAS FAMILY WHO CAN TRANSPORT IF NEEDED. CM WILL CONTINUE TO FOLLOW.
[2022-08-22] MEDS: Acetaminophen 325 MG TABLET 650 MG PO (14:09)
[2022-08-22 15:37] VITALS: BP 90/53; PULSE 64; RESP 20; TEMP 36.6; O2SAT 95
[2022-08-22 17:05] VITALS: BP 100/55
[2022-08-22 20:00] VITALS: BP 102/59; PULSE 62; RESP 20; TEMP 36.4; O2SAT 97
[2022-08-22 22:57] VITALS: BP 101/52; PULSE 60
[2022-08-23 04:00] VITALS: BP 95/50; PULSE 64; RESP 19; TEMP 36.6; O2SAT 91
[2022-08-23] MEDS: Omeprazole 40 MG CAPSULE.DR PO (06:35)
[2022-08-23 07:44] VITALS: BP 111/56; PULSE 66; RESP 18; TEMP 36.6; O2SAT 95
[2022-08-23] MEDS: methADONE HCl 20 MG/2 ML ORAL.CONC 28 MG PO (08:09)
[2022-08-23] MEDS: polyethylene glycoL 3350 17 GM POWD.PACK PO (08:09)
[2022-08-23] MEDS: Propranolol HCL 40 MG TABLET PO (08:10)
[2022-08-23] MEDS: 0.9 % Sodium Chloride Flush 3 ML SYRINGE IVFLUSH (08:10)
--- NOTE | 2022-08-23 09:05 | HO.PM.IMPN ---
Subjective Subjective Date of Service: 08/23/22 Interval History: CKD that has progressed to ESRD and has started dialysi, no new issues Review of Systems no new issues Physical Exam Vital Signs: Vital Signs: Last Vital Signs Temp 97.9 F 08/23/22 07:44 Pulse 66 08/23/22 07:44 Resp 18 08/23/22 07:44 BP 111/56 L 08/23/22 07:44 Pulse Ox 95 08/23/22 07:44 O2 Del Method Room Air 08/23/22 07:44 O2 Flow Rate 96 08/10/22 16:00 BMI result Body Mass Index 48.3 Const: Other: General: AO X 3, no acute distress Resp: CTA bilateral CVS: S1,S2,RRR--abhi leg edema GI: +BS, NT, no distention Skin: No rash Neuro: motor grossly intact Psych: appropriate affect Objective Data Active Medications Acetaminophen (Acetaminophen 325 Mg Tablet) 650 mg PO Q6H PRN PRN Reason: Pain, Mild (Pain Scale 1-3) Last Admin: 08/22/22 14:09 Dose: 650 mg Documented By: CAIT Calcium Carbonate (Calcium Carbonate 750 Mg Tab.Chew) 750 mg PO Q6H PRN PRN Reason: heartburn Last Admin: 08/17/22 20:50 Dose: 750 mg Documented By: ARA Docusate Sodium (Docusate Sodium 100 Mg Capsule) 100 mg PO DAILY PRN PRN Reason: Constipation Melatonin (Melatonin 3 Mg Tablet) 6 mg PO BEDTIME PRN PRN Reason: Insomnia Last Admin: 08/17/22 20:50 Dose: 6 mg Documented By: ARA Methadone HCl (Methadone Hcl 20 Mg/2 Ml Oral.Conc) 28 mg PO DAILY [facility] Last Admin: 08/23/22 08:09 Dose: 28 mg Documented By: CAIT Omeprazole (Omeprazole 40 Mg Capsule.Dr) 40 mg PO DAILY@0630 [facility] Last Admin: 08/23/22 06:35 Dose: 40 mg Documented By: DHEERAJ Ondansetron HCl (Ondansetron Hcl 4 Mg/2 Ml Vial) 4 mg IVPUSH Q8H PRN PRN Reason: Nausea and Vomiting Last Admin: 08/22/22 08:16 Dose: 4 mg Documented By: CAIT Pharmacy Consult (Consult Rx Perform Med Rec) 1 each MISCELLANE ONCE PRN PRN Reason: Consult order Polyethylene Glycol (Polyethylene Glycol 3350 17 Gm Powd.Pack) 17 gm PO DAILY [facility] Last Admin: 08/23/22 08:09 Dose: 17 gm Documented By: CAIT Propranolol HCl (Propranolol Hcl 40 Mg Tablet) 40 mg PO BID [facility]; Protocol Last Admin: 08/23/22 08:10 Dose: 40 mg Documented By: CAIT Sodium Chloride (0.9 % Sodium Chloride Flush 3 Ml Syringe) 3 ml IVFLUSH QSHIFT [facility] Last Admin: 08/23/22 08:10 Dose: 3 ml Documented By: CAIT Labs 08/22/22 05:45 08/22/22 05:45 Assessment and Plan (1) Hematuria: Status: Acute (2) LUIS MIGUEL (acute kidney injury): Status: Acute (3) Acute renal failure: Status: Acute Plan 67-year-old male with hx of HTN, opioid use comes in to the hospital with abd pain found to have LUIS MIGUEL ?Acute kidney failure, rapidly progressing with high K- DDx: pre renal, hepato renal, ATN. Ongoing work up by Nephrology. PermCath 08/10 and started Homodialysis (HD) 08/11, 2nd HD 08/14,? kidney Bx on? 08/14( was not sufficient specimen),repeat renal biopsy 08/18/22 result pending. Hematuria on 08/19 but H/H stable, likely from hematoma related to Bx Needs outpatient dialysis spot HypERkalemia: d/t renal failure being managed lokelma as needed, K normal ?Abdominal pain- resolved, CT cirrhosis, no acute finding ?hypertension- Propranolol, no Aldactone d/t high K. hold NOrvasc due to boderline bp. hx Liver cirrhosis : no acute issues, Lasix and Aldactone on hold d/t renal failure Opioid use disorder- continue methadone urine positive for Fentanyl-?unclear Pancytopenia Related to underlying liver disease and CKD continue to moniter cbc continue iron supplementation. Morbid obesity:? Encouraged to lose weight. Hyponatremia : possibly dilutional due to [place] ESRD. Superficial ulcer lateral aspect right lower leg with granulating bed.? In no periwound erythema. wound care. ct abd noted-Small right perinephric hematoma? s/p biopsy h/h stable,patient denies any abd pain d/w radiology -no new intervention h/h stable , no abd pain DVT prophylaxis early ambulation, chemoprophylaxis contraindicated due to thrombocytopenia/anemia onging inpatient need : LUIS MIGUEL -need HD,awaiting repeat kidney biopsy for ulis miguel workup as well as hematuria workup,need Hd spot setup Time Spent With Patient Time: Total time managing care of this patient today ____ minutes. Quality Stroke Does the patient have a stroke diagnosis?: No VTE Prior VTE?: No VTE Risk Level:: Medical - moderate - high VTE Device Contraindication: Treatment Not Indicated VTE Drug Contraindication: N/A - Med Ordered
[2022-08-23] MEDS: Acetaminophen 325 MG TABLET 650 MG PO (11:24)
--- NOTE | 2022-08-23 11:45 | P.DS_ITS ---
DS: Providers Provider Date of Service: 08/23/22 Date of admission: 08/05/22 21:12 Primary care physician: Jose Arteaga MD Consults: 08/06/22 07:41 Consult to Nephrology Routine Consulting Provider: Philip Ruiz Reason for consultation: luis miguel,proteinuria Has provider been notified: No 08/07/22 10:00 Consult to Wound Care Routine Consulting Provider: Sergio Pierre Reason for consultation: leg wound 08/19/22 10:59 Consult to Urology Routine Consulting Provider: [facility] Reason for consultation: luis miguel,s/p renalbiopsy-has hematuria Has provider been notified: No DS: Diagnosis Discharge Diagnosis (1) Hematuria: Status: Resolved (2) LUIS MIGUEL (acute kidney injury): Status: Acute (3) Acute renal failure: Status: Acute DS: Summary Hospital Course Hospital Course: Date of Service: 08/05/22 Chief Complaint: Abdominal pain Emirati-speaking only, history is obtained with the help of an editor greeting card ?This is a 67-year-old male past medical history of opioid use disorder on methadone, hypertension presents the hospital with complaints of abdominal pain.? Patient reports that he has abdominal pain started 3 days ago, localized to the umbilical area as well as lower quadrant laterally, nonradiating, no associated nausea or vomiting, has no diarrhea constipation, reports decreased appetite, no chest pain, no shortness of breath, denies any urinary symptoms but states that his urine has been very concentrated, denies any lower extremity edema No fever chills.? On arrival to the ED patient hemodynamically stable with slightly elevated blood pressure Labs are significant for WBC count of 3.4, hemoglobin of 11.12, hematocrit 35.2 around his baseline Creatinine of 4.99 with a baseline of around 1.3, potassium of 5.4, BUN of 59, UA that is positive for blood, leukocyte Estrace, WBC, Noncontrast abdominal pelvic CT shows cirrhosis of the liver, splenomegaly, varices in the left upper quadrant consistent with portal hypertension, otherwise no acute abnormality in the abdomen or pelvis Patient started on IV fluids and will be admitted for further management Hospital course: The patient has known chronic kidney disease with last known creatine around 1.32 in January 2022. He presented on this occasion with abdominal pain on August 05 and found to have acute kidney failure with creatine of 4.99 with no known acute insult. Abdominal pain work up with CT showed cirrhosis othwerise no acute finding, hid potassium was also high. LUIS MIGUEL was initially treated as pre renal azotemia with IV but with no improvement, he was followed by Nepholgoy and over the course of his hospitalization, renal faunction gradually worsening and so a decision was made to insert temporarly dialysis catheter with a permacath on 08/10 and was started on dialysis the next day and continue to be routine dialysis with no recovery of renal function. He had kidney biopsy on 08/14 but insuficient sample so that it was repeated on 08/18 and sent to [facility] and result is still pending, other serological and immunological work up have not revealed the source of kidney failure. For now he will continue dialysis on Sunday and has a spot in the community and should continue following up with Nephrology HypERkalemia: d/t renal failure being managed lokelma as needed, K normal ?Abdominal pain- resolved, CT cirrhosis, no acute finding, likely from fatty liver disease ?hypertension- Propranolol, no Aldactone d/t high K. hold? NOrvasc due to boderline bp. hx Liver cirrhosis : no acute issues, Lasix and Aldactone on hold d/t renal failure Opioid use disorder- continue methadone Pancytopenia Related to underlying liver disease and CKD continue to moniter cbc continue iron supplementation. Morbid obesity:? Encouraged to lose weight. Hyponatremia : possibly dilutional due to [place] ESRD, stable Superficial ulcer lateral aspect right lower leg with granulating bed.? In no p eriwound erythema. wound care. ct abd noted-Small right perinephric hematoma? s/p biopsy h/h stable,patient denies any abd pain d/w radiology -no new intervention, H/H has been stable Time Spent with Patient Time attestation: Total time managing care of this patient today ____ minutes. Discharge coordination time: Greater than 30 minutes Quality: Safe Use of Opioids Does Pt have an Active Cancer Diagnosis on the Problem List?: No Quality: Stroke Does the patient have a stroke diagnosis?: No Physical Exam Vital Signs: Vital Signs: Last Vital Signs Temp 97.9 F 08/23/22 07:44 Pulse 66 08/23/22 07:44 Resp 18 08/23/22 07:44 BP 111/56 L 08/23/22 07:44 Pulse Ox 95 08/23/22 07:44 O2 Del Method Room Air 08/23/22 07:44 O2 Flow Rate 96 08/10/22 16:00 BMI result Body Mass Index 48.3 DS: Data Data Completed and Pending Completed studies during hospitalization [Text1]: Pending at discharge 08/14/22 11:45 Surgical Path [Surgical] [PTH] Routine 08/18/22 11:45 Surgical Path [Surgical] [PTH] Routine Discharge Plan Discharge Anticipated Discharge Date/Time: 08/23/22 12:07 Patient Disposition: Home Health Service Discharge Diagnosis: Progressive kidney failure that had led to dialysis Referrals: sean [Other] - 1 Week [facility] [Other] - 1 Week Physician,Unknown J [Physician] - 1 Week Discharge Medications: New polyethylene glycol 3350 17 gram Powder In Packet 17 g PO DAILY 30 Days Qty: 30 0RF Continued propranolol 40 mg tablet 1 tab PO BID methadone [Methadone Intensol] 10 mg/mL Concentrate 28 mg PO DAILY omeprazole 40 mg capsule,delayed release(DR/EC) 40 mg PO DAILY naloxone 4 mg/actuation spray,non-aerosol 0 spray intranasal USEASDIRECTD Discontinued furosemide [Lasix] 40 mg Tablet 40 mg PO DAILY spironolactone [Aldactone] 25 mg Tablet 12.5 mg PO DAILY Rx Instructions: half tablet by mouth daily Discharge Orders: Discharge Order (Routine); Ordered 08/23/22 Ordered By: Bipin Hatfield Diet: Diabetic diet Activity on Discharge: As tolerated Stand Alone Forms: Patient Portal Discharge page Care Plan Goals: Full work up and hope for recovery of renal failure Health Concerns: Kidney failure Plan of Treatment: Follow up with Kidney Doctor and go to Dialysis as recommended Assessment: as above Discharge Date/Time: 08/23/22 16:17
--- NOTE | 2022-08-23 12:29 | PM.PNNEP ---
Subjective Subjective Date of Service: 08/23/22 Principal diagnosis: LUIS MIGUEL Interval history: seen and examined on dialysis no complaints Physical Exam Vital Signs: Vital Signs: Last Vital Signs Temp 97.9 F 08/23/22 07:44 Pulse 66 08/23/22 07:44 Resp 18 08/23/22 07:44 BP 111/56 L 08/23/22 07:44 Pulse Ox 95 08/23/22 07:44 O2 Del Method Room Air 08/23/22 07:44 O2 Flow Rate 96 08/10/22 16:00 BMI result Body Mass Index 48.3 Const: Other: General: AO X 3, no acute distress Resp: CTA bilateral CVS: S1,S2,RRR--abhi leg edema GI: +BS, NT, no distention Skin: No rash Neuro: motor grossly intact Psych: appropriate affect General: cooperative, healthy appearing, comfortable, no acute distress, alert and awake Nutritional Appearance: well nourished Orientation/consciousness: patient oriented x3 HEENT: Head: Yes normocephalic and Yes atraumatic Face and sinus: Yes normal facial exam Mouth: moist mucous membranes Eyes: General: appearance normal, both eyes and all related structures Eyelids: Yes eyelids normal Conjunctivae: conjunctivae normal Sclerae: sclerae normal Corneas: corneas normal Pupils: Equal, round and reactive pupils present EOM: EOMs intact bilaterally Neck: Neck: Yes normal visual inspection, Yes full ROM, Yes trachea midline and Yes supple Chest: Chest palpation & inspection: normal inspection of the chest Resp: Effort & Inspection: normal respiratory effort, able to speak in complete sentences, no audible wheezes, not labored and no respiratory distress Auscultation: clear to auscultation bilaterally and diminished lung sounds Cardio: Rate: regular rate Rhythm: regular rhythm Heart sounds: S1 normal heart sound present and S2 normal heart sound present GI: Other: Abdomen is soft, nontender, no rebound or guarding Inspection: Yes normal to inspection and Yes obesity Palpation (GI): Soft to palpation, not firm, nontender, no guarding and not rigid Auscultation: normal bowel sounds Back/Spine/Pelvis: Cervical Spine: normal cervical lordosis Thoracic/Lumbar Spine: thoracic and lumbar spine normal to inspection Skin: Other: Superficial ulcer lateral aspect right lower leg with granulating bed. In no periwound erythema. General skin exam: no rashes or lesions noted Neuro: General: patient oriented x3, tone normal and moves all extremities Cranial nerves: Yes CN's II-XII intact bilaterally, Yes Equal, round and reactive pupils present and Yes Bilaterally intact EOM present Cognition (Neuro): normal cognition Extrem: Other: Moving all extremities well without any obvious deformities General: Yes normal to inspection, Yes capillary refill normal and Yes no pedal edema Right upper extremity: edema Objective Data Labs 08/22/22 05:45 08/22/22 05:45 Microbiology Microbiology Results: Microbiology 08/05/22 18:33 Blood - Venous Blood Culture - Final No growth after 5 days. 08/05/22 18:21 Blood - Venous Blood Culture - Final No growth after 5 days. Procedures Date of Service Date of Service: 08/23/22 Assessment & Plan Assessment and plan (1) LUIS MIGUEL (acute kidney injury): Status: Acute Plan s/p second kidney biopsy last Sunday right perinephric hematoma along the lower pole of the right kidney noted LUIS MIGUEL HD dependent acute tubular injury versus other microscocpic hematuria with proteinuria ( ~ 2 g) nomral complement level MPO and PR3 Ab negative s/p kidney biopsy on 08/14 (inadequate tissue and path at [facility] [place]) known liver cirrhosis REC HD today UF as tolerated follow h/h follow kidney biopsy result monitor urine output follow kidney function and electrolytes outpatient HD at [facility] arranged ([facility] 1st shift) Time Spent With Patient Time: Total time managing care of this patient today ____ minutes. Progress Note: Quality Stroke Does the patient have a stroke diagnosis?: No
[2022-08-23 14:10] VITALS: BP 111/56; PULSE 66; O2SAT 95
--- NOTE | 2022-08-23 14:27 | P.F2F_ITS ---
Service Date Service Date: 08/23/22 Encounter Date of encounter: 08/23/22 Reasons for Services Signs and symptoms assessed: weakness Reason for long-term: medication management and teach disease management Homebound: Leaving the home is medically contraindicated at this time without the asist of a device and/or another person due th the listed conditions above and below. Reason homebound: weakness related to hospital stay Homebound supporting statement: weakness with prolonged hospitalization and needs the assistance Certification: Based on the above findings, I certify that this patient is confined to the home and needs intermittent long-term care, physical therapy and/or speech therapy, or continues to need occupational therapy. The patient is under my care, and I have initiated the establishment of the plan of care. The patient will be followed by a physician who will periodically review the plan of care. Time Spent With Patient Time: Total time managing care of this patient today ____ minutes.
--- NOTE | 2022-08-24 08:42 | MHC.CM.PN ---
POST D/C NOTE, CM RECEIVED PHONE CALL FROM [facility]ILSON OF [facility] WHO PROVIDE PT W/CLOTH BLEACHING RANGE OPERATOR CHIEF HRS, PER LIAISON THEY WERE FOLLOWING UP ON D/C TO SEE IF PT NEEDED VNA SERVICES, LIAISON UPDATED THAT REZA SULLIVAN IS PROVIDING SERVICES.
== END 2022-08-23 16:17 | disposition home health service (06) | DRG 674 ==
LOC: HO.ED 18:09 → HO.EDOVER 21:18 → HO.IMC 08-06 01:20 → HO.S3 08-08 14:52
PROVIDERS: Internal Medicine; Internal Medicine Nephrology; Radiology Diagnostic Radiology; Student in an Organized Health Care Education/Training Program; Admitting Provider Internal Medicine; Emergency Provider Emergency Medicine; PCP Internal Medicine Geriatric Medicine; Visit Provider Internal Medicine
PROC: 0TB03ZX Excision of Right Kidney, Percutaneous Approach, Diagnostic (ICD-10-PCS; principal; 2022-08-14 10:00)
DX: N17.0 Acute kidney failure with tubular necrosis (principal); D61.818 Other pancytopenia; N39.0 Urinary tract infection, site not specified; F11.20 Opioid dependence, uncomplicated; Z68.42 Body mass index [BMI] 45.0-49.9, adult; K76.6 Portal hypertension; E87.1 Hypo-osmolality and hyponatremia; I12.0 Hypertensive chronic kidney disease with stage 5 chronic kidney disease or end stage renal disease; L97.811 Non-pressure chronic ulcer of other part of right lower leg limited to breakdown of skin; N18.6 End stage renal disease; K74.60 Unspecified cirrhosis of liver; I86.4 Gastric varices; R31.29 Other microscopic hematuria; Z99.2 Dependence on renal dialysis; E87.5 Hyperkalemia; E66.01 Morbid (severe) obesity due to excess calories; E86.0 Dehydration; Z86.19 Personal history of other infectious and parasitic diseases; Z71.3 Dietary counseling and surveillance; Z79.899 Other long term (current) drug therapy
CPT/HCPCS: 36415; 36558; 50200; 74176; 77012; 80048; 80053; 80076; 80307; 81001; 81003; 82550; 82947; 83010; 83605; 83615; 83735; 84132; 84156; 84300; 85014; 85018; 85025; 85027; 85610; 85730; 86021; 86060; 86160; 86704; 86706; 87040; 87340; 88300; 88305; 88313; 88346; 88348; 88350; 90999; 93005; 97162; 99152; 99285; C1750; C1769; J0696; J1170; J1643; J1650; J2270; J2405; P9047

== ENCOUNTER 2022-08-05 21:12 | Outpatient (BNV) | payer MEDICARE, MEDICAID, SELFPAY | END 2022-08-14 11:08 | PROVIDERS: Admitting Provider Internal Medicine; Emergency Provider Emergency Medicine; PCP Internal Medicine Geriatric Medicine; Visit Provider Radiology Diagnostic Radiology | DX: N17.9 Acute kidney failure, unspecified (principal) | CPT/HCPCS: 50200; 77012 ==

== ENCOUNTER 2022-08-05 21:12 | Outpatient (BNV) | payer MEDICARE, MEDICAID, SELFPAY | END 2022-08-18 10:30 | PROVIDERS: Admitting Provider Internal Medicine; Emergency Provider Emergency Medicine; PCP Internal Medicine Geriatric Medicine; Visit Provider Radiology Diagnostic Radiology | DX: N17.9 Acute kidney failure, unspecified (principal) | CPT/HCPCS: 50200 ==

== ENCOUNTER → 2022-08-05 21:12 | Outpatient (BNV) | payer MEDICARE, MEDICAID, SELFPAY | PROVIDERS: Admitting Provider Internal Medicine; Emergency Provider Emergency Medicine; PCP Internal Medicine Geriatric Medicine; Visit Provider Urology | DX: R31.9 Hematuria, unspecified (principal) | CPT/HCPCS: 99222 ==

== ENCOUNTER → 2022-08-05 21:12 | Outpatient (BNV) | payer MEDICARE, MEDICAID, SELFPAY | PROVIDERS: Admitting Provider Internal Medicine; Emergency Provider Emergency Medicine; Visit Provider Internal Medicine | DX: N17.9 Acute kidney failure, unspecified (principal); R31.9 Hematuria, unspecified | CPT/HCPCS: 99223; 99231; 99232; 99239; G0180 ==

== ENCOUNTER 2022-11-10 11:34 | Outpatient (REF) | payer MEDICARE, MEDICAID, SELFPAY ==
[2022-11-10 12:21] LABS: Basophils Percent Auto 0.8 % (0-2); Eosinophils Absolute Auto 0.1 X10*3/uL (0.0-0.4); Hematocrit 27.5 % (42.0-52.0); Imm Gran Abs Auto 0.01 X10*3/uL (0.00-0.03); Imm Gran Pct Auto 0.4 % (0.0-0.4); Lymphocytes Absolute Auto 0.5 X10*3/uL (1.2-4.9); Lymphocytes Percent Auto 22.4 % (20-40); MANUAL DIFF FLAG SCAN; Mean Corpuscular HGB Conc 32.7 g/dl (31.0-36.0); Mean Corpuscular Hemoglobin 30.8 pg (27.0-33.0); Mean Corpuscular Volume 94.2 fL (80.0-98.0); Mean Platelet Volume 11.6 fL (9.4-12.4); Monocytes Absolute Auto 0.3 X10*3/uL (0.1-1.2); Neutrophils Absolute Auto 1.5 x10*3/uL (2.0-8.3); Neutrophils Percent Auto 62.4 % (45-73); Red Blood Count 2.92 X10*6/uL (4.60-5.80); SCAN SMEAR FLAG 1
[2022-11-10 12:22] LABS: White Blood Count 2.4 X10*3/uL (4.8-10.8)
[2022-11-10 12:49] LABS: Platelet Count 49 X10*3/uL (160-400)
[2022-11-10 12:53] LABS: SLIDE REVIEW VERIFIED
[2022-11-10 14:04] LABS: Albumin Level 3.3 g/dL (3.5-5.0); Anion Gap 11 (12-20); Blood Urea Nitrogen 33 mg/dL (9-16); Calcium 8.8 mg/dL (8.4-10.2); Carbon Dioxide 22 mmol/L (22-29); Chloride 109 mmol/L (96-108); Estimated Glomerular Filt Rate 31; Ferritin 310 ng/mL (20-250); Iron 97 mcg/dL (45-160); Magnesium 1.5 mg/dL (1.6-2.6); Percent Iron Saturation 51 % (15-50); Phosphorus 3.2 mg/dL (2.7-4.5); Potassium 5.4 mmol/L (3.3-5.1); Sodium 137 mmol/L (135-145); Total Iron Binding Capacity 192 mcg/dL (228-428); Unsaturated Iron Binding 95 ug/dL; Vitamin D 25-OH Total 16.7 ng/mL (>30)
== END 2022-11-10 11:35 | disposition home or self-care (01) ==
LOC: HO.LAB 11:34
PROVIDERS: PCP Internal Medicine Geriatric Medicine; Visit Provider Internal Medicine Nephrology
DX: N18.32 Chronic kidney disease, stage 3b (principal); N28.9 Disorder of kidney and ureter, unspecified
CPT/HCPCS: 36415; 80051; 81001; 82040; 82043; 82306; 82310; 82565; 82570; 82728; 83540; 83735; 83970; 84100; 84156; 84520; 85025

== ENCOUNTER → 2022-11-15 14:36 | Outpatient (RCR) | payer MEDICARE, MEDICAID, SELFPAY | END | disposition home or self-care (01) | LOC: HO.WCC 07-01 10:48 | PROVIDERS: PCP Internal Medicine Geriatric Medicine; Visit Provider Physician Assistant | DX: I87.312 Chronic venous hypertension (idiopathic) with ulcer of left lower extremity (principal); L97.522 Non-pressure chronic ulcer of other part of left foot with fat layer exposed; L97.822 Non-pressure chronic ulcer of other part of left lower leg with fat layer exposed; L97.812 Non-pressure chronic ulcer of other part of right lower leg with fat layer exposed; I87.331 Chronic venous hypertension (idiopathic) with ulcer and inflammation of right lower extremity; I87.2 Venous insufficiency (chronic) (peripheral); I10 Essential (primary) hypertension; Z86.19 Personal history of other infectious and parasitic diseases; Z79.891 Long term (current) use of opiate analgesic | CPT/HCPCS: 11042; 11045; 17250; 29581; 97597; 97598; 99212; 99213; 99214 ==

== ENCOUNTER 2022-11-17 11:23 | Outpatient (REF) | payer MEDICARE, MEDICAID, SELFPAY ==
--- NOTE | ~2022-11-17 | IR_ITS ---
Permacath removal Patient presents with a tunneled dialysis catheter. Patient no longer requires dialysis. Referring physician requests removal. The right chest was prepped and draped in routine sterile fashion. 1% lidocaine was used for local anesthesia. Using blunt dissection, the tunneled dialysis catheter was removed from the chest wall without complication. After hemostasis was obtained, a dry sterile dressing was applied. Patient tolerated the procedure well. IR/IR cvc remove any age Impression: Permacath removal This procedure was performed by Ibrahima Merrill PA-C and supervised by Dr. Sutton
--- NOTE | 2022-11-17 12:34 | HO.RADPN ---
RADIOLOGY Narrative Narrative: Permacath Removal Indication: No longer requires access Findings/Events: Right IJ permacath removed. Pressure held until hemostasis assured. No immediate complications. Ibrahima MCMULLEN Interventional Radiology
== END 2022-11-17 11:24 | disposition home or self-care (01) ==
LOC: HO.RADIR 11:23
PROVIDERS: Visit Provider Internal Medicine Nephrology
DX: Z13.89 Encounter for screening for other disorder (principal)

== ENCOUNTER 2023-02-09 09:26 | Outpatient (REF) | payer MEDICARE, MEDICAID, SELFPAY | END 2023-02-09 09:27 | disposition home or self-care (01) | LOC: HO.LAB 09:26 | PROVIDERS: PCP Internal Medicine Geriatric Medicine; Visit Provider Internal Medicine Nephrology | DX: I10 Essential (primary) hypertension (principal); M17.0 Bilateral primary osteoarthritis of knee | CPT/HCPCS: 36415; 80051; 81001; 82040; 82043; 82306; 82310; 82565; 82570; 83735; 83970; 84100; 84156; 84520; 85025 ==

== ENCOUNTER 2023-05-02 09:27 | Outpatient (REF) | payer MEDICARE, MEDICAID, SELFPAY ==
[2023-05-02 12:03] LABS: Anion Gap 8 (12-20); Blood Urea Nitrogen 27 mg/dL (9-16); Calcium 9.1 mg/dL (8.4-10.2); Carbon Dioxide 30 mmol/L (22-29); Chloride 105 mmol/L (96-108); Estimated Glomerular Filt Rate 37; Glucose Random 93 mg/dL (60-115); Potassium 4.9 mmol/L (3.3-5.1); Sodium 138 mmol/L (135-145)
== END 2023-05-02 09:28 | disposition home or self-care (01) ==
LOC: HO.HHCL 09:27
PROVIDERS: Visit Provider Internal Medicine Geriatric Medicine
DX: N18.30 Chronic kidney disease, stage 3 unspecified (principal)
CPT/HCPCS: 36415; 80048

== ENCOUNTER 2023-08-01 10:22 | Outpatient (RCR) | payer MEDICARE, MEDICAID, SELFPAY | END 2023-12-28 14:07 | disposition home or self-care (01) | LOC: HO.WCC 10:22 | PROVIDERS: PCP Internal Medicine Geriatric Medicine; Visit Provider Physician Assistant | DX: I87.312 Chronic venous hypertension (idiopathic) with ulcer of left lower extremity (principal); L97.822 Non-pressure chronic ulcer of other part of left lower leg with fat layer exposed; I89.0 Lymphedema, not elsewhere classified; I87.2 Venous insufficiency (chronic) (peripheral); I10 Essential (primary) hypertension; E66.8 Other obesity; Z79.2 Long term (current) use of antibiotics; Z86.19 Personal history of other infectious and parasitic diseases | CPT/HCPCS: 11042; 97597 ==

== ENCOUNTER 2023-08-21 07:47 | Outpatient (REF) | payer MEDICARE, MEDICAID, SELFPAY ==
[2023-08-21 08:41] LABS: Basophils Percent Auto 0.9 % (0-2); Eosinophils Absolute Auto 0.1 X10*3/uL (0.0-0.4); Eosinophils Percent Auto 4.1 % (0-4); Hematocrit 29.9 % (42.0-52.0); Hemoglobin 9.6 g/dl (14.0-18.0); Imm Gran Abs Auto 0.01 X10*3/uL (0.00-0.03); Imm Gran Pct Auto 0.5 % (0.0-0.4); Lymphocytes Absolute Auto 0.6 X10*3/uL (1.2-4.9); Lymphocytes Percent Auto 26.6 % (20-40); MANUAL DIFF FLAG SCAN; Mean Corpuscular HGB Conc 32.1 g/dl (31.0-36.0); Mean Corpuscular Hemoglobin 29.9 pg (27.0-33.0); Mean Corpuscular Volume 93.1 fL (80.0-98.0); Mean Platelet Volume 12.3 fL (9.4-12.4); Monocytes Absolute Auto 0.3 X10*3/uL (0.1-1.2); Monocytes Percent Auto 13.8 % (2-11); Neutrophils Absolute Auto 1.2 x10*3/uL (2.0-8.3); Neutrophils Percent Auto 54.1 % (45-73); Red Blood Count 3.21 X10*6/uL (4.60-5.80); Red Cell Distribution Width 12.7 % (11.0-16.0); SCAN SMEAR FLAG 1
[2023-08-21 08:43] LABS: Platelet Count 49 X10*3/uL (160-400); White Blood Count 2.2 X10*3/uL (4.8-10.8)
[2023-08-21 09:09] LABS: SLIDE REVIEW VERIFIED
[2023-08-21 09:27] LABS: Albumin Level 3.2 g/dL (3.5-5.0); Anion Gap 12 (12-20); Blood Urea Nitrogen 36 mg/dL (9-16); Calcium 8.8 mg/dL (8.4-10.2); Carbon Dioxide 27 mmol/L (22-29); Chloride 106 mmol/L (96-108); Estimated Glomerular Filt Rate 31; Phosphorus 3.3 mg/dL (2.7-4.5); Potassium 4.7 mmol/L (3.3-5.1); Sodium 140 mmol/L (135-145); Vitamin D 25-OH Total 13.1 ng/mL (>30)
[2023-08-21 09:32] LABS: Parathyroid Hormone Intact 124.2 pg/mL (8.7-77.1)
[2023-08-21 09:52] LABS: Microalbum/Creatinine Ratio Ur 196.3 ug/mg cr (<30); Protein/Creatinine Ratio, Ur 0.32 (<0.2); Total Protein Urine Random 41 mg/dL (<12)
== END 2023-08-21 07:48 | disposition home or self-care (01) ==
LOC: HO.LAB 07:47
PROVIDERS: PCP Internal Medicine Geriatric Medicine; Visit Provider Internal Medicine Nephrology
DX: N18.32 Chronic kidney disease, stage 3b (principal)
CPT/HCPCS: 36415; 80051; 82040; 82043; 82306; 82310; 82565; 82570; 83735; 83970; 84100; 84156; 84520; 85025

== ENCOUNTER 2023-12-26 11:25 | Outpatient (REF) | payer MEDICARE, MEDICAID, SELFPAY ==
[2023-12-26 13:26] LABS: MANUAL DIFF FLAG NO
[2023-12-26 13:30] LABS: Basophils Percent Auto 1.1 % (0-2); Eosinophils Absolute Auto 0.2 X10*3/uL (0.0-0.4); Eosinophils Percent Auto 4.3 % (0-4); Hematocrit 33.2 % (42.0-52.0); Hemoglobin 10.3 g/dl (14.0-18.0); Imm Gran Abs Auto 0.01 X10*3/uL (0.00-0.03); Imm Gran Pct Auto 0.3 % (0.0-0.4); Lymphocytes Absolute Auto 0.9 X10*3/uL (1.2-4.9); Lymphocytes Percent Auto 22.7 % (20-40); Mean Corpuscular Hemoglobin 27.5 pg (27.0-33.0); Mean Corpuscular Volume 88.8 fL (80.0-98.0); Mean Platelet Volume 12.7 fL (9.4-12.4); Monocytes Absolute Auto 0.5 X10*3/uL (0.1-1.2); Monocytes Percent Auto 14.1 % (2-11); Neutrophils Absolute Auto 2.2 x10*3/uL (2.0-8.3); Neutrophils Percent Auto 57.5 % (45-73); Red Blood Count 3.74 X10*6/uL (4.60-5.80); Red Cell Distribution Width 13.4 % (11.0-16.0); White Blood Count 3.8 X10*3/uL (4.8-10.8)
[2023-12-26 13:31] LABS: Platelet Count 81 X10*3/uL (160-400)
[2023-12-26 13:56] LABS: Microalbum/Creatinine Ratio Ur 379.2 ug/mg cr (<30)
[2023-12-26 13:59] LABS: Alanine Aminotransferase 8 U/L (0-40); Albumin Level 3.3 g/dL (3.5-5.0); Alkaline Phosphatase 90 U/L (39-117); Anion Gap 7 (12-20); Aspartate Amino Transferase 24 U/L (5-37); Bilirubin Total 0.5 mg/dL (0.0-1.0); Blood Urea Nitrogen 35 mg/dL (9-16); Calcium 8.4 mg/dL (8.4-10.2); Carbon Dioxide 32 mmol/L (22-29); Chloride 104 mmol/L (96-108); Estimated Glomerular Filt Rate 35; Glucose Random 113 mg/dL (60-115); Potassium 4.9 mmol/L (3.3-5.1); Sodium 138 mmol/L (135-145); Total Protein 8.1 g/dL (6.5-8.0)
== END 2023-12-26 11:26 | disposition home or self-care (01) ==
LOC: HO.HHCL 11:25
PROVIDERS: Visit Provider Internal Medicine Geriatric Medicine
DX: N18.30 Chronic kidney disease, stage 3 unspecified (principal); I87.303 Chronic venous hypertension (idiopathic) without complications of bilateral lower extremity
CPT/HCPCS: 36415; 80053; 82043; 82570; 85025

== ENCOUNTER 2024-01-09 09:24 | Outpatient (REF) | payer MEDICARE, MEDICAID, SELFPAY ==
[2024-01-09 11:44] LABS: Anion Gap 7 (12-20); Blood Urea Nitrogen 31 mg/dL (9-16); Calcium 8.8 mg/dL (8.4-10.2); Carbon Dioxide 29 mmol/L (22-29); Chloride 108 mmol/L (96-108); Estimated Glomerular Filt Rate 34; Glucose Random 126 mg/dL (60-115); Potassium 4.6 mmol/L (3.3-5.1); Sodium 139 mmol/L (135-145)
== END 2024-01-09 09:25 | disposition home or self-care (01) ==
LOC: HO.HHCL 09:24
PROVIDERS: Visit Provider Internal Medicine Geriatric Medicine
DX: I12.9 Hypertensive chronic kidney disease with stage 1 through stage 4 chronic kidney disease, or unspecified chronic kidney disease (principal); N18.30 Chronic kidney disease, stage 3 unspecified
CPT/HCPCS: 36415; 80048

== ENCOUNTER 2024-03-06 13:04 | Outpatient (AMB) | payer MEDICARE, MEDICAID, SELFPAY ==
--- NOTE | 2024-03-06 13:11 | A.OFFVIS_ITS ---
Vital Signs 03/06/24 13:11 Height 6 ft 1 in Intake Visit Reasons: BLE pain Intake Note: follow up (overdue) for Right SSV RFA 07/14/22. Pt states he has bilateral LE pain over the treated ablation area w/ or w/o ambulation. Pt is also complaining of ankle and foot/plantar pain. Pt states walking is painful. Pt also complains of abdominal pain. Accompanied by: Self / Same As Patient Allergies No Known Allergies Allergy (Verified 03/06/24 13:13) HPI HPI BLE pain: Details: Very pleasant 67-year-old gentleman well known to us for previous treatment of venous disease presents for follow-up. He continues to have significantly swollen lower extremities. He has a nonhealing left calf ulcer. [facility] regarding that. He continues to have multiple medical issues including cirrhosis hepatitis-C and a prior history of substance abuse. He is being seen by GI regarding his GERD and gastritis. He now presents to us for follow-up regarding his venous disease and ulceration. Patient has prior right lower extremity venous ablation is performed by us Patient denies any history of DVT/ PE. Patient denies any history of phlebitis. Trial of compression includes - unable to wear but has compressive dressings from the [facility]. [facility] Medical History Venous stasis ulcer Pancytopenia COVID-19 Cirrhosis Pedal edema GERD (gastroesophageal reflux disease) Hx of hepatitis C Hepatic fibrosis Osteoarthritis of both knees Anemia History of substance abuse Hypertension Surgical History Hx of endoscopic retrograde cholangiopancreatography History of esophagogastroduodenoscopy (EGD) Hx of appendectomy Hx of left knee surgery Family History Father No problems noted. Mother No problems noted. Social History Household Members: None Housing: Unknown / Unable to assess Do you presently have visiting nurse or other home services: Yes Alcohol intake: former Patient Tobacco Use Status: Never used Tobacco e-Cigarette/Vaping Use: Never Used Second Hand Smoke Exposure: No Substance Use Type: Former Substance User service: No Current occupational status: disabled Review of Systems Const Reports as per HPI ENT Reports no additional complaints Card Denies chest pain, Denies chest pain at rest and Denies chest pain with activity Resp Denies chest congestion and Denies cough GI Reports no additional complaints Musc Details: pain over varicosities, aching of lower extremities, swelling, cramping, heaviness and tiredness, itching Denies abnormal gait Skin/Breast Reports pruritus and Denies wounds Neuro Reports no additional complaints and Denies abnormal gait Psych Denies no additional complaints Physical Exam Const General: cooperative, healthy appearing and comfortable Orientation/consciousness: oriented to person, oriented to place and oriented to time Neck Carotids: no bruits Chest Chest palpation & inspection: normal inspection of the chest and normal palpation of entire chest wall Resp Effort & Inspection: normal respiratory effort and able to speak in complete sentences Cardio Rate: regular rate Heart sounds: S1 normal heart sound present and S2 normal heart sound present Peripheral pulses: Peripheral pulses 2+ throughout GI Inspection: Yes normal to inspection Skin Other: +2 edema, large rope-like varicosities greater than 4 mm CEAP Classification C6 - left calf ulcer Ep - Etiology Primary As - superficial veins P - reflux General skin exam: dry skin Neuro General: oriented to person, oriented to place and oriented to time Extrem Right lower extremity: full ROM, normal capillary refill and edema Left lower extremity: full ROM, normal capillary refill and edema Psych Mental Status: mental status grossly normal Assessment & Plan Assessment & Plan (1) Varicose veins of right lower extremity with inflammation: Comment: 03/29/2018 right great saphenous vein Radiofrequency ablation 03/31/2022 right great saphenous vein Cyanoacralate ablation Code(s): I83.11 - Varicose veins of right lower extremity with inflammation Category: Medical Plan: Right leg appears to be doing well. Will repeat bilateral testing as he does have significantly edematous bilateral lower extremities. (2) Varicose veins of left lower extremity with inflammation: Code(s): I83.12 - Varicose veins of left lower extremity with inflammation Category: Medical Plan: New onset left lower extremity ulcer. Will obtain venous insufficiency testing. Thank you for allowing us to assist in his care. Coding Level of Care Code Est Pt Level 4 (28575) Complex EM visit Add On G2211 Diagnoses Varicose veins of right lower extremity with inflammation I83.11 Varicose veins of left lower extremity with inflammation I83.12
--- OUTSIDE RECORDS SUMMARY | 2024-03-06 16:51 | XMS_ITS | Encounter Summary ---
Author Organization [employer] Address [address] [facility] [address]t [place] [address] Care Team Providers Care Airplane Gas Tank Liner Assembler Name Role Phone Name, Jose MERRITT Primary Care Provider [phone] Reason for Visit * Reason Onset Date Comments mar recalls 02/14/2024 Encounter Details Date Type Department Care Team (Late st Contact Info) Description 02/14/2024 Telephone [facility] MEDICINE [address] [place] [address] Gerardo Bourgeois MA mar recalls Social History Tobacco Use Types Packs/Day Years Used Date Smoking Tobacco: Never Passive Smoke Exposure: Never Smokeless Tobacco: Never Alcohol Use Standard Drinks/Week Comments Never 0 (1 standard drink = 0.6 oz pur e alcohol) Depression Answer Date Recorded Patient Health Questionnaire-9 Score 0 09/14/2022 Housing Stability Answer Date Recorded What is your housing situation today? I have kyriemelvin steinberg 12/07/[address] you li ve. Do you have problems with any of the following? None of the above 12/07/2022 Food Insecurity Answer Date Recorded Within the past 12 months, y ou worried that your food would run out before you got money to buy more: Never True 12/07/2022 Within the past 12 months,th e food you bought just didn't last and you didn't have enough money to get more: Never True 03/2022 Transportation Answer Date Recorded In the past 12 months, has l ack of transportation kept you from medical appts, meetings, work or from getting things needed for daily living? No 12/07/2022 Utilities Answer Date Recorded In the past 12 months, has t he electric, gas, oil or water company threatened to shut off services in your home? No 12/07/2022 Depression Answer Date Recorded Patient Health Questionnaire-2 Score 0 05/01/2023 Sex and Gender Information Value Date Recorded Sex Assigned at Male 12/05/2021 10:16 AM EDT Legal Sex Male 10:16 AM EDT Gender Identity Male 12/05/2021 10:16 AM EDT Sexual Orientation Straight 12/05/2021 10 :16 AM EDT documented as of this encounter Miscellaneous Notes * Telephone Encounter - Gerardo Bourgeois MA - 02/14/2024 4:10 PM EST T/C -[place] unable to reach pt, or lvm for pt to call back due to voicemail not being set up yet, so wecould schedule _follow up , if pt calls back you could transfer call to [facility] , letter sent . documented in this encounter Plan of Treatment Upcoming Encounters Date Type Department Care Team (Late st Contact Info) Description 05/16/2024 9:15 AM EDT Office Visit [facility] MEDICINE [address] [place] [address] Name, MD Jose [address] [place] [address] documented as of this encounter Visit Diagnoses Not on filedocumented in this encounter Additional Health Concerns Assessment Noted Time PHQ-9 Depression Total Score: 0 09/15/19 23 10:10 AM EDT documented as of this encounter Care Teams Airplane Gas Tank Liner Assembler Relationship Specialty Start Date End Date Name, MD Jose [address] [place] [address] PCP - General Family Medicine 09/20/16 documented as of this encounter
--- OUTSIDE RECORDS SUMMARY | 2024-03-06 16:51 | XMS_ITS | Encounter Summary ---
Author Organization [employer] [facility] Address [address] [place] [address] 7t [place] [address] Care Team Providers Care Archives Director Name Role Phone Name, Jose MERRITT Primary Care Provider [phone] Encounter Details Date Type Department Care Team ([facility] Contact Info) Description 03/15/2022 Abstract [facility] MEDICINE [address] [place] [phone] NameJose MD [address] [place] [address] [phone] Social History Tobacco Use Types Packs/Day Years Used Date Smoking Tobacco: Never Smokeless Tobacco: Never Sex and Gender Information Value Date Recorded Sex Assigned at Male 12/05/2021 10:16 AM EDT Legal Sex Male 10:16 AM EDT Gender Identity Male 12/05/2021 10:16 AM EDT Sexual Orientation Straight 12/05/2021 10 :16 AM EDT COVID-19 Exposure Response Date Recorded In the last 10 days, have yo u been in contact with someone who was confirmed or suspected to have Coronavirus/COVID-19? No / Unsure 03/15/2022 9:11 AM EST documented as of this encounter Plan of Treatment Upcoming Encounters Date Type Department Care Team (Late Contact Info) Description 05/16/2024 9:15 AM EDT Office Visit [facility] [address] [place] [address] [phone] Jose Arteaga MD [address] [place] [address] documented as of this encounter Visit Diagnoses Not on filedocumented in this encounter Care Teams Archives Director Relationship Specialty Start Date End Date NameJose MD [address] [place] [address] PCP - General Family Medicine 09/20/16 documented as of this encounter
--- OUTSIDE RECORDS SUMMARY | 2024-03-06 16:51 | XMS_ITS | Encounter Summary ---
Author Organization [employer] [facility] Address [address] [place] [address] [address]t [place] [address] Care Team Providers Care Silver Miner Name Role Phone Name, Jose MERRITT Primary Care Provider [phone] Reason for Visit * Reason Onset Date Comments Hospital Follow-up 08/28/2022 Encounter Details Date Type Department Care Team (Late st Contact Info) Description 08/28/2022 Telephone [facility] MEDICINE [address] [place] [address] [phone] Name, MD Jose [address] [place] [phone] Hospital Follow-up Social History Tobacco Use Types Packs/Day Years Used Date Smoking Tobacco: Never Smokeless Tobacco: Never Sex and Gender Information Value Date Recorded Sex Assigned at Male 12/05/2021 10:16 AM EDT Legal Sex Male 10:16 AM EDT Gender Identity Male 12/05/2021 10:16 AM EDT Sexual Orientation Straight 12/05/2021 10 :16 AM EDT documented as of this encounter Miscellaneous Notes * Telephone Encounter - Carline Leal - 08/28/2022 2:57 PM EDT HDF Tc from pt requesting a HDF appt. Pt was admitted at [facility] on 08/06/22 and discharged on 08/25/22. Pt was diagnosed with kidney failure. Patient is now going to dialysis. Patient speaks romansh documented in this encounter Plan of Treatment Upcoming Encounters Date Type Department Care Team (Late st Contact Info) Description 05/16/2024 9:15 AM EDT Office Visit [facility] MEDICINE [address] [place] [address] Name, MD Jose [address] [place] [address] documented as of this encounter Visit Diagnoses Not on filedocumented in this encounter Care Teams Silver Miner Relationship Specialty Start Date End Date Name, MD Jose [address] [place] [address] PCP - General Family Medicine 09/20/16 documented as of this encounter
--- OUTSIDE RECORDS SUMMARY | 2024-03-06 16:51 | XMS_ITS | Encounter Summary ---
Author Organization [employer] [facility] Address [address] [place] [address] 7t [place] [address] Care Team Providers Care Rfid Strategist Name Role Phone Name, Jose MERRITT Primary Care Provider [phone] Reason for Visit * Reason Comments Med Refill Encounter Details Date Type Department Care Team ([facility] st Contact Info) Description 12/27/2022 Refill [facility] MEDICINE [address] [place], [place] [phone] Name, MD Jose [address] [place] [address] Pain in right knee Social History Tobacco Use Types Packs/Day Years Used Date Smoking Tobacco: Never Smokeless Tobacco: Never Alcohol Use Standard [...] Date Recorded Patient Health Questionnaire-2 Score 0 09/14/2022 Sex and Gender Information Value Date Recorded Sex Assigned at Male 12/05/2021 10:16 AM EDT Legal Sex Male 10:16 AM EDT Gender Identity Male 12/05/2021 10:16 AM EDT Sexual Orientation Straight 12/05/2021 10 :16 AM EDT documented as of this encounter Plan of Treatment Upcoming Encounters Date Type Department Care Team (Late st Contact Info) Description 05/16/2024 9:15 AM EDT Office Visit [facility] MEDICINE [address] [place] [phone] Name, MD Jose [address] [place] [phone] documented as of this encounter Visit Diagnoses Diagnosis Pain in right knee documented in this encounter Additional Health Concerns Assessment Noted Time PHQ-9 Depression Total Score: 0 09/15/19 23 10:10 AM EDT documented as of this encounter Care Teams Rfid Strategist Relationship Specialty Start Date End Date Name, MD Jose [address] [place] [address] PCP - General Family Medicine 09/20/16 documented as of this encounter
--- OUTSIDE RECORDS SUMMARY | 2024-03-06 16:51 | XMS_ITS | Encounter Summary ---
Author Organization [facility] Address [address] [facility] [address] [place] [address] Phone Care Team Providers Care Glue Bone Crusher Name Role Phone Unavailable Primary Care Provider Unavailabl e Reason for Referral * Imaging (Routine) - Closed Specialty Diagnoses / Procedures Referred By Tonya fernandez Referred To Contact Diagnoses Chronic kidney disease, stage 4 (severe) (HCC) Procedures Tunneled Dialysis Catheter Removal Johnny Simms MD Phone: tel: fax: Referral ID Status Reason Start Date Expiration Date Visits Re quested Visits Authorized [id number] Closed 11/15/2022 11/15/2023 1 1 * Consultation (Routine) - Closed Specialty Diagnoses / Procedures Referred By Tonya fernandez Referred To Contact Vascular Surgery Diagnoses Chronic kidney disease, stage 4 (severe) (HCC) Johnny Simms MD Phone: tel: fax: Referral ID Status Reason Start Date Expiration Date V isits Requested Visits Authorized [id number] Closed Specialty Services Required 11/15/2022 11/15/2023 1 1 Encounter Details Date Type Department Care Team (Latest Contact Info) Description 11/11/2022 Office Communication [facility] [address] [facility] [address] [place] [address] Johnny Simms MD [address] [facility] [address] [place] [address] Chronic kidney disease, stage 4 (severe) (HCC) (Primary Dx) Social History Tobacco Use Types Packs/Day Years Used Date Smoking Tobacco: Never Alcohol Use Standard Drinks/Week Comments Never 0 (1 standard drink = 0.6 oz pur e alcohol) Sex and Gender Information Value Date Recorded Sex Assigned at Not on file Legal Sex Male 4:56 PM EST Gender Identity Not on file Sexual Orientation Not on file documented as of this encounter Miscellaneous Notes * Telephone Encounter - Johnny Simms MD - 11/11/2022 3:26 PM EDT Schedule Permcath removal at [facility]--if they will not do it ask Dr Mensah at endovascular office if they will do it documented in this encounter Plan of Treatment Scheduled Orders Name Type Priority Associated Diagnoses Orde r Schedule Tunneled Dialysis Catheter Removal Imaging Routine Chronic kidney disease, stage 4 (severe) (HCC) Expected: 11/15/2022, Expires: 11/16/2023 Scheduled Referrals Name Type Priority Associated Diagnoses Order Schedule Ambulatory referral to Vascular Surgery Outpatient Referral Today Chronic kidney disease, stage 4 (severe) (HCC) Expected: 11/15/2022, Expires: 12/17/2023 documented as of this encounter Visit Diagnoses Diagnosis Chronic kidney disease, stage 4 (severe) (HCC)- Primary documented in this encounter
--- OUTSIDE RECORDS SUMMARY | 2024-03-06 16:51 | XMS_ITS | Encounter Summary ---
Author Organization [employer] [facility] Address [address] [place] [address] 7t [place] [address] Care Team Providers Care Retail Cashier Associate Name Role Phone Name, Jose MERRITT Primary Care Provider [phone] Encounter Details Date Type Department Care Team (Late st Contact Info) Description 07/17/[address] [facility] MEDICINE [address] [place] [phone] Jose Arteaga MD [address] [place] [address] [phone] Social History Tobacco Use Types Packs/Day Years [...] Description 05/16/2024 9:15 AM EDT Office Visit [facility] MEDICINE [address] [place] [phone] Jose Arteaga MD [address] [place] [phone] documented as of this encounter Procedures Procedure Name Priority Date/Time Associated Diagnosis Comments COLONOSCOPY Routine 03/29/2016 12:27 PM EST documented in this encounter Results * Hm Colonoscopy (03/29/2016 12:27 PM EST) Colonoscopy Normal Normal Narrative Isis Wetzel - 03/29/2016 12:27 PM EST Recommended 10 year follow up us Historical Provider HEALTH MAINTENANCE Final Result documented in this encounter Visit Diagnoses Not on filedocumented in this encounter Care Teams Retail Cashier Associate Relationship Specialty Start Date End Date Name, MD Jose [address] [place] [address] PCP - General Family Medicine 09/20/16 documented as of this encounter
--- OUTSIDE RECORDS SUMMARY | 2024-03-06 16:51 | XMS_ITS | Encounter Summary ---
Author Organization [employer] [facility] Address [address] [place] [address] 7t [place] [address] Care Team Providers Care Lead Medical Technologist Name Role Phone Name, Jose MERRITT Primary Care Provider [phone] Reason for Visit * Reason Onset Date Comments Forms/questionnaires 04/24/2022 Encounter Details Date Type Department Care Team ([facility] st Contact Info) Description 04/24/2022 Telephone [facility] MEDICINE [address] [place], [place] [phone] Name, MD Jose [address] [place] [address] Forms/questionnaires Social History Tobacco Use Types Packs/Day Years Used Date Smoking Tobacco: Never Smokeless Tobacco: Never Depression Answer Date Recorded Patient Health Questionnaire-9 [...] suspected to have Coronavirus/COVID-19? No / Unsure 05/05/2022 11:20 AM EDT documented as of this encounter Miscellaneous Notes * Telephone Encounter - Larisa Catalan RN - 05/05/2022 12:34 PM EDT FYI, pt had INFORMATION SCIENTIST RV today. Urine was Pos. FENT, sending out for confirmation. Pt doesn't know why his urine showed FENT and upset he has to come to these appointments. He is scheduled to come back to see me 05/18/22 @ 1:30pm. * Telephone Encounter - Satinder Joseph - 04/24/2022 11:58 AM EDT Tc from [facility] requesting status update on physician order that needs to be signed by PCP , States would like to know if it was received faxed on 04/14/22 Please contact at [phone] documented in this encounter Plan of Treatment Upcoming Encounters Date Type Department Care Team (Late st Contact Info) Description 05/16/2024 9:15 AM EDT Office Visit [facility] MEDICINE [address] [place] [address] Name, MD Jose [address] [place] [address] documented as of this encounter Visit Diagnoses Not on filedocumented in this encounter Care Teams Lead Medical Technologist Relationship Specialty Start Date End Date Name, MD Jose [address] [place] [address] PCP - General Family Medicine 09/20/16 documented as of this encounter
--- OUTSIDE RECORDS SUMMARY | 2024-03-06 16:51 | XMS_ITS | Encounter Summary ---
Author Organization [employer] [facility] Address [address] [facility] 7t [place] [address] Care Team Providers Care Subcontracts Manager Name Role Phone Name, Jose MERRITT Primary Care Provider [phone] Reason for Visit * Reason Onset Date Comments HDF 08/30/2022 Encounter Details Date Type Department Care Team ([facility] st Contact Info) Description 08/30/2022 Telephone [facility] MEDICINE [address] [place], [place] [phone] Name, MD Jose [address] [place] [address] F Social History Tobacco Use Types Packs/Day Years Used Date Smoking Tobacco: Never Smokeless Tobacco: Never Depression Answer Date Recorded Patient Health Questionnaire-9 Score 0 09/14/2022 Housing Stability Answer Date Recorded What is your housing situation today? I have kyrie steinberg 12/07/[address] you [...] encounter Miscellaneous Notes * Telephone Encounter - Satinder Joseph - 08/30/2022 3:17 PM EDT Tc from pt returning call, please see notes from 08/29/22 documented in this encounter Plan of Treatment Upcoming Encounters Date Type Department Care Team (Late st Contact Info) Description 05/16/2024 9:15 AM EDT Office Visit [facility] MEDICINE [address] [place] [address] Name, MD Jose [address] [place] [address] documented as of this encounter Visit Diagnoses Not on filedocumented in this encounter Care Teams Subcontracts Manager Relationship Specialty Start Date End Date NameJose MD [address] [place] [address] PCP - General Family Medicine 09/20/16 documented as of this encounter
--- OUTSIDE RECORDS SUMMARY | 2024-03-06 16:51 | XMS_ITS | Encounter Summary ---
Author Organization [facility] [facility] Address [address] [place] [address] [address] [place] [address] Care Team Providers Care Coal Cutting Machine Operator Name Role Phone Name, Jose MERRITT Primary Care Provider [phone] Reason for Visit * Reason Onset Date Comments FYI 08/24/2022 Encounter Details Date Type Department Care Team (Late st Contact Info) Description 08/24/2022 Telephone [facility] [address] [place] [address] [phone] NameJose MD [address] [place] [address] [phone] FYI Social History Tobacco Use Types Packs/Day Years Used Date Smoking Tobacco: Never Smokeless Tobacco: Never Sex and Gender Information Value Date Recorded Sex Assigned at Male 12/05/2021 10:16 AM EDT Legal Sex Male 10:16 AM EDT Gender Identity Male 12/05/2021 10:16 AM EDT Sexual Orientation Straight 12/05/2021 10 :16 AM EDT documented as of this encounter Miscellaneous Notes * Telephone Encounter - Katey Aleman - 08/24/2022 12:40 PM EDT Tc from [place] [facility] calling to advise PCP, hospital gave pt a referral for [facility] but wont give care to pt since he is with [facility]. documented in this encounter Plan of Treatment Upcoming Encounters Date Type Department Care Team (Late st Contact Info) Description 05/16/2024 9:15 AM EDT Office Visit [facility] [address] [place] [address] [phone] Name, MD Jose [address] [place] [address] documented as of this encounter Visit Diagnoses Not on filedocumented in this encounter Care Teams Coal Cutting Machine Operator Relationship Specialty Start Date End Date Name, MD Jose [address] [place] [address] PCP - General Family Medicine 09/20/16 documented as of this encounter
--- OUTSIDE RECORDS SUMMARY | 2024-03-06 16:51 | XMS_ITS | Clinical Summary ---
Author Organization [employer] Address [address] [place] [address] 7t [place] [address] Care Team Providers Care Human Resources Office Manager Name Role Phone Name, Jose MERRITT Primary Care Provider [phone] Allergies No known active allergies Medications naloxone (Narcan) 4 mg/0.1 mL nasal spray FOR SUSPECTED OPIOID OVERDOSE. SPRAY 0.1mL IN ONE NOSTRIL. REPEAT IN ALTERNATE NOSTRIL 2-3 MINUTES IF NEEDED. SEEK MEDICAL ATTENTION IMMEDIATELY EVEN IF PATIENT RESPONDS. 2 Active methadone (Dolophine) 10 MG/ML solution 45 mg/day as directed by [facility] 3 Active senna-docusate sodium (Senokot-S) 8.6-50 MG tablet Take 1 tablet by mouth in the morning. 30 tablet 4 05/01/19 25 Active propranolol (Inderal) 40 MG tabletIndication s:Hepatic fibrosis TAKE 1 TABLET BY MOUTH TWICE DAILY 180 tablet 4 Active famotidine (Pepcid) 20 MG tablet Take 1 tablet (20 mg) by mouth 2 times daily. 60 tablet 4 12/26/19 25 Active losartan (Cozaar) 25 MG tabletIndication s:Hypertension, unspecified type,Stage 3 chronic kidney disease, unspecified whether stage 3a or 3b CKD (CMS/HCC) Take 1 tablet (25 mg) by mouth Once per day. 30 tablet 4 12/26/19 25 Active Blood Pressure kitIndications:H ypertension, unspecified type,Stage 3 chronic kidney disease, unspecified whether stage 3a or 3b CKD (CMS/HCC) To check BP at home once a day 1 kit 4 Active Active Problems Problem Noted Date Diagnosed Date Chronic venous hypertension 05/01/2023 Severe obesity 05/01/2023 Acute renal insufficiency 11/10/20222022 Stage 3 chronic kidney disease 11/10/2022 1 02/21/2022 Osteoarthritis of both knees 07/13/2022 Vascular insufficiency 03/15/2022 End stage renal failure on dialysis 10/14/2020 Hepatic fibrosis 06/06/2018 Overview (03/15/2022): Secondary to previous Hep C infection treated back in 2014 successfully with Harvoni Methadone dependence 11/14/2016 Pain in unspecified knee 11/14/2016 Anemia 11/25/2015 Polyp of gallbladder 04/03/2013 Nondependent mixed drug abuse in remission 11/06 Male hypogonadism 11/07/2011 Hypertension 11/07/2011 Obesity 06/26/2011 Encounters Date Type Department Care Team Description 02/14/2024 Telephone [facility] [address] [place] [address] [phone] Gerardo Bourgeois MA feb recalls 01/15/2024 Telephone [facility] [address] [place] [address] [phone] Jose Arteaga MD No Show 01/09/2024 Telephone [facility] [address] [place] [address] [phone] Mora Austin, RN 01/09/2024 Travel 01/02/2024 Telephone [facility] [address] [place] [address] [phone] Mora Austin, RN 01/02/2024 Travel 12/26/2023 10:00 AM EST Office Visit [facility] [address] [place] [address] [phone] Jose Arteaga MD Stage 3 chronic kidney disease, unspecified whether stage 3a or 3b CKD (CMS/HCC) (Primary Dx); Chronic venous hypertension involving both sides; Encounter for immunization 12/26/2023 Orders Only [facility] [address] [place] [address] [phone] Jose Arteaga MD Hypertension, unspecified type (Primary Dx); Stage 3 chronic kidney disease, unspecified whether stage 3a or 3b CKD (CMS/HCC) 12/26/2023 Travel 12/26/2023 Telephone [facility] [address] [place] [address] Mora Austin, ELIANA 12/24/2023 Telephone [facility] [address] [place] [address] Claribel Yan MA Chart Prep 12/18/2023 Patient Outreach [facility] [address] [place] [address] Name, MD Jose Pre-visit Planning (SDOH was completed on 05/01/2023) 12/15/2023 Refill [facility] [address] [place] [address] Jose Arteaga MD Hepatic fibrosis 12/10/2023 Refill [facility] [address] [place] [address] NameJose MD Heartburn from Last 3 Months Immunizations Name Administration Dates Next Due Hep A, Adult 06/26/2001,12/25/2000 Hep B, adult 12/25/2000 Influenza High-dose Quadriva lent Preservative Free 11/09/2020 Influenza Injectable Quadriv alant Preservative Free IIV4 MDCK 03/23/2020 Influenza injectable quadriv alent IIV4 with preservative 03/15/2022,04/09/2019,11/02/2016,12/19 Influenza, High Dose Seasona l, Preservative Free 12/26/2023 Influenza, Split (incl. sincere fied surface antigen) 10/25/2012,10/04/2011 Influenza, Unspecified 11/09/2020 Pneumococcal Conjugate PCV 13 09/07/2020 Pneumococcal Conjugate PCV 20 12/25/2022 Pneumococcal Polysaccharide PPSV23 08/23/2014, TD (adult), 2 Lf tetanus tox oid, preservative free, adsorbed 08/05/2003 Tdap 12/25/2022,12/22/2011 Zoster, Recombinant 09/07/2020,03/23/2020 Zoster, live 12/20/2015 Social History Tobacco Use Types Packs/Day Years Used Date Smoking Tobacco: Never Passive Smoke Exposure: Never Smokeless Tobacco: Never Tobacco Cessation:Counseling Given: Not Answered Alcohol Use Standard Drinks/Week Comments Never 0 [...] Orientation Straight 12/05/2021 10 :16 AM EDT Last Filed Vital Signs Vital Sign Reading Time Taken Comments Blood Pressure 145/87 12/26/2023 12:20 PM EST Pulse 57 12/26/2023 10:08 AM EST Temperature 36.7 ??C (98 ??F) 12/26/2023 10:08 AM EST Respiratory Rate 22 12/26/2023 10:08 AM EST Oxygen Saturation 100% 12/26/2023 10:08 AM EST Inhaled Oxygen Concentration - - Weight 163 kg (360 lb) 12/26/2023 10:08 AM EST Height 185.4 cm (6' 1 ) 12/26/2023 10:08 AM EST Body Mass Index 47.5 12/26/2023 10:08 AM EST Plan of Treatment Upcoming Encounters Date Type Department Care Team (Late st Contact Info) Description 05/16/2024 9:15 AM EDT Office Visit [facility] [address] [place] [address] Name, MD Jose [address] [place] [address] Health Maintenance Due Date Last Done Comments CT Colonography 1955 FIT DNA/Cologuard 1955 FIT 1955 FOBT 1955 Lipid Panel 1955 Sigmoidoscopy 1955 Hepatitis B Vaccines (2 of 3 - Risk 3-dose series) 01/22/2001 12/25/2000 RSV Patients and Patients Aged 60 years or older (1 - Risk 60-74 years 1-dose series) 2015 COVID-19 Vaccine ( - season) 2023 06/16/2020, 05/19/2020 Alcohol/Substance Use Screening 04/30/2024 05/01/2023 Depression Screening 04/30/2024 05/01/2023, 09/15/19 23 SDOH Screening 04/30/2024 05/01/2023 Tobacco Screening 12/25/2024 12/26/2023 Colonoscopy 03/29/2026 03/29/2016 Colorectal Cancer Screening 03/29/2026 DTaP/Tdap/Td Vaccines (3 - Td or Tdap) 12/25/2032 12/25/2022, 12/22/2011, 08/05/2003 Hepatitis A Vaccines Completed 06/26/2001, 12/26/19 Hepatitis C Screening Completed 10/16/2019 Zoster Vaccines Completed 09/07/2020, 03/08, 12/20/2015 Pneumococcal Vaccine: 50+ Years Completed 12/25/2022, 09/07/2020, 08/23/2014, Additional history exists Influenza Vaccine Completed 12/26/2023, , 11/09/2020, Additional history exists HIB Vaccines Aged Out No longer eligi ble based on patient's age to complete this topic HPV Vaccines Aged Out No longer eligi ble based on patient's age to complete this topic IPV Vaccines Aged Out No longer eligi ble based on patient's age to complete this topic Meningococcal Vaccine Aged Out No willy jeremy eligible based on patient's age to complete this topic RSV under 20 months Aged Out No longe r eligible based on patient's age to complete this topic Rotavirus Vaccines Aged Out No longer eligible based on patient's age to complete this topic Procedures Procedure Name Priority Date/Time Associated Diagnosis Comments BASIC METABOLIC PANEL Routine 01/09/2024 9:30 AM EST Hypertension, unspecified type Stage 3 chronic kidney disease, unspecified whether stage 3a or 3b CKD (CMS/HCC) ALBUMIN, RANDOM URINE W/CREATININE Routine 12/26/2023 11:28 AM EST Encounter for immunization Chronic venous hypertension involving both sides Stage 3 chronic kidney disease, unspecified whether stage 3a or 3b CKD (CMS/HCC) COMPREHENSIVE METABOLIC PANEL Routine 12/26/2023 11:28 AM EST Encounter for immunization Chronic venous hypertension involving both sides Stage 3 chronic kidney disease, unspecified whether stage 3a or 3b CKD (CMS/HCC) CBC WITH AUTO DIFFERENTIAL Routine 12/26/2023 11:28 AM EST Encounter for immunization Chronic venous hypertension involving both sides Stage 3 chronic kidney disease, unspecified whether stage 3a or 3b CKD (CMS/HCC) ZZZ HISTORICAL HEPATITIS A,B,C PROFILE Routine 10/16/2019 10:40 AM EDT HM COLONOSCOPY Routine 03/29/2016 12:27 PM EST from Last 3 Months or Most Recently Relevant to Health Maintenance Results * (ABNORMAL) Basic Metabolic Panel (01/09/2024 9:30 AM EST) Sodium 139 135 - 145 mmol/L [facility] Potassium 4.6 3.3 - 5.1 mmol/L [facility] Chloride 108 96 - 108 mmol/L [facility] Carbon Dioxide 29 22 - 29 mmol/L [facility] Anion Gap 7(L) 12 - 20 [facility] Urea Nitrogen (BUN) 31(H) 9 - 16 mg/dL [facility] Creatinine, Serum 1.96(H) 0.5 - 1.4 mg/dL [facility] Estimated Glomerular Filt Rate 34 [facility] Comment:Chronic Kidney Disea se: Estimated GFR < 60 mL/min/1.89j9Exbpbt Kidney Disease: Estimated GFR < 15 mL/min/1.73m2 Glucose 126(H) 60 - 115 mg/dL [facility] Calcium 8.8 8.4 - 10.2 mg/dL [facility] Blood Venous blood specimen / Unknown 01/09/2024 9:30 AM EST 01/09/2024 11:09 AM EST us Jose Arteaga MD LAB BLOOD ORDERABLES Final Resul t Performing Organization Address [facility] de Phone Number [facility] [address] [place] [phone] * (ABNORMAL) Albumin, Random Urine W/Creatinine (12/26/2023 11:28 AM EST) Creatinine, Urine 70.40 mg/dL [facility] Microalbumin Urine 267.0 mg/L [facility] Microalbum Creatinine Ratio Ur 379.2(H) <30 ug/mg cr [facility] Comment:Albumin/Creatinine R atio Reference Ranges: Normal: < 30 ug/mg creatinine Microalbuminuria: 30 - 300 ug/mg creatinineClinical Albuminuria: > 300 ug/mg creatinine Urine (Urine, Random) 12/26/2023 11:28 AM EST 12/26/2023 1:06 PM EST us Jose Arteaga MD LAB URINE ORDERABLES Final Resul t Performing Organization Address [facility] Co de Phone Number [facility] [address] [place] [phone] * (ABNORMAL) CBC auto differential (12/26/2023 11:28 AM EST) White Blood Count 3.8(L) 4.8 - 10.8 X10*3/uL [facility] Red Blood Count 3.74(L) 4.60 - 5.80 X10*6/uL [facility] Hemoglobin 10.3(L) 14.0 - 18.0 g/dl [facility] Hematocrit 33.2(L) 42.0 - 52.0 % [facility] Mean Corpuscular Volume 88.8 80.0 - 98.0 fL [facility] Mean Corpuscular Hemoglobin 27.5 27.0 - 33.0 pg [facility] Mean Corpuscular HGB Conc 31.0 31.0 - 36.0 g/dl [facility] Red Cell Distribution Width 13.4 11.0 - 16.0 % [facility] Platelet Count 81(L) 160 - 400 X10*3/uL [facility] Mean Platelet Volume 12.7(H) 9.4 - 12.4 fL [facility] Neutrophils Percent Auto 57.5 45 - 73 % [facility] Imm Gran Pct Auto 0.3 0.0 - 0.4 % [facility] Lymphocytes Percent Auto 22.7 20 - 40 % [facility] Monocytes Percent Auto 14.1(H) 2 - 11 % [facility] Eosinophils Percent Auto 4.3(H) 0 - 4 % [facility] Basophils Percent Auto 1.1 0 - 2 % [facility] NRBC Pct Auto 0.0 0.0 - 0.2 /100WBC [facility] Neutrophils Absolute Auto 2.2 2.0 - 8.3 x10*3/uL [facility] Imm Gran Abs Auto 0.01 0.00 - 0.03 X10*3/uL [facility] Lymphocytes Absolute Auto 0.9(L) 1.2 - 4.9 X10*3/uL [facility] Monocytes Absolute Auto 0.5 0.1 - 1.2 X10*3/uL [facility] Eosinophils Absolute Auto 0.2 0.0 - 0.4 X10*3/uL [facility] Basophils Absolute Auto 0.0 0.0 - 0.2 X10*3/uL [facility] NRBC Abs Auto 0.000 0.0 - 0.012 X10*3/uL [facility] Blood Venous blood specimen / Unknown 12/26/2023 11:28 AM EST 12/26/2023 1:22 PM EST us Jose Name LAB BLOOD ORDERABLES Final Resul t [facility] [address] [place] [address] [phone] * (ABNORMAL) Comprehensive Metabolic Panel (12/26/2023 11:28 AM EST) Sodium 138 135 - 145 mmol/L [facility] Potassium 4.9 3.3 - 5.1 mmol/L [facility] Chloride 104 96 - 108 mmol/L [facility] Carbon Dioxide 32(H) 22 - 29 mmol/L [facility] Anion Gap 7(L) 12 - 20 [facility] Urea Nitrogen (BUN) 35(H) 9 - 16 mg/dL [facility] Creatinine, Serum 1.94(H) 0.5 - 1.4 mg/dL [facility] Estimated Glomerular Filt Rate 35 [facility] Comment:Chronic Kidney Disea se: Estimated GFR < 60 mL/min/1.22j4Eongym Kidney Disease: Estimated GFR < 15 mL/min/1.73m2 Glucose 113 60 - 115 mg/dL [facility] Calcium 8.4 8.4 - 10.2 mg/dL [facility] Bilirubin, Total 0.5 0.0 - 1.0 mg/dL [facility] Aspartate Amino Transferase 24 5 - 37 U/L [facility] Alanine Aminotransferase 8 0 - 40 U/L [facility] Total Protein 8.1(H) 6.5 - 8.0 g/dL [facility] Albumin Level 3.3(L) 3.5 - 5.0 g/dL [facility] Alkaline Phosphatase 90 39 - 117 U/L [facility] Blood Venous blood specimen / Unknown 12/26/2023 11:28 AM EST 12/26/2023 1:22 PM EST us Jose Arteaga MD LAB BLOOD ORDERABLES Final Resul t [facility] [address] [place] [address] [phone] * (ABNORMAL) HEPATITIS A,B,C PROFILE (10/16/2019 10:40 AM EDT) HEPATITIS B INTERPRETATION SEE NOTE [facility] Comment: Consistent with recovery & immunity from Hepatitis B infection. HEPATITIS B SURFACE ANTIBODY REACTIVE NONREACTIVE [facility] Comment: ?? REACTIVE: ??> 11.99 mIU/mL HEPATITIS B SURFACE ANTIGEN NEGATIVE NEGATIVE [facility] HEPATITIS C ANTIBODY REACTIVE(AA ) NONREACTIVE [facility] Comment:Presumptive evidence of antibodies to HCV. 10/16/2019 10:4 0 AM EDT Historical Provider HISTORICAL/NON ORDERABLE LABS Final Result Performing Organization Address [facility] Co de Phone Number [facility] [address] [place] [address], * Hm Colonoscopy (03/29/2016 12:27 PM EST) Colonoscopy Normal Normal Narrative Isis Wetzel - 03/29/2016 12:27 PM EST Recommended 10 year follow up Historical Provider HEALTH MAINTENANCE Final Result from Last 3 Months or Most Recently Relevant to Health Maintenance Insurance [facility] STANDARD MEDICARE Care Teams Human Resources Office Manager Relationship Specialty Start Date End Date Name, MD Jose [address] [place] [address] [phone] PCP - General Family Medicine 09/20/16
--- OUTSIDE RECORDS SUMMARY | 2024-03-06 16:51 | XMS_ITS | Encounter Summary ---
Author Organization [employer] [facility] Address [address] [place] [address] [address] [place] [address] Care Team Providers Care Baseball Sewer Hand Name Role Phone Name, Jose MERRITT Primary Care Provider [phone] Reason for Visit * Reason Onset Date Comments FYI 08/06/2023 Encounter Details Date Type Department Care Team ([facility] st Contact Info) Description 08/06/2023 Telephone [facility] [address] [place], [place] [phone] Name, MD Jose [address] [place] [address] Social History Tobacco Use Types Packs/Day Years [...] t he electric, gas, oil or water PTS Physicians threatened to shut off services in your [...] encounter Miscellaneous Notes * Telephone Encounter - Marilyn Saldana RN - 08/06/2023 1:28 PM EDT FYI * Telephone Encounter - Katey Aleman - 08/06/2023 12:58 PM EDT Tc from [facility] with Berenice JEFF calling to advise provider pt has been admitted to nursing services for wound care on 08/02 documented in this encounter Plan of Treatment Upcoming Encounters Date Type Department Care Team (Late st Contact Info) Description 05/16/2024 9:15 AM EDT Office Visit [facility] [address] [place] [phone] Name, MD Jose [address] [place] [address] documented as of this encounter Visit Diagnoses Not on filedocumented in this encounter Additional Health Concerns Assessment Noted Time PHQ-9 Depression Total Score: 0 09/15/19 23 10:10 AM EDT documented as of this encounter Care Teams Baseball Sewer Hand Relationship Specialty Start Date End Date Name, MD Jose [address] [place] [phone] PCP - General Family Medicine 09/20/16 documented as of this encounter
--- OUTSIDE RECORDS SUMMARY | 2024-03-06 16:51 | XMS_ITS | Clinical Summary ---
Author Organization [facility] Address [address] [place] [address] [place] [phone] Phone Care Team Providers Care Auth Specialist Name Role Phone Unavailable Primary Care Provider Unavailabl e Allergies No known active allergies Medications propranolol (INDERAL) 40 MG tablet Take 40 mg by mouth in the morning and 40 mg in the evening. 3 Active HealthyLax 17 g packet MIX AND DRINK 1 PACKET BY MOUTH ONCE A DAY 3 Active oxyCODONE (ROXICODONE) 5 MG immediate release tablet Take 5 mg by mouth 4 Active omeprazole (PriLOSEC) [address] capsule TAKE 1 CAPSULE BY MOUTH DAILY BEFORE A MEAL 3 Active Naloxone HCl 4 MG/0.1ML liquid FOR SUSPECTED OPIOID OVERDOSE. SPRAY 0.1mL IN ONE NOSTRIL. REPEAT IN ALTERNATE NOSTRIL 2-3 MINUTES IF NEEDED. SEEK MEDICAL ATTENTION IMMEDIATELY EVEN IF PATIENT RESPONDS. 2 Active mupirocin (BACTROBAN) 2 % ointment BRING TO DIALYSIS FOR NURSES TO APPLY TO AFFECTED AREA ON MON, WED, Sunday 3 Active ferrous sulfate 325 (65 Fe) MG tablet Take 1 tablet by mouth in the morning and 1 tablet in the evening. Active furosemide (Lasix) 40 MG tablet Take 1 tablet by mouth 1 (one) time each day 4 Active Active Problems Problem Noted Date Diagnosed Date Chronic kidney disease stage 3 11/10/2022 1 Acute renal insufficiency 11/10/2022 Stage 3b chronic kidney disease 11/10/2022 Bilateral osteoarthritis of knees 07/13/2022 11/10/2022 Vascular insufficiency 03/15/2022 End stage renal failure on dialysis 10/14/2020 11/10/2022 Hepatic fibrosis 06/06/2018 11/10/2022 Overview (11/10/2022): Secondary to previous Hep C infection treated back in 2014 successfully with Harvoni Methadone dependence 11/14/2016 11/10/2022 Pain of knee region 11/14/2016 11/10/2022 Anemia 11/25/2015 11/10/2022 Polyp of gallbladder 04/03/2013 11/10/2022 Hypertension 11/07/2011 11/10/2022 Male hypogonadism 11/07/2011 11/10/2022 Nondependent mixed drug abuse in remission 11/0611/10/2022 Obesity 06/26/2011 11/10/2022 Immunizations Name Administration Dates Next Due Hepatitis A 06/26/2001,12/25/2000 Hepatitis B 12/25/2000 Influenza Split 10/25/2012,10/04/2011 Influenza, MDCK, PF, Quadrivalent 03/23/2020 Influenza, Quadrivalent, Wit h Preservative 03/15/2022,04/09/2019,11/02/2016,12/19 Influenza, Unspecified 11/09/2020 Pneumococcal Conjugate 13-Valent 09/07/2020 Pneumococcal Conjugate Pcv 20 12/25/2022 Pneumococcal Polysaccharide 08/23/2014, 5 Shingrix 09/07/2020,03/23/2020 Td 08/05/2003 Tdap 12/25/2022,12/22/2011 Zoster 12/20/2015 Family History Medical History Relation Comments Heart disease Mother Hypertension Mother Relation Status Comments Father Unknown Mother Unknown Social History Tobacco Use Types Packs/Day Years Used Date Smoking Tobacco: Never Tobacco Cessation:Counseling Given: Not Answered Alcohol Use Standard Drinks/Week Comments Never 0 (1 standard drink = 0.6 oz pur e alcohol) Sex and Gender Information Value Date Recorded Sex Assigned at Not on file Legal Sex Male 4:56 PM EST Gender Identity Not on file Sexual Orientation Not on file Last Filed Vital Signs Vital Sign Reading Time Taken Comments Blood Pressure 128/67 08/20/2023 2:43 PM EDT Pulse 78 08/20/2023 2:43 PM EDT Temperature - - Respiratory Rate - - Oxygen Saturation 98% 08/20/2023 2:43 PM EDT Inhaled Oxygen Concentration - - Weight 154 kg (340 lb 8 oz) 08/20/2023 2:43 PM E DT Height 185.4 cm (6' 1 ) 04/18/2019 12:00 PM EDT Body Mass Index 44.92 04/18/2019 12:00 PM EDT Plan of Treatment Health Maintenance Due Date Last Done Comments Hepatitis B Vaccine (1 of 5 - Risk Dialysis 4-dose series) 1975 12/25/2000 Colorectal Cancer Screening: Annual FOBT 05/30/2004 Colorectal Cancer Screening: Colonoscopy 05/30/2004 Colorectal Cancer Screening: Sigmoidoscopy 05/30/2004 Influenza Vaccine (#1) 2023 , 11/09/2020, 03/23/2020, Additional history exists Pneumococcal Vaccine: 65+ Years Completed 12/25/2022, 09/07/2020, 08/23/2014, Additional history exists Insurance [place]
== END 2024-03-06 13:35 | disposition home or self-care (01) ==
PROVIDERS: PCP Internal Medicine Geriatric Medicine; Visit Provider Surgery Vascular Surgery
DX: I83.11 Varicose veins of right lower extremity with inflammation (principal); I83.12 Varicose veins of left lower extremity with inflammation
CPT/HCPCS: 99214; G2211

== ENCOUNTER → 2024-03-06 13:04 | Outpatient (BNVA) | payer MEDICARE, MEDICAID, SELFPAY | PROVIDERS: PCP Internal Medicine Geriatric Medicine; Visit Provider Surgery Vascular Surgery | DX: I83.813 Varicose veins of bilateral lower extremities with pain (principal); I83.222 Varicose veins of left lower extremity with both ulcer of calf and inflammation; L97.229 Non-pressure chronic ulcer of left calf with unspecified severity; I83.11 Varicose veins of right lower extremity with inflammation; R10.9 Unspecified abdominal pain | CPT/HCPCS: 99212 ==

== ENCOUNTER 2024-04-03 07:18 | Outpatient (REF) | payer MEDICARE, MEDICAID, SELFPAY ==
--- NOTE | ~2024-04-03 | US_ITS ---
EXAMINATION: US LOWER EXTREMITY VENOUS (REFLUX EXAM), BILATERAL CLINICAL INFORMATION: Varices. COMPARISON: DVT ultrasound dated July 17, 2022 and February 24, 2022. TECHNIQUE: Color flow triplex imaging and compression Doppler was performed to evaluate both the deep and the superficial systems bilaterally. To evaluate the superficial system, the examination was performed in the upright position. Color-flow Doppler ultrasound and compression ultrasound were utilized. In addition, maneuvers were utilized to demonstrate reflux. FINDINGS: 1. DEEP VENOUS ULTRASOUND OF THE RIGHT LOWER EXTREMITY: Common Femoral Vein: Compressible, normal respiratory variation and augmented flow. Femoral Vein: Compressible, normal color flow and augmentation. Popliteal Vein: Compressible, normal augmentation. Deep Reflux: There is no evidence of reflux in the deep system in either the common femoral vein, superficial femoral or the popliteal vein. There is no evidence of a Muller's cyst. 2. SUPERFICIAL ULTRASOUND WITH DOPPLER OF RIGHT LOWER EXTREMITY: GREAT SAPHENOUS VEIN: Saphenofemoral Junction: 0.8 cm; Reflux: 0 ms Proximal Thigh: 0.5 cm; Reflux: 0 ms Mid Thigh: 0.3 cm; Reflux: 0 ms Distal Thigh: 0.1 cm; Reflux: 0 ms At Knee: 0.2 cm; Reflux: 0 ms Proximal Calf: 0.3 cm; Reflux: 820 ms Mid Calf: 0.3 cm; Reflux: 1736 ms Distal Calf: 0.3 cm; Reflux: 2232 ms DUPLICATED MEDIAL GREAT SAPHENOUS VEIN: Diameter: None imaged Reflux: NA DUPLICATED LATERAL GREAT SAPHENOUS VEIN: Diameter: 0.3 cm. Reflux: NA SMALL SAPHENOUS VEIN: Saphenopopliteal Junction: 0.3 cm; Reflux: 0 ms Proximal: Not seen. cm; Reflux: 0 ms Distal: Not seen. cm; Reflux: 0 ms VEIN OF GIACOMINI: Size: 0.2 cm. Reflux: NA PERFORATORS: Location: Greater saphenous vein throughout the calf and small saphenous vein in the mid segment. Size: 0.2-0.3 cm. Reflux: 1372 ms in the distal calf of the great saphenous vein. VARICOSITIES: Location: Great saphenous vein throughout the thigh and the proximal segment of the small saphenous vein. Size: 0.3-0.4 cm. Reflux: NA 3. DEEP VENOUS ULTRASOUND OF THE LEFT LOWER EXTREMITY: Common Femoral Vein: Compressible, normal respiratory variation and augmented flow. Femoral Vein: Compressible, normal color flow and augmentation. Popliteal Vein: Compressible, normal augmentation. Deep Reflux: There is no evidence of reflux in the deep system in either the common femoral vein, superficial femoral or the popliteal vein. There is no evidence of a Muller's cyst. 4. SUPERFICIAL ULTRASOUND WITH DOPPLER OF LEFT LOWER EXTREMITY: GREAT SAPHENOUS VEIN: Saphenofemoral Junction: 1.0 cm; Reflux: 0 ms Proximal Thigh: 0.7 cm; Reflux: 0 ms Mid Thigh: 0.2 cm; Reflux: 0 ms Distal Thigh: 0.4 cm; Reflux: 0 ms At Knee: 0.3 cm; Reflux: 0 ms Proximal Calf: 0.4 cm; Reflux: 0 ms Mid Calf: 0.4 cm; Reflux: 0 ms Distal Calf: 0.2 cm; Reflux: 0 ms DUPLICATED MEDIAL GREAT SAPHENOUS VEIN: Diameter: None imaged Reflux: NA DUPLICATED LATERAL GREAT SAPHENOUS VEIN: Diameter: 0.4 cm. Reflux: 2116 ms at the mid thigh. SMALL SAPHENOUS VEIN: Saphenopopliteal Junction: 0.4 cm; Reflux: 904 ms Proximal: 0.3 cm; Reflux: 0 ms Distal: 0.3 cm; Reflux: 0 ms VEIN OF GIACOMINI: Size: 0.5 cm. Reflux: NA PERFORATORS: Location: Great saphenous vein proximal calf and thigh and at the knee level. Proximal segment small saphenous vein. Size: 0.1-0.3 cm. Reflux: NA VARICOSITIES: Location: Great saphenous vein throughout the thigh and calf. Size: 0.3-0.4 cm. Reflux: NA US/US venous duplex LE BI IMPRESSION: Right: Venous insufficiency, great saphenous vein below the knee to the ankle. Perforators at the distal calf from the great saphenous vein with reflux. Varices without reflux. Left: Venous insufficiency in the accessory lateral saphenous vein. Venous insufficiency small saphenous vein at the junction. Varices without reflux. Perforators without reflux.. . Electronically signed by: Stan Bullard MD 04/03/2024 11:41 AM EST
--- OUTSIDE RECORDS SUMMARY | 2024-04-03 07:20 | XMS_ITS | Encounter Summary ---
Author Organization [facility] Address [address] [facility] [address] [place] [address] Phone Care Team Providers Care Creative Services Specialist Name Role Phone Unavailable Primary Care Provider Unavailabl e Reason for Referral * Imaging (Routine) - Closed Specialty Diagnoses / Procedures Referred By Tonya fernandez Referred To Contact Diagnoses Chronic kidney disease, stage 4 (severe) (HCC) Procedures Tunneled Dialysis Catheter Removal Johnny Simms MD Phone: tel: fax: Referral ID Status Reason Start Date Expiration Date Visits Re quested Visits Authorized [id number] Closed 11/15/2022 11/15/2023 1 1 * Consultation (Routine) - Closed Specialty Diagnoses / Procedures Referred By Tonya fernandez Referred To Contact Vascular Surgery Diagnoses Chronic kidney disease, stage 4 (severe) (HCC) Johnny Simms MD Phone: tel: fax: Referral ID Status Reason Start Date Expiration Date V isits Requested Visits Authorized [id number] Closed Specialty Services Required 11/15/2022 11/15/2023 1 1 Encounter Details Date Type Department Care Team (Latest Contact Info) Description 11/11/2022 Office Communication [facility] [address] [facility] [address] [place] [address] Johnny Simms MD [address] [facility] [address] [place] [address] Chronic kidney disease, stage 4 [...] 3:26 PM EDT Schedule Permcath removal at [facility]--if they will not do it ask [...]
--- OUTSIDE RECORDS SUMMARY | 2024-04-03 07:20 | XMS_ITS | Encounter Summary ---
Author Organization [facility] Address [address] [place] [address] 7[address] [place] [address] Care Team Providers Care Financial Coordinator Name Role Phone Name, Jose MERRITT Primary Care Provider [phone] Reason for Visit * Reason Onset Date Comments Hospital Follow-up 08/28/2022 Encounter Details Date Type Department Care Team (Late st Contact Info) Description 08/28/2022 Telephone [facility] [address] [place] [address] [phone] Name, MD Jose [address] [place] [phone] Hospital Follow-up Social History Tobacco Use Types [...] a HDF appt. Pt was admitted at [facility] on 08/06/22 and discharged on 08/25/22. Pt was diagnosed with kidney failure. Patient is now going to dialysis. Patient speaks swazi documented in this encounter Plan of Treatment Upcoming Encounters Date Type Department Care Team (Late st Contact Info) Description 05/16/2024 9:15 AM EDT Office Visit [facility] [address] [place] [address] Name, MD Jose [address] [place] [address] documented as of this encounter Visit Diagnoses Not on filedocumented in this encounter Care Teams Financial Coordinator Relationship Specialty Start Date End Date Name, MD Jose [address] [place] [address] PCP - General Family Medicine 09/20/16 documented as of this encounter
--- OUTSIDE RECORDS SUMMARY | 2024-04-03 07:20 | XMS_ITS | Encounter Summary ---
Author Organization [facility] Address [address] [place] [address] 7[address] [place] [address] Care Team Providers Care Regional Education Coordinator Name Role Phone Name, Jose MERRITT Primary Care Provider [phone] Encounter Details Date Type Department Care Team ([facility] Contact Info) Description 03/15/2022 Abstract [facility] [address] [place] [phone] NameJose MD [address] [place] [address] [phone] Social History Tobacco Use Types Packs/Day Years [...] Description 05/16/2024 9:15 AM EDT Office Visit [facility] [address] [place] [address] [phone] Jose Arteaga MD [address] [place] [phone] documented as of this encounter Visit Diagnoses Not on filedocumented in this encounter Care Teams Regional Education Coordinator Relationship Specialty Start Date End Date NameJose MD [address] [place] [address] PCP - General Family Medicine 09/20/16 documented as of this encounter
--- OUTSIDE RECORDS SUMMARY | 2024-04-03 07:20 | XMS_ITS | Encounter Summary ---
Author Organization [facility] Address [address] [place] [address] 7t [place] [address] Care Team Providers Care Coal Deliverer Name Role Phone Name, Jose MERRITT Primary Care Provider [phone] Reason for Visit * Reason Onset Date Comments FYI 08/24/2022 Encounter Details Date Type Department Care Team (Late st Contact Info) Description 08/24/2022 Telephone [facility] [address] [place] [address] [phone] NameJose MD [address] [place] [address] [phone] FYI Social History Tobacco Use Types Packs/Day [...] - 08/24/2022 12:40 PM EDT Tc from [facility] calling to advise PCP, hospital gave pt a referral for [facility] but wont give care to pt since he is with [facility]. documented in this encounter Plan of Treatment Upcoming Encounters Date Type Department Care Team (Late st Contact Info) Description 05/16/2024 9:15 AM EDT Office Visit [facility] [address] [place] [address] [phone] Name, MD Jose [address] [place] [address] documented as of this encounter Visit Diagnoses Not on filedocumented in this encounter Care Teams Coal Deliverer Relationship Specialty Start Date End Date Name, MD Jose [address] [place] [address] PCP - General Family Medicine 09/20/16 documented as of this encounter
--- OUTSIDE RECORDS SUMMARY | 2024-04-03 07:20 | XMS_ITS | Encounter Summary ---
Author Organization [facility] Address [address] [place] [address] 7t [place] [address] Care Team Providers Care Assurance Specialist Name Role Phone Name, Jose MERRITT Primary Care Provider [phone] Encounter Details Date Type Department Care Team (Late st Contact Info) Description 07/17/2022 Abstract [facility] [address] [place] [phone] Jose Arteaga MD [address] [place] [address] [phone] Social History Tobacco Use Types Packs/Day Years [...] Description 05/16/2024 9:15 AM EDT Office Visit [facility] [address] [place] [phone] Jose Arteaga MD [address] [place] [phone] documented as of this encounter Procedures Procedure [...] on filedocumented in this encounter Care Teams Assurance Specialist Relationship Specialty Start Date End Date Name, MD Jose [address] [place] [address] PCP - General Family Medicine 09/20/16 documented as of this encounter
--- OUTSIDE RECORDS SUMMARY | 2024-04-03 07:20 | XMS_ITS | Clinical Summary ---
Author Organization [facility] Address [address] [place] [address] [place] [address] Phone Care Team Providers Care Broiler Chef Or Cook Name Role Phone Unavailable Primary Care Provider [...]
--- OUTSIDE RECORDS SUMMARY | 2024-04-03 07:20 | XMS_ITS | Encounter Summary ---
Author Organization [facility] Address [address] [place] [address] 7t [place] [address] Care Team Providers Care Combine Driver Name Role Phone Name, Jose MERRITT Primary Care Provider [phone] Reason for Visit * Reason Comments Med Refill Encounter Details Date Type Department Care Team ([facility] st Contact Info) Description 12/27/2022 Refill [facility] [address] [place], [place] [phone] Name, MD Jose [address] [place] [address] Pain in right knee Social History Tobacco [...] Description 05/16/2024 9:15 AM EDT Office Visit [facility] [address] [place] [phone] Name, MD Jose [address] [place] [phone] documented as of this encounter Visit Diagnoses Diagnosis Pain in right knee documented in this encounter Additional Health Concerns Assessment Noted Time PHQ-9 Depression Total Score: 0 09/15/19 23 10:10 AM EDT documented as of this encounter Care Teams Combine Driver Relationship Specialty Start Date End Date Name, MD Jose [address] [place] [phone] PCP - General Family Medicine 09/20/16 documented as of this encounter
--- OUTSIDE RECORDS SUMMARY | 2024-04-03 07:20 | XMS_ITS | Encounter Summary ---
Author Organization [facility] Address [address] [place] [address] [address] [place] [address] Care Team Providers Care Flight Teacher Name Role Phone Name, Jose MERRITT Primary Care Provider [phone] Reason for Visit * Reason Onset Date Comments FYI 08/06/2023 Encounter Details Date Type Department Care Team ([facility] st Contact Info) Description 08/06/2023 Telephone [facility] [address] [place], [place] [phone] Name, MD Jose [address] [place] [address] Social History Tobacco Use Types Packs/Day Years [...] t he electric, gas, oil or water [employer] threatened to shut off services in your [...] - 08/06/2023 12:58 PM EDT Tc from [facility] with [facility]FF calling to advise provider pt has been admitted to nursing services for wound care on 08/02 documented in this encounter Plan of Treatment Upcoming Encounters Date Type Department Care Team (Late st Contact Info) Description 05/16/2024 9:15 AM EDT Office Visit [facility] [address] [place] [phone] Name, MD Jose [address] [place] [address] documented as of this encounter Visit Diagnoses Not on filedocumented in this encounter Additional Health Concerns Assessment Noted Time PHQ-9 Depression Total Score: 0 09/15/19 23 10:10 AM EDT documented as of this encounter Care Teams Flight Teacher Relationship Specialty Start Date End Date Name, MD Jose [address] [place] [phone] PCP - General Family Medicine 09/20/16 documented as of this encounter
== END 2024-04-03 07:19 | disposition home or self-care (01) ==
LOC: HO.US 07:18
PROVIDERS: PCP Internal Medicine Geriatric Medicine; Visit Provider Surgery Vascular Surgery
DX: I83.12 Varicose veins of left lower extremity with inflammation (principal)
CPT/HCPCS: 93970

== ENCOUNTER → 2024-04-03 07:19 | Outpatient (BNV) | payer MEDICARE, MEDICAID, SELFPAY | PROVIDERS: PCP Internal Medicine Geriatric Medicine; Visit Provider Radiology Diagnostic Radiology | DX: I87.2 Venous insufficiency (chronic) (peripheral) (principal); I83.93 Asymptomatic varicose veins of bilateral lower extremities | CPT/HCPCS: 93970 ==

== ENCOUNTER 2024-05-01 14:21 | Outpatient (AMB) | payer MEDICARE, MEDICAID, SELFPAY ==
--- NOTE | 2024-05-01 14:27 | MHC.OFFVIS ---
Intake Visit Reasons: Follow up 04/03/24 Intake Note: Patient presents for follow up US performed on 04/03/24. Patient states his feet and knees hurt. He has arthritis and believes it is part of the pain. Accompanied by: Self / Same As Patient Allergies No Known Allergies Allergy (Verified 05/01/24 14:29) HPI HPI Follow up [facility] 04/03/24: Details: The patient is a 68-year-old male presenting with post-ablative treatment swelling of the right lower extremity, now seeking follow-up care. Previous interventions in 2019 and 2022 have provided some measure of symptom control, though swelling persists. He does not report any significant past inciting events apart from these treatments that required surgical intervention. In the current evaluation, the patient notes bilateral knee pain, impairing mobility, and attributes its worsening partially to his weight. Currently, there is awareness regarding an orthopedic component to the knee issue, and he intends to address contributing weight factors soon. He now presents for follow-up with venous insufficiency test [facility] Medical History Venous stasis ulcer Pancytopenia COVID-19 Cirrhosis Pedal edema GERD (gastroesophageal reflux disease) Hx of hepatitis C Hepatic fibrosis Osteoarthritis of both knees Anemia History of substance abuse Hypertension Surgical History Hx of endoscopic retrograde cholangiopancreatography History of esophagogastroduodenoscopy (EGD) Hx of appendectomy Hx of left knee surgery Family History Father No problems noted. Mother No problems noted. Social History Household Members: None Housing: Unknown / Unable to assess Do you presently have visiting nurse or other home services: Yes Alcohol intake: former Patient Tobacco Use Status: Never used Tobacco e-Cigarette/Vaping Use: Never Used Second Hand Smoke Exposure: No Substance Use Type: Former Substance User service: No Current occupational status: disabled Review of Systems Const All systems reviewed & are unremarkable except as noted in HPI and below Reports no additional complaints ENT Reports Normal hearing present Card Denies chest pain, Denies chest pain at rest, Denies chest pain with activity and Denies pedal edema Resp Denies cough GI Denies abdominal pain Musc Denies abnormal gait, Denies muscle cramps and Denies radiating pain into limb Skin/Breast Denies skin ulcer and Denies wounds Neuro Reports Normal hearing present and Denies abnormal gait Psych Reports no additional complaints Physical Exam Const General: cooperative, healthy appearing and comfortable Orientation/consciousness: oriented to person, oriented to place and oriented to time HEENT Head: Yes normal to inspection Neck Neck: Yes normal visual inspection Carotids: no bruits Chest Chest palpation & inspection: normal inspection of the chest Resp Effort & Inspection: normal respiratory effort and able to speak in complete sentences Auscultation: clear to auscultation bilaterally, no crackles, no rales, no rhonchi and no wheezes Cardio Rate: regular rate Rhythm: regular rhythm Heart sounds: S1 normal heart sound present and S2 normal heart sound present Bruits: no carotid bruits Peripheral pulses: Peripheral pulses 2+ throughout GI Inspection: Yes normal to inspection Skin Wounds: no wounds Hair: normal Neuro General: oriented to person, oriented to place and oriented to time Cranial nerves: Yes CN's II-XII intact bilaterally and Yes Normal hearing present Cognition (Neuro): normal cognition Motor exam (neuro): 5/5 motor strength present throughout Extrem Other: venous exam: +2 edema General: No clubbing, No cyanosis and Yes edema Psych Appearance: grossly normal Mental Status: mental status grossly normal Speech and movement: Normal speech and movement present Results Reviewed Results Reviewed: Brief summary of venous insufficiency testing is as follows: right great saphenous vein: Focally positive right calf right small saphenous vein: negative right accessory vein: none present left great saphenous vein: negative left small saphenous vein: negative left accessory vein: none present Please note there is no evidence of any venous aneurysms or significant tortuosity Assessment & Plan Assessment & Plan (1) Varicose veins of right lower extremity with inflammation: Comment: 03/29/2018 right great saphenous vein Radiofrequency ablation 03/31/2022 right great saphenous vein Cyanoacralate ablation 07/14/2022 right small saphenous vein radiofrequency ablation Code(s): I83.11 - Varicose veins of right lower extremity with inflammation Category: Medical Plan: I discussed with the patient that recent ultrasound findings revealed minimal calf abnormality, needing no further vascular intervention. I elaborated on the importance of weight management, emphasizing its relevance for both vascular symptoms and knee pain. We discussed that the priority should be addressing the knee issues through orthopedic channels, as their origins appear orthopedic as opposed to vascular. Our discussion included no additional vascular procedures planned, and I confirmed our follow-up expectations focusing on orthopedic resolution. (2) Varicose veins of left lower extremity with inflammation: Code(s): I83.12 - Varicose veins of left lower extremity with inflammation Category: Medical Plan: See above (3) Knee pain: Code(s): M25.569 - Pain in unspecified knee Category: Medical Qualifiers: Chronicity: chronic Laterality: bilateral Qualified Code(s): M25.561 - Pain in right knee; M25.562 - Pain in left knee; G89.29 - Other chronic pain Plan: May benefit from orthopedic evaluation for bilateral knee pain (4) Morbid obesity: Code(s): E66.01 - Morbid (severe) obesity due to excess calories Category: Medical Plan: We did have an extensive discussion about efforts to lose weight and that may overall help his leg swelling along with his knee pain. He did demonstrate a good awareness of this. He will follow up with us on an as-needed basis. Coding Level of Care Code Est Pt Level 4 (11870) Diagnoses Varicose veins of right lower extremity with inflammation I83.11 Varicose veins of left lower extremity with inflammation I83.12 Chronic pain of both knees M25.561; M25.562; G89.29 Chronicity: chronic Laterality: bilateral Morbid obesity E66.01
--- OUTSIDE RECORDS SUMMARY | 2024-05-01 18:02 | XMS_ITS | Clinical Summary ---
Author Organization [facility] Address [address] [place] [address] [place] [address] Phone Care Team Providers Care Bacon Stringer Name Role Phone Unavailable Primary Care Provider [...]
== END 2024-05-01 14:47 | disposition home or self-care (01) ==
LOC: HO.HVS 14:22
PROVIDERS: PCP Internal Medicine Geriatric Medicine; Visit Provider Surgery Vascular Surgery
DX: I83.11 Varicose veins of right lower extremity with inflammation (principal); I83.12 Varicose veins of left lower extremity with inflammation; M25.561 Pain in right knee; M25.562 Pain in left knee; G89.29 Other chronic pain; E66.01 Morbid (severe) obesity due to excess calories
CPT/HCPCS: 99214

== ENCOUNTER → 2024-05-01 14:21 | Outpatient (BNVA) | payer MEDICARE, MEDICAID, SELFPAY | PROVIDERS: PCP Internal Medicine Geriatric Medicine; Visit Provider Surgery Vascular Surgery | DX: I83.11 Varicose veins of right lower extremity with inflammation (principal); I83.12 Varicose veins of left lower extremity with inflammation; M25.561 Pain in right knee; M25.562 Pain in left knee; G89.29 Other chronic pain; E66.01 Morbid (severe) obesity due to excess calories | CPT/HCPCS: 99212 ==

== ENCOUNTER 2024-07-09 11:35 | Outpatient (REF) | payer MEDICARE, MEDICAID, SELFPAY ==
--- OUTSIDE RECORDS SUMMARY | 2024-07-09 12:28 | XMS_ITS | Clinical Summary ---
Author Organization [employer] Address [address] [place] [address] Care Team Providers Care Distillery Supervisor Name Role Phone Name, Jose MERRITT Primary Care Provider [phone] Allergies No known active allergies Medications naloxone (Narcan) 4 mg/0.1 mL nasal spray FOR SUSPECTED OPIOID OVERDOSE. SPRAY 0.1mL IN ONE NOSTRIL. REPEAT IN ALTERNATE NOSTRIL 2-3 MINUTES IF NEEDED. SEEK MEDICAL ATTENTION IMMEDIATELY EVEN IF PATIENT RESPONDS. 2 Active methadone (Dolophine) 10 MG/ML solution 45 mg/day as directed by [facility] 3 Active propranolol (Inderal) 40 MG tabletIndication s:Hepatic fibrosis TAKE 1 TABLET BY MOUTH TWICE DAILY 180 tablet 4 Active famotidine (Pepcid) 20 MG tablet Take 1 tablet (20 mg) by mouth 2 times daily. 60 tablet 11 4 12/26/19 25 Active losartan (Cozaar) 25 MG tabletIndication s:Hypertension, unspecified type,Stage 3 chronic kidney disease, unspecified whether stage 3a or 3b CKD (CMS/HCC) Take 1 tablet (25 mg) by mouth Once per day. 30 tablet 11 4 12/26/19 25 Active Blood Pressure kitIndications:H [...] Encounters Date Type Department Care Team Description 07/09/2024 10:20 AM EDT Office Visit [facility] [address] [place] [address] Subconjunctival hemorrhage of right eye (Primary Dx) 07/09/2024 Travel 06/16/2024 Telephone [facility] [address] [place] [address] Name, MD Jose CHART PREP 05/15/2024 Telephone [facility] [address] [place] [address] Carlie Peng MA chartprep from Last 3 Months Immunizations Immunization Administration Dates Next Due Hep A, Adult [...] Sign Reading Time Taken Comments Blood Pressure 165/76 07/09/2024 10:52 AM EDT Pulse 63 07/09/2024 10:52 AM EDT Temperature 36.2 ??C (97.2 ??F) 07/09/2024 10:52 AM E DT Respiratory Rate 20 07/09/2024 10:52 AM EDT Oxygen Saturation 96% 07/09/2024 10:52 AM EDT Inhaled Oxygen Concentration - - Weight 160 kg (352 lb) 07/09/2024 10:52 AM EDT Height 185.4 cm (6' 1 ) 12/26/2023 10:08 AM EST Body Mass Index 46.44 12/26/2023 10:08 AM EST Plan of Treatment Health Maintenance Due Date Last Done Comments CT Colonography 1955 FIT DNA/Cologuard 1955 FIT 1955 FOBT 1955 Lipid Panel 1955 Sigmoidoscopy 1955 Alcohol/Substance Use Screening 1967 Hepatitis B Vaccines (2 of 3 - Risk 3-dose series) 01/22/2001 12/25/2000 RSV Patients and Patients Aged 60 years or older (1 - Risk 60-74 years 1-dose series) 2015 COVID-19 Vaccine (3 - season) 2023 06/16/2020, 05/19/2020 Depression Screening 04/30/2024 05/01/2023, 09/15/19 23 SDOH Screening 04/30/2024 05/01/2023 Tobacco Screening 07/09/2025 07/09/2024 Colonoscopy 03/29/2026 03/29/2016 Colorectal Cancer Screening 03/29/2026 [...] patient's age to complete this topic Meningococcal B Vaccine Aged Out No l onger eligible based on patient's age to complete [...] Procedure Name Priority Date/Time Associated Diagnosis Comments ZZZ HISTORICAL HEPATITIS A,B,C PROFILE Routine 10/16/2019 10:40 AM EDT HM COLONOSCOPY Routine 03/29/2016 12:27 PM EST from Last 3 Months or Most Recently Relevant to Health Maintenance Results * (ABNORMAL) HEPATITIS A,B,C PROFILE (10/16/2019 10:40 [...] Historical Provider HISTORICAL/NON ORDERABLE LABS Final Result [facility] [address] [place] [address], * Colonoscopy (03/29/2016 12:27 PM EST) Colonoscopy Normal Normal Narrative Isis Wetzel - 03/29/2016 12:27 PM EST Recommended 10 year follow up us Historical Provider HEALTH MAINTENANCE Final Result from Last 3 Months or Most Recently Relevant to Health Maintenance Insurance [facility] STANDARD [place] [phone] Care Teams Distillery Supervisor Relationship Specialty Start Date End Date Name, MD Jose [address] [place] [phone] PCP - General Family Medicine 09/20/16
[2024-07-09 13:20] LABS: MANUAL DIFF FLAG NO
[2024-07-09 13:28] LABS: Basophils Percent Auto 0.8 % (0-2); Eosinophils Absolute Auto 0.2 X10*3/uL (0.0-0.4); Eosinophils Percent Auto 4.8 % (0-4); Hematocrit 35.7 % (42.0-52.0); Hemoglobin 11.3 g/dl (14.0-18.0); INTERNATIONAL NORM RATIO 1.2 (0.9-1.1); Imm Gran Abs Auto 0.03 X10*3/uL (0.00-0.03); Imm Gran Pct Auto 0.8 % (0.0-0.4); Lymphocytes Absolute Auto 0.8 X10*3/uL (1.2-4.9); Lymphocytes Percent Auto 20.6 % (20-40); Mean Corpuscular HGB Conc 31.7 g/dl (31.0-36.0); Mean Corpuscular Hemoglobin 29.3 pg (27.0-33.0); Mean Corpuscular Volume 92.5 fL (80.0-98.0); Mean Platelet Volume 12.3 fL (9.4-12.4); Monocytes Absolute Auto 0.6 X10*3/uL (0.1-1.2); Neutrophils Absolute Auto 2.3 x10*3/uL (2.0-8.3); Platelet Count 72 X10*3/uL (160-400); Red Blood Count 3.86 X10*6/uL (4.60-5.80); White Blood Count 3.9 X10*3/uL (4.8-10.8)
[2024-07-09 13:31] LABS: Partial Thromboplastin Time 35.8 SEC (26.0-36.8)
== END 2024-07-09 11:36 | disposition home or self-care (01) ==
LOC: HO.HHCL 11:35
PROVIDERS: Visit Provider Emergency Medicine
DX: H11.31 Conjunctival hemorrhage, right eye (principal)
CPT/HCPCS: 36415; 85025; 85610; 85730

== ENCOUNTER 2024-07-14 08:43 | Outpatient (REF) | payer MEDICARE, MEDICAID, SELFPAY ==
--- OUTSIDE RECORDS SUMMARY | 2024-07-14 08:50 | XMS_ITS | Clinical Summary ---
Author Organization [employer] Address [address] [place] [address] Care Team Providers Care Cytology Manager Name Role Phone Name, Jose MERRITT Primary Care Provider [phone] Allergies No known active allergies Medications naloxone [...] Encounters Date Type Department Care Team Description 07/11/2024 Results Follow-Up [facility] [address] [place] [address] Nino Miranda MD CBC auto differential, Prothrombin Time-INR, Partial Thromboplastin Time, Activated (APTT) 07/10/2024 Orders Only [facility] [address] [place] [address] Nino Miranda MD Hepatic fibrosis (Primary Dx); Opioid dependence, uncomplicated (CMS/HCC) 07/09/2024 10:20 AM EDT Office Visit [facility] [address] [address] Nino Miranda MD Subconjunctival hemorrhage of right eye (Primary Dx); Opioid dependence, uncomplicated (CMS/HCC) 07/09/2024 Travel 06/16/2024 Telephone [facility] [address] [place] [address] Name, MD Jose CHART PREP 05/15/2024 Telephone [facility] [address] [place] [address] Carlie Peng MA chartprep from Last 3 [...] Vaccine ( - season) 2023 06/16/2020, 05/19/2020 Depression Screening [...] Procedure Name Priority Date/Time Associated Diagnosis Comments APTT Routine 07/09/2024 11:37 AM EDT Subconjunctival hemorrhage of right eye PROTHROMBIN TIME-INR Routine 07/09/2024 11:37 AM EDT Subconjunctival hemorrhage of right eye CBC WITH AUTO DIFFERENTIAL Routine 07/09/2024 11:37 AM EDT Subconjunctival hemorrhage of right eye ZZZ HISTORICAL HEPATITIS A,B,C PROFILE Routine 10/16/2019 10:40 AM EDT HM COLONOSCOPY Routine 03/29/2016 12:27 PM EST from Last 3 Months or Most Recently Relevant to Health Maintenance Results * (ABNORMAL) CBC auto differential (07/09/2024 11:37 AM EDT) White Blood Count 3.9(L) 4.8 - 10.8 X10*3/uL [facility] Red Blood Count 3.86(L) 4.60 - 5.80 X10*6/uL [facility] Hemoglobin 11.3(L) 14.0 - 18.0 g/dl [facility] Hematocrit 35.7(L) 42.0 - 52.0 % [facility] Mean Corpuscular Volume 92.5 80.0 - 98.0 fL [facility] Mean Corpuscular Hemoglobin 29.3 27.0 - 33.0 pg [facility] Mean Corpuscular HGB Conc 31.7 31.0 - 36.0 g/dl [facility] Red Cell Distribution Width 13.0 11.0 - 16.0 % [facility] Platelet Count 72(L) 160 - 400 X10*3/uL [facility] Mean Platelet Volume 12.3 9.4 - 12.4 fL [facility] Neutrophils Percent Auto 58.0 45 - 73 % [facility] Imm Gran Pct Auto 0.8(H) 0.0 - 0.4 % [facility] Lymphocytes Percent Auto 20.6 20 - 40 % [facility] Monocytes Percent Auto 15.0(H) 2 - 11 % [facility] Eosinophils Percent Auto 4.8(H) 0 - 4 % [facility] Basophils Percent Auto 0.8 0 - 2 % [facility] NRBC Pct Auto 0.0 0.0 - 0.2 /100WBC [facility] Neutrophils Absolute Auto 2.3 2.0 - 8.3 x10*3/uL [facility] Imm Gran Abs Auto 0.03 0.00 - 0.03 X10*3/uL [facility] Lymphocytes Absolute Auto 0.8(L) 1.2 - 4.9 X10*3/uL [facility] Monocytes Absolute Auto 0.6 0.1 - 1.2 X10*3/uL [facility] Eosinophils Absolute Auto 0.2 0.0 - 0.4 X10*3/uL [facility] Basophils Absolute Auto 0.0 0.0 - 0.2 X10*3/uL [facility] NRBC Abs Auto 0.000 0.0 - 0.012 X10*3/uL [facility] Blood Venous blood specimen / Unknown 07/09/2024 11:37 AM EDT 07/09/2024 1:11 PM EDT us Nino Miranda MD LAB BLOOD ORDERABLES Final Resul t Performing Organization Address City/[facility] Co de Phone Number [facility] [address] [place] [phone] * Partial Thromboplastin Time, Activated (APTT) (07/09/2024 11:37 AM EDT) Partial Thromboplastin Time 35.8 26.0 - 36.8 SEC [facility] Comment:For information rega rding the monitoring of direct thrombininhibitors, please refer to Pharmacy. Blood Venous blood specimen / Unknown 07/09/2024 11:37 AM EDT 07/09/2024 1:11 PM EDT us Nino Miranda MD LAB BLOOD ORDERABLES Final Resul t Performing Organization Address [facility] Co de Phone Number [facility] [address] [place] [phone] * (ABNORMAL) Prothrombin Time-INR (07/09/2024 11:37 AM EDT) Prothrombin Time 14.0(H) 10.9 - 12.4 SEC [facility] INTERNATIONAL NORM RATIO 1.2(H) 0.9 - 1.1 [facility] Comment:INTERNATIONAL NORMAL IZED RATIO (INR) REFERENCE RANGES Reference RangeFor patients not on anticoagulant therapy: 0.9 - 1.1INR ranges for oral anticoagulanttherapy:For prevention and treatment of venous thrombosis and pulmonary embolism: 2.0 - 3.0For acute myocardial infarction with aspirin therapy: 2.0 - 3.0For acute myocardial infarction without aspirin therapy: 3.0 - 4.0For patients with mechanical prosthetic heart valves: 2.5 - 3.5 Blood Venous blood specimen / Unknown 07/09/2024 11:37 AM EDT 07/09/2024 1:11 PM EDT us Nino Miranda MD LAB BLOOD ORDERABLES Final Resul t [facility] [address] [place] [phone] * (ABNORMAL) HEPATITIS A,B,C PROFILE (10/16/2019 [...] ORDERABLE LABS Final Result Performing Organization Address City/[facility]/ZIP Co de Phone Number [facility] [address] * Hm Colonoscopy (03/29/2016 12:27 PM EST) Colonoscopy Normal Normal Narrative DamariIsis - 03/29/2016 12:27 PM EST Recommended 10 year follow up us Historical Provider HEALTH MAINTENANCE Final Result from Last 3 Months or Most Recently Relevant to Health Maintenance Insurance [facility] STANDARD MEDICARE Care Teams Cytology Manager Relationship Specialty Start Date End Date Name, MD Jose [address] [place] [phone] PCP - General Family Medicine 09/20/16
[2024-07-14 12:12] LABS: HBS Num1 23.96 mIU/mL (0-7.99); HBc Num1 4.69 S/CO (0.00-0.79); HBsAGNum1 0.43 S/CO (0.00-0.99); Hepatitis B Surface Antigen Negative (Negative); ~HepC Num1 11.75 S/CO (0.00-0.79); ~Hepatitis B Surface Antibody REACTIVE (Nonreactive); ~Hepatitis C Antibody Reactive (Nonreactive)
[2024-07-14 13:02] LABS: HBc Num2 4.75 S/CO; HBc Num3 4.67 S/CO; Hepatitis B Core Antibody Reactive (Nonreactive)
[2024-07-16 17:48] LABS: HCV Log PCR <1.18 NOT DETECTED Log IU/mL (NOT DETECTED); HepC Viral Load <15 NOT DETECTED IU/mL (NOT DETECTED)
== END 2024-07-14 08:44 | disposition home or self-care (01) ==
LOC: HO.HHCL 08:43
PROVIDERS: Visit Provider Emergency Medicine
DX: K74.00 Hepatic fibrosis, unspecified (principal); F11.20 Opioid dependence, uncomplicated
CPT/HCPCS: 36415; 86704; 86706; 86803; 87340; 87522

== ENCOUNTER 2024-08-06 09:53 | Outpatient (REF) | payer MEDICARE, MEDICAID, SELFPAY ==
--- NOTE | ~2024-08-06 | US_ITS ---
EXAMINATION: US ABDOMEN LIMITED CLINICAL INFORMATION: Cirrhosis.. COMPARISON: Ultrasound abdomen 05/18/2021 TECHNIQUE: Real-time imaging of the right upper quadrant abdominal viscera. FINDINGS: PANCREAS: Most of the pancreas is obscured by overlying bowel gas. LIVER: The liver is normal in size. The liver contour is normal. Parenchymal echogenicity is normal. No focal hepatic lesion. There is no intrahepatic biliary duct dilatation seen. GALLBLADDER: The gallbladder is physiologically distended without evidence of stones, sludge, polyps, wall thickening or pericholecystic fluid. COMMON BILE DUCT: Normal in caliber measuring 0.3 cm in diameter. RIGHT KIDNEY: No hydronephrosis. No renal calculi or focal parenchymal lesions. The kidney measures 9.0 cm in maximum dimension. FREE FLUID: None. US/US abdomen limited IMPRESSION: Unremarkable limited abdomen ultrasound. Electronically signed by: Benja Ortiz MD 08/06/2024 12:16 PM EDT
--- OUTSIDE RECORDS SUMMARY | 2024-08-06 10:16 | XMS_ITS | Clinical Summary ---
Author Organization [employer] Address [address] [place] [address] Care Team Providers Care Creche Attendant Name Role Phone Name, Jose MERRITT Primary Care Provider [phone] Allergies No known active allergies Medications naloxone [...] Encounters Date Type Department Care Team Description 07/17/2024 Results Follow-Up [facility] [address] [place] [phone] Nino Miranda MD Hepatitis C Viral RNA, Quantitative, Real-Time PCR 07/14/2024 [facility] [address] [address] Nion Miranda MD 07/11/2024 Results Follow-Up [facility] [address] [address] Nino Miranda MD CBC auto differential, Prothrombin Time-INR, Partial Thromboplastin Time, Activated (APTT) 07/10/2024 Orders Only [facility] [address] [address] Nino Miranda MD Hepatic fibrosis (Primary Dx); Opioid dependence, uncomplicated (CMS/HCC) 07/09/2024 10:20 AM EDT Office Visit [facility] [address] [address] Nino Miranda MD Subconjunctival hemorrhage of right eye (Primary Dx); Opioid dependence, uncomplicated (CMS/HCC) 07/09/2024 Travel 06/16/2024 Telephone [facility] [address] [place] [phone] Jose Arteaga MD CHART PREP 05/15/2024 Telephone [facility] [address] [place] [phone] Carlie Peng MA chartprep from Last 3 [...] 63 07/09/2024 10:52 AM EDT Temperature 36.2 C (97.2 F) 07/09/2024 10:52 AM EDT Respiratory Rate 20 07/09/2024 10:52 AM EDT [...] years 1-dose series) 2015 COVID-19 Vaccine ( season) 2023 06/16/2020, 05/19/2020 Depression Screening 04/30/2024 05/01/2023, 09/15/19 23 SDOH Screening 04/30/2024 05/01/2023 Tobacco Screening 07/09/2025 07/09/2024 Colonoscopy 03/29/2026 03/29/2016 Colorectal Cancer Screening 03/29/2026 DTaP/Tdap/Td Vaccines (3 - Td or Tdap) 12/25/2032 12/25/2022, 12/22/2011, 08/05/2003 Hepatitis A Vaccines Completed 06/26/2001, 12/26/19 Zoster Vaccines Completed 09/07/2020, 03/08, 12/20/2015 Pneumococcal Vaccine: 50+ Years Completed 12/25/2022, 09/07/2020, 08/23/2014, Additional history exists Influenza Vaccine Completed 12/26/2023, , 11/09/2020, Additional history exists Hepatitis C Screening Completed 07/14/2024 , 07/14/2024, 10/16/2019 HIB Vaccines Aged Out No longer eligi [...] Procedure Name Priority Date/Time Associated Diagnosis Comments HEPATITIS C VIRAL RNA, QUANTITATIVE, REAL-TIME PCR Routine 07/14/2024 8:48 AM EDT HEPATITIS C AB W/REFL TO HCV RNA, QN, PCR Routine 07/14/2024 8:48 AM EDT Hepatic fibrosis Opioid dependence, uncomplicated (CMS/HCC) HEPATITIS B SURFACE ANTIGEN, EIA Routine 07/14/2024 8:48 AM EDT Hepatic fibrosis Opioid dependence, uncomplicated (CMS/HCC) HEPATITIS B SURFACE ANTIBODY, QUALITATIVE Routine 07/14/2024 8:48 AM EDT Hepatic fibrosis Opioid dependence, uncomplicated (CMS/HCC) HEPATITIS B CORE AB TOTAL Routine 07/14/2024 8:48 AM EDT Hepatic fibrosis Opioid dependence, uncomplicated (CMS/HCC) APTT Routine 07/09/2024 11:37 AM EDT Subconjunctival hemorrhage of right eye PROTHROMBIN TIME-INR Routine 07/09/2024 11:37 AM EDT Subconjunctival hemorrhage of right eye CBC WITH AUTO DIFFERENTIAL Routine 07/09/2024 11:37 AM EDT Subconjunctival hemorrhage of right eye HM COLONOSCOPY Routine 03/29/2016 12:27 PM EST from Last 3 Months or Most Recently Relevant to Health Maintenance Results * Hepatitis C Viral RNA, Quantitative, Real-Time PCR (07/14/2024 8:48 AM EDT) Pathologist [facility] Hepatitis C Viral Load <15 NOT DETECTED NOT DETECTED IU/mL [facility] HCV Log PCR <1.18 NOT DETECTED NOT DETECTED Log IU/mL [facility] Comment:For additional infor mation, please refer [email or web address].[employer]/faq/BCX48v7(This link is being provided for informational/educational purposes only.)THIS TEST WAS PERFORMED AT:[employer] [place] [phone] VAZQUEZ MD 07/14/2024 8:48 AM EDT 07/14/2024 2:31 PM EDT us Nino Miranda MD LAB BLOOD ORDERABLES Final Resul t [facility] [address] [place] [address] [phone] * (ABNORMAL) Hepatitis C Antibody with Reflex to HCV, RNA, Quantitative, Real- Time PCR (07/14/2024 8:48 AM EDT) Hepatitis C Antibody Reactive( A) Nonreactive [facility] Comment:Presumptive evidence of antibodies to HCV. Blood Venous blood specimen / Unknown 07/14/2024 8:48 AM EDT 07/14/2024 11:11 AM EDT us Nino Miranda MD LAB BLOOD ORDERABLES Final Resul t Performing Organization Address [facility] de Phone Number [facility] [address] [place] [phone] * Hepatitis B surface antigen, EIA (07/14/2024 8:48 AM EDT) Hepatitis B Surface Ag Negative Negative [facility] Blood Venous blood specimen / Unknown 07/14/2024 8:48 AM EDT 07/14/2024 11:11 AM EDT us Nino Miranda MD LAB BLOOD ORDERABLES Final Resul t Performing Organization Address [facility] Phone Number [facility] [address] [place] [phone] * Hepatitis B Core Antibody, Total (07/14/2024 8:48 AM EDT) Pathologist [facility] Hepatitis B Core Antibody Reactive Nonreactive [facility] Comment:Presumptive evidence of anti-HBc. Blood Venous blood specimen / Unknown 07/14/2024 8:48 AM EDT 07/14/2024 11:11 AM EDT us Nino Miranda MD LAB BLOOD ORDERABLES Final Resul t Performing Organization Address [facility] de Phone Number [facility] [address] [place] [phone] * Hepatitis B Surface Antibody, Qualitative (07/14/2024 8:48 AM EDT) ~Hepatitis B Surface Antibody REACTIVE Nonreactive [facility] Comment:REACTIVE: > 11.99 mI U/mL Blood Venous blood specimen / Unknown 07/14/2024 8:48 AM EDT 07/14/2024 11:11 AM EDT us Nino Miranda MD LAB BLOOD ORDERABLES Final Resul t [facility] [address] [place] [address] [phone] * (ABNORMAL) CBC auto differential (07/09/2024 11:37 AM EDT) White Blood Count 3.9(L) 4.8 - 10.8 X10*3/uL [facility] Red Blood Count 3.86(L) 4.60 - 5.80 X10*6/uL [facility] Hemoglobin 11.3(L) 14.0 - 18.0 g/dl [facility] Hematocrit 35.7(L) 42.0 - 52.0 % [facility] Mean Corpuscular Volume 92.5 80.0 - 98.0 fL [facility] Mean Corpuscular Hemoglobin 29.3 27.0 - 33.0 pg [facility] Mean Corpuscular HGB Conc 31.7 31.0 - 36.0 g/dl [facility] Red Cell Distribution Width 13.0 11.0 - 16.0 % [facility] Platelet Count 72(L) 160 - 400 X10*3/uL [facility] Mean Platelet Volume 12.3 9.4 - 12.4 fL [facility] Neutrophils Percent Auto 58.0 45 - 73 % [facility] Imm Gran Pct Auto 0.8(H) 0.0 - 0.4 % [facility] Lymphocytes Percent Auto 20.6 20 - 40 % [facility] Monocytes Percent Auto 15.0(H) 2 - 11 % [facility] Eosinophils Percent Auto 4.8(H) 0 - 4 % [facility] Basophils Percent Auto 0.8 0 - 2 % [facility] NRBC Pct Auto 0.0 0.0 - 0.2 /100WBC [facility] Neutrophils Absolute Auto 2.3 2.0 - 8.3 x10*3/uL [facility] Imm Gran Abs Auto 0.03 0.00 - 0.03 X10*3/uL [facility] Lymphocytes Absolute Auto 0.8(L) 1.2 - 4.9 X10*3/uL [facility] Monocytes Absolute Auto 0.6 0.1 - 1.2 X10*3/uL [facility] Eosinophils Absolute Auto 0.2 0.0 - 0.4 X10*3/uL [facility] Basophils Absolute Auto 0.0 0.0 - 0.2 X10*3/uL [facility] NRBC Abs Auto 0.000 0.0 - 0.012 X10*3/uL [facility] Blood Venous blood specimen / Unknown 07/09/2024 11:37 AM EDT 07/09/2024 1:11 PM EDT us Nino Miranda MD LAB BLOOD ORDERABLES Final Resul t Performing Organization Address City/[facility]/ZIP Co de Phone Number [facility] [address] [place] [phone] * Partial Thromboplastin Time, Activated (APTT) (07/09/2024 11:37 AM EDT) Partial Thromboplastin Time 35.8 26.0 - 36.8 SEC [facility] Comment:For information rega rding the monitoring of direct thrombininhibitors, please refer to Pharmacy. Blood Venous blood specimen / Unknown 07/09/2024 11:37 AM EDT 07/09/2024 1:11 PM EDT us Nino Miranda MD LAB BLOOD ORDERABLES Final Resul t Performing Organization Address City/[facility]/ZIP Co de Phone Number [facility] [address] [place] [phone] * (ABNORMAL) Prothrombin Time-INR (07/09/2024 11:37 AM EDT) Prothrombin Time 14.0(H) 10.9 - 12.4 SEC [facility] INTERNATIONAL NORM RATIO 1.2(H) 0.9 - 1.1 [facility] Comment:INTERNATIONAL NORMAL IZED RATIO (INR) REFERENCE [...] 11:37 AM EDT 07/09/2024 1:11 PM EDT Nino Miranda MD LAB BLOOD ORDERABLES Final Resul t [facility] [address] [place] [phone] [phone] * Hm Colonoscopy (03/29/2016 12:27 PM EST) Colonoscopy Normal Normal Narrative Isis Wetzel - 03/29/2016 12:27 PM EST Recommended 10 year follow up Manny Provider HEALTH MAINTENANCE Final Result from Last 3 Months or Most Recently Relevant to Health Maintenance Insurance [facility] STANDARD MEDICARE Care Teams Creche Attendant Relationship Specialty Start Date End Date Name, MD Jose [address] [place] [phone] PCP - General Family Medicine 09/20/16
--- OUTSIDE RECORDS SUMMARY | 2024-08-06 10:16 | XMS_ITS | Patient Health Record ---
Author Organization [facility] Address [address] [place] [address] Care Team Providers Care Esthetician Makeup Artist Name Role Phone ColtUrielgenny Primary Care Provider Faisal Ahn Unavailable [phone] Daysi Jean Baptiste Unavailable Unavailable Reason For Referral No Information Medications Medication SIG (Take, Route, Frequency, Duration) Notes Start Date End Date Status Methadone HCl 35 mg Orally Once a day Active Nadolol 40 MG 1 tablet Orally Once a day Active Lasix 40 MG 1 tablet Orally Once a day Active Omeprazole 40 MG 1 capsule Orally Onc e a day Active Dulcolax 5 MG as directed Orally a s directed for 1 days 02/03/2016 Active MiraLax 1 as directed Orally a s directed for 1 days 02/03/2016 Active oxyCODONE HCl 5 MG Orally prn for pain Active Ferrous Gluconate 256 (28 Fe) MG as directed Orally BID for 30 days 04/09/2016 Active Omeprazole 40 MG 1 capsule Orally BID for 30 day(s) 04/09/2016 Active Problems Problem Type SNOMED Code ICD Code Onset Dates Problem Status W/U Status Risk Notes Problem 67130641 Other cirrhosis of liver (K74.69) Active confirmed Problem 865466337 Chronic hepatitis C without hepatic coma (B18.2) Active confirmed Problem 71132160 Iron deficiency anemia, unspecified iron deficiency anemia type (D50.9) Active confirmed Problem 59355478 Polyp of duodenum (K31.7) Active confirmed Plan Of Treatment Pending Test Test Name Order Date LIVER PROFILE 12/11/2014 AMMONIA 12/11/2014 PROTHROMBIN TIME (PT, INR) 12/11/2014 ALPHA-FETOPROTEIN,TUMOR MARKER 6 US ABD 06/29/2016 Future Test Test Name Order Date UPPER GI ENDOSCOPY 01/19/2016 COLONOSCOPY 01/19/2016 UPPER GI ENDOSCOPY 06/29/2016 Insurance Providers Payer Name Payer Address Payer Phone Subscriber Number Group Number Insured Name Patient Relationship to Insured Coverage Start Date Coverage End Date [facility] [address] [address] [place], [place] [phone] [id number] JOSE SWENSON Self - patient is the insured MEDICAID OF [employer] [address] [place] [address] [phone] [id number] JOSE SWENSON Self - patient is the insured Medical (General) History Medical History History ICD Code arthritis hypertension Chronic hepatitis C genotype 1A and cirrhosis--treated unsuccessfully with interferon and ribavirin in the past, but has been treated with 6 months [address] Harvoni [address] 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 He was treated with Harvoni through January of [address] Jean Baptiste. His hepatitis C viral load was not detectable in June of 2015. Denies LA,DM,CVA,Lung disease,renal dise ase obstructive jaundice in 2014 with a total bilirubin as high 28.7--he was hospitalized with some component of encephalopathy and elevated ammonia levels at that time--he underwent an ERCP with sphincterotomy--the initial MRCP had shown a question of common duct stones, but the ERCP did not confirm that-however, the ERCP did show a somewhat dilated extrahepatic bile duct and a bulging major papilla--the sphincterotomy led to excellent drainage of bile, although no definitive stones were seen at that time--since that time his jaundice has markedly improved and he has otherwise been asymptomatic. Colonoscopy in March revealed only diverticulosis and small internal hemorrhoids EGD in March 2016 reveale d an ulcerated polypoid-type lesion in the descending duodenum near the major papilla-biopsies revealed only inflammatory tissue, without any sign of adenoma nor malignancy--- there was also some duodenitis, gastritis, and mild portal gastropathy--there was no evidence of gastric or esophageal varices Surgical History Surgery Date(Month/Year) appendectomy
--- OUTSIDE RECORDS SUMMARY | 2024-08-06 10:16 | XMS_ITS | Clinical Summary ---
Author Organization [facility] Address [address] [place] [address] [place] [address] Phone Care Team Providers Care Supervisor Wash House Name Role Phone Unavailable Primary Care Provider [...] in remission 11/0611/10/2022 Obesity 06/26/2011 11/10/2022 Immunizations Immunization Administration Dates Next Due Hepatitis A 06/26/2001,12/25/2000 [...] Health Maintenance Due Date Last Done Comments Colorectal Cancer Screening: Annual FOBT 05/30/2004 Colorectal Cancer Screening: Colonoscopy 05/30/2004 Colorectal Cancer Screening: Sigmoidoscopy 05/30/2004 Influenza Vaccine (Season Ended) 2024 03/15/2022, 11/09/2020, 03/23/2020, Additional history exists Hepatitis B Vaccine Aged Out 12/25/2000 No longe r eligible based on patient's age to complete this topic Pneumococcal Vaccine: 50+ Years Completed 12/25/2022, 09/07/2020, 08/23/2014, Additional history exists Pneumococcal Vaccine: Peds (0 to 5 Years) and At-Risk Patients (6 to 49 Years) Discontinued 12/25/2022, 09/07/2020, 08/23/2014, Additional history exists Insurance Medicare Medicaid [place]
== END 2024-08-06 09:54 | disposition home or self-care (01) ==
LOC: HO.US 09:53
PROVIDERS: PCP Internal Medicine Geriatric Medicine; Visit Provider Internal Medicine Geriatric Medicine
DX: K74.00 Hepatic fibrosis, unspecified (principal)
CPT/HCPCS: 76705

== ENCOUNTER → 2024-08-06 10:34 | Outpatient (BNV) | payer MEDICARE, MEDICAID, SELFPAY | PROVIDERS: PCP Internal Medicine Geriatric Medicine; Visit Provider Radiology Diagnostic Radiology | DX: K74.60 Unspecified cirrhosis of liver (principal) | CPT/HCPCS: 76705 ==

== ENCOUNTER 2024-08-26 10:30 | Outpatient (RCR) | payer MEDICARE, MEDICAID, SELFPAY | END 2024-08-26 14:35 | disposition home or self-care (01) | LOC: HO.WCC 10:30 | PROVIDERS: PCP Internal Medicine Geriatric Medicine; Visit Provider Surgery Surgical Oncology | DX: I87.333 Chronic venous hypertension (idiopathic) with ulcer and inflammation of bilateral lower extremity (principal); L97.222 Non-pressure chronic ulcer of left calf with fat layer exposed; L97.812 Non-pressure chronic ulcer of other part of right lower leg with fat layer exposed; E66.89 Other obesity not elsewhere classified | CPT/HCPCS: 11042; 29581; 99212; 99213 ==

== ENCOUNTER 2024-08-27 13:26 | Outpatient (REF) | payer MEDICARE, MEDICAID, SELFPAY ==
--- NOTE | ~2024-08-27 | US_ITS ---
EXAMINATION: US TRIPLEX LOWER EXTREMITY, LEFT CLINICAL INFORMATION: Left lower extremity edema and pain. COMPARISON: None available. TECHNIQUE: Color-flow triplex imaging with spectral analysis and compression Doppler were performed on the left lower extremity. FINDINGS: As per technologist note, exam very limited secondary to patient body habitus. Respiratory variation, normal compression and augmented flow are noted throughout the left lower extremity. The visualized common femoral vein, superficial femoral vein, profunda femoral vein, popliteal vein and midcalf peroneal and posterior tibial venous segments show no evidence of deep venous thrombosis. There is no Muller's cyst. Reactive appearing left groin lymph node. US/US venous duplex LE LT IMPRESSION: No evidence of deep venous thrombosis involving the left lower extremity. Electronically signed by: Neno Hernández MD 08/27/2024 02:37 PM EDT
--- OUTSIDE RECORDS SUMMARY | 2024-08-27 13:58 | XMS_ITS | Patient Health Record ---
Author Organization [facility] Address [address] [place] [address] Care Team Providers Care Creasing And Cutting Press Feeder Name Role Phone ColtUrielgenny Primary Care Provider Faisal Ahn Unavailable [phone] Daysi Jean Baptiste Unavailable Unavailable Reason For [...] Problem Status W/U Status Risk Notes Problem 21080317 Other cirrhosis of liver (K74.69) Active confirmed Problem 012109769 Chronic hepatitis C without hepatic coma (B18.2) Active confirmed Problem 28983670 Iron deficiency anemia, unspecified iron deficiency anemia type (D50.9) Active confirmed Problem 16239483 Polyp of duodenum (K31.7) Active confirmed Plan [...] Insured Coverage Start Date Coverage End Date [facility] [address] [address] [place], [place] [id number] [phone] [id number] JOSE SWENSON Self - patient is the insured [facility]ID [facility] [address] [place] [address] [phone] [id number] JOSE SWENSON Self - patient is the [...] not detectable in June of 2015. Denies [place],DM,CVA,Lung disease,renal dise ase obstructive jaundice in 2014 [...]
--- OUTSIDE RECORDS SUMMARY | 2024-08-27 13:59 | XMS_ITS | Clinical Summary ---
Author Organization [facility] Address [address] [place] [address] [place] [address] Phone Care Team Providers Care Corrections Cadet Name Role Phone Unavailable Primary Care Provider [...] Cancer Screening: Sigmoidoscopy 05/30/2004 Influenza Vaccine (#1) 2024 , 11/09/2020, 03/23/2020, Additional history exists Hepatitis B [...]
--- OUTSIDE RECORDS SUMMARY | 2024-08-27 13:59 | XMS_ITS | Clinical Summary ---
Author Organization [employer] Address [address] [place] [address] Care Team Providers Care Moss Bleacher Name Role Phone Name, Jose MERRITT Primary Care Provider [phone] Allergies No known active allergies Medications naloxone [...] Encounters Date Type Department Care Team Description 08/06/2024 Orders Only [facility] [address] [place] [phone] Jose Arteaga MD 07/17/2024 Results Follow-Up [facility] [address] [place] [address] Nino Miranda MD Hepatitis C Viral RNA, Quantitative, Real-Time PCR 07/14/2024 Orders Only [facility] [address] [place] [address] Nino Miranda MD 07/11/2024 Results Follow-Up [facility] [address] [address] Nino Miranda MD CBC auto differential, Prothrombin Time-INR, Partial Thromboplastin Time, Activated (APTT) 07/10/2024 Orders Only [facility] [address] [address] Nino Miranda MD Hepatic fibrosis (Primary Dx); Opioid dependence, uncomplicated (CMS/HCC) 07/09/2024 10:20 AM EDT Office Visit [facility] [address] [address] Nino Miranda MD Subconjunctival hemorrhage of right eye (Primary Dx); Opioid dependence, uncomplicated (CMS/HCC) 07/09/2024 Travel 06/16/2024 Telephone [facility] [address] [place] [address] Jose Arteaga MD CHART PREP from Last 3 Months Immunizations Immunization Administration [...] t he electric, gas, oil or water [employer] threatened to shut off services in your [...] 05/01/2023, 09/15/19 23 SDOH Screening 04/30/2024 05/01/2023 Influenza Vaccine (#1) 2024 , 03/15/2022, 11/09/2020, Additional history exists Tobacco Screening 07/09/2025 07/09/2024 Colonoscopy 03/29/2026 03/29/2016 Colorectal Cancer Screening 03/29/2026 DTaP/Tdap/Td Vaccines (3 - Td or Tdap) 12/25/2032 12/25/2022, 12/22/2011, 08/05/2003 Hepatitis A Vaccines Completed 06/26/2001, 12/26/19 Zoster Vaccines Completed 09/07/2020, 03/08, 12/20/2015 Pneumococcal Vaccine: 50+ Years Completed 12/25/2022, 09/07/2020, 08/23/2014, Additional history exists Hepatitis C Screening Completed [...] Procedure Name Priority Date/Time Associated Diagnosis Comments US ABDOMEN LIMITED Routine 08/06/2024 10 :34 AM EDT HEPATITIS C VIRAL RNA, QUANTITATIVE, REAL-TIME PCR [...] Recently Relevant to Health Maintenance Results * US Abdomen Limited (08/06/2024 10:34 AM EDT) Anatomical Region Laterality Modality Abdomen Ultrasound 08/06/2024 10:3 4 AM EDT Narrative 08/06/2024 12:19 PM EDT [place] [address] Ultrasound Report Signed Patient: Solo Cruz MR#: [id number] : 1955 Acct:[id number] Age/Sex: 69 / M ADM Date: 08/06/24 Loc: HO. Attending Dr: Jose Arteaga MD Ordering Physician: Jose Arteaga MD Date of Service: 08/06/24 Procedure(s): US abdomen limited Accession Number(s): [id number] cc: Jose Arteaga MD EXAMINATION: US ABDOMEN LIMITED CLINICAL INFORMATION: Cirrhosis.. COMPARISON: Ultrasound abdomen 05/18/2021 TECHNIQUE: Real-time imaging of the right upper quadrant abdominal viscera. FINDINGS: PANCREAS: Most of the pancreas is obscured by overlying bowel gas. LIVER: The liver is normal in size. The liver contour is normal. Parenchymal echogenicity is normal. No focal hepatic lesion. There is no intrahepatic biliary duct dilatation seen. GALLBLADDER: The gallbladder is physiologically distended without evidence of stones, sludge, polyps, wall thickening or pericholecystic fluid. COMMON BILE DUCT: Normal in caliber measuring 0.3 cm in diameter. RIGHT KIDNEY: No hydronephrosis. No renal calculi or focal parenchymal lesions. The kidney measures 9.0 cm in maximum dimension. FREE FLUID: None. US/US abdomen limited IMPRESSION: Unremarkable limited abdomen ultrasound. Electronically signed by: Benja Ortiz MD 08/06/2024 12:16 PM EDT RP Dictated By: Benja Ortiz MD Signed By: <Electronically signed by Benja Ortiz MD in OV> 08/06/24 1216 DD/ 1034 TD/TT: 08/06/24 1054 Youtuber: MAXIM Procedure Note Donotuseinterpreter, Image - 08/06/2024 [place] [address] Ultrasound Report Signed Patient: Solo Cruz LMR#: [id number] : 1955cct:[id number] Age/Sex: 69 / MADM Date: 08/06/24 Loc: HO.US Attending Dr: Jose Arteaga MD Ordering Physician: Jose Arteaga MD Date of Service: 08/06/24 Procedure(s): US abdomen limited Accession Number(s): [id number] cc: Jose Arteaga MD EXAMINATION: US ABDOMEN LIMITED CLINICAL INFORMATION: Cirrhosis.. COMPARISON: Ultrasound abdomen 05/18/2021 TECHNIQUE: Real-time imaging of the right upper quadrant abdominal viscera. FINDINGS: PANCREAS: Most of the pancreas is obscured by overlying bowel gas. LIVER: The liver is normal in size. The liver contour is normal. Parenchymal echogenicity is normal. No focal hepatic lesion. There is no intrahepatic biliary duct dilatation seen. GALLBLADDER: The gallbladder is physiologically distended without evidence of stones, sludge, polyps, wall thickening or pericholecystic fluid. COMMON BILE DUCT: Normal in caliber measuring 0.3 cm in diameter. RIGHT KIDNEY: No hydronephrosis. No renal calculi or focal parenchymal lesions. The kidney measures 9.0 cm in maximum dimension. FREE FLUID: None. US/US abdomen limited IMPRESSION: Unremarkable limited abdomen ultrasound. Electronically signed by: Benja Ortiz MD 08/06/2024 12:16 PM EDT RP Dictated By: Benja Ortiz MD Signed By: <Electronically signed by Benja Ortiz MD in OV> 08/06/24 1216 DD/ 1034 TD/TT: 08/06/24 1054 Youtuber: [facility] Jose Arteaga MD IMG US PROCEDURES Final Result * Hepatitis C Viral RNA, Quantitative, Real-Time PCR (07/14/2024 8:48 AM EDT) Hepatitis C Viral Load <15 NOT DETECTED NOT DETECTED IU/mL [facility] HCV Log PCR <1.18 NOT DETECTED NOT DETECTED Log IU/mL [facility] Comment:For additional infor matmathieu, please refer [email or web address]/[email or web address](This link is being provided for informational/educational purposes only.)THIS TEST WAS PERFORMED AT:[employer] [place] [phone] VAZQUEZ MD 07/14/2024 8:48 AM EDT 07/14/2024 2:31 PM EDT Result [facility] Nino Miranda MD LAB BLOOD ORDERABLES Final Resul t [facility] [address] [place], [place] [phone] * (ABNORMAL) Hepatitis C Antibody with Reflex to HCV, RNA, Quantitative, Real- Time PCR (07/14/2024 8:48 AM EDT) Hepatitis C Antibody Reactive( A) Nonreactive [facility] Comment:Presumptive evidence of antibodies to HCV. Blood Venous blood specimen / Unknown 07/14/2024 8:48 AM EDT 07/14/2024 11:11 AM EDT us Nino Miranda MD LAB BLOOD ORDERABLES Final Resul t Performing Organization Address [facility] Co de Phone Number [facility] [address] [place] [phone] * Hepatitis B surface antigen, EIA (07/14/2024 8:48 AM EDT) Hepatitis B Surface Ag Negative Negative [facility] Blood Venous blood specimen / Unknown 07/14/2024 8:48 AM EDT 07/14/2024 11:11 AM EDT us Nino Miranda MD LAB BLOOD ORDERABLES Final Resul t Performing Organization Address [facility] Co de Phone Number [facility] [address] [place] [phone] * Hepatitis B Core Antibody, Total (07/14/2024 8:48 AM EDT) Hepatitis B Core Antibody Reactive Nonreactive [facility] Comment:Presumptive evidence of anti-HBc. Blood Venous blood specimen / Unknown 07/14/2024 8:48 AM EDT 07/14/2024 11:11 AM EDT us Nino Miranda MD LAB BLOOD ORDERABLES Final Resul t Performing Organization Address [facility] de Phone Number [facility] [address] [place] [phone] * Hepatitis B Surface Antibody, Qualitative (07/14/2024 8:48 AM EDT) ~Hepatitis B Surface Antibody REACTIVE Nonreactive [facility] Comment:REACTIVE: > 11.99 mI U/mL Blood Venous blood specimen / Unknown 07/14/2024 8:48 AM EDT 07/14/2024 11:11 AM EDT us Nino Miranda MD LAB BLOOD ORDERABLES Final Resul t Performing Organization Address [facility] Co de Phone Number [facility] [address] [place] [phone] * (ABNORMAL) CBC auto differential (07/09/2024 11:37 AM EDT) White Blood Count 3.9(L) 4.8 - 10.8 X10*3/uL [facility] Red Blood Count 3.86(L) 4.60 - 5.80 X10*6/uL [facility] Hemoglobin 11.3(L) 14.0 - 18.0 g/dl [facility] Hematocrit 35.7(L) 42.0 - 52.0 % [facility] Mean Corpuscular Volume 92.5 80.0 - 98.0 fL [facility] Mean Corpuscular Hemoglobin 29.3 27.0 - 33.0 pg [facility] Mean Corpuscular HGB Conc 31.7 31.0 - 36.0 g/dl [facility] Red Cell Distribution Width 13.0 11.0 - 16.0 % [facility] Platelet Count 72(L) 160 - 400 X10*3/uL [facility] Mean Platelet Volume 12.3 9.4 - 12.4 fL [facility] Neutrophils Percent Auto 58.0 45 - 73 % [facility] Imm Gran Pct Auto 0.8(H) 0.0 - 0.4 % [facility] Lymphocytes Percent Auto 20.6 20 - 40 % [facility] Monocytes Percent Auto 15.0(H) 2 - 11 % [facility] Eosinophils Percent Auto 4.8(H) 0 - 4 % [facility] Basophils Percent Auto 0.8 0 - 2 % [facility] NRBC Pct Auto 0.0 0.0 - 0.2 /100WBC [facility] Neutrophils Absolute Auto 2.3 2.0 - 8.3 x10*3/uL [facility] Imm Gran Abs Auto 0.03 0.00 - 0.03 X10*3/uL [facility] Lymphocytes Absolute Auto 0.8(L) 1.2 - 4.9 X10*3/uL [facility] Monocytes Absolute Auto 0.6 0.1 - 1.2 X10*3/uL [facility] Eosinophils Absolute Auto 0.2 0.0 - 0.4 X10*3/uL [facility] Basophils Absolute Auto 0.0 0.0 - 0.2 X10*3/uL [facility] NRBC Abs Auto 0.000 0.0 - 0.012 X10*3/uL [facility] Blood Venous blood specimen / Unknown 07/09/2024 11:37 AM EDT 07/09/2024 1:11 PM EDT us Nino Miranda MD LAB BLOOD ORDERABLES Final Resul t Performing Organization Address [facility] Co de Phone Number [facility] [address] [place] [phone] * Partial Thromboplastin Time, Activated (APTT) (07/09/2024 11:37 AM EDT) Partial Thromboplastin Time 35.8 26.0 - 36.8 SEC [facility] Comment:For information rega rding the monitoring of direct thrombininhibitors, please refer to Pharmacy. Blood Venous blood specimen / Unknown 07/09/2024 11:37 AM EDT 07/09/2024 1:11 PM EDT us Nino Miranda MD LAB BLOOD ORDERABLES Final Resul t Performing Organization Address [facility] Co de Phone Number [facility] [address] [place] [phone] * (ABNORMAL) Prothrombin Time-INR (07/09/2024 11:37 AM EDT) Prothrombin Time 14.0(H) 10.9 - 12.4 SEC [facility] INTERNATIONAL NORM RATIO 1.2(H) 0.9 - 1.1 [facility] Comment:INTERNATIONAL NORMAL IZED RATIO (INR) [...] MD LAB BLOOD ORDERABLES Final Resul t [facility] [address] [place] [phone] * Hm Colonoscopy (03/29/2016 12:27 PM EST) Colonoscopy Normal Normal Narrative Isis Wetzel - 03/29/2016 12:27 PM EST Recommended 10 year follow up Historical Provider HEALTH MAINTENANCE Final Result from Last 3 Months or Most Recently Relevant to Health Maintenance Insurance [facility] MEDICARE Care Teams Moss Bleacher Relationship Specialty Start Date End Date Name, MD Jose [address] [place] [phone] PCP - General Family Medicine 09/20/16
== END 2024-08-27 13:27 | disposition home or self-care (01) ==
LOC: HO.US 13:26
PROVIDERS: PCP Internal Medicine Geriatric Medicine; Visit Provider Surgery Surgical Oncology
DX: R22.42 Localized swelling, mass and lump, left lower limb (principal); M79.662 Pain in left lower leg
CPT/HCPCS: 93971

== ENCOUNTER → 2024-08-27 13:56 | Outpatient (BNV) | payer MEDICARE, MEDICAID, SELFPAY | PROVIDERS: PCP Internal Medicine Geriatric Medicine; Visit Provider Radiology Diagnostic Radiology | DX: R22.42 Localized swelling, mass and lump, left lower limb (principal) | CPT/HCPCS: 93971 ==

== ENCOUNTER 2025-01-17 01:21 | Emergency (ER) | payer OTHER, SELFPAY ==
[2025-01-17 01:44] VITALS: BP 177/78; PULSE 84; RESP 18; TEMP 36.7; O2SAT 96; BMI 45.1
--- OUTSIDE RECORDS SUMMARY | 2025-01-17 02:14 | XMS_ITS | Encounter Summary ---
Author Organization [employer] Address [address] [facility] [address] [place] [address] Care Team Providers Care Central Office Repairer Supervisor Name Role Phone Name, Jose MERRITT Primary Care Provider [phone] Reason for Visit * Reason Onset Date Comments FYI 08/06/2023 Encounter Details Date Type Department Care Team ([facility] st Contact Info) Description 08/06/2023 Telephone [facility] [address] [place] [address] Name, MD Jose [address] [place], [place] [phone] FYI Social History Tobacco Use Types Packs/Day [...] - 08/06/2023 12:58 PM EDT Tc from [facility] with Berenice JEFF calling to advise provider pt has been admitted to nursing services for wound care on 08/02 documented in this encounter Plan of Treatment Not on file documented as of this encounter Visit Diagnoses Not on filedocumented in this encounter Additional Health Concerns Assessment Noted Time PHQ-9 Depression Total Score: 0 09/15/19 23 10:10 AM EDT documented as of this encounter Care Teams Central Office Repairer Supervisor Relationship Specialty Start Date End Date Name, MD Jose [address] [place] [address] PCP - General Family Medicine 09/20/16 documented as of this encounter
--- OUTSIDE RECORDS SUMMARY | 2025-01-17 02:14 | XMS_ITS | Encounter Summary ---
Author Organization [employer] Address [address] [facility] [address] [place] [address] Care Team Providers Care Degreaser Operator Name Role Phone Name, Jose MERRITT Primary Care Provider [phone] Reason for Visit * Reason Comments Med Refill Encounter Details Date Type Department Care Team ([facility] st Contact Info) Description 12/27/2022 Refill [facility] [address] [place], [place] [phone] Name, MD Jose [address] [place] [address] Pain in right knee Social History Tobacco [...] as of this encounter Plan of Treatment Not on file documented as of this encounter Visit Diagnoses Diagnosis Pain in right knee documented in this encounter Additional Health Concerns Assessment Noted Time PHQ-9 Depression Total Score: 0 09/15/19 23 10:10 AM EDT documented as of this encounter Care Teams Degreaser Operator Relationship Specialty Start Date End Date Name, MD Jose [address] [place] [address] PCP - General Family Medicine 09/20/16 documented as of this encounter
--- OUTSIDE RECORDS SUMMARY | 2025-01-17 02:14 | XMS_ITS | Patient Health Record ---
Author Organization [facility] Address [address] [place] [address] Care Team Providers Care Rubber Stamp Die Inspector Name Role Phone ColtDanielallison Primary Care Provider Faisal Ahn Unavailable [phone] Daysi Jean Baptiste Unavailable Unavailable Reason For Referral No Information Medications Medication SIG (Take, Route, Frequency, Duration) Notes Start Date End Date Status Methadone HCl 35 mg Tablet Orally Once a day Active Nadolol 40 MG Tablet 1 tablet Orally Once a day Active Lasix 40 MG Tablet 1 tablet Orally Once a day Active Omeprazole 40 MG Capsule Delayed Release 1 capsule Orally Once a day Active Dulcolax 5 MG Tablet Delayed Release as directed Orally as directed; Duration: 1 days 02/03/2016 Activ e MiraLax 1 Powder as directed Orally a s directed; Duration: 1 days 02/03/2016 Activ e oxyCODONE HCl 5 MG Tablet Orally prn for pain Active Ferrous Gluconate 256 (28 Fe) MG Tablet as directed Orally BID; Duration: 30 days 04/09/2016 Active Omeprazole 40 MG Capsule Delayed Release 1 capsule Orally BID; Duration: 30 day(s) 04/09/2016 Active Social History Social History Additional Details Category Social Info Options Details Miscellaneous: Marital status: single Occupation: DISABLED Section Notes: He does not smoke or use any alcohol He does not smoke or use any alcohol He does not smoke or use any alcohol He does not smoke or use any alcohol Problems Problem Type SNOMED Code ICD Code Onset Dates Problem Status W/U Status Risk Notes Problem Cirrhosis of liver (92250956) Other cirrhosis of liver (K74.69) Active confirmed Problem Chronic hepatitis C (730528723) Chronic hepatitis C without hepatic coma (B18.2) Active confirmed Problem Iron deficiency anemia (61062908) Iron deficiency anemia, unspecified iron deficiency anemia type (D50.9) Active confirmed Problem Polyp of duodenum (43935712) Polyp of duodenum (K31.7) Active confirmed Plan [...] Insured Coverage Start Date Coverage End Date [facility] [employer] [facility] [address] [address] [place], [place] [id number] JOSE SWENSON Self - patient is the insured MEDICAID OF [employer] [address] [place] [address] [id number] JOSE SWENSON Self - patient is the [...] not detectable in June of 2015. Denies [place],DM,CVA,Lung disease,renal dise ase obstructive jaundice in 2014 [...]
--- OUTSIDE RECORDS SUMMARY | 2025-01-17 02:14 | XMS_ITS | Clinical Summary ---
Author Organization [employer] Address [address] [facility] [address]t [place] [address] Care Team Providers Care Leaflet Distributor Name Role Phone Name, Jose MERRITT Primary Care Provider [phone] Allergies No known active allergies Medications naloxone (Narcan) 4 mg/0.1 mL nasal spray FOR SUSPECTED OPIOID OVERDOSE. SPRAY 0.1mL IN ONE NOSTRIL. REPEAT IN ALTERNATE NOSTRIL 2-3 MINUTES IF NEEDED. SEEK MEDICAL ATTENTION IMMEDIATELY EVEN IF PATIENT RESPONDS. 12/29/19 22 Active methadone (Dolophine) 10 MG/ML solution 45 mg/day as directed by [facility] 06/05/19 13 Active propranolol (Inderal) 40 MG tabletIndicatio ns:Hepatic fibrosis TAKE 1 TABLET BY MOUTH TWICE DAILY 180 tablet 12/17/19 24 Active Blood Pressure kitIndications: Hypertension, unspecified type,Stage 3 chronic kidney disease, unspecified whether stage 3a or 3b CKD (CMS/HCC) ([facility]) To check BP at home once a day 1 kit 12/26/19 24 Active famotidine (Pepcid) 20 MG tablet TAKE 1 TABLET BY MOUTH TWICE DAILY 60 tablet 3 5 10:08 AM EST 12/31/19 25 Active losartan (Cozaar) 25 MG tabletIndicatio ns:Hypertension , unspecified type,Stage 3 chronic kidney disease, unspecified whether stage 3a or 3b CKD (CMS/HCC) ([facility]) TAKE 1 TABLET BY MOUTH EVERY DAY 30 tablet 3 5 10:08 AM EST 12/31/19 25 Active famotidine (Pepcid) 20 MG tablet Take 1 tablet (20 mg) by mouth 2 times daily. 60 tablet 11 12/26/19 24 025 Discontinued losartan (Cozaar) 25 MG tabletIndicatio ns:Hypertension , unspecified type,Stage 3 chronic kidney disease, unspecified whether stage 3a or 3b CKD (CMS/HCC) ([facility]) Take 1 tablet (25 mg) by mouth Once per day. 30 tablet 11 12/26/19 24 025 Discontinued Active Problems Problem Noted Date Diagnosed Date Chronic venous hypertension 05/01/2023 Severe obesity ([facility]/HCC) 05/01/2023 Acute renal insufficiency 11/10/20222022 Stage 3 chronic kidney disease ([facility]/HCC) 023 12/22/2022 Osteoarthritis of both knees 07/13/2022 Vascular insufficiency 03/15/2022 End stage renal failure on dialysis ([facility]) Hepatic fibrosis 06/06/2018 Overview (03/15/2022): Secondary to previous Hep C infection treated back in 2014 successfully with Harvoni Methadone dependence ([facility]) 11/14/2016 Pain in unspecified knee 11/14/2016 Anemia 11/25/2015 Polyp of gallbladder 04/03/2013 Nondependent mixed drug abuse in remission 11/06 Male hypogonadism 11/07/2011 Hypertension 11/07/2011 Obesity 06/26/2011 Encounters Date Type Department Care Team Description 12/30/2024 Refill [facility] [address] [place] [id number] Name, MD Jose Hypertension, unspecified type; Stage 3 chronic kidney disease, unspecified whether stage 3a or 3b CKD ([facility]/HCC) ([facility]) from Last 3 Months Immunizations Immunization Administration [...] the past 12 months, has t he [employer] gas, oil or water company threatened to [...] 60 years or older (1 - Risk 50-74 years 1-dose series) 05/30/2005 Depression Screening 04/30/2024 05/01/2023, 09/15/19 SDOH Screening 04/30/2024 05/01/2023 COVID-19 Vaccine (3 - season) 2024 06/16/2020, 05/19/2020 Influenza Vaccine (#1) 2024 , 03/15/2022, 11/09/2020, [...] Priority Date/Time Associated Diagnosis Comments HEPATITIS C AB W/REFL TO HCV RNA, QN, PCR Routine 07/14/2024 8:48 AM EDT Hepatic fibrosis Opioid dependence, uncomplicated (CMS/HCC) COLONOSCOPY Routine 03/29/2016 12:27 PM EST from Last 3 Months or Most Recently Relevant to Health Maintenance Results * (ABNORMAL) Hepatitis C Antibody with Reflex to HCV, RNA, Quantitative, Real- Time PCR (07/14/2024 8:48 AM EDT) Hepatitis C Antibody Reactive( A) Nonreactive [facility] Comment:Presumptive evidence of antibodies to HCV. Blood Venous blood specimen / Unknown 07/14/2024 8:48 AM EDT 07/14/2024 11:11 AM EDT Nino Miranda MD LAB BLOOD ORDERABLES Final Resul t [facility] [address] [place] [phone] * Colonoscopy (03/29/2016 12:27 PM EST) Colonoscopy Normal Normal Narrative Isis Wetzel - 03/29/2016 12:27 PM EST Recommended 10 year follow up Manny Son MD HEALTH MAINTENANCE Final Result from Last 3 Months or Most Recently Relevant to Health Maintenance Insurance [facility] STAND[employer] MEDICARE Care Teams Leaflet Distributor Relationship Specialty Start Date End Date Name, MD Jose [address] [place] [id number] PCP - General Family Medicine 09/20/16
--- OUTSIDE RECORDS SUMMARY | 2025-01-17 02:15 | XMS_ITS | Encounter Summary ---
Author Organization [email or web address] Address [address] [place] [address] [address] [place] [address] Care Team Providers Care Drafter Name Role Phone Name, Jose MERRITT Primary Care Provider [phone] Encounter Details Date Type Department Care Team (Late st Contact Info) Description 07/17/2022 Abstract [facility] [address] [place], [place] [phone] Name, MD Jose [address] [place], [place] [phone] Social History Tobacco Use Types Packs/Day Years [...] on file documented as of this encounter Procedures Procedure Name Priority Date/Time Associated Diagnosis Comments COLONOSCOPY Routine 03/29/2016 12:27 PM EST documented in this encounter Results * Hm Colonoscopy (03/29/2016 12:27 PM EST) Colonoscopy Normal Normal Narrative Isis Wetzel - 03/29/2016 12:27 PM EST Recommended 10 year follow up Historical Provider HEALTH MAINTENANCE Final Result documented in this encounter Visit Diagnoses Not on filedocumented in this encounter Care Teams Drafter Relationship Specialty Start Date End Date Name, MD Jose [address] [place], [place] [phone] PCP - General Family Medicine 09/20/16 documented as of this encounter
--- OUTSIDE RECORDS SUMMARY | 2025-01-17 02:15 | XMS_ITS | Encounter Summary ---
Author Organization [employer] Address [address] [facility] 7t [place] [address] Care Team Providers Care Chemical Laboratory Tester Name Role Phone Name, Jose MERRITT Primary Care Provider [phone] Encounter Details Date Type Department Care Team (Late st Contact Info) Description 03/15/2022 Abstract [facility] [address] [place] [address] [phone] Name, MD Jose [address] [place], [place] [phone] Social History Tobacco Use Types Packs/Day Years [...] on filedocumented in this encounter Care Teams Chemical Laboratory Tester Relationship Specialty Start Date End Date Name, MD Jose [address] [place] [address] [id number] PCP - General Family Medicine 09/20/16 documented as of this encounter
--- OUTSIDE RECORDS SUMMARY | 2025-01-17 02:15 | XMS_ITS | Encounter Summary ---
Author Organization [employer] Address [address] [facility] [address] [place] [address] Care Team Providers Care Cutter Out Name Role Phone Name, Jose MERRITT Primary Care Provider [phone] Reason for Visit * Reason Onset Date Comments Hospital Follow-up 08/28/2022 Encounter Details Date Type Department Care Team (Late st Contact Info) Description 08/28/2022 Telephone [facility] [address] [place] [address] Name, MD Jose [address] [place] [address] Hospital Follow-up Social History Tobacco Use Types [...] a HDF appt. Pt was admitted at [facility] on 08/06/22 and discharged on 08/25/22. Pt was diagnosed with kidney failure. Patient is now going to dialysis. Patient speaks micronesian documented in this encounter Plan of Treatment Not on file documented as of this encounter Visit Diagnoses Not on filedocumented in this encounter Care Teams Cutter Out Relationship Specialty Start Date End Date Name, MD Jose [address] [place] [address] PCP - General Family Medicine 09/20/16 documented as of this encounter
--- OUTSIDE RECORDS SUMMARY | 2025-01-17 02:15 | XMS_ITS | Encounter Summary ---
Author Organization [employer] Address [address] [facility] [address] [place] [address] Care Team Providers Care Data Engineer Name Role Phone Name, Jose MERRITT Primary Care Provider [phone] Reason for Visit * Reason Onset Date Comments FYI 08/24/2022 Encounter Details Date Type Department Care Team ([facility] st Contact Info) Description 08/24/2022 Telephone [facility] [address] [place], [place] [phone] Name, MD Jose [address] [place] [address] FYI Social History Tobacco Use Types Packs/Day [...] - 08/24/2022 12:40 PM EDT Tc from [place] with [facility] calling to advise PCP, hospital gave pt a referral for [facility] but wont give care to pt since he is with [facility]. documented in this encounter Plan of Treatment Not on file documented as of this encounter Visit Diagnoses Not on filedocumented in this encounter Care Teams Data Engineer Relationship Specialty Start Date End Date Name, MD Jose [address] [place] [address] [phone] PCP - General Family Medicine 09/20/16 documented as of this encounter
--- NOTE | 2025-01-17 02:47 | ED.WOUNDLAC ---
HPI - Wound/Laceration General Chief Complaint: Wound/Laceration Stated Complaint: lac on right finger Time Seen by Provider: 01/17/25 02:42 Source: patient Mode of arrival: ambulatory Limitations: no limitations History of Present Illness ED Provider: Dr. Katt Nguyen HPI narrative: Patient comes to the emergency room complaining of a laceration lateral to the fingernail in the right middle finger. Patient states that he was clipping his nails and accidentally nicked the skin. Patient denies being on blood thinners. Patient states that less than 10 years ago he had his Tdap. States that he is not sure but at this time he is not willing to get a Tdap booster Related Data Home Medications ?Medication ?Instructions ?Recorded ?Confirmed propranolol 40 mg tablet 1 tab PO BID 05/01/20 08/05/22 naloxone 4 mg/actuation nasal spray 0 spray intranasal USEASDIRECTD 01/19/22 08/05/22 omeprazole 40 mg capsule,delayed 40 mg PO DAILY 01/19/22 08/05/22 release methadone 10 mg/mL oral 28 mg PO DAILY 08/06/22 08/06/22 concentrate (Methadone Intensol) Previous Rx's ?Medication ?Instructions ?Recorded polyethylene glycol 3350 17 gram 17 g PO DAILY 30 days #30 ea 08/23/22 oral powder packet Allergies Allergy/AdvReac Type Severity Reaction Status Date / Time No Known Allergies Allergy Verified 01/17/25 01:46 Review of Systems Review of Systems: Constitutional : No Weight loss, No Fever, No Chills, No Night Sweats, No Fatigue, No Malaise ENT/Mouth : No Hearing loss, No Ear Pain, No Nasal Congestion, No Sinus Pain, No Hoarseness, No sore throat, No Rhinorrhea, No Swallowing Difficulty Eyes: No Eye Pain, No Swelling, No Redness, No Foreign Body, No Discharge, No Vision Changes Cardiovascular : No Chest Pain, No SOB, No Dyspnea on Exertion, No Orthopnea, No Edema, No Palpitations Respiratory : No Cough, No Sputum, No Wheezing, No Smoke Exposure, No Dyspnea Gastrointestinal : No Nausea, No Vomiting, No Diarrhea, No Constipation, No abdominal Pain, No Hematochezia, No Melena Genitourinary : no irregular bleeding, No Dysuria, No Urinary Frequency, No Hematuria, No Urinary Incontinence, No Urgency, No Flank Pain, No Urinary Flow Changes, No Hesitancy Musculoskeletal : No joint pain, No Myalgias, No Joint Swelling Skin : Complaining of a laceration to the skin next to the fingernail Neuro : No Weakness, No Numbness, No Paresthesias, No Loss of Consciousness, No Dizziness, No Headache Psych : No Anxiety/Panic, No Depression, No SI/HI/AH/VH, No Social Issues, Heme/Lymph: No Bruising, No Bleeding,No Lymphadenopathy Endocrine : No Polyuria, No Polydipsia, No Temperature Intolerance [facility] Past Medical History Medical History Venous stasis ulcer Pancytopenia COVID-19 Cirrhosis Pedal edema GERD (gastroesophageal reflux disease) Hx of hepatitis C Hepatic fibrosis Osteoarthritis of both knees Anemia History of substance abuse Hypertension Surgical History Hx of endoscopic retrograde cholangiopancreatography History of esophagogastroduodenoscopy (EGD) Hx of appendectomy Hx of left knee surgery Family History Family History Father No problems noted. Mother No problems noted. Social History Social History Household Members: None Housing: Unknown / Unable to assess Do you presently have visiting nurse or other home services: Yes Alcohol intake: former Patient Tobacco Use Status: Never used Tobacco Smoked in Last 30 Days: No e-Cigarette/Vaping Use: Never Used Second Hand Smoke Exposure: No Use of substances other than those prescribed or required for medical reasons: No Substance Use Type: Former Substance User Advance Directives: No Advance Directives Information Provided: Yes service: No Current occupational status: disabled Physical Exam Exam: Exam: Appearance: Alert. Oriented X3. No acute distress. Eyes: Pupils equal, round and reactive to light. ENT: Pharynx normal. Neck: Normal inspection. Neck supple. No lymph nodes noted. No crepitus CVS: Normal heart rate and rhythm. Pulses normal. Normal S1 and S2 Respiratory: No respiratory distress. Breath sounds normal. No Wheezing. No rales Abdomen: Soft and nontender. No rigidity. No distention. Skin: Skin warm and dry. Normal skin color. Normal skin turgor. Extremities: No lower extremity edema. No Lacerations. No Rash on the right middle finger, patient has a 1 mm laceration where he nicked his skin with a nail clipper. Bleeding controlled. Neuro: Oriented X 3. No motor deficit. No sensory deficit. Moving all extremities. No slurred speech. CN 2 through 12 grossly intact Psych: calm, cooperative, normal affect Vital Signs: Vital Signs: Last Vital Signs Temp 98.1 F 01/17/25 01:44 Pulse 84 01/17/25 01:44 Resp 18 01/17/25 01:44 BP 177/78 H 01/17/25 01:44 Pulse Ox 96 01/17/25 01:44 O2 Del Method Room Air 01/17/25 01:44 BMI result Body Mass Index 45.1 Medical Decision Making Medical Decision Making MDM Narrative: Patient's wound was cleaned, bleeding controlled. Patient declined Tdap booster Discharge Plan Discharge Clinical Impression: Laceration of skin of finger Patient Disposition: Home, Self-Care Instructions: Laceration (ED) Additional Instructions: Please follow-up with your primary care physician tomorrow. If you have any worsening or new symptoms, please return to the emergency room or call 911 Prescriptions: No Action propranolol 40 mg tablet 1 tab PO BID methadone [Methadone Intensol] 10 mg/mL Concentrate 28 mg PO DAILY polyethylene glycol 3350 17 gram Powder In Packet 17 g PO DAILY 30 Days Qty: 30 0RF omeprazole 40 mg capsule,delayed release(DR/EC) 40 mg PO DAILY naloxone 4 mg/actuation spray,non-aerosol 0 spray intranasal USEASDIRECTD Print Language: Irish
[2025-01-17 02:52] VITALS: BP 177/78; PULSE 84; RESP 18; TEMP 36.7; O2SAT 96
== END 2025-01-17 02:53 | disposition home or self-care (01) ==
PROVIDERS: Emergency Provider Emergency Medicine; PCP Internal Medicine Geriatric Medicine
DX: S61.212A Laceration without foreign body of right middle finger without damage to nail, initial encounter (principal); W45.8XXA Other foreign body or object entering through skin, initial encounter; Y93.E8 Activity, other personal hygiene; Y92.9 Unspecified place or not applicable; I10 Essential (primary) hypertension
CPT/HCPCS: 99282; 99284